=== PATIENT | female | born 1960 | race Caucasian/White ===

== ENCOUNTER 2022-07-21 10:46 | Outpatient (CLI) | payer BC, SELFPAY ==
--- OUTSIDE RECORDS SUMMARY | 2022-07-21 11:07 | XMS_ITS | Encounter Summary ---
:1960 [facility] Address [address], [place] [address] Care Team Providers Name Role Phone Bailey Arenas MD Primary Care Provider Encounter Details Date Type Department Care Team Description 01/24/2017 Notes/Orders [facility] Bailey Arenas MD [address] [place] [address] [place] [address] [phone] (Wo rk) Social History Tobacco Use Types Packs/Day Years Used Date Smoking Tobacco: Never Smokeless Tobacco: Never Alcohol Use Standard Drinks/Week Comments Yes 7 (1 standard drink = 0.6 oz pure alcoho l) weekly Sex Assigned at Date Recorded Not on file documented as of this encounter Plan of Treatment Not on filedocumented as of this encounter Visit Diagnoses Not on filedocumented in this encounter Care Teams Plumbing Foreman Relationship Specialty Start Date End Date Bailey Arenas MD PCP - General Internal Medicine 09/16/[address] [place] [address] documented as of this encounter
--- OUTSIDE RECORDS SUMMARY | 2022-07-21 11:07 | XMS_ITS | Clinical Summary ---
:1960 Author Organization [facility] [place] [address] Care Team Providers Name Role Phone Zoe Ivan MD Primary Care Provider Unavailabl e Allergies Active Allergy Reactions Severity Noted Date Comments Diphenhydramine 2010 Prochlorperazine 2010 Propoxyphene 2010 Medications No known medications Active Problems Problem Noted Date Other chronic allergic conjunctivitis 05/03/2014 Environmental allergies 05/03/2014 Adenomatous polyp of colon 12/25/2010 Overview: sessile serrated adenoma, on colonoscopy Hyperlipemia Immunizations Name Administration Dates Next Due Hepatitis A (Adult) 07/26/2001, 01/25/2001 Hepatitis B (Adult) 01/25/2001, 01/25/2001, 01/24/2001 Influenza, IIV3 (Age >=3 years) 09/01/2006, 08/01/2006, 1110/1998, 07/29/1999 Meningococcal Vaccine 02/06/2009, 08/31/2004, 01/25/2001 Polio Virus, Unspecified 01/25/2001 Td (Age >=7 Years) 01/25/2001 Tdap 02/06/2009 Tuberculin (PPD) 10/25/2005 Typhoid, Unspecified 02/02/2008, 08/31/2004 Yellow Fever 08/31/2004 Family History Medical History Relation Name Comments Hypertension Father Stroke Father Cancer Maternal Grandfather lung Psychiatric illness Maternal Grandfather depress ion Osteoporosis Maternal Grandmother Osteoporosis Mother Heart Disease Paternal Grandfather Osteoporosis Paternal Grandmother Stroke Paternal Grandmother Relation Name Status Comments Brother Alive Father Alive Maternal Grandfather Maternal Grandmother Mother Alive Paternal Grandfather Paternal Grandmother Social History Tobacco Use Types Packs/Day Years Used Date Never Smoker Smokeless Tobacco: Never Used Alcohol Use Standard Drinks/Week Comments Yes 4.2 (1 standard drink = 0.6 oz pure alco hol) Sex Assigned at Date Recorded Not on file Obstetrics History Last Filed Vital Signs Vital Sign Reading Time Taken Comments Blood Pressure 175/112 09/08/2016 4:05 PM LARDER COOK Pulse 88 09/08/2016 4:05 PM LARDER COOK Temperature 36.7 ??C (98 ??F) 03/10/2012 9:12 AM CDT Respiratory Rate - - Oxygen Saturation - - Inhaled Oxygen Concentration - - Weight 68.5 kg (151 lb) 03/10/2012 9:12 AM CDT Height 167 cm (5' 5.75) 03/10/2012 9:12 AM CDT Body Mass Index 24.56 03/10/2012 9:12 AM CDT Plan of Treatment Health Maintenance Due Date Last Done Comments COVID-19 vaccine series (#1) 1960 Depression screening for age 12+ 1971 BMI (ht and wt on same day) for 1977 age 18+ Hepatitis C screening for age 0603/27/1977 18-79 Zoster (shingles) series for age 0603/27/2009 50+ (1 of 2) Mammogram for age 45-75 2014 2013, 03/24/2012, 12/11/2010, Additional history exists Lipids for age 45-75 12/05/2015 12/04/2010 Tetanus booster 02/06/2019 02/06/2009, 01/25/2001 Colonoscopy through age 75 12/25/2020 12/25/2010, 1 Pap test for age 21-65 02/12/2022 02/12/2019, 02/12/2019, 12/04/2010, Additional history exists Influenza for age 50-64 06/03/2022 09/01/2006, 08/01/2006, 08/03/1999, Additional history exists Tdap Completed 02/06/2009 Results Not on filefrom Last 3 Months Care Teams Psychology Associate Relationship Specialty Start Date End Date Zoe Ivan MD PCP - General Family Practice 12/04/10
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
--- OUTSIDE RECORDS SUMMARY | 2022-07-21 11:07 | XMS_ITS | Encounter Summary ---
:1960 Author Organization [facility] Address [address] [address] Care Team Providers Name Role Phone Karlo Duenas MD Primary Care Provider Reason for Visit Reason Comments Refill lisinopril (ZESTRIL) 10 MG t ablet [Pharmacy Med Name: LISINOPRIL 10 MG TABLET] Encounter Details Date Type Department Care Team Description 10/22/2017 Refill [facility] Karlo Duenas MD Refill (lisinopril [address] (ZESTRIL) 10 [place] [address] [place] [address] [Pharmacy Med Name: [phone] (Wo rk) LISINOPRIL 10 MG TABLET]) Social History Tobacco Use Types Packs/Day Years Used Date Smoking Tobacco: Never Smokeless Tobacco: Never Alcohol Use Standard Drinks/Week Comments Yes 7 (1 standard drink = 0.6 oz pure alcoho l) weekly Sex Assigned at Date Recorded Not on file documented as of this encounter Nursing Notes Iraj Mendoza RN - 10/26/2017 10:31 AM CST Renewed medication per medication refill protocol. Requested Prescriptions Signed Prescriptions Disp Refills ??? lisinopril (ZESTRIL) 10 MG tablet 90 Tab 0 Sig: Take 1 Tab by mouth daily. Authorizing Provider: KARLO DUENAS Ordering User: IRAJ MENDOZA Refused Prescriptions Disp Refills ??? lisinopril (ZESTRIL) 10 MG tablet [Pharmacy Med Name: LISINOPRIL 10 MG TABLET] 90 Tab 0 Sig: TAKE 1 TAB BY MOUTH DAILY. Refused By: IRAJ MENDOZA Reason for Refusal: Duplicate Error TED PHYSICAL EDUCATION TEACHER Interface, Out Surescripts Prov Query - 10/22/2017 12:31 AM CST lisinopril (ZESTRIL) 10 MG tablet [Pharmacy Med Name: LISINOPRIL 10 MG TABLET] Medication started: 09/16/2016 Last ordered by KARLO DUENAS: 10/17/2017 (5 days ago) QTY: 90, Refills: 0, Sig: take 1 tab by mouth daily. (unchanged) -> The patient is requesting a renewal from a different pharmacy. -> Refill x 3 months (courtesy refill, overdue for a(n) Cr check and K check) Last qualifying visit: 12/20/2016 (with KARLO DUENAS) Next scheduled visit: 11/03/2017 (with KARLO DUENAS) SBP: 124 mm Hg on 12/20/2016 DBP: 72 mm Hg on 12/20/2016 Cr: 0.8 mg/dL on 10/11/2016 K: 4.2 mEq/L on 10/11/2016 PATIENT IS DUE FOR: - CR (Sent to [facility]) - K (Sent to [facility]) Powered by [employer], Reference: [id number], 10/22/2017 12:31:14 AM ADAPTED PHYSICAL EDUCATION TEACHER, Pool: JOSSIE REFILL ([id number]) Electronically signed by Interface, Out [facility] [employer] Prov Query at 10/26/2017 10:31 AM ADAPTED PHYSICAL EDUCATION TEACHER documented in this encounter Plan of Treatment Not on filedocumented as of this encounter Visit Diagnoses Diagnosis Essential hypertension (HRC) Unspecified essential hypertension documented in this encounter Care Teams Fork Truck Operator Relationship Specialty Start Date End Date Karlo Duenas MD PCP - General Internal Medicine 09/16/16 [address] [place] [address] documented as of this encounter
--- OUTSIDE RECORDS SUMMARY | 2022-07-21 11:07 | XMS_ITS | Encounter Summary ---
:1960 Author Organization [facility] Address [address] [address] Care Team Providers Name Role Phone Bailey Arenas MD Primary Care Provider Reason for Visit Reason Comments Biometrics Screening Encounter Details Date Type Department Care Team Description 09/22/2020 Office Visit [facility] Encounter for biometric [address] [facility] screening (Primary Dx) [place] [address] Social History Tobacco Use Types Packs/Day Years Used Date Smoking Tobacco: Never Smokeless Tobacco: Never Alcohol Use Standard Drinks/Week Comments Yes 7 (1 standard drink = 0.6 oz pure alcoho l) weekly Sex Assigned at Date Recorded Not on file documented as of this encounter Last Filed Vital Signs Vital Sign Reading Time Taken Comments Blood Pressure 128/82 09/22/2020 9:14 AM SYSTEM ADMINISTRATION ADVISOR Pulse 67 09/22/2020 9:14 AM SYSTEM ADMINISTRATION ADVISOR Temperature - - Respiratory Rate - - Oxygen Saturation - - Inhaled Oxygen Concentration - - Weight 74.4 kg (164 lb) 09/22/2020 9:07 AM SYSTEM ADMINISTRATION ADVISOR Height 167.6 cm (5' 6) 09/22/2020 9:07 AM SYSTEM ADMINISTRATION ADVISOR Body Mass Index 26.47 09/22/2020 9:07 AM SYSTEM ADMINISTRATION ADVISOR documented in this encounter Progress Notes Arpita Gallardo PA-C - 09/22/2020 9:20 AM CST SUBJECTIVE: Shonna Bashir presents to [facility] for Biometric Screening. Patient is fasting at least 12 hours today and denies any medical concerns or problems. Allergies, medications and histories reviewed and updated. OBJECTIVE: BP 128/82 (BP Location: Right Arm, BP Cuff Size: Regular) Pulse 67 Ht 5' 6 (1.676 m) Wt 164 lb (74.4 kg) LMP 04/11/2014 BMI 26.47 kg/m?? Estimated body mass index is 26.47 kg/m?? as calculated from the following: Height as of this encounter: 5' 6 (1.676 m). Weight as of this encounter: 164 lb (74.4 kg). She appears well, in no apparent distress. Alert and oriented times three, pleasant and cooperative.Vital signs are as noted. Normal respiratory effort. No peripheral edema. ASSESSMENT: Biometric Screening PLAN: Biometric screening performed without problems or complications. Discussed Biometric results with patient. Lipid-glucose POC results are incomplete with no LDL however she had fasting labs checked in March 2020 and results were normal per patient. Her HDL is high most likely causing Total Cholesterol to be high. She has history of Hyperlipidemia and takes Rosuvastatin daily, managed by PCP at [facility]. Patient is encouraged to follow up at clinic as needed. EM ADMINISTRATION ADVISOR documented in this encounter Plan of Treatment Not on filedocumented as of this encounter Procedures Procedure Name Priority Date/Time Associated Diagnosis Comme nts LIPID+GLUCOSE Routine 09/22/2020 9:04 AM Encounter for Results for this SCREEN,POINT OF SYSTEM ADMINISTRATION ADVISOR biometric screening proce kt are in CARE the results section. documented in this encounter Results (ABNORMAL) Lipid+Glucose Screen,Point Of Care (09/22/2020 9:04 AM SYSTEM ADMINISTRATION ADVISOR) P athologist Signature Cholesterol, 242 (H) 0 - 199 09/22/2020 [facility] Whole Blood mg/dL 9:12 AM SYSTEM ADMINISTRATION ADVISOR [place] Triglyceride, <45 0 - 149 09/22/2020 [facility] Whole Blood mg/dL 9:12 AM SYSTEM ADMINISTRATION ADVISOR [place] HDL, Whole >100 >40 mg/dL 09/22/2020 [facility] Blood 9:12 AM SYSTEM ADMINISTRATION ADVISOR [place] LDL, 09/22/2020 [facility] Calculated, 9:12 AM SYSTEM ADMINISTRATION ADVISOR [place] Whole Blood Comment: Unable to calculate Chol/HDL Ratio, Whole Blood 09/22/2020 9 :12 AM SYSTEM ADMINISTRATION ADVISOR [facility] [place] Comment: Unable to calculate Glucose Whole Blood 83 70 - 100 mg/dL 09/22/2020 9:12 AM SYSTEM ADMINISTRATION ADVISOR [facility] [place] Hours Fasting 12 09/22/2020 9:12 AM SYSTEM ADMINISTRATION ADVISOR [facility] [place] Specimen Anatomical Collection Method / Collection Time Recei marsha Time (Source) Location / Volume Laterality Blood Venipuncture / 09/22/2020 9:04 09/22/2020 9:04 Unknown AM SYSTEM ADMINISTRATION ADVISOR AM SYSTEM ADMINISTRATION ADVISOR Arpita Gallardo PA-C LAB_1 Performing Organization Address City/State/ZIP Code Phon e Number [facility] [place] [address] [place] [address] documented in this encounter Visit Diagnoses Diagnosis Encounter for biometric screening - Prim babak documented in this encounter Care Teams Screen Printing Machine Loader Unloader Relationship Specialty Start Date End Date Bailey Arenas MD PCP - General Internal Medicine 09/16/16 [address] [place] [id number] documented as of this encounter
--- OUTSIDE RECORDS SUMMARY | 2022-07-21 11:07 | XMS_ITS | Encounter Summary ---
:1960 Author Organization [facility] Address [address], [place] [address] Care Team Providers Name Role Phone Bailey Arenas MD Primary Care Provider Reason for Visit Reason Comments Disease Registry Encounter Details Date Type Department Care Team Description 03/06/2021 Telephone [facility] Arpita Byrne, Disease Registry [address] [place] [address] [address] [facility] [phone] [place] [address] (Wo rk) Social History Tobacco Use Types Packs/Day Years Used Date Smoking Tobacco: Never Smokeless Tobacco: Never Alcohol Use Standard Drinks/Week Comments Yes 7 (1 standard drink = 0.6 oz pure alcoho l) weekly Sex Assigned at Date Recorded Not on file documented as of this encounter Nursing Notes Arpita Gallardo PA-C - 03/06/2021 10:23 AM CDT Shonna Bashir was contacted today regarding Registry for Health Maintenance. Patient did not answer phone so the registry outreach is NOT APPLICABLE at this time. Health Maintenance Due Topic Date Due ??? Hep C Screening (Preventive Services) Never done ??? HIV Screening (Preventive Services) Never done ??? Colonoscopy 12/25/2020 ??? Mammogram 03/03/2021 ??? Adult Preventive Visit 03/03/2021 Left message that patient can make appt with [facility] by calling the AC if needed. Arpita Gallardo PA-C documented in this encounter Plan of Treatment Not on filedocumented as of this encounter Visit Diagnoses Not on filedocumented in this encounter Care Teams Rn Documentation Specialist Relationship Specialty Start Date End Date Bailey Arenas MD PCP - General Internal Medicine 09/16/16 [address] [place] [address] documented as of this encounter
--- OUTSIDE RECORDS SUMMARY | 2022-07-21 11:07 | XMS_ITS | Encounter Summary ---
:1960 Author Organization [facility] Address [address], [place] [address] Care Team Providers Name Role Phone Karlo Duenas MD Primary Care Provider Encounter Details Date Type Department Care Team Description 10/22/2017 Refill Order [facility] Karlo Sung MD [address] [place] [address] [place] [id number] (Wo rk) Social History Tobacco Use Types Packs/Day Years Used Date Smoking Tobacco: Never Smokeless Tobacco: Never Alcohol Use Standard Drinks/Week Comments Yes 7 (1 standard drink = 0.6 oz pure alcoho l) weekly Sex Assigned at Date Recorded Not on file documented as of this encounter Nursing Notes Becky Salgado - 10/24/2017 11:32 AM CST Labs to be addressed at future visit. SEWER HAND Interface, Out Surescripts Prov Query - 10/22/2017 12:31 AM CST SCHEDULE THE FOLLOWING: - CR BY: Now (Due as of 10/06/2017 for lisinopril (ZESTRIL) 10 MG tablet) - K BY: Now (Due as of 10/06/2017 for lisinopril (ZESTRIL) 10 MG tablet) - LAST QUALIFYING VISIT WITH KARLO DUENAS: 12/20/2016 - NEXT SCHEDULED VISIT WITH KARLO DUENAS: 11/03/2017 - NEXT LAB APPOINTMENT: None Powered by [employer], Reference: [id number], 10/22/2017 12:31:15 AM SOLE SEWER HAND, Pool: JOSSIE CHUNGILL ([id number]) SEWER HAND documented in this encounter Plan of Treatment Not on filedocumented as of this encounter Visit Diagnoses Diagnosis Encounter for long-term (current) use of medications - Primary Encounter for long-term (current) use of other medications documented in this encounter Care Teams Control Director Relationship Specialty Start Date End Date Karlo Duenas MD PCP - General Internal Medicine 09/16/16 [address] [place], [place] [address] documented as of this encounter
--- OUTSIDE RECORDS SUMMARY | 2022-07-21 11:08 | XMS_ITS | Encounter Summary ---
:1960 Author Organization [facility] Address [address], [place] [address] Care Team Providers Name Role Phone No Primary/Referring, Phy Primary Care Provider Unavailable Reason for Visit Reason Comments Skin Check Encounter Details Date Type Department Care Team Description 07/09/2016 Initial Consult [facility] [address] iple benign nevi (Primary Dx); Dermatology SMD Seborrheic keratosis; [address] Actinic keratosis; [address] [place], [place] History of nonmelanoma skin cancer; [place] [address] Skin tag [id number] [phone] Social History Tobacco Use Types Packs/Day Years Used Date Smoking Tobacco: Never Smokeless Tobacco: Never Alcohol Use Standard Drinks/Week Comments Yes 7 (1 standard drink = 0.6 oz pure alcoho l) weekly Sex Assigned at Date Recorded Not on file documented as of this encounter Progress Notes Rachid Rutledge MD - 07/09/2016 7:41 PM CDT NAME: MARTIN BASHIR MR#: [id number] CSN: [id number] AUTHENTICATING CLINICIAN: Rachid Rutledge MD CONFIRM #: [id number] LOC: 427 CLINIC PROGRESS NOTE DATE OF VISIT: 07/09/2016 : 1960 HISTORY OF PRESENT ILLNESS: Patient is a 56-year-old who presents for followup. She has a history of basal cell carcinoma in left paranasal area. Overall she is doing well. She has noticed irritated areas on the right side of herneck. She would like these treated if possible. She has not noticed any other new or changing moles.No other bleeding or pruritic lesions. No other skin lesions of concern. MEDICATIONS: Reviewed and updated in Epic. ALLERGIES: Reviewed and updated in Epic. PHYSICAL EXAM: Patient healthy-appearing and in no apparent distress. Exam is total skin, excluding undergarment areas. There is a hypertrophic papule on the right forearm. There are 3 pedunculated papules on the right inferior neck. There are light brown macules and papules on the trunk. There are numerous waxy, brown papules on the back. There is a well-healed scar onthe left paranasal area without induration or evidence of recurrence. No other skin lesions of concern. DIAGNOSIS: 1.Irritated acrochordons, right inferior neck. 2.Hypertrophic actinic keratosis, right forearm. 3.Melanocytic nevi and seborrheic keratoses, trunk and extremities. 4.History of basal cell carcinoma, left paranasal area. TREATMENT: 1.Clinical findings were discussed. 2.The hypertrophic actinic keratosis was treated with cryotherapy. Wound care was given. 3.The 3 acrochordons were treated with cryotherapy. Wound care was given. 4.No other concerning lesions were seen. 5.Recommended sunscreens and skin checks. 6.Followup will be annually or as needed. DSE:MEDQ C: CONFIRM #: [id number] documented in this encounter Plan of Treatment Not on filedocumented as of this encounter Visit Diagnoses Diagnosis Multiple benign nevi - Primary Benign neoplasm of skin, site unspecifie d Seborrheic keratosis Other seborrheic keratosis Actinic keratosis History of nonmelanoma skin cancer Personal history of other malignant neop lasm of skin Skin tag Unspecified hypertrophic and atrophic co ndition of skin documented in this encounter Care Teams Instructor Military Science Relationship Specialty Start Date End Date No Primary/Referring, Phy PCP - General 06/03/16 1 11/16/15 documented as of this encounter
--- OUTSIDE RECORDS SUMMARY | 2022-07-21 11:08 | XMS_ITS | Encounter Summary ---
:1960 Author Organization [facility] Address [address] [address] Care Team Providers Name Role Phone No Primary/Referring, Phy Primary Care Provider Unavailable Encounter Details Date Type Department Care Team Description 03/06/2015 Lab Visit [facility] Elevated blood pressure [address] reading without diagnosis of [place] [address] hypertension [phone] Social History Tobacco Use Types Packs/Day Years Used Date Smoking Tobacco: Never Assessed Sex Assigned at Date Recorded Not on file documented as of this encounter Plan of Treatment Not on filedocumented as of this encounter Procedures Procedure Name Priority Date/Time Associated Diagnosis Comme nts CREATININE / GFR Routine 03/06/2015 3:36 PM Elevated blood Res ults for this CDT pressure reading procedure a re in without diagnosis of the res ults hypertension section. ELECTROLYTE PANEL Routine 03/06/2015 3:36 PM Elevated blood Re sults for this CDT pressure reading procedure a re in without diagnosis of the res ults hypertension section. documented in this encounter Results Electrolyte Panel (03/06/2015 3:36 PM CDT) P athologist Signature Sodium 140 137 - 147 HP CONVERSION mEq/L Potassium 4.7 3.5 - 5.2 HP CONVERSION mEq/L Chloride 103 98 - 110 HP CONVERSION mEq/L Bicarbonate 33 23 - 33 HP CONVERSION mmol/L Specimen Anatomical Collection Method Collection Time Receive d Time (Source) Location / / Volume Laterality 03/06/2015 3:36 PM 06/04/201 5 5:15 CDT PM CDT Narrative HP CONVERSION - 03/06/2015 5:46 PM CDT Performed at [facility], [address] [id number] Bailey Arenas MD LAB_1 Performing Organization Address [facility] Phon e Number HP CONVERSION Creatinine / GFR (03/06/2015 3:36 PM CDT) athologist Signature Creatinine 0.8 0.4 - 1.3 HP CONVERSION Serum mg/dL Est GFR >60 >60 HP CONVERSION Am mL/min/1.7 3m2 Est GFR Non-Afr >60 >60 HP CONVERSION Am mL/min/1.7 3m2 Comment: Normal>60, moderate decrease 30 - 59, se danny decrease 15 - 29, renal failure <15 mL/min/1.73 m2 NOTE: ??Choose the eGFR result above alisha ropriate for the race of the patient. Specimen Anatomical Collection Method Collection Time Receive d Time (Source) Location / / Volume Laterality 03/06/2015 3:36 PM 5 5:15 CDT PM CDT Narrative HP CONVERSION - 03/06/2015 5:46 PM CDT Performed at [facility], [address] [place] [address] Bailey Arenas MD LAB_1 Performing Organization Address [facility] Phon e Number HP CONVERSION documented in this encounter Visit Diagnoses Diagnosis Elevated blood pressure reading without diagnosis of hypertension documented in this encounter Care Teams Delivery Table Operator Relationship Specialty Start Date End Date No Primary/Referring, Phy PCP - General 12/03/14 documented as of this encounter
--- OUTSIDE RECORDS SUMMARY | 2022-07-21 11:08 | XMS_ITS | Encounter Summary ---
:1960 [facility] Address [address] [address] Care Team Providers Name Role Phone Bailey Arenas MD Primary Care Provider Encounter Details Date Type Department Care Team Description 09/16/2016 Notes/Orders [facility] Bailey Arenas MD [address] [place] [address] [place] [address] [phone] (Wo rk) Social History Tobacco Use Types [...] on filedocumented in this encounter Care Teams Paperhanger Supervisor Relationship Specialty Start Date End Date Bailey Arenas MD PCP - General Internal Medicine 09/16/[address] [place] [id number] documented as of this encounter
--- OUTSIDE RECORDS SUMMARY | 2022-07-21 11:08 | XMS_ITS | Encounter Summary ---
:1960 Author Organization [facility] Address [address] [address] Care Team Providers Name Role Phone No Primary/Referring, Phy Primary Care Provider Unavailable Reason for Visit Reason Onset Date Comments Travel Consult 06/03/2016 Encounter Details Date Type Department Care Team Description 06/03/2016 Initial Consult [facility] [address] unseling for travel (Primary Dx); Travel Clinic RN Need for influenza vaccination; [address] for vaccine for DT (diphtheria-tetanus); [address] [place] [address] [phone] Social History Tobacco Use Types Packs/Day Years Used Date Smoking Tobacco: Never Smokeless Tobacco: Never Alcohol Use Standard Drinks/Week Comments Yes 7 (1 standard drink = 0.6 oz pure alcoho l) weekly Sex Assigned at Date Recorded Not on file documented as of this encounter Progress Notes Blessing Thacker RN - 06/03/2016 2:54 PM CDT Subjective: @[email or web address] Bowens Krysten is a 56 y.o. female who presents to the clinic for travel consultation individually. TRAVEL PLANS Planned departure date: June 22, 2016 Time in developing countries: 15 days. Countries of travel: [place] and rurally in [facility], [place] Areas in country: rural and urban Traveling to Malarial area: yes Time in malarial area: 11 days. Reviewed Malarial risk map: yes Prior malarial chemoprophylaxis use: Yes, izzy Malarone well prev and prefers this rx again, is awareof cost and is willing to self pay, may have 2nd trip to same locations next year for 14 days risk, will order 2 separate Malarone rxs, one rx for this trip of 11 days and 2nd rx for possible use next year for 14 days risk Traveling to Yellow Fever area: no Accommodations: [employer] Purpose of travel: business PRIOR HEALTH HISTORY Currently ill / Fever: no Currently taking antibiotics: no History of liver or kidney disease: No History of anxiety or depression: No History of cardiac arrhythmia or rhythm conduction abnormalities (QT prolongation): No History of GERD/IBS: No History of cancer: yes - skin cancer prev Currently immune compromised or taking high dose steroids: No Other relevant travel health history: yes - see problem list Patient Active Problem List Diagnosis ??? Personal history of skin cancer ??? Day-menopause ??? Essential hypertension (HRC) Allergies Allergen Reactions ??? Compazine [Phenothiazines] Unknown ??? Darvon-N [Propoxyphene Napsylate] Unknown ??? Diphenhydramine PN: Pt. states she was a child and does not remember. ??? Prochlorperazine ??? Propoxyphene Outpatient Prescriptions Prior to Visit Medication Sig Dispense Refill ??? acetaminophen (TYLENOL) 325 MG tablet Take 650 mg by mouth every 4 hours as needed for Pain. Maximum 4000mg per 24 hours ??? aspirin 325 MG tablet Take 325 mg by mouth daily (every 24 hours). ??? DRUG NOT IN COMPUTER Take by mouth 3 times daily. ??? ibuprofen (MOTRIN) 200 MG tablet Take 400 mg by mouth every 6 hours as needed for Pain. ??? estradiol 10 MCG TABS vaginal tablet Use 1 tablet once daily vaginally for 14 days then 1 tablettwice a week. 34 tablet 0 ??? loratadine (CLARITIN) 10 MG tablet Take 10 mg by mouth daily (every 24 hours). ??? MULTIPLE VITAMIN OR ??? Multiple Vitamins-Minerals (MULTIVITAMIN OR) Take 1 tablet by mouth daily (every 24 hours). ??? omega-3 fatty acids (AKA MAXEPA,FISH OIL) 1000 MG capsule Take 2 g by mouth daily. No facility-administered medications prior to visit. Is the patient ? no ? no Assessment: Contraindications to travel: no Plan: PATIENT EDUCATION Patient was given verbal and/or written information about: Rahat Influenza, Chikungunya, Dengue Fever, Diphtheria/Tetanus, Hepatitis A, Hepatitis B, HIV, Influenza, Insect-related illnesses and prevention, Turkish Encephalitis, Leishmaniasis, Leptospirosis, Malaria, MMR, Polio, Rabies--pre-exposure sc hedule, Rabies--post-exposure schedule, Seafood Poisoning, Sexually Transmitted Diseases, Travax/CDCinformation, Traveler's Diarrhea, Typhoid, Zika HFMD. Reviewed vaccine schedule and efficacy. Patient was also provided information about health care and insurance information while traveling abroad. Patient appears to understand all the information provided. Discussed the use of Pepto Bismol and Imodium (follow package insert) See below for vaccines and medications ordered this visit. Patient had no reaction. Patient declined: Shingles FOLLOW UP No labs ordered. No follow-up visit needed. Time spent on travel education Individual or Group counselin minutes. Total appointment time: 30 minutes. IMMUNIZATIONS AND PRESCRIPTIONS Immunization counseling was provided for the vaccines that were administered at the visit No orders of the defined types were placed in this encounter. Orders Placed This Encounter Medications ??? atovaquone-proguanil (MALARONE) 250-100 MG tablet Sig: Take 1 tab 2 days before malarial mosquito exposure, daily while there, and 7 days after. Dispense: 23 Tab Refill: 0 Discussed Malarone rx prices. Pt is aware of the cost of Malarone. Pt will pay davila for Malarone rxif needed. No PA needed. ??? azithromycin (ZITHROMAX) 500 MG tablet Sig: Take 1 tab daily as needed for severe traveler's diarrhea Dispense: 3 Tab Refill: 1 ??? atovaquone-proguanil (MALARONE) 250-100 MG tablet Sig: Take 1 tab daily. Start 2 days before malarial mosquito exposure, daily while there and continue for 7 days after leaving. Dispense: 20 Tab Refill: 0 2rxs needed for 2 different trips Immunization History Administered Date(s) Administered ??? Chicken Pox-history Of Illness 1964 ??? Flu Vac Preserv Free (3+yrs) 08/03/2005, 09/01/2006, 08/01/2008 ??? HepA Adult (19+ yrs) 01/25/2001, 07/27/2001 ??? HepB Adult (20+ yrs) 01/25/2001, 02/22/2001, 07/27/2001 ??? IPV (Polio) 01/25/2001 ??? Influenza (Fluarix 0.5, 3+ yrs) 06/18/2014, 06/03/2016 ??? MCV4 (Menactra) 02/06/2009 ??? MMR 10/02/1996 ??? MPSV4 (Menomune) 01/25/2001, 08/31/2004 ??? Measles 10/03/1964 ??? Rubella 11/03/1969 ??? TB Skin Test (PPD) 10/25/2005 ??? TDAP (ADACEL) 02/06/2009 ??? Td 01/25/2001 ??? Td (7+ yrs) 06/03/2016 ??? Typhoid (Vivotif, Oral) 08/31/2004, 02/02/2008, 08/02/2014 ??? YF (Yellow Fever) 08/31/2004 documented in this encounter Plan of Treatment Not on filedocumented as of this encounter Visit Diagnoses Diagnosis Counseling for travel - Primary Other specified counseling Need for influenza vaccination Need for prophylactic vaccination and in oculation against influenza Need for vaccine for DT (diphtheria-teta nus) Need for prophylactic vaccination with t etanus-diphtheria (Td) Counseling about travel documented in this encounter Care Teams Tool Adjuster Relationship Specialty Start Date End Date No Primary/Referring, Phy PCP - General 06/03/16 1 11/16/15 documented as of this encounter
--- OUTSIDE RECORDS SUMMARY | 2022-07-21 11:08 | XMS_ITS | Encounter Summary ---
:1960 [facility] Address [address] [place] [address] Care Team Providers Name Role Phone Bailey Arenas MD Primary Care Provider Encounter Details Date Type Department Care Team Description 12/03/2012 Consent for [facility] MRI CON SENT FOR Procedure/[facility], [facility] nt [address] [facility] Provider [place], [place] [id number] Social History Tobacco Use Types Packs/Day Years Used Date Smoking Tobacco: Never Assessed Sex Assigned at Date Recorded Not on file documented as of this encounter Progress Notes [facility], Provider - 12/03/2012 12:00 AM CST NG BLOCK CUTTER documented in this encounter Plan of Treatment Not on filedocumented as of this encounter Visit Diagnoses Not on filedocumented in this encounter Care Teams Pretzel Cooker Relationship Specialty Start Date End Date Bailey Arenas MD PCP - General Internal Medicine 09/16/[address] [phone] documented as of this encounter
--- OUTSIDE RECORDS SUMMARY | 2022-07-21 11:08 | XMS_ITS | Encounter Summary ---
:1960 Author [facility] Address [address], [place] [address] Care Team Providers Name Role Phone Bailey Arenas MD Primary Care Provider Reason for Visit Reason Comments MEDICATION CHECK Encounter Details Date Type Department Care Team Description 12/20/2016 Office Visit [facility] Bailey Arenas, Essential hypertension Medicine (Primary Dx) [address] [place] [address] [address] [place] [address] [phone] Social History Tobacco Use Types Packs/Day Years Used Date Smoking Tobacco: Never Smokeless Tobacco: Never Alcohol Use Standard Drinks/Week Comments Yes 7 (1 standard drink = 0.6 oz pure alcoho l) weekly Sex Assigned at Date Recorded Not on file documented as of this encounter Last Filed Vital Signs Vital Sign Reading Time Taken Comments Blood Pressure 124/72 12/20/2016 1:56 PM CDT Pulse 96 12/20/2016 1:56 PM CDT Temperature - - Respiratory Rate - - Oxygen Saturation - - Inhaled Oxygen Concentration - - Weight 73 kg (161 lb) 12/20/2016 1:56 PM CDT Height - - Body Mass Index 25.99 03/30/2016 2:37 PM CDT documented in this encounter Progress Notes Bailey Arenas MD - 12/20/2016 2:10 PM CDT Chief Complaint Patient presents with ??? MEDICATION CHECK SUBJECTIVE: Shonna Bashir is a 56 y.o. female here for a med check for blood pressure. She started lisinopril in September. She is now on 10 mg daily and BP is 124/72. She had some higher readings initially when her dad was in the hospital but he is doing better now. 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 She is feeling well and has no issues with lisinopril. OBJECTIVE: Vital Signs: BP 124/72 mmHg Pulse 96 Wt 73.029 kg (161 lb) General: Alert, pleasant, no distress. Psych: Alert and oriented with normal affect and insight. ASSESSMENT AND PLAN: Shonna was seen today for medication check. Diagnoses and all orders for this visit: Essential hypertension (HRC): BP looks good on 10 mg of lisinopril - continue. Follow up - one year documented in this encounter Plan of Treatment Not on filedocumented as of this encounter Visit Diagnoses Diagnosis Essential hypertension (HRC) - Primary Unspecified essential hypertension documented in this encounter Care Teams Synchro Assembler Relationship Specialty Start Date End Date Bailey Arenas MD PCP - General Internal Medicine 09/16/[address] [place] [id number] documented as of this encounter
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
--- OUTSIDE RECORDS SUMMARY | 2022-07-21 11:08 | XMS_ITS | Encounter Summary ---
:1960 Author Organization [facility] Address [address] [place] [address] Care Team Providers Name Role Phone Bailey Arenas MD Primary Care Provider Encounter Details Date Type Department Care Team Description 12/03/2012 Consent for [facility] MRI SAF ETY Procedure/[facility], SCREENING CONSENT nt [address] [facility] Provider [place], [place] [id number] Social History Tobacco Use Types Packs/Day Years Used Date Smoking Tobacco: Never Assessed Sex Assigned at Date Recorded Not on file documented as of this encounter Progress Notes [facility], Provider - 12/03/2012 12:00 AM CST E WASHER documented in this encounter Plan of Treatment Not on filedocumented as of this encounter Visit Diagnoses Not on filedocumented in this encounter Care Teams Oilfield Plant And Field Operator Relationship Specialty Start Date End Date Bailey Arenas MD PCP - General Internal Medicine 09/16/[address] [phone] documented as of this encounter
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
--- OUTSIDE RECORDS SUMMARY | 2022-07-21 11:08 | XMS_ITS | Encounter Summary ---
:1960 Author Organization [facility] Address [address] [place] [address] Care Team Providers Name Role Phone Bailey Arenas MD Primary Care Provider Reason for Visit Reason Comments HYPERTENSION Encounter Details Date Type Department Care Team Description 09/30/2016 Notes/Orders [facility] Bailey Arenas MD [address] [place] [address] [place] [address] [phone] (Wo rk) Social History Tobacco Use Types [...] on filedocumented in this encounter Care Teams Solution Developer Relationship Specialty Start Date End Date Bailey Arenas MD PCP - General Internal Medicine 09/16/16[address] [id number] documented as of this encounter
--- OUTSIDE RECORDS SUMMARY | 2022-07-21 11:08 | XMS_ITS | Encounter Summary ---
:1960 Author Organization [facility] Address [address] [address] Care Team Providers Name Role Phone Bailey Arenas MD Primary Care Provider Reason for Visit Reason Onset Date Comments Refill 11/07/2016 Encounter Details Date Type Department Care Team Description 11/07/2016 Refill [facility] Bailey Sung MD Refill [address] [place] [address] [place] [address] [phone] (Wo rk) Social History Tobacco Use Types Packs/Day Years Used Date Smoking Tobacco: Never Smokeless Tobacco: Never Alcohol Use Standard Drinks/Week Comments Yes 7 (1 standard drink = 0.6 oz pure alcoho l) weekly Sex Assigned at Date Recorded Not on file documented as of this encounter Nursing Notes Arpita Garcia RN - 11/07/2016 8:55 AM BUSINESS MGR From: Shonna Bashir To: Bailey Arenas MD Sent: 11/07/2016 8:49 AM BUSINESS MGR Subject: Medication Renewal Request Original authorizing provider: MD Shonna Rivers Kwan Bashir would like a refill of the following medications: lisinopril (ZESTRIL) 5 MG tablet [Bailey Arenas MD] Preferred pharmacy: [facility] [address] [facility] [address] [facility] [address] Comment: Dear Dr Arenas I attempted to refill my lisinopril at [facility] in [place]. I was denied. I am now out of the lisinopril and leave next Tuesday for 3 weeks in [place]. I can tell a difference by taking this medicine and would really like to get a refill. Please advise. I was under the understanding Ihad a years refill. Thank you! Shonna NESS MGR documented in this encounter Plan of Treatment Not on filedocumented as of this encounter Visit Diagnoses Diagnosis Essential hypertension (HRC) Unspecified essential hypertension documented in this encounter Care Teams Cadd Operator Relationship Specialty Start Date End Date Bailey Arenas MD PCP - General Internal Medicine 09/16/16 [address] [place] [address] documented as of this encounter
--- OUTSIDE RECORDS SUMMARY | 2022-07-21 11:08 | XMS_ITS | Encounter Summary ---
:1960 Author Organization [facility] Address [address] [address] Care Team Providers Name Role Phone No Primary/Referring, Phy Primary Care Provider Unavailable Encounter Details Date Type Department Care Team Description 04/19/2016 Notes/Orders [facility] Bailey Snug MD [address] [facility] [place] [address] [place] [address] [phone] (Wo rk) Social History Tobacco Use Types Packs/Day Years Used Date Smoking Tobacco: Never Assessed Sex Assigned at Date Recorded Not on file documented as of this encounter Plan of Treatment Not on filedocumented as of this encounter Visit Diagnoses Not on filedocumented in this encounter Care Teams Dining Service Supervisor Relationship Specialty Start Date End Date No Primary/Referring, Phy PCP - General 12/03/14 documented as of this encounter
--- OUTSIDE RECORDS SUMMARY | 2022-07-21 11:08 | XMS_ITS | Encounter Summary ---
:1960 Author Organization [facility] Address [address] [place] [address] Care Team Providers Name Role Phone Bailey Arenas MD Primary Care Provider Encounter Details Date Type Department Care Team Description 11/11/2016 Notes/Orders [place] [facility] Bailey Arenas MD [address] [place] [address] [place] [phone] (Wo rk) Social History Tobacco Use Types Packs/Day Years Used Date Smoking Tobacco: Never Smokeless Tobacco: Never Alcohol Use Standard Drinks/Week Comments Yes 7 (1 standard drink = 0.6 oz pure alcoho l) weekly Sex Assigned at Date Recorded Not on file documented as of this encounter Progress Notes Megan Kim LPN - 11/11/2016 4:30 PM CST Pt is going to [place] for a month. Will try to get before she leaves for a BP check, otherwise when she returns. LE CLERK documented in this encounter Plan of Treatment Not on filedocumented as of this encounter Visit Diagnoses Not on filedocumented in this encounter Care Teams Lumber Tripper Relationship Specialty Start Date End Date Bailey Arenas MD PCP - General Internal Medicine [address] [place] [address] documented as of this encounter
--- OUTSIDE RECORDS SUMMARY | 2022-07-21 11:08 | XMS_ITS | Encounter Summary ---
:1960 Author [facility] Address [address] [facility] [place] [address] Care Team Providers Name Role Phone Bailey Arenas MD Primary Care Provider Encounter Details Date Type Department Care Team Description 12/03/2012 Consent for [facility] LV MRI SAF ETY Procedure/[facility], SCREENING CONSENT nt [address] [facility] Provider [place], [place] [id number] Social History Tobacco Use Types Packs/Day Years Used Date Smoking Tobacco: Never Assessed Sex Assigned at Date Recorded Not on file documented as of this encounter Progress Notes [facility], Provider - 12/03/2012 12:00 AM CST ENTRY TECHNICIAN documented in this encounter Plan of Treatment Not on filedocumented as of this encounter Visit Diagnoses Not on filedocumented in this encounter Care Teams Ultrasound Applications Specialist Relationship Specialty Start Date End Date Bailey Arenas MD PCP - General Internal Medicine 09/16/[address] [id number] documented as of this encounter
--- OUTSIDE RECORDS SUMMARY | 2022-07-21 11:08 | XMS_ITS | Encounter Summary ---
:1960 Author Organization [facility] Address [address] [address] Care Team Providers Name Role Phone Bailey Arenas MD Primary Care Provider Reason for Visit Reason Comments Establish Care Encounter Details Date Type Department Care Team Description 04/19/2013 Office Visit Bailey Waters, Word find ing difficulty (Primary Dx); Medicine Day-menopause [address] [place] [address] [place] [address] [phone] Social History Tobacco Use Types Packs/Day Years Used Date Smoking Tobacco: Never Assessed Sex Assigned at Date Recorded Not on file documented as of this encounter Last Filed Vital Signs Vital Sign Reading Time Taken Comments Blood Pressure 138/81 04/19/2013 10:27 AM CDT Pulse 78 04/19/2013 10:27 AM CDT Temperature - - Respiratory Rate - - Oxygen Saturation - - Inhaled Oxygen Concentration - - Weight 69.4 kg (153 lb) 04/19/2013 10:27 AM CDT Height 167.6 cm (5' 6) 04/19/2013 10:27 AM CDT Body Mass Index 24.69 04/19/2013 10:27 AM CDT documented in this encounter Patient Instructions Patient InstructionsSintia Brown RN - 04/19/2013 10:31 AM CDT Thank you for enrolling in [facility]. Please follow the instructions below to securely access your online medical record. [facility] allows you to send messages to your doctor, view your test results, renewyour prescriptions, schedule appointments, and more. How Do I Sign Up? 1. In your Internet browser, go to: [email or web address] 2. Click on the Enter Activation Code link under the New User? section. You will see the New Member Sign Up page. 3. Enter your [facility] Activation Code exactly as it appears below. You will not need to use this code after you???ve completed the sign-up process. If you do not sign up before the expiration date, youmust request a new code. [facility] Activation Code: [email or web address] Expires: 05/19/2013 10:31 AM 4. Enter the last four digits of your Social Security Number ([id number]) and Date of (mm/dd/yyyy) as indicated and click Next. You will be taken to the next sign-up page. 5. Create a [facility] ID. This will be your [facility] login ID and cannot be changed, so think of one that is secure and easy to remember. 6. Create a [facility] password. You can change your password at any time. 7. Enter your Security Question and Answer. This can be used at a later time if you forget your password. Click Next. 8. Enter your e-mail address. You will receive e-mail notification when new information is availablein [facility]. 9. Click Sign In. You can now view your medical record. Additional Information If you have questions, you can call [phone] to talk to our [facility] staff. Remember, [facility] is NOT to be used for urgent needs. For medical emergencies, dial 911. documented in this encounter Progress Notes Bailey Arenas MD - 04/19/2013 12:27 PM CDT Subjective: Shonna Bashir is an 53 y.o. female who presents for evaluation of Establish Care She was previously seen at [facility]. Word-finding difficulty: Spent a morning in [facility] last September for this, had MRIs, etc.[place] like her thoughts didn't connect well together. BP was high. Thorough workup was done and normal. Still notices this from time to time. No trouble with memory, finances, work, etc. Family history of stroke, including father and a paternal uncle at young ages. MRI normal, but she was started on a baby aspirin for prevention. Records requested. Menopause symptoms: Last period was in January, had been fairly regular before that (would miss a month here and there). Had hot flashes January - March; initially just at night and later during the day as well. Now hasn't had any for the last 2 weeks. Is using [employer] oils (neymar, geranium) on abdomen and thinks it helps. Once a month has urinary urgency for about a week, then it passes and she's fine. Possibly getting arthritis in hands, especially left 5th finger. Grandmothers both had OA. Mammogram was done in 2013. Pap smear was done 12/24/2010 at [facility] and was normal. No history of abnormals. Colonoscopy done at in 2010 with apparently a sessile serrated adenoma; she isn't sure when she's supposed to repeat it (suspect 5 years). Patient Active Problem List Diagnosis ??? Personal history of skin cancer Outpatient Prescriptions Prior to Visit Medication Sig ??? multivitamin (THERAGRAN) tablet Take 1 tablet by mouth daily (every 24 hours). ??? op medications reviewed No facility-administered medications prior to visit. Adverse drug reactions: Diphenhydramine hcl; Prochlorperazine maleate; and Propoxyphene hcl Objective: Vital Signs: BP 138/81 Pulse 78 Ht 5' 6 (1.676 m) Wt 153 lb (69.4 kg) BMI 24.71 kg/m2 General: Pleasant female, alert, in NAD. Psychiatric: Alert & oriented with normal affect and insight. Assessment and plan: Shonna was seen today for [facility] care. Health history reviewed and [facility] in [facility]. Diagnoses and associated orders for this visit: Word finding difficulty: Without any other concerning features, would not pursue formal testing at this point, although it was offered. She had a full workup already including brain MRI/A and those results have been requested. She'll continue to monitor and let me know if there are any concerns. She was comfortable with this approach. Day-menopause: Last period in January; may continue to have irregular periods. Hot flashes improved recently; not interested in HRT at this point. Not sure what the cyclical urinary urgency is but will keep an eye on it. Follow up - next year for physical, or sooner as needed documented in this encounter Plan of Treatment Not on filedocumented as of this encounter Visit Diagnoses Diagnosis Word finding difficulty - Primary Other speech disturbance Day-menopause Symptomatic menopausal or female climact jose states documented in this encounter Care Teams Db2 Dba Relationship Specialty Start Date End Date Bailey Arenas MD PCP - General 04/19/13 12/02/14 [address] [place], [place] [address] documented as of this encounter
--- OUTSIDE RECORDS SUMMARY | 2022-07-21 11:08 | XMS_ITS | Encounter Summary ---
:1960 Author Organization [facility] Address [address] [address] Care Team Providers Name Role Phone Bailey Arenas MD Primary Care Provider Encounter Details Date Type Department Care Team Description 10/11/2016 Lab Visit [place] [facility] Essential hypertension [address] [place] [address] Social History Tobacco Use Types Packs/Day Years [...] Diagnosis Comme nts CREATININE / GFR Routine 10/11/2016 8:44 AM Essential hyperten danita Results for this ENGINE BUILDUP MECHANIC procedure are i n the results section. POTASSIUM Routine 10/11/2016 8:44 AM Essential hypertension Results for this ENGINE BUILDUP MECHANIC procedure are i n the results section. documented in this encounter Results Potassium (10/11/2016 8:44 AM ENGINE BUILDUP MECHANIC) P athologist Signature Potassium 4.2 3.5 - 5.2 PN SOFT mmol/L Specimen Anatomical Collection Method Collection Time Receive d Time (Source) Location / / Volume Laterality 10/11/2016 8:44 AM 7 ENGINE BUILDUP MECHANIC 11:34 AM ENGINE BUILDUP MECHANIC Narrative PN SOFT - 10/11/2016 3:09 PM ENGINE BUILDUP MECHANIC Performed at [facility] [address] [place] [address] CLIA number [id number] Bailey Arenas MD LAB_1 Performing Organization Address [facility] Phon e Number PN SOFT [address] [place] [address] Creatinine (10/11/2016 8:44 AM ENGINE BUILDUP MECHANIC) athologist Signature Creatinine Serum 0.80 0.55 - PN SOFT 1.02 mg/dL Est GFR >60 >60 PN SOFT Am mL/min/1.7 3m2 Est GFR Non-Afr >60 >60 PN SOFT Am mL/min/1.7 3m2 Comment: Normal>60, moderate decrease 30 - 59, se danny decrease 15 - 29, renal failure <15 mL/min/1.73 m2 NOTE: ??Choose the eGFR result above alisha ropriate for the race of the patient. Specimen Anatomical Collection Method Collection Time Receive d Time (Source) Location / / Volume Laterality 10/11/2016 8:44 AM 7 ENGINE BUILDUP MECHANIC 11:34 AM ENGINE BUILDUP MECHANIC Narrative PN SOFT - 10/11/2016 3:09 PM ENGINE BUILDUP MECHANIC Performed at [facility] [address] [place] [address] CLIA number [id number] Bailey Arenas MD LAB_1 Performing Organization Address [facility] Phon e Number PN SOFT [address] [place] [address] documented in this encounter Visit Diagnoses Diagnosis Essential hypertension (HRC) Unspecified essential hypertension documented in this encounter Care Teams All Source Intelligence Technician Relationship Specialty Start Date End Date Bailey Arenas MD PCP - General Internal Medicine 09/16/16 [address] [place] [address] documented as of this encounter
--- OUTSIDE RECORDS SUMMARY | 2022-07-21 11:08 | XMS_ITS | Encounter Summary ---
:1960 [facility] Address [address] [place] [address] Care Team Providers Name Role Phone Bailey Arenas MD Primary Care Provider Reason for Visit Reason Comments HYPERTENSION Encounter Details Date Type Department Care Team Description 12/07/2016 Notes/Orders [facility] Bailey Arenas MD [address] [place] [address] [place] [address] [phone] (Wo rk) Social History Tobacco Use Types [...] on filedocumented in this encounter Care Teams Knife Machine Operator Relationship Specialty Start Date End Date Bailey Arenas MD PCP - General Internal Medicine 09/16/[address] [id number] documented as of this encounter
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
--- OUTSIDE RECORDS SUMMARY | 2022-07-21 11:08 | XMS_ITS | Encounter Summary ---
:1960 [facility] Address [address], [place] [address] Care Team Providers Name Role Phone Bailey Arenas MD Primary Care Provider Reason for Visit Reason Onset Date Comments Travel Consult 10/21/2016 Encounter Details Date Type Department Care Team Description 10/21/2016 Initial Consult [facility] [address] Bailey Childers, [place] unseling for travel (Primary Dx); Travel Clinic RN Need for meningococcal vaccination [address] [facility] [id number] [phone] Social History Tobacco Use Types Packs/Day Years Used Date Smoking Tobacco: Never Smokeless Tobacco: Never Alcohol Use Standard Drinks/Week Comments Yes 7 (1 standard drink = 0.6 oz pure alcoho l) weekly Sex Assigned at Date Recorded Not on file documented as of this encounter Progress Notes Bailey Childers, RN - 10/21/2016 12:25 PM CST Subjective: Shonna Bashir is a 56 y.o. female who presents to the clinic for travel consultation individually. TRAVEL PLANS Planned departure date: November 13, 2016 Time in developing countries: 23 days. Countries of travel: [place], [place], [place], [place]. Areas in country: rural and urban Traveling to Malarial area: yes Time in malarial area: 23 days. Reviewed Malarial risk map: yes Prior malarial chemoprophylaxis use: Yes, Malarone and pt states she has a supply from a previous appt. Traveling to Yellow Fever area: yes, 2004 YF dose, made pt a new yellow fever vaccine certificate stating yf vaccine is, Valid for Life.[facility] Accommodations: hotel Purpose of travel: business PRIOR HEALTH HISTORY Currently ill / Fever: no Currently taking antibiotics: no History of liver or kidney disease: No History of anxiety or depression: No History of cardiac arrhythmia or rhythm conduction abnormalities (QT prolongation): No History of GERD/IBS: No History of cancer: no Currently immune compromised or taking high dose steroids: No Other relevant travel health history: no Patient Active Problem List Diagnosis ??? Personal history of skin cancer ??? Day-menopause ??? Essential hypertension (HRC) Allergies Allergen Reactions ??? Compazine [Phenothiazines] Unknown ??? Darvon-N [Propoxyphene Napsylate] Unknown ??? Diphenhydramine Pt. states she was a child and does not remember. Outpatient Prescriptions Prior to Visit Medication Sig Dispense Refill ??? acetaminophen (TYLENOL) 325 MG tablet Take 650 mg by mouth every 4 hours as needed for Pain. Maximum 4000mg per 24 hours ??? DRUG NOT IN COMPUTER Take by mouth three times a day. Indications: Standard process (various supplements for nutritional value ??? ibuprofen (MOTRIN) 200 MG tablet Take 400 mg by mouth every 6 hours as needed for Pain (Take 400mg by mouth every 6 hours as needed for Pain.). Reported on 10/21/2016 ??? lisinopril (ZESTRIL) 5 MG tablet Take 2 Tabs by mouth daily. 90 Tab 0 ??? aspirin 325 MG tablet Take 325 mg by mouth daily (every 24 hours). No facility-administered medications prior to visit. Is the patient ? not applicable ? not applicable Assessment: Contraindications to travel: no Plan: PATIENT EDUCATION Patient was given verbal and/or written information about: [place] Trypanosomiasis, Chikungunya, Cholera, Dengue Fever, Diphtheria/Tetanus, Filarial, Hepatitis A, Hepatitis B, HIV, Influenza, Insect-related illnesses and prevention, Leishmaniasis, Leptospirosis, Malaria, Melioidosis, Meningitis, MMR, Pneumonia, Polio, Rabies--pre-exposure schedule, Rabies--post-exposure schedule, [place] Fever, Schistosomiasis, Seafood Poisoning, Sexually Transmitted Diseases, Shingles, Tickborne Illnesses, Travax/CDC information, Traveler's Diarrhea, Tuberculosis, Typhoid, Varicella, Viral hemorrhagic fever, Yellow Fever, Zika Reviewed vaccine schedule and efficacy. Patient was also provided information about health care and insurance information while traveling abroad. Patient appears to understand all the information provided. Discussed the use of Pepto Bismol and Imodium (follow package insert) See below for vaccines and medications ordered this visit. Patient had no reaction. Patient declined: antibiotics for traveler's diarrhea malaria chemoprophylaxis (already has medication), Shingles. FOLLOW UP Laboratory Studies: No labs ordered. Return To Clinic: No follow-up visit needed. Time spent on travel education Individual or Group counselin minutes. IMMUNIZATIONS AND PRESCRIPTIONS Immunization counseling was provided for the vaccines that were administered at the visit Orders Placed This Encounter Procedures ??? MENVEO (MCV4) No orders of the defined types were placed in this encounter. Immunization History Administered Date(s) Administered ??? Chicken Pox - History of Illness 1964 ??? Flu Vac Preserv Free (3+yrs) 08/03/2005, 09/01/2006, 08/01/2008 ??? HepA Adult (19+ yrs) 01/25/2001, 07/27/2001 ??? HepB Adult (20+ yrs) 01/25/2001, 02/22/2001, 07/27/2001 ??? IPV (Polio) 01/25/2001 ??? Influenza (Fluarix or Fluzone 0.5, 3+ yrs) 06/18/2014, 06/03/2016 ??? MCV4 (Menactra) 02/06/2009 ??? MCV4 (Menveo) 10/21/2016 ??? MMR 10/02/1996 ??? MPSV4 (Menomune) 01/25/2001, 08/31/2004 ??? Measles 10/03/1964 ??? Rubella 11/03/1969 ??? TB Skin Test (PPD) 10/25/2005 ??? TDAP (ADACEL) 02/06/2009 ??? Td 01/25/2001 ??? Td (7+ yrs) 06/03/2016 ??? Typhoid (Vivotif, Oral) 08/31/2004, 02/02/2008, 08/02/2014 ??? 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
--- OUTSIDE RECORDS SUMMARY | 2022-07-21 11:08 | XMS_ITS | Encounter Summary ---
:1960 [facility] Address [address], [place] [address] Care Team Providers Name Role Phone Bailey Arenas MD Primary Care Provider Encounter Details Date Type Department Care Team Description 04/19/2014 Lab Visit [facility] Screening for lipoid disorde rs; [address] Obesity; [place] [address] Screening for diabetes [facility] [phone] Social History Tobacco Use Types Packs/Day Years Used Date Smoking Tobacco: Never Assessed Sex Assigned at Date Recorded Not on file documented as of this encounter Plan of Treatment Not on filedocumented as of this encounter Procedures Procedure Name Priority Date/Time Associated Diagnosis Comme nts TSH AND FREE T4 Routine 04/19/2014 8:48 AM Obesity Result s for this (FRT4 IF TSH CDT procedure are i n ABNORM) the results section. LIPID PANEL AND Routine 04/19/2014 8:48 AM Screening for lipoi d Results for this DIRECT LDL(IF CDT disorders procedure are in NEEDED) the results section. HGB A1C Routine 04/19/2014 8:48 AM Screening for Results for this CDT diabetes mellitus procedure are in the results section. documented in this encounter Results Hgb A1c (04/19/2014 8:48 AM CDT) P athologist Signature HGB A1C 4.6 4.0 - 5.6 % HP CONVERSION Specimen Anatomical Collection Method Collection Time Receive d Time (Source) Location / / Volume Laterality 04/19/2014 8:48 AM 4 CDT 12:34 PM CDT Bailey Arenas MD LAB_1 Performing Organization Address City/State/ZIP Code Phon e Number HP CONVERSION TSH AND FREE T4 (FRT4 IF TSH ABNORM) (04/19/2014 8:48 AM CDT) P athologist Signature Thyroid 2.08 0.20 - HP CONVERSION Stimulating 4.50 Hormone Specimen Anatomical Collection Method Collection Time Receive d Time (Source) Location / / Volume Laterality 04/19/2014 8:48 AM 4 CDT 12:33 PM CDT Bailey Arenas MD LAB_1 Performing Organization Address City/[facility] Code Phon e Number HP CONVERSION (ABNORMAL) Lipid Panel and Direct LDL(If Needed) (04/19/2014 8:48 AM CDT) [facility] Method Time Signature Cholesterol 271 (H) 0 - 200 HP CONVERSION mg/dL Triglycerides 66 0 - 149 HP CONVERSION mg/dL HDL Cholesterol 106 >39 mg/dL HP CONVERSION Cholesterol/HDL 2.6 HP CONVERSION Ratio Screen LDL Calculated 152 (H) 19 - 130 HP CONVERSION mg/dL Length Of Fast 10.0 HP CONVERSION Specimen Anatomical Collection Method Collection Time Receive d Time (Source) Location / / Volume Laterality 04/19/2014 8:48 AM 4 CDT 11:26 AM CDT Narrative HP CONVERSION - 04/19/2014 12:53 PM CDT Performed at [facility], [address] [place] [address] Bailey Arenas MD LAB_1 Performing Organization Address City/State/ZIP [facility] Phon e Number HP CONVERSION documented in this encounter Visit Diagnoses Diagnosis Screening for lipoid disorders Obesity (HRC) Obesity, unspecified Screening for diabetes mellitus documented in this encounter Care Teams Occupational Therapy Director Relationship Specialty Start Date End Date Bailey Arenas MD PCP - General 04/19/13 12/02/14 [address] [place] [address] documented as of this encounter
--- OUTSIDE RECORDS SUMMARY | 2022-07-21 11:08 | XMS_ITS | Encounter Summary ---
:1960 Author Organization [facility] Address [address], [place] [address] Care Team Providers Name Role Phone Bailey Arenas MD Primary Care Provider Reason for Referral Specialty Diagnoses / Procedures Referred By Contact Refer red To Contact Bailey Arenas MD [facility] [place] [address] Referral ID Status Reason Start Date Expiration Date Visits Requ ested Visits Authorized Reason for Visit Reason Comments Travel Consult Encounter Details Date Type Department Care Team Description 08/02/2014 Initial Consult [place] [facility] Em Clark vice or immunization for travel (Primary Dx); Clinic C, BEE, ALLEY Counseling for travel [address] [place] [address] [facility] [phone] [place] [address] Social History Tobacco Use Types Packs/Day Years Used Date Smoking Tobacco: Never Assessed Sex Assigned at Date Recorded Not on file documented as of this encounter Progress Notes Em Clark, ALLEY GAMBOA - 08/02/2014 10:35 AM CDT Subjective: Shonna Bashir is a 54 y.o. female who presents to the clinic for travel consultation individually. TRAVEL PLANS Planned departure date: September 29, 2014 Time in developing countries: 2 weeks. Countries of travel: [facility] Areas in country: rural and urban Traveling to Malarial area: yes Time in malarial area: 2 weeks. Reviewed Malarial risk map: yes Prior malarial chemoprophylaxis use: Yes, Malarone well tolerated on previous trips Traveling to Yellow Fever area: no, her current YF vaccine in 2013, she does not want to getit renewed. She states that they never ask for her yellow card at customs in [facility]. 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 Personal history of skin cancer ??? Day-menopause Allergies Allergen Reactions ??? Diphenhydramine Hcl ??? Prochlorperazine Maleate ??? Propoxyphene Hcl Current Outpatient Prescriptions on File Prior to Visit Medication Sig Dispense Refill ??? aspirin EC 81 mg EC tablet Take 81 mg by mouth daily (every 24 hours). ??? loratadine (CLARITIN) 10 mg tablet Take 10 mg by mouth daily (every 24 hours). ??? multivitamin (THERAGRAN) tablet Take 1 tablet by mouth daily (every 24 hours). No current facility-administered medications on file prior to visit. Is the patient ?not applicable ?not applicable Assessment: Contraindications to travel: no Plan: PATIENT EDUCATION Patient was given verbal and/or written information about: Diphtheria/Tetanus, Hepatitis A, Hepatitis B, HIV, Influenza, Malaria, Meningitis, Polio, Rabies--post-exposure schedule, Sexually TransmittedDiseases, Travax/CDC information, Traveler's Diarrhea, Typhoid, Yellow Fever, Reviewed vaccine schedule and efficacy. Patient appears to understand all the information provided. Discussed the use of Pepto Bismol and Imodium (follow package insert) See below for vaccines and medications ordered this visit. Patient declined:none declined FOLLOW UP Laboratory Studies: No labs ordered. Return To Clinic: No follow-up visit needed. Time spent on travel education Individual or Group counselin minutes. Total appointment time: 30 minutes. IMMUNIZATIONS AND PRESCRIPTIONS Immunization counseling was provided for the vaccines that were administered at the visit Orders Placed This Encounter Procedures ??? Typhoid PO Orders Placed This Encounter Medications ??? atovaquone-proguanil (MALARONE) 250-100 mg per tablet Sig: Start 2 days before malarial mosquito exposure, daily while there and continue 7 days after. Dispense: 23 tablet Refill: 0 ??? ciprofloxacin (CIPRO) 500 mg tablet Sig: Take 1 tablet by mouth 2 times daily for 3 days. For severe traveler's diarrhea. Dispense: 6 tablet Refill: 0 Immunization History Administered Date(s) Administered ??? Chicken Pox-History Of Illness 1964 ??? Fluzone Influenza QIV (36+ mos) 06/18/2014 ??? Hep A Adult (19+ yrs) 01/25/2001, 07/27/2001 ??? Hep B Adult Vaccine (20+ yrs) 20mcg 01/25/2001, 02/22/2001, 07/27/2001 ??? IPV 01/25/2001 ??? Influenza TIV 0.5ml (36+ mos) 08/03/2005, 09/01/2006, 08/01/2008 ??? MCV4 (Menactra) 02/06/2009 ??? MMR 10/02/1996 ??? MPSV4 (Menomune) 01/25/2001, 08/31/2004 ??? Measles 10/03/1964 ??? PPD Clinic 10/25/2005 ??? Rubella 11/03/1969 ? ? Td Adult (>7 years) 01/25/2001 ??? Tdap (Adacel) 02/06/2009 ??? Typhoid PO 08/31/2004, 02/02/2008, 08/02/2014 ??? YF-Vax 08/31/2004 documented in this encounter Plan of Treatment Scheduled Referrals Name Type Priority Associated Diagnoses Order S chedule Travel Medicine Referral Routine Counseling for travel Ord ered: 08/02/2014, Consult-Adult/Peds Expires: 08/02/2014 documented as of this encounter Visit Diagnoses Diagnosis Advice or immunization for travel - Prim babak Other specified counseling Counseling for travel Other specified counseling documented in this encounter Care Teams [employer] Scout Relationship Specialty Start Date End Date Bailey Arenas MD PCP - General 04/19/13 12/02/14 [address] [place] [address] documented as of this encounter
--- OUTSIDE RECORDS SUMMARY | 2022-07-21 11:08 | XMS_ITS | Encounter Summary ---
:1960 Author Organization [email or web address] [employer] Address [address], [place] [address] Care Team Providers Name Role Phone No Primary/Referring, Phy Primary Care Provider Unavailable Reason for Visit Reason Comments Annual Exam Encounter Details Date Type Department Care Team Description 03/30/2016 Office Visit Bailey Waters, Routine g eneral medical examination at a health care facility (Primary Dx); Medicine Essential hypertension; [address] Dyspareunia; [place] [address] [place] [address] Personal history of skin cancer; [phone] Breast cancer s creening; (Work) Encounter for screening for malignant ne oplasm of colon; [phone] Screening for d iabetes mellitus; (Fax) Lipid screening Social History Tobacco Use Types Packs/Day Years Used Date Smoking Tobacco: Never Assessed Sex Assigned at Date Recorded Not on file documented as of this encounter Last Filed Vital Signs Vital Sign Reading Time Taken Comments Blood Pressure 161/103 03/30/2016 2:49 PM CDT Pulse 72 03/30/2016 2:37 PM CDT Temperature - - Respiratory Rate - - Oxygen Saturation - - Inhaled Oxygen Concentration - - Weight 72.6 kg (160 lb) 03/30/2016 2:37 PM CDT Height 167.6 cm (5' 6) 03/30/2016 2:37 PM CDT Body Mass Index 25.82 03/30/2016 2:37 PM CDT documented in this encounter Progress Notes Dagoberto, Bailey E, MD - 03/30/2016 3:25 PM CDT Preventive Exam SUBJECTIVE: 56 y.o. y/o patient presents for a routine preventive physical exam. Hypertension: BP has been high for a year or two. About 5 months ago, she started working with a nutritional response therapist at [facility] and is taking a supplement 3 times a day and eating a very low carb, high protein diet. At home, her blood pressure is running in the 130s-140s/80s to low 90s. Here it was 148/96 manually and 161/103 on the [employer]. She feels fine and is hesitant about taking a medication. She is having some pain with intercourse and wonders if her uterus could be tipping or otherwise outof place. She did not have biological children (has two adopted kids and now 3 grandkids). She very rarely has urinary incontinence with sneezing - it happens about once a month, but most of the time she can sneeze without any issues. Her last period was about a year ago. Medical, surgical, family, and social history reviewed and updated in [employer]. Allergies and current medications reviewed. Review of Systems: With the exception of any items noted above, the remainder of complete ROS is negative. OBJECTIVE: BP 161/103 mmHg Pulse 72 Ht 1.676 m (5' 6) Wt 72.576 kg (160 lb) BMI 25.84 kg/m2 General: Alert, pleasant, no distress. HEENT: Normocephalic, atraumatic. No scleral icterus or injection. Ear canals and TMs normal. Oropharynx normal without erythema or exudate. Neck: Supple, no masses, thyromegaly, or lymphadenopathy. CV: RRR without murmurs, rubs, or gallops. Lungs: Normal respiratory effort. Lungs clear to auscultation bilaterally without crackles or wheezes. Breasts: normal appearance, has some diffuse coarse/thick areas (reports history of fibrocystic changes), no distinct areas of concern. Abdomen: BS+, soft, non-tender, non-distended without rebound or guarding. No masses or hepatomegaly. Pelvic: external genitalia normal, vagina normal without discharge, rectovaginal septum normal, uterus normal size, shape, and consistency, no adnexal masses or tenderness Lower extremities: No peripheral edema. DP pulses normal. Skin: Warm, well-perfused without rashes or lesions. Neuro: Normal gait. Moves all extremities. No focal deficits. Psych: Alert and oriented with normal affect and insight. ASSESSMENT: Encounter Diagnoses Name Primary? Routine general medical examination at a health care facility Yes ??? Essential hypertension (HRC) ??? Dyspareunia ??? Personal history of skin cancer ??? Breast cancer screening ??? Encounter for screening for malignant neoplasm of colon ??? Screening for diabetes mellitus ??? Lipid screening Plan: Shonna was seen today for annual exam. Diagnoses and all orders for this visit: Routine general medical examination at a health care facility: Up to date on pap. Mammogram and colonoscopy ordered today. Essential hypertension (HRC): BP above target but not wildly high - she prefers to continue with thesupplements and nutritional therapy for now, which I think is reasonable. We discussed the risks of untreated hypertension including stroke, heart disease, and kidney problems. She will continue to watch her BP at home. If not coming down over next 6 to 12 months, we will consider a low-dose of an antihypertensive. Orders: - Creatinine; Future - Electrolytes (NA, K, CL, Bicarb); Future Dyspareunia: No obvious structural issue on my exam today - will try topical estrogen for dyspareunia. Side effects/risks discussed. Orders: - estradiol (VAGIFEM) 10 mcg vaginal tablet; Use 1 tablet once daily vaginally for 14 days then 1 tablet twice a week. Personal history of skin cancer: Remote history of basal cell, also has had several AKs - last saw dermatology 2 years ago. Orders: - DERMATOLOGY CONSULT ADULT/PEDS (AMB); Future Breast cancer screening Orders: - MM Mammogram Screening Bilateral W Cad; Future Encounter for screening for malignant neoplasm of colon Orders: - Colonoscopy; Future Screening for diabetes mellitus Orders: - Glucose; Future Lipid screening Orders: - Cholesterol Fraction-LDLD If Trig High; Future Follow up - one year for annual exam; sooner as needed documented in this encounter Plan of Treatment Scheduled Orders Name Type Priority Associated Diagnoses Order S chedule Endoscopy, colon, GI Routine Encounter for screening Expected: 03/30/2016, diagnostic for malignant neoplasm Expir es: 03/30/2018 of colon documented as of this encounter Visit Diagnoses Diagnosis Routine general medical examination at a health care facility - Primary Essential hypertension (HRC) Unspecified essential hypertension Dyspareunia Personal history of skin cancer Personal history of other malignant neop lasm of skin Encounter for screening for malignant ne oplasm of colon Special screening for malignant neoplasm s, colon Screening for diabetes mellitus Lipid screening Screening for lipoid disorders documented in this encounter Care Teams Knot Saw Operator Relationship Specialty Start Date End Date No Primary/Referring, Phy PCP - General 12/03/14 documented as of this encounter"
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
--- OUTSIDE RECORDS SUMMARY | 2022-07-21 11:08 | XMS_ITS | Encounter Summary ---
:1960 Author Organization [facility] Address [address], [place] [address] Care Team Providers Name Role Phone Bailey Arenas MD Primary Care Provider Reason for Visit Reason Comments Annual Exam Encounter Details Date Type Department Care Team Description 04/19/2014 Office Visit Bailey Waters, Routine g eneral medical examination at a health care facility (Primary Dx); Medicine Eyelid cyst; [address] [place] Personal history of skin cancer; [place] [address] [address] [place] [address] Counseling for travel; [phone] Obesity; (Work) Screening for malignant neoplasm of the cervix; [phone] Breast screenin g; (Fax) Screening for l ipoid disorders; Screening for d iabetes mellitus Social History Tobacco Use Types Packs/Day Years Used Date Smoking Tobacco: Never Assessed Sex Assigned at Date Recorded Not on file documented as of this encounter Last Filed Vital Signs Vital Sign Reading Time Taken Comments Blood Pressure 128/88 04/19/2014 7:55 AM CDT Pulse 64 04/19/2014 7:55 AM CDT Temperature - - Respiratory Rate - - Oxygen Saturation - - Inhaled Oxygen Concentration - - Weight 73.9 kg (163 lb) 04/19/2014 7:55 AM CDT Height 167.6 cm (5' 6) 04/19/2014 7:55 AM CDT Body Mass Index 26.31 04/19/2014 7:55 AM CDT documented in this encounter Progress Notes Bailey Arenas MD - 04/24/2014 12:42 PM CDT Preventive Exam SUBJECTIVE: 54 y.o. y/o patient presents for a routine preventive physical exam. Lump on her right eyelid: Noticed this over the last few weeks to months. Not getting bigger. Not interfering with vision, not painful. Lump on the palm of her right hand: Also noticed this over the last few months. Has a family historyof multiple lipomas and has one herself on her left forearm. This one doesn't hurt. Fingers don't stick. 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 She constantly has some aching pain there. She also carries her stress there, and the pain isn't too bad. She has a friend who said she was diagnosed with arthritis in the cervical spine, and Shonna wonders if she has arthritis, too. Not bothersome enough that she wants to do anything about it other than start exercising. Rough spots on skin - has been to dermatology and had things biopsied and burnt off. Has a history of skin cancer (basal cell vs melanoma). Hasn't been seen in a while and would like another referral. 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 Has seen Dr. Cross in the travel clinic in the past. Wants to be sure tetanus and typhoid are up to date, and needs Malarone. She keeps gaining weight. She hasn't been exercising. She asks for recommendations for diet books. Medical, surgical, family, and social history reviewed and updated in [employer]. Allergies and current medications reviewed. Review of Systems: With the exception of any items noted above, the remainder of complete ROS is negative. OBJECTIVE: BP 128/88 Pulse 64 Ht 1.676 m (5' 6) Wt 73.936 kg (163 lb) BMI 26.32 kg/m2 LMP 04/11/2014 General: Alert, pleasant, no distress. HEENT: Normocephalic, atraumatic. No scleral icterus or injection. Small lump/nodule in right upper eyelid. Ear canals and TMs normal. Oropharynx normal without erythema or exudate. Neck: Supple, no masses, thyromegaly, or lymphadenopathy. CV: RRR without murmurs, rubs, or gallops. Lungs: Normal respiratory effort. Lungs clear to auscultation bilaterally without crackles or wheezes. Breasts: normal appearance, no masses or tenderness Abdomen: BS+, soft, non-tender, non-distended without rebound or guarding. No masses or hepatomegaly. Pelvic: external genitalia normal, vagina normal without discharge, cervix normal in appearance, no cervical motion tenderness, rectovaginal septum normal, uterus normal size, shape, and consistency, no adnexal masses or tenderness Lower extremities: No peripheral edema. DP pulses normal. Skin: Warm, well-perfused without rashes or lesions. Neuro: Normal gait. Moves all extremities. No focal deficits. Psych: Alert and oriented with normal affect and insight. ASSESSMENT: Encounter Diagnoses Name Primary? Routine general medical examination at a health care facility Yes ??? Eyelid cyst ??? Personal history of skin cancer ??? Counseling for travel ??? Obesity ??? Screening for malignant neoplasm of the cervix ??? Breast screening ??? Screening for lipoid disorders ??? Screening for diabetes mellitus Plan: Shonna was seen today for annual exam. Diagnoses and associated orders for this visit: Routine general medical examination at a health care facility: Up to date on colon cancer screening.Mammogram ordered. Pap done today. Eyelid cyst - OPHTHALMOLOGY CONSULT ADULT/PEDS (AMB); Future Personal history of skin cancer - DERMATOLOGY CONSULT ADULT/PEDS (AMB); Future Counseling for travel - TRAVEL CLINIC CONSULT ADULT/PEDS (AMB); Future Obesity: Discussed various options, including The Plan, focusing on fruits/vegetables, etc. - TSH And Free T4 (FRT4 If TSH Abnorm); Future Screening for malignant neoplasm of the cervix - Pap Smear Order Breast screening - MM Mammogram Screening Bilateral W Cad; Future Screening for lipoid disorders - Cholesterol Fraction-LDLD If Trig High; Future Screening for diabetes mellitus - Cancel: Glucose; Future - Hemoglobin A1C Glycosylated; Future Other Orders - Cancel: Colonoscopy; Future - HPV with 16 18 Genotyping - Pap Smear Follow up - one year for annual exam, sooner as needed documented in this encounter Plan of Treatment Not on filedocumented as of this encounter Procedures Procedure Name Priority Date/Time Associated Comments Diagnosis HPV WITH 16 18 Routine 04/19/2014 9:06 AM Results for this GENOTYPING, CDT procedure are i n CERVICAL/ENDOCERVICA the res ults L section. ANATOMICAL PATH Routine 04/19/2014 9:06 AM Result s for this LIQUID BASED CDT procedure are i n the results section. PAP SMEAR ORDER Routine 04/19/2014 9:06 AM Screening for Resul ts for this CDT malignant neoplasm procedure are in of the cervix the results section. documented in this encounter Results Pap Smear (04/19/2014 9:06 AM CDT) Specimen (Source) Anatomical Collection Method Collection Time Re ceived Time Location / / Volume Laterality 04/19/2014 9:06 AM CDT Narrative HP CONVERSION - 04/26/2014 12:27 PM CDT FINAL GYNECOLOGICAL CYTOLOGY REPORT Pathology #: [id number] ?Date Obtained: 04/19/2014 ? Date Received: 04/22/2014 INTERPRETATION/RESULTS: Negative for Intraepithelial Lesion or M alignancy. SPECIMEN ADEQUACY: Satisfactory for Evaluation. ??No endoce rvical cells/transformation zone component present. Verified on 04/26/2014 ??by MINIE BACCAM , CT(ASCP) (electronic signature) CLINICAL NOTES: ?Abnormal bleeding: No, LMP: 7/1 0/14, Hormonal TX: No LIQUID BASED PAP SMEAR SPECIMEN TYPE: ?CERVICAL & HPV REGARDLESS OF PA P RESULT PLEASE NOTE: The pap smear is a screening test design ed to aid in the detection of cervical cancer and its pre cursor lesions. It is not a diagnostic procedure and stanley uld not be used as the sole means of detecting cervical cancer. Both false-positive and false-negative report s may occur. ? End of Report Bailey Arenas MD LAB_1 Performing Organization Address City/State/ZIP Code Phon e Number HP CONVERSION HPV with 16 18 Genotyping (04/19/2014 9:06 AM CDT) [facility] Method Time Signature HPV High Risk Not Detected HP CONVERSION 16 HPV High Risk Not Detected HP CONVERSION 18 Other HPV Not Detected HP CONVERSION High Risk Not 16/18 Comment: See current ACOG guidelines for manageme nt recommendations based on Pap smear findings and HPV test ing results (Screening for cervical cancer. Practice Bulletin No. 131. [place] [employer] nec[employer]. Obstet Gynecol 2012;120:1222-38) Specimen: SurePath Liquid Based Pap, Cervical Sour ce Method Description: Silvestre real time, multiplex PCR performed at [facility] The Jossy HPV Test is a qualitative in v itro test for the detection of Human Papillomavirus in pat ient specimens. The test utilizes amplification of target DNA by Polymerase Chain Reaction (PCR) and nucleic acid hybridization for the detection of 14 high-risk (HR) HPV types. The assay test s for high risk types (16, 18, 31, 33, 35, 39, 45, 51, 52, 56, 58, 59, 66 and 68). NOTE: ??The HPV test is currently not FD A-approved for Sure Path specimens. ??The assay has been validate d for these specimens by [facility]. Reference Range: Not Detected Specimen Anatomical Collection Method Collection Time Receive d Time (Source) Location / / Volume Laterality 04/19/2014 9:06 AM 4 9:06 CDT AM CDT Bailey Arenas MD LAB_1 Performing Organization Address City/State/ZIP Code Phon e Number HP CONVERSION Pap Smear Order (04/19/2014 9:06 AM CDT) [facility] Method Time Signature Pap Smear Collected HP CONVERSION Monolayer tracking test Specimen Anatomical Collection Method Collection Time Receive d Time (Source) Location / / Volume Laterality 04/19/2014 9:06 AM 4 5:28 CDT AM CDT Bailey Arenas MD LAB_1 Performing Organization Address City/State/ZIP Code Phon e Number HP CONVERSION documented in this encounter Visit Diagnoses Diagnosis Routine general medical examination at a health care facility - Primary Eyelid cyst Cysts of eyelids Personal history of skin cancer Personal history of other malignant neop lasm of skin Counseling for travel Other specified counseling Obesity (HRC) Obesity, unspecified Screening for malignant neoplasm of the cervix Breast screening Breast screening, unspecified Screening for lipoid disorders Screening for diabetes mellitus documented in this encounter Care Teams Therapeutic Radiologist Relationship Specialty Start Date End Date Bailey Arenas MD PCP - General 04/19/13 12/02/14 [address] [place] [address] documented as of this encounter
--- OUTSIDE RECORDS SUMMARY | 2022-07-21 11:08 | XMS_ITS | Encounter Summary ---
:1960 Author Organization [facility] Address [address], [place] [address] Care Team Providers Name Role Phone Bailey Arenas MD Primary Care Provider Reason for Visit Reason Comments FACIAL PAIN Encounter Details Date Type Department Care Team Description 09/05/2014 Hospital Encounter [facility] Jeremy Canchola cutxiomara sinusitis with Shahrzad Nichole MD symptoms > 10 days [address] [address] [facility] [phone] [place] [address] Social History Tobacco Use Types Packs/Day Years Used Date Smoking Tobacco: Never Assessed Sex Assigned at Date Recorded Not on file documented as of this encounter Last Filed Vital Signs Vital Sign Reading Time Taken Comments Blood Pressure 169/103 09/05/2014 3:09 PM SPECIAL EDUCATION ASSOCIATE Pulse 100 09/05/2014 3:09 PM SPECIAL EDUCATION ASSOCIATE Temperature 36.8 ??C (98.2 ??F) 09/05/2014 3:09 PM SPECIAL EDUCATION ASSOCIATE Respiratory Rate 20 09/05/2014 3:09 PM SPECIAL EDUCATION ASSOCIATE Oxygen Saturation - - Inhaled Oxygen Concentration - - Weight - [...] encounter ED Notes Jeremy Canchola MD - 09/05/2014 5:40 PM CST ED Provider Notes signed by Jeremy Canchola MD at 09/06/14 1026 Author: Jeremy Canchola MD Service: (none) Author Type: Physician Filed: 09/06/14 1026 Note Time: 09/06/14 09 Status: Signed Director Facilities Maintenance: Jeremy Canchola MD (Physician) NAME: MARTIN HERNANDEZ MR#: [id number] CSN: [id number] AUTHENTICATING CLINICIAN: Jeremy Canchola MD CONFIRM #: [id number] LOC: 520 URGENT CARE PROGRESS NOTE DATE OF VISIT: 09/05/2014 : 1960 CHIEF COMPLAINT: Sinus pain. HPI: Martin is a 54-year-old lady who has been sick for 3 weeks, persistent congestion in the face with discomfort. In the last 4 days, symptoms got much worse on the right cheek. There is a lot of slimy, green drainage. There is no bleeding. Headaches and fatigue noted. Minimal cough. She has a history of recurrent sinus infection and has had surgery at least once. She has also had a tonsillectomy. PAST MEDICAL HISTORY: Reviewed. ALLERGIES: Reviewed. MEDICATIONS: Reviewed. OBJECTIVE: VITAL SIGNS: Stable. GENERAL APPEARANCE: Alert, looking tired. Nose is congested. Green drainage noted back of the throat. Exquisitely tender right maxillary sinus. Other sinuses and tympanic membranes within normal limits. LUNGS: Normal. HEART: Normal. ASSESSMENT: Sinusitis more than 10 days duration, right maxillary. PLAN: Augmentin for 10 days. Take with food as directed. I discussed the blood pressure with her. She feels this is because she is sick and does not have blood pressure issues. I asked her to use saline sprays, steam, hot packs, and Sudafed for the next few days. Monitor blood pressure. If it does not come down, call her physician. AKD:MEDQ C: CONFIRM #: [id number] IAL EDUCATION ASSOCIATE Jeremy Canchola MD - 09/05/2014 3:17 PM CST dict documented in this encounter Miscellaneous Notes Medication History - Stefano Jimenez MD - 09/05/2014 3:17 PM CST INPATIENT MEDS Encounter Date: 09/05/14 amoxicillin-clavulanate (AUGMENTIN) 875-125 mg per tablet Start Date:09/05/14, End Date:09/15/14, Frequency:2 TIMES DAILY *No Administrations Recorded IAL EDUCATION ASSOCIATE ED AVS Snapshot - Stefano Jimenez MD - 09/05/2014 3:17 PM CST Images from the original note were not included. [facility] [address] [place] [address] Dept: [phone] [email or web address] Martin Hernandez 09/05/2014 3:12 PM Hospital Encounter Description: Female : 1960 Department: [facility] Thank you for choosing [facility] for your health care visit with No att. providers found. We are happy to care for you and provide this summary of your visit. Your primary direct support professional caregiver is currently listed as Bailey Arenas MD. HERE IS WHAT YOU NEED TO KNOW To learn how you can take steps to stay as healthy as you can be visit [email or web address] HERE IS WHAT YOU NEED TO DO Call your clinic if you develop new or worsening symptoms or if you have questions about your visit or medications. Your to do list Future Orders Complete By Ordering Dept. MM Mammogram Screening Bilateral W Cad As directed [facility] OPHTHALMOLOGY CONSULT ADULT/PEDS (AMB) As directed [facility] Scheduling Instructions: Your provider has recommended an appointment with [facility]. You may call [phone] to schedule your appointment. If you prefer, a production planner scheduler will contact you within the next 3 business days to assist you in setting up this appointment. This recommended service/s may not be coveredby your insurance coverage. To find out your specific benefit coverage, please call the number on your insurance card. HERE IS INFORMATION FROM TODAY'S VISIT Reason for Visit Facial Pain (SINUS) Reason for Visit History Health issues considered by your clinician today Acute sinusitis with symptoms > 10 days If you had any tests, you will be notified of your abnormal results by your clinic. Medications administered today None MEDICATIONS As of today's visit, these are your current medications Medication DOSAGE amoxicillin-clavulanate (AUGMENTIN) 875-125 mg per tablet Take 1 tablet by mouth 2 times daily for 10 days. aspirin EC 81 mg EC tablet Take 81 mg by mouth daily (every 24 hours). atovaquone-proguanil (MALARONE) 250-100 mg per tablet Starting on 09/27/2014. Start 2 days before malarial mosquito exposure, daily while there and continue 7 days after. loratadine (CLARITIN) 10 mg tablet Take 10 mg by mouth daily (every 24 hours). multivitamin (THERAGRAN) tablet Take 1 tablet by mouth daily (every 24 hours). Vital signs from your visit Your Vitals Were BP Pulse Temp(Src) Resp 169/103 100 36.8 ??C (98.2 ??F) (Oral) 20 Allergies as of 09/05/2014 Diphenhydramine Hcl 08/31/2004 Allergy Prochlorperazine Maleate 08/31/2004 [...] Ethnicity Preferred Language 1960 Female White Non- Guamanian This document contains confidential information about your health and care. It is provided directlyto you for your personal, private use only. IAL EDUCATION ASSOCIATE documented in this encounter Plan of Treatment Not on filedocumented as of this encounter Visit Diagnoses Diagnosis Acute sinusitis with symptoms > 10 days Acute sinusitis, unspecified Triage Assessment Note - Daniella Schuler RN - 09/05/2014 3:08 PM CST Rt side facial congestion for 3 weeks, worse last few days. documented in this encounter Care Teams Estate And Trust Tax Principal Relationship Specialty Start Date End Date Bailey Arenas MD PCP - General 04/19/13 12/02/14 [address] [place] [address] documented as of this encounter
--- OUTSIDE RECORDS SUMMARY | 2022-07-21 11:08 | XMS_ITS | Encounter Summary ---
:1960 Author Organization [facility] Address [address], [place] [address] Care Team Providers Name Role Phone Bailey Arenas MD Primary Care Provider Reason for Visit Reason Comments HYPERTENSION Encounter Details Date Type Department Care Team Description 09/16/2016 Office Visit Bailey Waters, Essential hypertension (Primary Dx); Medicine Hyperlipidemia, unspecified hyperlipidem ia type [address] [place] [address] [place] [address] [phone] Social History Tobacco Use Types Packs/Day Years Used Date Smoking Tobacco: Never Smokeless Tobacco: Never Alcohol Use Standard Drinks/Week Comments Yes 7 (1 standard drink = 0.6 oz pure alcoho l) weekly Sex Assigned at Date Recorded Not on file documented as of this encounter Last Filed Vital Signs Vital Sign Reading Time Taken Comments Blood Pressure 166/94 09/16/2016 1:33 PM WOOL MIXER Pulse 83 09/16/2016 1:33 PM WOOL MIXER Temperature - - Respiratory Rate - - Oxygen Saturation - - Inhaled Oxygen Concentration - - Weight 77.1 kg (170 lb) 09/16/2016 1:22 PM WOOL MIXER Height - - Body Mass Index 27.44 03/30/2016 2:37 PM CDT documented in this encounter Progress Notes Bailey Arenas MD - 09/16/2016 1:52 PM CST Chief Complaint Patient presents with ??? HYPERTENSION SUBJECTIVE: Shonna Bashir is a 56 y.o. female here with hypertension. Her BP has been running high for a while. She recently was at the eye doctor and BP was 179/119. She has been monitoring it at home and it has been running in the 160s and 170s recently. She tried some dietary changes and supplements startinglassummer but has resigned herself to needing a medication. Her dad had high BP and high cholesterol; he had CAD and strokes. Her LDL was 192 in March. She also asks about taking aspirin. OBJECTIVE: Vital Signs: BP 166/94 mmHg Pulse 83 Wt 77.111 kg (170 lb) General: Alert, pleasant, no distress. Psych: Alert and oriented with normal affect and insight. ASSESSMENT AND PLAN: Shonna was seen today for hypertension. Diagnoses and all orders for this visit: Essential hypertension (HRC): Discussed lisinopril, amlodipine, or hydrochlorothiazide. She didn't have a strong opinion so I opted to start lisinopril. Will start at 5 mg dose - suspect it will need to be higher, but I'd like to see labs on 5 mg before raising the dose. She will watch her BP at home and let me know if it's not at goal of < 140/90. Side effects discussed. - lisinopril (ZESTRIL) 5 MG tablet; Take 1 Tab by mouth daily. - Creatinine; Future - Potassium; Future Hyperlipidemia, unspecified hyperlipidemia type (HRC): Recheck lipid panel with next labs - if LDL > 190, will recommend atorvastatin. We discussed this today and she is open to taking it if recommended. Would start at 40 mg dose. - Lipid Panel - LDLD If Trig High; Future Benefits of aspirin 81 mg likely outweigh risks in her case. Follow up - 1-2 weeks for labs MIXER documented in this encounter Plan of Treatment Not on filedocumented as of this encounter Results (ABNORMAL) Lipid Panel - LDLD If Trig High (09/23/2016 9:44 AM WOOL MIXER) [facility] Method Time Signature Cholesterol 284 (H) 0 - 199 PN SOFT mg/dL Triglycerides 72 4 - 149 PN SOFT mg/dL HDL Cholesterol 111 >39 mg/dL PN SOFT Cholesterol/HDL 2.6 PN SOFT Ratio Screen LDL Calculated 159 (H) 19 - 130 PN SOFT mg/dL Length Of Fast 10.0 PN SOFT Specimen Anatomical Collection Method Collection Time Receive d Time (Source) Location / / Volume Laterality 09/23/2016 9:44 AM 6 2:32 WOOL MIXER PM WOOL MIXER Narrative PN SOFT - 09/23/2016 3:11 PM WOOL MIXER Performed at [facility], [address] [place], [place] [address] CLIA number [id number] Bailey Arenas MD LAB_1 Performing Organization Address [facility] Phon e Number PN SOFT [address] [place] [address] Potassium (09/23/2016 9:44 AM WOOL MIXER) P athologist Signature Potassium 4.9 3.5 - 5.2 PN SOFT mmol/L Specimen Anatomical Collection Method Collection Time Receive d Time (Source) Location / / Volume Laterality 09/23/2016 9:44 AM 6 2:32 WOOL MIXER PM WOOL MIXER Narrative PN SOFT - 09/23/2016 3:11 PM WOOL MIXER Performed at [facility], [address] [place] [address] CLIA number [id number] Bailey Arenas MD LAB_1 Performing Organization Address [facility] Phon e Number PN SOFT [address] [place] [address] Creatinine (09/23/2016 9:44 AM WOOL MIXER) P athologist Signature Creatinine Serum 0.70 0.55 - PN SOFT 1.02 mg/dL Est [...] Time (Source) Location / / Volume Laterality 09/23/2016 9:44 AM 6 2:32 WOOL MIXER PM WOOL MIXER Narrative PN SOFT - 09/23/2016 3:11 PM WOOL MIXER Performed at [facility], [address] [place] [address] CLIA number [id number] Bailey Arenas MD LAB_1 Performing Organization Address City/State/ZIP Code Phon e Number PN SOFT [address] [place] [address] documented in this encounter Visit Diagnoses Diagnosis Essential hypertension (HRC) - Primary Unspecified essential hypertension Hyperlipidemia, unspecified hyperlipidem ia type (HRC) Essential hypertension (HRC) Unspecified essential hypertension Hyperlipidemia, unspecified hyperlipidem ia type (HRC) documented in this encounter Care Teams Learning Developer Relationship Specialty Start Date End Date Bailey Arenas MD PCP - General Internal Medicine 09/16/[address] [place] [address] documented as of this encounter
--- OUTSIDE RECORDS SUMMARY | 2022-07-21 11:08 | XMS_ITS | Encounter Summary ---
:1960 [facility] Address [address] [place] [address] Care Team Providers Name Role Phone No Primary/Referring, Phy Primary Care Provider Unavailable Encounter Details Date Type Department Care Team Description 12/05/[address] Scan Closed head injury [address] [place] [address] Social History Tobacco Use Types Packs/Day Years Used Date Smoking Tobacco: Never Assessed Sex Assigned at Date Recorded Not on file documented as of this encounter Plan of Treatment Not on filedocumented as of this encounter Procedures Procedure Name Priority Date/Time Associated Diagnosis Comme nts CT HEAD WO IV CONT Routine 12/05/2014 4:08 PM Closed head inju ry Results for this ANALYST BUSINESS ANALYSIS procedure are i n the results section. documented in this encounter Results CT Head WO IV Cont (12/05/2014 4:08 PM ANALYST BUSINESS ANALYSIS) Anatomical Region Laterality Modality Head Other Specimen (Source) Anatomical Location Collection Method / Collectio n Time Received Time / Laterality Volume Impressions 12/05/2014 4:17 PM ANALYST BUSINESS ANALYSIS IMPRESSION: 1. Small region of increased attenuation in the adela is worrisome for acute intraparenchymal hemorrhage. Artifact less likely. Recommend MRI for confirmation. 2. Subtle increased attenuation of the m idline falx in the superior convexity is favored to be within normal limits and felt unlikely to reflect subtle subdural hemorrhage. 3. Otherwise unremarkable noncontrast CT of the head. Findings discussed with JEREMY alex time of dictation. Narrative 12/05/2014 4:17 PM ANALYST BUSINESS ANALYSIS COMPARISON: ??None. TECHNIQUE: ??Axial images were obtained through the head without contrast. FINDINGS: There is an 11 x 6 mm ovoid hy perattenuating focus within the left half of the adela on image 8 worrisome for intraparenchymal hemorrhage. Subtle increased density of the superior midline falx is favored to be within normal limits wi th subdural hemorrhage unlikely. No additional regio ns of acute intracranial hemorrhage. No intra-or extra-axial mass lesion. No midline shift or mass effect. Ventricles, basal cisterns and sulci unremarkable. Calv arium, mastoid air cells and visualized paranasal sinuses unremarkable. Procedure Note Arturo Reveles, DO - 03/21/2016For matting of this note might be different from the original. COMPARISON: None. TECHNIQUE: Axial images were obtained th rough the head without contrast. FINDINGS: There is an 11 x 6 mm ovoid hy perattenuating focus within the left half of the adela on image 8 worrisome for intraparenchymal hemorrhage. Subtle increased density of the superior midline falx is favored to be within normal limits with subdural hemorrhage unlikely. No additional regio ns of acute intracranial hemorrhage. No intra-or extra-axial mass lesion. No midline shift or mass effect. Ventricles, basal cisterns and sulci unremarkable. Calvarium, mastoid air cells and visualized paranas al sinuses unremarkable. IMPRESSION IMPRESSION: 1. Small region of increased attenuation in the adela is worrisome for acute intraparenchymal hemorrhage. Artifact less likely. Recommend MRI for confirmation. 2. Subtle increased attenuation of the m idline falx in the superior convexity is favored to be within normal limits and felt unlikely to reflect subtle subdural hemorrhage. 3. Otherwise unremarkable noncontrast CT of the head. Findings discussed with JEREMY alex time of dictation. Jeremy Canchola MD RAD CT documented in this encounter Visit Diagnoses Diagnosis Closed head injury Head injury, unspecified documented in this encounter Care Teams Manager Image Relationship Specialty Start Date End Date No Primary/Referring, Phy PCP - General 12/03/14 documented as of this encounter
--- OUTSIDE RECORDS SUMMARY | 2022-07-21 11:08 | XMS_ITS | Encounter Summary ---
:1960 [facility] Address [address] [place] [address] Care Team Providers Name Role Phone Bailey Arenas MD Primary Care Provider Encounter Details Date Type Department Care Team Description 09/23/2016 Lab Visit [facility] Essential hypertension; [address] Hyperlipidemia, unspecified hyperlipidemia type COLLEEN Renee [id number] Social History Tobacco Use Types Packs/Day Years [...] Name Priority Date/Time Associated Diagnosis Comme nts LIPID PANEL AND Routine 09/23/2016 9:44 AM Hyperlipidemia, Res ults for this DIRECT LDL(IF JAVA ANALYST unspecified procedure are in NEEDED) hyperlipidemia type the resu lts section. CREATININE / GFR Routine 09/23/2016 9:44 AM Essential hyperten danita Results for this JAVA ANALYST procedure are i n the results section. POTASSIUM Routine 09/23/2016 9:44 AM Essential hypertension Results for this JAVA ANALYST procedure are i n the results section. documented in this encounter Results (ABNORMAL) Lipid Panel - LDLD If Trig High (09/23/2016 9:44 AM JAVA ANALYST) [facility] Method Time Signature Cholesterol 284 (H) 0 [...] Volume Laterality 09/23/2016 9:44 AM 6 2:32 JAVA ANALYST PM JAVA ANALYST Narrative PN SOFT - 09/23/2016 3:11 PM JAVA ANALYST Performed at [facility], [address] [place], [place] [address] CLIA number [id number] Bailey Arenas MD LAB_1 Performing Organization Address [facility] Phon e Number PN SOFT [address] [place] [address] Potassium (09/23/2016 9:44 AM JAVA ANALYST) P athologist Signature Potassium 4.9 3.5 - 5.2 PN SOFT mmol/L Specimen Anatomical Collection Method Collection Time Receive d Time (Source) Location / / Volume Laterality 09/23/2016 9:44 AM 6 2:32 JAVA ANALYST PM JAVA ANALYST Narrative PN SOFT - 09/23/2016 3:11 PM JAVA ANALYST Performed at [facility], [address] [place] [id number] CLIA number [id number] Bailey Arenas MD LAB_1 Performing Organization Address [facility] Phon e Number PN SOFT [address] [place] [address] Creatinine (09/23/2016 9:44 AM JAVA ANALYST) P athologist Signature Creatinine Serum 0.70 0.55 [...] Volume Laterality 09/23/2016 9:44 AM 6 2:32 JAVA ANALYST PM JAVA ANALYST Narrative PN SOFT - 09/23/2016 3:11 PM JAVA ANALYST Performed at [facility], [address] [place] [address] CLIA number [id number] Bailey Arenas MD LAB_1 Performing Organization Address City/State/ZIP Code Phon e Number PN SOFT [address] [place] [address] documented in this encounter Visit Diagnoses Diagnosis Essential hypertension ([facility]C) Unspecified essential hypertension Hyperlipidemia, unspecified hyperlipidem ia type ([facility]) documented in this encounter Care Teams Motor Expert Relationship Specialty Start Date End Date Bailey Arenas MD PCP - General Internal Medicine 09/16/16 [address] [place], [place] [id number] documented as of this encounter
--- OUTSIDE RECORDS SUMMARY | 2022-07-21 11:08 | XMS_ITS | Encounter Summary ---
:1960 Author Organization [facility] [employer] Address [address], [place] [address] Care Team Providers Name Role Phone No Primary/Referring, Phy Primary Care Provider Unavailable Reason for Visit Reason Comments Travel Consult Encounter Details Date Type Department Care Team Description 10/07/2015 Initial Consult [facility] Sue Walters for travel Clinic Opal RN (Primary Dx) [address] [place], [place] [address] Social History Tobacco Use Types Packs/Day Years Used Date Smoking Tobacco: Never Assessed Sex Assigned at Date Recorded Not on file documented as of this encounter Patient Instructions Patient InstructionsSue Walters RN - 10/07/2015 10:11 AM CST .Thank you for enrolling in [employer]. Please follow the instructions below to securely access your online medical record. [employer] allows you to send messages to your doctor, view your test results, renew your prescriptions, schedule appointments, and more. How Do I Sign Up? 1. In your Internet browser, go to: [email or web address] 2. Click on the Enter Activation Code link under the New User? section. You will see the New Member Sign Up page. 3. Enter your [employer] Activation Code exactly as it appears below. You will not need to use this code after you???ve completed the sign-up process. If you do not sign up before the expiration date, youmust request a new code. [employer] Activation Code: [email or web address] Expires: 11/06/2015 10:11 AM 4. Enter your Date of (mm/dd/yyyy), Home Phone Number and Zip Code as indicated, then click Next. You will be taken to the next sign-up page 5. Create a [employer] ID. This will be your [employer] login ID and cannot be changed, so think of one that is secure and easy to remember. 6. Create a [employer] password. You can change your password at any time. 7. Enter your Security Question and Answer. This can be used at a later time if you forget your password. Click Next. 8. Enter your e-mail address. You will receive e-mail notification when new information is availablein [employer]. 9. Click Sign In. You can now view your medical record. Additional Information If you have questions, you can call [phone] to talk to our [employer] staff. Remember, [employer] is NOT to be used for urgent needs. For medical emergencies, dial 911. 400 OPERATOR documented in this encounter Progress Notes Sue Walters RN - 10/07/2015 10:44 AM CST . Subjective: Shonna Bashir is a 55 y.o. female who presents to the clinic for travel consultation individually. TRAVEL PLANS Planned departure date: November 18, 2015 Time in developing countries: 25 days. Countries of travel: [place] Areas in country: rural and urban : [facility] area then will travel around the country, up to [place] area. Traveling to Malarial area: yes Time in malarial area: 25 days, pt. prefers to take malaria prevention med for the whole trip. She has used Malarone before in past. . Reviewed Malarial risk map: yes Prior malarial chemoprophylaxis use: Yes Traveling to Yellow Fever area: no, has had past vaccine. Accommodations: hotel Purpose of travel: for work , works for [employer]. PRIOR HEALTH HISTORY Currently ill / Fever:no Currently taking antibiotics: no History of liver or kidney disease: No History of anxiety or depression: No History of cardiac arrhythmia or rhythm conduction abnormalities (QT prolongation): No History of GERD/IBS:No History of cancer: no Currently immune compromised or taking high dose steroids: No Other relevant travel health history: yes - Has traveled outside [place] before for work. Has another trip in March [facility]. Patient Active Problem List Diagnosis ??? Personal history of skin cancer ??? Day-menopause ??? Essential hypertension Allergies Allergen Reactions ??? Diphenhydramine Hcl Pt. states she was a child and does not remember. ??? Prochlorperazine Maleate ??? Propoxyphene Hcl Current Outpatient Prescriptions on File Prior to Visit Medication Sig Note Dispense Refill ??? acetaminophen (TYLENOL) 325 mg tablet Take 650 mg by mouth every 4 hours as needed for Pain. Maximum 4000mg per 24 hours ??? aspirin 325 mg tablet Take 325 mg by mouth daily (every 24 hours). ??? ibuprofen (MOTRIN) 200 mg tablet Take 400 mg by mouth every 6 hours as needed for Pain. ??? loratadine (CLARITIN) 10 mg tablet Take 10 mg by mouth daily (every 24 hours). ??? [DISCONTINUED] methocarbamol (ROBAXIN) 500 mg tablet 03/06/2015: Received from: External Pharmacy ??? multivitamin (THERAGRAN) tablet Take 1 tablet by mouth daily (every 24 hours). ??? naproxen sodium (ALEVE) 220 mg tablet Take 220 mg by mouth 2 times daily (with meals). No current facility-administered medications on file prior to visit. 63} Assessment: Contraindications to travel: no Plan: PATIENT EDUCATION Patient was given verbal and/or written information about: Rahat Influenza, Dengue Fever, Diphtheria/Tetanus, Hepatitis A, Hepatitis B, HIV, Influenza, Guamanian Encephalitis, Leishmaniasis, Malaria, Pneumonia, Polio, Rabies--post-exposure schedule, Sexually Transmitted Diseases, Travax/CDC information, Traveler's Diarrhea, Tuberculosis, Typhoid, Yellow Fever, Reviewed vaccine schedule and efficacy. Patient appears to understand all the information provided. Discussed the use of Pepto Bismol and Imodium (follow package insert) See below for vaccines and medications ordered this visit. Patient declined:Influenza, Has already done outside PN. She will consider Zostavax for future. FOLLOW UP Laboratory Studies: No labs ordered. [...] atovaquone-proguanil (MALARONE) 250-100 mg per tablet Sig: Take one tab daily start 2 days before malarial area, daily while there and continue for 7 days after. Dispense: 34 tablet Refill: 0 ??? azithromycin (ZITHROMAX) 500 mg tablet Sig: Take one tab daily for three days as needed for severe traveler's diarrhea. Dispense: 3 tablet Refill: 0 Immunization History Administered Date(s) Administered ??? Chicken Pox-History Of Illness 1964 ??? Fluzone Influenza QIV (36+ mos) 06/18/2014 ??? Hep A Adult (19+ yrs) 01/25/2001, 07/27/2001 ??? Hep B Adult Vaccine (20+ yrs) 01/25/2001, 02/22/2001, 07/27/2001 ??? IPV 01/25/2001 ??? Influenza TIV 0.5ml (36+ mos) 08/03/2005, 09/01/2006, 08/01/2008 ??? MCV4 (Menactra) 02/06/2009 ??? MMR 10/02/1996 ??? MPSV4 (Menomune) 01/25/2001, 08/31/2004 ??? Measles 10/03/1964 ??? PPD Clinic 10/25/2005 ??? Rubella 11/03/1969 ? ? Td Adult (>7 years) 01/25/2001 ??? Tdap (Adacel) 02/06/2009 ??? Typhoid PO 08/31/2004, 02/02/2008, 08/02/2014 ??? YF-Vax 08/31/2004 400 OPERATOR documented in this encounter Plan of Treatment Not on filedocumented as of this encounter Visit Diagnoses Diagnosis Counseling for travel - Primary Other specified counseling documented in this encounter Care Teams Energy Conservation Engineer Relationship Specialty Start Date End Date No Primary/Referring, Phy PCP - General 12/03/14 documented as of this encounter
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
--- OUTSIDE RECORDS SUMMARY | 2022-07-21 11:08 | XMS_ITS | Encounter Summary ---
:1960 Author [facility] Address [address] [place] [address] Care Team Providers Name Role Phone Unassigned, Provider Primary Care Provider Unavailable Reason for Visit Procedure/Equipment (Routine) - Closed Specialty Diagnoses / Procedures Referred By Contact Refer red To Contact Procedures Benjamin Sanford MD MR BRAIN / STEM WITH CONTRAST [address] [place] [address] Referral ID Status Reason Start Date Expiration Date Visits Requ ested Visits Authorized [id number] Closed 12/03/2012 1 1 Encounter Details Date Type Department Care Team Description 12/03/2012 Imaging [facility] MRI [address] [place] [address] Social History Tobacco Use Types Packs/Day Years Used Date Smoking Tobacco: Never Assessed Sex Assigned at Date Recorded Not on file documented as of this encounter Plan of Treatment Not on filedocumented as of this encounter Procedures Procedure Name Priority Date/Time Associated Diagnosis Comme nts MR BRAIN W IV CONT STAT 12/03/2012 4:03 PM Res ults for this BRICKLAYER SUPERVISOR procedure are i n the results section. documented in this encounter Results MR BRAIN / STEM WITH CONTRAST (12/03/2012 4:03 PM BRICKLAYER SUPERVISOR) Anatomical Region Laterality Modality Head Magnetic Resonance Specimen (Source) Anatomical Collection Method Collection Time Re ceived Time Location / / Volume Laterality 12/03/2012 4:03 PM BRICKLAYER SUPERVISOR Narrative 12/03/2012 5:31 PM BRICKLAYER SUPERVISOR ADDENDUM REPORT: MRI HEAD (NOW WITHOUT AND WITH CONTRAST) PERFORMED ON DECEMBER 03, 2012 [facility] The patient returned returned for post g adolinium images. 15 cc Magnevist was utilized. FINDINGS: Supplemental postgadolinium im ages show that the oval lesion in the left central adela demonstrates irreg ular and heterogeneous gadolinium enhancement. 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 No additional abnormal g adolinium enhancement is seen distant from the left pontine lesion. I discussed these findings with Dr. Axel tran (taking over for Dr. Sanford) in the [place] emergency room on December 03 at 1640 hours. IMPRESSION: Post contrast images show ir regular enhancement at the site of the left pontine lesion. 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 Procedure Note Chris Eugene MD - 12/03/2012Form atting of this note might be different from the original. ADDENDUM REPORT: MRI HEAD (NOW WITHOUT AND WITH CONTRAST) PERFORMED ON DECEMBER 03, 2012 [facility] The patient returned returned for post g adolinium images. 15 cc Magnevist was utilized. FINDINGS: Supplemental postgadolinium im ages show that the oval lesion in the left central adela demonstrates irreg ular and heterogeneous gadolinium enhancement. 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 No additional abnormal g adolinium enhancement is seen distant from the left pontine lesion. I discussed these findings with Dr. Axel tran (taking over for Dr. Sanford) in the [place] emergency room on December 03 at 1640 hours. IMPRESSION: Post contrast images show ir regular enhancement at the site of the left pontine lesion. 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 Benjamin Sanford MD RAD MRI documented in this encounter Visit Diagnoses Not on filedocumented in this encounter Care Teams Electronic Scanner Operator Relationship Specialty Start Date End Date Unassigned, Provider PCP - General 07/06/00 04/18/[address] [place] [id number] documented as of this encounter
--- OUTSIDE RECORDS SUMMARY | 2022-07-21 11:08 | XMS_ITS | Encounter Summary ---
:1960 Author [facility] Address [address] [address] Care Team Providers Name Role Phone Bailey Arenas MD Primary Care Provider Reason for Referral Specialty Diagnoses / Procedures Referred By Contact Refer red To Contact Bailey Arenas MD [address] [place] [address] [place] [address] Referral ID Status Reason Start Date Expiration Date Visits Requ ested Visits Authorized Reason for Visit Reason Comments Skin Check Encounter Details Date Type Department Care Team Description 06/06/2014 Initial Consult Viola Busby fo r malignant neoplasm of the skin (Primary Dx); Dermatology Flavia Suárez PA-C Personal history of skin cancer; [address] [place] [address] Actinic keratosis; [place] [address] [address] Neoplasm of uncertain behavior of skin [phone] [place] [address] Social History Tobacco Use Types Packs/Day Years Used Date Smoking Tobacco: Never Assessed Sex Assigned at Date Recorded Not on file documented as of this encounter Progress Notes Flavia Aguirre - 06/10/2014 12:31 PM CDT Quick Note: Please notify patient of benign results. Flavia Aguirre - 06/06/2014 9:37 PM CDT Progress Notes signed by Flavia Aguirre PA-C at 06/07/14936 Author: Flavia Aguirre PA-C Service: (none) Author Type: Physician Green Meat Packer Filed: 06/07/14936 Note Time: 06/06/142207 Status: Signed Maintenance Job Titles: Flavia Aguirre PA-C (Physician Green Meat Packer) NAME: MARTIN HERNANDEZ MR#: [id number] CSN: [id number] AUTHENTICATING CLINICIAN: Flavia Aguirre PA-C CONFIRM #: [id number] LOC: [facility] CLINIC PROGRESS NOTE DATE OF VISIT: 06/06/2014 : 1960 Martin is a 54-year-old female who presents for a full-body exam today. She is referred by Dr. Bailey Arenas. Martin has noticed a scaly lesion along the medial glabella that reminds her of previous precancerous lesions that have been treated with cryotherapy at an outside dermatology clinic. She also has several brown, crusted lesions along the torso that she desires removal of, as they tend to rub on clothing. She has a raised papule along the left upper abdomen that catches on bras and she desires removal of. She also has a scaly lesion along the right upper leg that she would like removed. PAST SKIN HISTORY: Significant for actinic keratoses treated with cryotherapy in the past. Basal cell carcinoma along the left paranasal area removed by Dr. George Durant at [facility] at least 15 years ago, the patient reports. 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 CURRENT MEDICATIONS: Reviewed and updated in Epic. ALLERGIES: Reviewed and updated in Epic. EXAMINATION: Patient is pleasant, alert, and oriented, Cintron skin type 2-3. The entire scalp, face, neck, anterior and posterior torso, upper and lower extremities including hands and feet, buttocks were examined today. Along the medial glabella, she has a pink, keratotic macule consistent with actinic keratosis. Along the upper and lower back she has numerous light to dark brown, waxy, stuck-on papules consistent with seborrheic keratoses. Approximately 6 of the larger onesalong the bra line were treated with cryotherapy today, per patient request. Along the left superiorabdomen, she has an approximately 8 mm, pink macule with central raised papular portion, most consistent with an irritated compound nevus versus skin tag. Along the right anterior proximal upper leg she has a light wilson, keratotic, stuck-on papule consistent with a seborrheic keratosis. Along the left perinasal area, she does have a well- healed, linear scar consistent with basal cell carcinoma excision site. No recurrence of basal cell carcinoma evident. ASSESSMENT AND PLAN: 1. Actinic keratoses along the glabella. The lesion was treated with 2 freeze- thaw cycles of liquid nitrogen via Cry-Ac. Patient procedure well. 2. Irritated seborrheic keratoses along the upper back and right proximal upper leg. Patient consents to cryotherapy to approximately 7 lesions total and therefore, lesions were treated with 2 freeze-thaw cycles of liquid nitrogen via Cry-Ac. 3. Irritated compound nevus versus skin tag along the left superior abdomen measuring 8 mm in diameter. Patient consents to removal today as she finds this to irritating on bras and therefore after prep with alcohol, local anesthesia with lidocaine and epinephrine, the 8 mm lesion was removed in its clinical entirety by shave technique. Hemostasis with aluminum chloride. Vaseline and bandage were applied. Routine aftercare directions were discussed and handout provided. The patient will be notified of pathology report in 1 week via phone. 4. Screening for malignant neoplasms of the skin. Encouraged SPF 30 use, sun protective clothing, including broad-brimmed hats, and sun avoidance when possible. 5. Personal history of basal cell carcinoma along the left perinasal area. No records available as this was done at an outside clinic over 15 years ago near [place]. No recurrence evident. Recommended follow full-body exam every 1-2 years, or sooner should she have any new concerns. LIAM:TWAN C: CONFIRM #: [id number] documented in this encounter Miscellaneous Notes Miscellaneous - 11/11/2016 4:18 PM CSTNotes Recorded by Maylin Glynn MA on 06/10/2014 at 3:48 PMPatient informed of pathology report, return to clinic if any regrowth of the lesion or if any pigment returns. Return to clinic 6-12 months for regular skin exam.------Notes Recorded by Flavia Aguirre PA-C on 06/10/2014 at 12:31 PMPlease notify patient of benign results. ICE CONSULTANT documented in this encounter Plan of Treatment Scheduled Referrals Name Type Priority Associated Diagnoses Order S chedule Dermatology Referral Routine Personal history of Ordered: 06/06/2014, Consult-Adult/Peds skin cancer Expires: 06/06/2014 documented as of this encounter Procedures Procedure Name Priority Date/Time Associated Diagnosis Comme nts SURGICAL PATH, PARK Routine 06/06/2014 7:00 AM Re sults for this NICOLLET CDT procedure are i n the results section. documented in this encounter Results Pathology Report (06/06/2014 7:00 AM CDT) Component Value Ref Test Analysis Performed At [facility] gist Range Method Time Signature Path: ? FINAL DERMATOPATHOLOGY REPO RT HP CONVERSION Pathology #: [id number] ? Date Obtained: 06/06/2014 ?Date Received: 06/07/2014 DIAGNOSIS: ? Skin, left upper abdomen, shave biopsy: ? - Seborrheic keratosis, inflamed. ? Jose Armando ANDERS ? (electronic signatur e) ? 06/10/2014 ??10:1 9 CLINICAL NOTES: ? Irritated skin tag vs compound nevus ORGAN/TISSUE SITE ? Left upper abdomen GROSS DESCRIPTION: ? Received in a formalin-filled container labeled with the patient's ? name is a 8 x 4 x 3 mm shave biopsy of skin. ??The sp ecimen is ? marked with black ink, bisected, and submitted entire ly in one ? cassette. ? ks ?WENNI MICROSCOPIC DESCRIPTION: ? Microscopic examination performed. ? End of Report Specimen Anatomical Collection Method Collection Time Receive d Time (Source) Location / / Volume Laterality SHAVE BIOPSY OF 06/06/2014 7:00 AM 2013 7:00 SKIN / Unknown CDT AM CDT Transcriptions 11/11/2016 4:18 PM CSTNotes Recorded by Maylin Glynn MA on 06/10/2014 at 3:48 PMPatient informed of pathology report, return to clinic if any regrowth of the lesion or if any pigment returns. Return to clinic 6-12 months for regular skin exam. ------Notes Recorded by Flavia araiza PA-C on 06/10/2014 at 12:31 PMPlease notify patient of benign results. Flavia Aguirre PA-C LAB_1 Performing Organization Address City/State/ZIP Code Phon e Number HP CONVERSION documented in this encounter Visit Diagnoses Diagnosis Screening for malignant neoplasm of the skin - Primary Personal history of skin cancer Personal history of other malignant neop lasm of skin Actinic keratosis Neoplasm of uncertain behavior of skin documented in this encounter Care Teams Assistant Associate Full Professor Relationship Specialty Start Date End Date Bailey Arenas MD PCP - General 04/19/13 12/02/14 [address] [place] [address] documented as of this encounter
--- OUTSIDE RECORDS SUMMARY | 2022-07-21 11:08 | XMS_ITS | Encounter Summary ---
:1960 Author Organization [facility] Address [address] [place] [address] Care Team Providers Name Role Phone No Primary/Referring, Phy Primary Care Provider Unavailable Encounter Details Date Type Department Care Team Description 03/30/2016 Lab Visit [facility] Essential hypertension; [address] Screening for diabetes paris chopra; [place] [address] Lipid screening [phone] Social History Tobacco Use Types Packs/Day Years Used Date Smoking Tobacco: Never Assessed Sex Assigned at Date Recorded Not on file documented as of this encounter Plan of Treatment Not on filedocumented as of this encounter Procedures Procedure Name Priority Date/Time Associated Diagnosis Comme nts GLUCOSE Routine 03/30/2016 3:24 PM Screening for Results for this CDT diabetes mellitus procedure are in the results section. LIPID PANEL AND Routine 03/30/2016 3:24 PM Lipid screening Res ults for this DIRECT LDL(IF CDT procedure are in NEEDED) the results section. CREATININE / GFR Routine 03/30/2016 3:24 PM Essential Resul ts for this CDT hypertension procedure are i n the results section. ELECTROLYTE PANEL Routine 03/30/2016 3:24 PM Essential Resu lts for this CDT hypertension procedure are i n the results section. documented in this encounter Results (ABNORMAL) Lipid Panel and Direct LDL(If Needed) (03/30/2016 3:24 PM CDT) [facility] Method Time Signature Cholesterol 289 (H) 0 - 199 HP CONVERSION mg/dL Triglycerides 124 4 - 149 HP CONVERSION mg/dL HDL Cholesterol 72 >39 mg/dL HP CONVERSION Cholesterol/HDL 4.0 HP CONVERSION Ratio Screen LDL Calculated 192 (H) 19 - 130 HP CONVERSION mg/dL Length Of Fast 10.0 HP CONVERSION Specimen Anatomical Collection Method Collection Time Receive d Time (Source) Location / / Volume Laterality 03/30/2016 3:24 PM 6 5:42 CDT PM CDT Narrative HP CONVERSION - 03/30/2016 6:18 PM CDT Performed at [facility], [address] [place] [address] CLIA number [id number] Bailey Arenas MD LAB_1 Performing Organization Address City/[facility] Phon e Number HP CONVERSION GLUCOSE (03/30/2016 3:24 PM CDT) athologist Signature Lab Glucose 80 60 - 100 HP CONVERSION mg/dL Specimen Anatomical Collection Method Collection Time Receive d Time (Source) Location / / Volume Laterality 03/30/2016 3:24 PM 6 5:42 CDT PM CDT Narrative HP CONVERSION - 03/30/2016 6:18 PM CDT Performed at [facility], [address] [place] [address] CLIA number [id number] Bailey Arenas MD LAB_1 Performing Organization Address [facility] Phon e Number HP CONVERSION (ABNORMAL) Electrolyte Panel (03/30/2016 3:24 PM CDT) athologist Signature Sodium 140 136 - 145 HP CONVERSION mmol/L Potassium 4.0 3.5 - 5.2 HP CONVERSION mmol/L Chloride 104 98 - 107 HP CONVERSION mmol/L Bicarbonate 20 (L) 22 - 29 HP CONVERSION mmol/L Specimen Anatomical Collection Method Collection Time Receive d Time (Source) Location / / Volume Laterality 03/30/2016 3:24 PM 6 5:42 CDT PM CDT Narrative HP CONVERSION - 03/30/2016 6:18 PM CDT Performed at [facility], [facility] [address] [place] [address] CLIA number [id number] Bailey Arenas MD LAB_1 Performing Organization Address City/[facility]/ZIP Code Phon e Number HP CONVERSION Creatinine / GFR (03/30/2016 3:24 PM CDT) P athologist Signature Creatinine 0.70 0.55 - HP CONVERSION Serum 1.02 mg/dL Est GFR >60 >60 HP CONVERSION [...] Time (Source) Location / / Volume Laterality 03/30/2016 3:24 PM 6 5:42 CDT PM CDT Narrative HP CONVERSION - 03/30/2016 6:18 PM CDT Performed at [facility], [address] [place] [address] CLIA number [id number] Bailey Arenas MD LAB_1 Performing Organization Address City/State/ZIP Code Phon e Number HP CONVERSION documented in this encounter Visit Diagnoses Diagnosis Essential hypertension (HRC) Unspecified essential hypertension Screening for diabetes mellitus Lipid screening Screening for lipoid disorders documented in this encounter Care Teams Waistband Setter Lockstitch Relationship Specialty Start Date End Date No Primary/Referring, Phy PCP - General 12/03/14 documented as of this encounter
--- OUTSIDE RECORDS SUMMARY | 2022-07-21 11:08 | XMS_ITS | Encounter Summary ---
:1960 Author [facility] Address [address], [place] [address] Care Team Providers Name Role Phone Karlo Duenas MD Primary Care Provider Reason for Visit Reason Comments Refill lisinopril (ZESTRIL) 5 MG ta blet [Pharmacy Med Name: LISINOPRIL 5 MG TABLET] Encounter Details Date Type Department Care Team Description 11/05/2016 Refill [facility] Karlo Duenas MD Refill (lisinopril [address] (ZESTRIL) 5 [place] [address] [place] [address] [Pharmacy Med Name: [phone] (Wo rk) LISINOPRIL 5 MG TABLET]) Social History Tobacco Use Types Packs/Day Years Used Date Smoking Tobacco: Never Smokeless Tobacco: Never Alcohol Use Standard Drinks/Week Comments Yes 7 (1 standard drink = 0.6 oz pure alcoho l) weekly Sex Assigned at Date Recorded Not on file documented as of this encounter Nursing Notes Karlo Duenas MD - 11/08/2016 7:44 AM CST 10 mg Rx sent. BLASTER Patricia Esparza RN - 11/06/2016 12:42 PM CST Further assistance needed to complete refill request Reason: Medication newly ordered within past 12 months. Next Steps: Review pended order for accuracy. Sign. Close encounter. Requested Prescriptions Pending Prescriptions Disp Refills ??? lisinopril (ZESTRIL) 5 MG tablet [Pharmacy Med Name: LISINOPRIL 5 MG TABLET] 90 Tab 3 Sig: TAKE 1 TAB BY MOUTH DAILY. ??? lisinopril (ZESTRIL) 5 MG tablet 90 Tab 3 Sig: Take 2 Tabs by mouth daily. BLASTER Interface, Out Surescripts Prov Query - 11/05/2016 8:41 AM CST lisinopril (ZESTRIL) 5 MG tablet [Pharmacy Med Name: LISINOPRIL 5 MG TABLET] Medication started: 09/16/2016 Last ordered by KARLO DUENAS: 09/29/2016 (37 days ago as No Print/No Fill on 09/29/2016 by KARLO DUENAS), Sig: take 2 tabs by mouth daily. (changed) -> This medication may not have been authorized by the requested provider. -> The requested sig has changed from the last order. -> Refill x 12 months (until due for an office visit) Last qualifying visit: 09/16/2016 (with KARLO DUENAS) Next scheduled visit: None SBP: 166 mm Hg on 09/16/2016 DBP: 94 mm Hg on 09/16/2016 Cr: 0.8 mg/dL on 10/11/2016 K: 4.2 mEq/L on 10/11/2016 Powered by [employer], Reference: [id number], 11/05/2016 8:41:06 AM GRIT BLASTER, Pool: JOSSIE REFILL ([id number]) BLASTER documented in this encounter Plan of Treatment Not on filedocumented as of this encounter Visit Diagnoses Diagnosis Essential hypertension (HRC) - Primary Unspecified essential hypertension documented in this encounter Care Teams Parent Partner Relationship Specialty Start Date End Date Karlo Duenas MD PCP - General Internal Medicine 09/16/16 [address] [place] [address] documented as of this encounter
--- OUTSIDE RECORDS SUMMARY | 2022-07-21 11:09 | XMS_ITS | Encounter Summary ---
:1960 Author Organization [facility] Address [address] [address] Care Team Providers Name Role Phone Unassigned, Provider Primary Care Provider Unavailable Encounter Details Date Type Department Care Team Description 08/15/1996 PN Conversion Only ANABAPTIST CONVERSION Michael Cross MD [address] [place], [place] [address] Social History Tobacco Use Types Packs/Day Years Used Date Smoking Tobacco: Never Assessed Sex Assigned at Date Recorded Not on file documented as of this encounter Plan of Treatment Not on filedocumented as of this encounter Procedures Procedure Name Priority Date/Time Associated Comments Diagnosis CONVERSION DEFAULT Routine 08/15/1996 3:05 PM Res ults for this INTERFACE ORDER EXPERIMENTAL WORKER procedure ar e in the results section. CONVERSION DEFAULT Routine 08/15/1996 3:05 PM Res ults for this INTERFACE ORDER EXPERIMENTAL WORKER procedure ar e in the results section. documented in this encounter Results Conversion Default Interface Order (08/15/1996 3:05 PM EXPERIMENTAL WORKER) P athologist Signature Cholesterol 192 125 199MG/D HP CONVERSION L Comment: NCEP guidelines for blood Total Cholest leroy: ? <200 mg/dl ? Desirable tot al cholesterol. ? 200-239 mg/dl ?Borderline - h igh risk for coronary heart disease. ? 240 and over ? High risk for coronary heart disease. Triglycerides 70 30 250MG/D L HP CONVERSION Uric Acid Serum 3.5 2.0 7.2MG/D L HP CONVERS ION HDL Cholesterol 61 36 80MG/D L HP CONVERSIO N Comment: NCEP guidelines for blood HDL cholester ol: ?< 35 mg/dl High risk for coronary heart disease. ?> 60 mg/dl Negative risk factor, d ecreased risk for coronary heart disease. HDL/Chol Ratio 0.32 HP CONVERSION LDL Calculated 120 88 176MG/D L HP CONVERSIO N Comment: NCEP guidelines for blood LDL cholester ol: ? > 160 mg/dl ?High risk for co ronary heart disease. ? 130-159 mg/dl ??Borderline risk f or coronary heart disease. ? < 130 mg/dl ?Desirable LDL ch olesterol. Specimen (Source) Anatomical Collection Method Collection Time Re ceived Time Location / / Volume Laterality 08/15/1996 3:05 PM EXPERIMENTAL WORKER Michael Cross MD LAB_1 Performing Organization Address City/State/ZIP Code Phon e Number HP CONVERSION Conversion Default Interface Order (08/15/1996 3:05 PM EXPERIMENTAL WORKER) P athologist Signature Thyroid 0.94 0.40 HP CONVERSION Stimulating 5.00uIU/ Hormone ML Specimen (Source) Anatomical Collection Method Collection Time Re ceived Time Location / / Volume Laterality 08/15/1996 3:05 PM EXPERIMENTAL WORKER Michael Cross MD LAB_1 Performing Organization Address [facility] Phon e Number HP CONVERSION documented in this encounter Visit Diagnoses Not on filedocumented in this encounter Care Teams Nail Making Machine Tender Relationship Specialty Start Date End Date Unassigned, Provider PCP - General 07/06/00 04/18/[address] [place] [id number] documented as of this encounter
--- OUTSIDE RECORDS SUMMARY | 2022-07-21 11:09 | XMS_ITS | Encounter Summary ---
:1960 Author Organization [facility] Address [address], [place] [address] Care Team Providers Name Role Phone Unassigned, Provider Primary Care Provider Unavailable Encounter Details Date Type Department Care Team Description 11/14/2006 Office Visit [facility] [address] Simba Og Jr., Clinic [address] [place] [address] [place], [place] [phone] [phone] Social History Tobacco Use Types Packs/Day Years Used Date Smoking Tobacco: Never Assessed Sex Assigned at Date Recorded Not on file documented as of this encounter Progress Notes Blessing Thacker RN - 11/14/2006 12:01 AM CST Progress Notes signed by Blessing Thacker RN at 11/14/06 1147 Author: Blessing Thacker RN Service: (none) Author Type: Registered Nurse Filed: 11/14/06 0000 Note Time: 11/14/06 0001 Status: Signed Manager Of Procurement: Blessing Thacker RN (Registered Nurse) Travel Clinic Initial Visit Patient is seen in Travel Clinic individually for travel education and counseling. TRAVEL PLANS Patient states they are planning to travel to: [facility] Plans include travel to and/or lodging at: rural areas High Risk Areas: Patient is traveling to Yellow Fever risk area. Patient is traveling to Malaria risk area for 14 days. Reviewed a Malaria risk map with the patient and they were given a copy. Departure Date: 12/14/2006 Estimated Length of Stay: 14 days. 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 Patient is not breast feeding. Medications: None. ADR: Adverse drug reactions are listed on the Travel Consult form, which was scanned into the electronic medical record. Previous Health History: Previous health history was reviewed. No problems relevant to travel were identified. PATIENT EDUCATION Patient was given verbal and/or written information about: Dengue Fever, Diphtheria/Tetanus, Hepatitis A, Hepatitis B, HIV, Influenza, Leishmaniasis, Malaria, Meningitis, Polio, Rabies--pre-exposure schedule, Rabies--post-exposure protocol, Schistosomiasis, Sexually Transmitted Diseases, Travax/CDC information, Traveler's Diarrhea, Typhoid, Yellow Fever, Reviewed vaccine schedule and efficacy. Patient was also provided information about health care and insurance information while traveling abroad. Patient appears to understand all the information provided. IMMUNIZATIONS See immunization module on [facility] for current immunizations. No immunizations needed based on patient history and travel plans. PRESCRIPTIONS Reviewed medication options for itinerary. Risks, benefits and side effects were discussed. The following prescriptions/OTC medications were given: Malarone. (Patient reports they have used Malarone in the past and tolerated it well.) Cipro. Imodium. (Patient was instructed to follow package directions for Imodium dose.) Pepto Bismol. (Patient was instructed to follow package directions for Pepto Bismol dose.) Patient educational information regarding these prescribed medications was provided. PLAN Laboratory Studies: No labs ordered. Return To Clinic: No follow-up visit needed. Time spent in individual counselin minutes. *SH~TRAVEL~INT ~Shorthand Note completed on: 11/14/2006 11:45 AM RECLAIMER documented in this encounter Plan of Treatment Not on filedocumented as of this encounter Visit Diagnoses Not on filedocumented in this encounter Care Teams Thermite Welder Relationship Specialty Start Date End Date Unassigned, Provider PCP - General 07/06/00 04/18/[address] [place] [phone] documented as of this encounter
--- OUTSIDE RECORDS SUMMARY | 2022-07-21 11:09 | XMS_ITS | Encounter Summary ---
:1960 Author [facility] Address [address] [place] [address] Care Team Providers Name Role Phone Unassigned, Provider Primary Care Provider Unavailable Reason for Visit Procedure/Equipment (Routine) - Closed Specialty Diagnoses / Procedures Referred By Contact Refer red To Contact Procedures Benjamin Sanford MD MR BRAIN / STEM WITHOUT [address] [place] [address] Referral ID Status Reason Start Date Expiration Date Visits Requ ested Visits Authorized [id number] Closed 12/03/2012 1 1 Encounter Details Date Type Department Care Team Description 12/03/2012 Imaging [facility] MRI [address] [place] [address] Social History Tobacco Use Types Packs/Day Years Used Date Smoking Tobacco: Never Assessed Sex Assigned at Date Recorded Not on file documented as of this encounter Plan of Treatment Not on filedocumented as of this encounter Procedures Procedure Name Priority Date/Time Associated Diagnosis Comme nts MR BRAIN WO IV CONT STAT 12/03/2012 1:11 PM Re sults for this PROFESSOR/NURSE ANESTHETIST procedure are i n the results section. documented in this encounter Results MR BRAIN / STEM WITHOUT CONTRAST (12/03/2012 1:11 PM PROFESSOR/NURSE ANESTHETIST) Anatomical Region Laterality Modality Head Magnetic Resonance Specimen (Source) Anatomical Collection Method Collection Time Re ceived Time Location / / Volume Laterality 12/03/2012 1:11 PM PROFESSOR/NURSE ANESTHETIST Narrative 12/03/2012 3:13 PM PROFESSOR/NURSE ANESTHETIST [facility] 1. MRI HEAD WITHOUT CONTRAST. 2. MRA HEAD WITHOUT CONTRAST 3. MRA NECK WITHOUT CONTRAST. December 032012 at 1305 hours INDICATION: 1. Left arm numbness waking up. Confusio n. 2. Left arm numbness waking up. Confusio n. 3. Left arm numbness waking up. Confusio n. TECHNIQUE: 1. Performed without IV contrast. 2. Performed without IV contrast. 3. Performed without IV contrast. COMPARISON: CT head from earlier on 2012. FINDINGS: MRI HEAD: There is an oval 11 x 5 mm foc us of heterogeneous signal on the left central adela. This is associated wi th slight localized mass effect but no surrounding edema. The appearance is nonspecific, but is suggestive for an occult vascular malformation (e.g. c avernous angioma or capillary telangiectasia). No other similar brain lesions are identified. No evidence for restricted diffusion. No signal mika nges are seen in the remainder the brain parenchyma. No ventricular obstruc tion. ??The craniovertebral junction is negative, and the temporal bones are well-aerated. Skull base unremarkable. There is slight inflammato ry septal membrane thickening in both ethmoid labyrinths. MRA HEAD: No intracranial or skull base arterial occlusion or stenosis is identified. No aneurysm or vascular malf ormation is seen by MR angiography, special attention to the brainstem. MRA NECK: Both carotid systems in the ne ck are unremarkable, with no evidence for hemodynamically-significant cervical ICA stenosis by NASCET criteria. The cervical segments of both vertebral arteries are patent and unremarkable. These results were discussed by Dr. Wong son with Dr. Sanford in the emergency room immediately following the scan on December 04, 2011. IMPRESSION: 1. MRI HEAD: There is an 11 x 5 mm oval lesion in the left central adela. This may represent an occult slow flow v ascular malformation such as a cavernous angioma or a capillary telangi ectasia, and could represent an incidental finding. No other intracrania l abnormalities are identified. 2. MRA HEAD: Negative. 3. MRA NECK: Negative, with no hemodynam ically-significant ICA stenosis by NASCET criteria. No carotid or vertebral dissections are identified in the neck. Procedure Note Chris Eugene MD - 12/03/2012Form atting of this note might be different from the original. [facility] 1. MRI HEAD WITHOUT CONTRAST. 2. MRA HEAD WITHOUT CONTRAST 3. MRA NECK WITHOUT CONTRAST. December 032012 at 1305 hours INDICATION: 1. Left arm numbness waking up. Confusio n. 2. Left arm numbness waking up. Confusio n. 3. Left arm numbness waking up. Confusio n. TECHNIQUE: 1. Performed without IV contrast. 2. Performed without IV contrast. 3. Performed without IV contrast. COMPARISON: CT head from earlier on 2012. FINDINGS: MRI HEAD: There is an oval 11 x 5 mm foc us of heterogeneous signal on the left central adela. This is associated wi th slight localized mass effect but no surrounding edema. The appearance is nonspecific, but is suggestive for an occult vascular malformation (e.g. c avernous angioma or capillary telangiectasia). No other similar brain lesions are identified. No evidence for restricted diffusion. No signal mika nges are seen in the remainder the brain parenchyma. No ventricular obstruc tion. The craniovertebral junction is negative, and the temporal bones are well-aerated. Skull base unremarkable. There is slight inflammato ry septal membrane thickening in both ethmoid labyrinths. MRA HEAD: No intracranial or skull base arterial occlusion or stenosis is identified. No aneurysm or vascular malf ormation is seen by MR angiography, special attention to the brainstem. MRA NECK: Both carotid systems in the ne ck are unremarkable, with no evidence for hemodynamically-significant cervical ICA stenosis by NASCET criteria. The cervical segments of both vertebral arteries are patent and unremarkable. These results were discussed by Dr. Wong son with Dr. Sanford in the emergency room immediately following the scan on December 04, 2011. IMPRESSION: 1. MRI HEAD: There is an 11 x 5 mm oval lesion in the left central adela. This may represent an occult slow flow v ascular malformation such as a cavernous angioma or a capillary telangi ectasia, and could represent an incidental finding. No other intracrania l abnormalities are identified. 2. MRA HEAD: Negative. 3. MRA NECK: Negative, with no hemodynam ically-significant ICA stenosis by NASCET criteria. No carotid or vertebral dissections are identified in the neck. Benjamin Sanford MD RAD MRI documented in this encounter Visit Diagnoses Not on filedocumented in this encounter Care Teams Adhesive Bonding Machine Operator Relationship Specialty Start Date End Date Unassigned, Provider PCP - General 07/06/00 04/18/13 [address] [place] [address] documented as of this encounter
--- OUTSIDE RECORDS SUMMARY | 2022-07-21 11:09 | XMS_ITS | Encounter Summary ---
:1960 Author [facility] Address [address] [place] [address] Care Team Providers Name Role Phone Unassigned, Provider Primary Care Provider Unavailable Reason for Visit Procedure/Equipment (Routine) - Closed Specialty Diagnoses / Procedures Referred By Contact Refer red To Contact Procedures Benjamin Sanford MD MR ANGIOGRAPHY NECK WITHOUT [address] [place] [address] Referral ID Status Reason Start Date Expiration Date Visits Requ ested Visits Authorized [id number] Closed 12/03/2012 1 1 Encounter Details Date Type Department Care Team Description 12/03/2012 Imaging [facility] MRI [address] [place] [address] Social History Tobacco Use Types Packs/Day Years Used Date Smoking Tobacco: Never Assessed Sex Assigned at Date Recorded Not on file documented as of this encounter Plan of Treatment Not on filedocumented as of this encounter Procedures Procedure Name Priority Date/Time Associated Diagnosis Comme nts MR ANGIO NECK WO IV STAT 12/03/2012 1:13 PM Re sults for this CONT SHIFT COMMANDER procedure are i n the results section. documented in this encounter Results MR ANGIOGRAPHY NECK WITHOUT CONTRAST (12/03/2012 1:13 PM SHIFT COMMANDER) Anatomical Region Laterality Modality Neck, Vascular, C-Spine, Skeletal Magnet ic Resonance Specimen (Source) Anatomical Collection Method Collection Time Re ceived Time Location / / Volume Laterality 12/03/2012 1:13 PM SHIFT COMMANDER Narrative 12/03/2012 3:13 PM [facility] 1. MRI HEAD WITHOUT CONTRAST. 2. [...] note might be different from the original. [facility] 1. MRI HEAD WITHOUT CONTRAST. 2. [...] unremarkable. These results were discussed by Dr. Marvin pulido with Dr. Sanford in the emergency room [...] on filedocumented in this encounter Care Teams Cold Work Operator Relationship Specialty Start Date End Date Unassigned, Provider PCP - General 07/06/00 04/18/[address] [place] [phone] documented as of this encounter
--- OUTSIDE RECORDS SUMMARY | 2022-07-21 11:09 | XMS_ITS | Encounter Summary ---
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
--- OUTSIDE RECORDS SUMMARY | 2022-07-21 11:09 | XMS_ITS | Encounter Summary ---
:1960 [facility] Address [address] [place] [address] Care Team Providers Name Role Phone Unassigned, Provider Primary Care Provider Unavailable Reason for Visit Procedure/Equipment (Routine) - Closed Specialty Diagnoses / Procedures Referred By Contact Refer red To Contact Procedures Benjamin Sanford MD MR ANGIOGRAPHY HEAD WITHOUT [address] [place] [address] Referral ID Status Reason Start Date Expiration Date Visits Requ ested Visits Authorized [id number] Closed 12/03/2012 1 1 Encounter Details Date Type Department Care Team Description 12/03/2012 Imaging [facility] MRI [address] [place] [address] Social History Tobacco Use Types Packs/Day Years Used Date Smoking Tobacco: Never Assessed Sex Assigned at Date Recorded Not on file documented as of this encounter Plan of Treatment Not on filedocumented as of this encounter Procedures Procedure Name Priority Date/Time Associated Diagnosis Comme nts MR ANGIO HEAD WO IV STAT 12/03/2012 1:12 PM Re sults for this CONT [facility] UN[facility] NURSE procedure are i n the results section. documented in this encounter Results MR ANGIOGRAPHY HEAD WITHOUT CONTRAST (12/03/2012 1:12 PM [facility] NURSE) Anatomical Region Laterality Modality Head, Vascular Magnetic Resonance Specimen (Source) Anatomical Collection Method Collection Time Re ceived Time Location / / Volume Laterality 12/03/2012 1:12 PM PEDIATRIC ACUTE CARE UN[facility] NURSE Narrative 12/03/2012 3:13 PM [facility] 1. MRI HEAD WITHOUT CONTRAST. 2. [...] note might be different from the original. [facility] 1. MRI HEAD WITHOUT CONTRAST. 2. MRA [...] on filedocumented in this encounter Care Teams Correspondence Section Supervisor Relationship Specialty Start Date End Date Unassigned, Provider PCP - General 07/06/00 04/18/[address] [place] [phone] documented as of this encounter
--- OUTSIDE RECORDS SUMMARY | 2022-07-21 11:09 | XMS_ITS | Encounter Summary ---
:1960 Author Organization [facility] Address [address], [place] [address] Care Team Providers Name Role Phone Unassigned, Provider Primary Care Provider Unavailable Encounter Details Date Type Department Care Team Description 01/30/2011 PN Conversion Only CONVERSION CONVERSION Social History Tobacco Use Types Packs/Day Years Used Date Smoking Tobacco: Never Assessed Sex Assigned at Date Recorded Not on file documented as of this encounter Plan of Treatment Not on filedocumented as of this encounter Visit Diagnoses Not on filedocumented in this encounter Care Teams Radiation Control Specialist Relationship Specialty Start Date End Date Unassigned, Provider PCP - General 07/06/00 04/18/[address] [place] [phone] documented as of this encounter
--- OUTSIDE RECORDS SUMMARY | 2022-07-21 11:09 | XMS_ITS | Encounter Summary ---
:1960 Author Organization [facility] Address [address] [address] Care Team Providers Name Role Phone Unassigned, Provider Primary Care Provider Unavailable Encounter Details Date Type Department Care Team Description 08/31/2004 Office Visit [facility] [address] Clinic [address] [place] [address] [place], [place] [phone] Social History Tobacco Use Types Packs/Day Years Used Date Smoking Tobacco: Never Assessed Sex Assigned at Date Recorded Not on file documented as of this encounter Plan of Treatment Not on filedocumented as of this encounter Visit Diagnoses Not on filedocumented in this encounter Care Teams Music Researcher Relationship Specialty Start Date End Date Unassigned, Provider PCP - General 07/06/00 04/18/[address] [place] [address] documented as of this encounter
--- OUTSIDE RECORDS SUMMARY | 2022-07-21 11:09 | XMS_ITS | Encounter Summary ---
:1960 Author Organization [facility] Address [address] [address] Care Team Providers Name Role Phone Unassigned, Provider Primary Care Provider Unavailable Encounter Details Date Type Department Care Team Description 02/02/2008 Office Visit [facility] [address] Marilyn Cross MD Clinic [address] [place] [address] [place] [address] [phone] Social History Tobacco Use Types Packs/Day Years Used Date Smoking Tobacco: Never Assessed Sex Assigned at Date Recorded Not on file documented as of this encounter Progress Notes Aminta Evans - 02/02/2008 12:01 AM CDT Progress Notes signed by Aminta Gardiner RN at 02/02/08 1356 Author: Aminta Gardiner RN Service: (none) Author Type: Registered Nurse Filed: 02/02/08 0000 Note Time: 02/02/08 0001 Status: Signed Bus Van Driver: Aminta Gardiner RN (Registered Nurse) Travel Clinic Initial Visit Patient is seen in Travel Clinic individually for travel education and counseling. TRAVEL PLANS Patient states they are planning to travel to: [facility], [facility] and nearby areas. Plans include travel to and/or lodging at: rural areas, urban areas High Risk Areas: Patient is traveling to Yellow Fever risk area. Patient is traveling to Malaria risk area for 14 days. Reviewed a Malaria risk map with the patient and they were given a copy. Departure Date: 04/04/2008 Estimated Length of Stay: 14 days. 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 HEALTH HISTORY : Patient states she is not . Patient is not breast feeding. Medications: Reviewed and updated today on Health Profile in the patients electronic medical record. ADR: Adverse drug reactions are listed on the Travel Consult form, which was scanned into the electronic medical record. Previous Health History: Problem List in electronic medical record was reviewed. No additional problems relevant to travel were identified. PATIENT EDUCATION Patient was given verbal and/or written information about: Dengue Fever, Diphtheria/Tetanus, Hepatitis A, Hepatitis B, HIV, Influenza, Malaria, Meningitis, Polio, Rabies--pre-exposure schedule, Rabies--post-exposure protocol, Schistosomiasis, Sexually Transmitted Diseases, Tickborne Illnesses, Travax/CDC information, Traveler's Diarrhea, Tuberculosis, Typhoid, Yellow Fever, Reviewed vaccine schedule and efficacy. Patient was also provided information about health care and insurance information while traveling abroad. Patient appears to understand all the information provided. IMMUNIZATIONS See immunization module on [facility] for current immunizations. Routine vaccines are current for age per records provided. Patient was given the following immunizations per clinic protocol: Ty21a, Yellow Fever vaccine was previously received,approximately four years ago. No reaction to Ty21a as patient has not taken yet. Has tolerated well in the past. PRESCRIPTIONS Reviewed medication options for itinerary. Risks, [...] counselin minutes. *SH~TRAVEL~INT ~Shorthand Note completed on: 02/02/2008 1:54 PM documented in this encounter Plan of Treatment Not on filedocumented as of this encounter Visit Diagnoses Not on filedocumented in this encounter Care Teams Yield Analyst Relationship Specialty Start Date End Date Unassigned, Provider PCP - General 07/06/00 04/18/[address] [place] [phone] documented as of this encounter
--- OUTSIDE RECORDS SUMMARY | 2022-07-21 11:09 | XMS_ITS | Encounter Summary ---
:1960 Author Organization [facility] Address [address] [place] [address] Care Team Providers Name Role Phone Unassigned, Provider Primary Care Provider Unavailable Reason for Visit Reason Comments Other Encounter Details Date Type Department Care Team Description 10/30/2008 Telephone [facility] [address] [facility] Marjorie Montenegro Other [address] [place] [address] Social History Tobacco Use Types Packs/Day Years Used Date Smoking Tobacco: Never Assessed Sex Assigned at Date Recorded Not on file documented as of this encounter Progress Notes Najma Rodriguez RN - 10/30/2008 2:04 PM CST Phone Note filed by Najma Rodriguez RN at 01/21/11 1601 Author: Najma Rodriguez RN Service: (none) Author Type: (none) Filed: 01/21/11 1601 Note Time: 10/30/08 1404 Status: Signed Natural Gas Technician: Jacqui Cerda Pt calling stating that she is leaving for [place] 12/11. Pt wants Cipro and Malarone sent to Pharm Seq# [phone]. Pl call pt. Created on 30Oct2008 2:04pm by NAJMA ALMODOVAR On 30Oct2008 2:28pm MARJORIE MONTENEGRO wrote: Patient was called and will be gone for 16 days. No changes in health history or allergy profile. Vaccines are current. Per travel clinic protocols okay to refill as requested. FICATION LEAD documented in this encounter Plan of Treatment Not on filedocumented as of this encounter Visit Diagnoses Not on filedocumented in this encounter Care Teams Box Printer Relationship Specialty Start Date End Date Unassigned, Provider PCP - General 07/06/00 04/18/[address] [place] [phone] documented as of this encounter
--- OUTSIDE RECORDS SUMMARY | 2022-07-21 11:09 | XMS_ITS | Encounter Summary ---
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
--- OUTSIDE RECORDS SUMMARY | 2022-07-21 11:09 | XMS_ITS | Encounter Summary ---
:1960 [facility] [address] [address] Care Team Providers Name Role Phone Unassigned, Provider Primary Care Provider Unavailable Reason for Visit Procedure/Equipment (Routine) - Closed Specialty Diagnoses / Procedures Referred By Contact Refer red To Contact Procedures Benjamin Sanford MD CT HEAD WITHOUT CONTRAST [address] [place] [address] Referral ID Status Reason Start Date Expiration Date Visits Requ ested Visits Authorized [id number] Closed 12/03/2012 1 1 Encounter Details Date Type Department Care Team Description 12/03/2012 Imaging [facility] [address] [place] [address] Social History Tobacco Use Types Packs/Day Years Used Date Smoking Tobacco: Never Assessed Sex Assigned at Date Recorded Not on file documented as of this encounter Plan of Treatment Not on filedocumented as of this encounter Procedures Procedure Name Priority Date/Time Associated Diagnosis Comme nts CT HEAD WO IV CONT STAT 12/03/2012 9:56 AM Res ults for this CAN TOP SETTER procedure are i n the results section. documented in this encounter Results CT HEAD WITHOUT CONTRAST (12/03/2012 9:56 AM CAN TOP SETTER) Anatomical Region Laterality Modality Head Computed Tomography Specimen (Source) Anatomical Collection Method Collection Time Re ceived Time Location / / Volume Laterality 12/03/2012 9:56 AM [facility]TER Narrative 12/03/2012 10:15 AM [facility] HEAD CT 12/03/2012 INDICATION: Left arm numbness TECHNIQUE: Routine without contrast. COMPARISON: No comparison. FINDINGS: No bleed, mass effect, or acute infarct evident. Sinuses and mastoids clear. Bones unrema rkable. CONCLUSION: No acute intracranial abnormality appare nt. Procedure Note Josr Arceo MD - 12/03/2012F ormatting of this note might be different from the original. [facility] HEAD CT 12/03/2012 INDICATION: Left arm numbness TECHNIQUE: Routine without contrast. COMPARISON: No comparison. FINDINGS: No bleed, mass effect, or acute infarct evident. Sinuses and mastoids clear. Bones unrema rkable. CONCLUSION: No acute intracranial abnormality appare nt. Benjamin Sanford MD RAD CT documented in this encounter Visit Diagnoses Not on filedocumented in this encounter Care Teams Vessel Captain Relationship Specialty Start Date End Date Unassigned, Provider PCP - General 07/06/00 04/18/[address] [place] [id number] documented as of this encounter
--- OUTSIDE RECORDS SUMMARY | 2022-07-21 11:09 | XMS_ITS | Encounter Summary ---
:1960 Author Organization [facility] Address [address] [address] Care Team Providers Name Role Phone Unassigned, Provider Primary Care Provider Unavailable Encounter Details Date Type Department Care Team Description 02/06/2009 Office Visit [facility] [address] [address] [place] [address] [place], [place] [phone] Social History Tobacco Use Types Packs/Day Years Used Date Smoking Tobacco: Never Assessed Sex Assigned at Date Recorded Not on file documented as of this encounter Progress Notes Blessing Thacker RN - 02/06/2009 12:01 AM CDT Progress Notes signed by Blessing Thacker RN at 02/06/09 1512 Author: Blessing Thacker RN Service: (none) Author Type: Registered Nurse Filed: 02/06/09 0000 Note Time: 02/06/09 0001 Status: Signed Cpo: Blessing Thacker RN (Registered Nurse) Travel Clinic Initial Visit Patient is seen in Travel Clinic individually for travel education and counseling. Barrier(s) to care: None. TRAVEL PLANS Patient states they are planning to travel to: [place] Plans include travel to and/or lodging at: rural areas, urban areas High Risk Areas: Patient is traveling to Yellow Fever risk area. Patient is traveling to Malaria risk area for 31 days. Reviewed a Malaria risk map with the patient and they were given a copy. Departure Date: 03/02/2009 Estimated Length of Stay: 31 days. 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 Patient is not breast feeding. Medications: Reviewed and updated today on Health Profile in the patients electronic medical record. See current medications listed on the paper Medical History Form. ADR: Adverse drug reactions are listed on the Travel Consult form, which was scanned into the electronic medical record. Patient reports she is not certain they are actual allergies but does not want these meds and requests nurse keep the entries in LW Previous Health History: Previous health history was [...] immunization module on PHP for current immunizations. Patient was given the following immunizations per clinic protocol: Menactra, Tdap, Reaction to Vaccine: Patient had no reaction. PRESCRIPTIONS Reviewed medication options for itinerary. Risks, [...] counselin minutes. *SH~TRAVEL~INT ~[facility] Note completed on: 02/06/2009 3:10 PM documented in this encounter Plan of Treatment Not on filedocumented as of this encounter Visit Diagnoses Not on filedocumented in this encounter Care Teams Finance Executive Relationship Specialty Start Date End Date Unassigned, Provider PCP - General 07/06/00 04/18/[address] [place] [id number] documented as of this encounter
--- OUTSIDE RECORDS SUMMARY | 2022-07-21 11:09 | XMS_ITS | Encounter Summary ---
:1960 Author Organization [facility] Address [address] [place] [address] Care Team Providers Name Role Phone Unassigned, Provider Primary Care Provider Unavailable Reason for Referral Consult/Transfer Care (Routine) - Closed Specialty Diagnoses / Procedures Referred By Contact Refer red To Contact Navin Michele MD [address] [place] [address] Referral ID Status Reason Start Date Expiration Date Visits Requ ested Visits Authorized [id number] Closed 12/03/2012 1 1 Scheduling Instructions Your provider has recommended an appoint ment with a [facility] Specialist. You may call [phone] to schedule your appointment. HT COMMUNICATIONS OPERATOR Procedure/Equipment (Routine) - Closed Specialty Diagnoses / Procedures Referred By Contact Refer red To Contact Procedures Benjamin Sanford MD MR BRAIN / STEM WITH CONTRAST [address] [facility] [place] [address] Referral ID Status Reason Start Date Expiration Date Visits Requ ested Visits Authorized [id number] Closed 12/03/2012 1 1 HT COMMUNICATIONS OPERATOR Procedure/Equipment (Routine) - Closed Specialty Diagnoses / Procedures Referred By Contact Refer red To Contact Procedures Benjamin Sanford MD MR ANGIOGRAPHY NECK WITHOUT [address] [place] [address] Referral ID Status Reason Start Date Expiration Date Visits Requ ested Visits Authorized [id number] Closed 12/03/2012 1 1 HT COMMUNICATIONS OPERATOR Procedure/Equipment (Routine) - Closed Specialty Diagnoses / Procedures Referred By Contact Refer red To Contact Procedures Benjamin Sanford MD MR ANGIOGRAPHY HEAD WITHOUT [address] [place] [address] Referral ID Status Reason Start Date Expiration Date Visits Requ ested Visits Authorized [id number] Closed 12/03/2012 1 1 HT COMMUNICATIONS OPERATOR Procedure/Equipment (Routine) - Closed Specialty Diagnoses / Procedures Referred By Contact Refer red To Contact Procedures Benjamin Sanford MD MR BRAIN / STEM WITHOUT [address] [place] [address] Referral ID Status Reason Start Date Expiration Date Visits Requ ested Visits Authorized [id number] Closed 12/03/2012 1 1 HT COMMUNICATIONS OPERATOR Procedure/Equipment (Routine) - Closed Specialty Diagnoses / Procedures Referred By Contact Refer red To Contact Procedures Benjamin Sanford MD CT HEAD WITHOUT CONTRAST [address] [place] [address] Referral ID Status Reason Start Date Expiration Date Visits Requ ested Visits Authorized [id number] Closed 12/03/2012 1 1 HT COMMUNICATIONS OPERATOR Reason for Visit Reason Comments SENSORY PROBLEM--FOCAL--ED left arm numbness Encounter Details Date Type Department Care Team Description 12/03/2012 Emergency [facility] Ascencion Sanford MD [address] [place] [address] Left arm numbness Emergency Department Navin Michele MD [address] [place], [place] [id number] [address] [place] [address] Social History Tobacco Use Types Packs/Day Years Used Date Smoking Tobacco: Never Assessed Sex Assigned at Date Recorded Not on file documented as of this encounter Last Filed Vital Signs Vital Sign Reading Time Taken Comments Blood Pressure 175/91 12/03/2012 4:51 PM FLIGHT COMMUNICATIONS OPERATOR Pulse 88 12/03/2012 4:51 PM FLIGHT COMMUNICATIONS OPERATOR Temperature 36.8 ??C (98.3 ??F) 12/03/2012 4:51 PM FLIGHT COMMUNICATIONS OPERATOR Respiratory Rate 18 12/03/2012 4:51 PM FLIGHT COMMUNICATIONS OPERATOR Oxygen Saturation 98% 12/03/2012 4:51 PM FLIGHT COMMUNICATIONS OPERATOR Inhaled Oxygen Concentration - - Weight 68 kg (150 lb) 12/03/2012 9:29 AM FLIGHT COMMUNICATIONS OPERATOR Height 167.6 cm (5' 6) 12/03/2012 9:29 AM FLIGHT COMMUNICATIONS OPERATOR Body Mass Index 24.21 12/03/2012 9:29 AM FLIGHT COMMUNICATIONS OPERATOR documented in this encounter Discharge Instructions Discharge InstructionsNavin Michele MD - 12/03/2012 4:49 PM CST Images from the original note were not included. For follow-up care, you should be seen by your PRIMARY DOCTOR/CLINIC within 3-5 days, if not improving. Return to the ED for changes in symptoms such as -- increasing pain, difficulty breathing, inabilityto tolerate liquid/solids, fever >101F or other concerns. Numbness and Tingling: After Your Visit Your Care Instructions Many things can cause numbness or tingling. Swelling may put pressure on a nerve. This could cause you to lose feeling or have a sozf-xyq-wtgogva sensation on part of your body. Nerves may be damaged from trauma, toxins, or diseases, such as diabetes or multiple sclerosis (MS). Sometimes, though, the cause is not clear. If there is no clear reason for your symptoms, and you are not having any other symptoms, your doctor may suggest watching and waiting for a while to see if the numbness or tingling goes away on its own. Your doctor may want you to have blood or nerve tests to find the cause of your symptoms. Follow-up care is a sepulveda part of your treatment and safety. Be sure to make and go to all appointments, and call your doctor if you are having problems. It's also a good idea to know your test results and keep a list of the medicines you take. How can you care for yourself at home? ?? If your doctor prescribes medicine, take it exactly as directed. Call your doctor if you think you are having a problem with your medicine. ?? If you have any swelling, put ice or a cold pack on the area for 10 to 20 minutes at a time. Put a thin cloth between the ice and your skin. When should you call for help? Call 911 anytime you think you may need emergency care. For example, call if: ?? You have weakness, numbness, or tingling in both legs. ?? You lose bowel or bladder control. ?? You have signs of a stroke. These may include: ?? Sudden new numbness, or sudden paralysis or weakness in your face, arm, or leg, especially on only one side of your body. ?? New problems with walking or balance. ?? Sudden vision changes. ?? Drooling or slurred speech. ?? New problems speaking or understanding simple statements, or feeling confused. ?? A sudden, severe headache that is different from past headaches. Watch closely for changes in your health, and be sure to contact your doctor if you have any problems, or if: ?? You do not get better as expected. Where can you learn more? Go to [employer] and enter [id number] in the search box. ?? [phone] [facility]. HT COMMUNICATIONS OPERATOR documented in this encounter Medications at Time of Discharge Medication Sig Dispensed Refills Start Date End Date atovaquone-proguanil (AKA Take 1 tablet by 40 0 05/0 04/200904/19/2013 MALARONE) 250-100 MG mouth daily (every tablet 24 hours). LW Addl Instr:Begin 2 days before malaria exposure,daily while there, and continue for 7 days after malaria exposure. Take with food. Indicated for: Malaria Prevention. Per travel clinic protocol. ciprofloxacin (AKA CIPRO) Take 1 tablet by 6 2 05/0 04/200904/19/2013 500 MG tablet mouth 2 times daily as needed. LW Addl Instr:for 3 days as needed severe diarrhea UNKNOWN MEDICATION Indications: PN: 0 02/06/2009 04/19/2014 MULTIPLE VITAMIN OR 0 06/03 Multiple Take 1 tablet by 0 02/06/2009 06/03/20 16 Vitamins-Minerals mouth daily (every (MULTIVITAMIN OR) 24 hours). omega-3 fatty acids (AKA Take 2 g by mouth 0 06/03/2016 MAXEPA,FISH OIL) 1000 MG daily. capsule documented as of this encounter Procedure Notes [facility], Provider - 12/03/2012 12:00 AM CSTAssociated Order(s): EKG IP HT COMMUNICATIONS OPERATOR documented in this encounter ED Notes Elzbieta Lomas RN - 12/03/2012 5:01 PM CST [facility] ED Nursing Discharge Note Vital Signs: BP: 175/91 mmHg Temp: 98.3 ??F (36.8 ??C)Temp src: Oral Pulse: 88 Resp: 18 SpO2: 98 % Pain Scale (0-10): 3 Admission Date/Time: 12/03/2012 9:18 AM Attending MD: Navin Michele Patient discharged: to Home. Patient accompanied by: spouse. Transported by: Walked Valuables were taken home by patient: Yes Work/School Slip given: N/A Discharge instructions given and explained to patient: Yes Discharge prescriptions given to patients: No Patient verbalized understanding. Yes Patient level of pain on discharge: 0 Patients condition on discharge related to chief complaint and treatment in ED: Stable ---End of Report--- HT COMMUNICATIONS OPERATOR Navin Michele MD - 12/03/2012 3:38 PM CST ED Signout Acceptance Note Shonna Bashir is a 52 yr female who was signed out to me by Benjamin Sanford at 1530. For complete history and physical, please see ED staff/resident's note. In brief, the patient was seen in ED for L arm numbness, no other evidence of CVA. Labs, ECG and MR done. No obvious CVA but brainstem abnormality noted. Case discussed with hospitalist by Dr. Sanford, no indication for admission if MR reassuring. The patient is awaiting MR with contrast. BP 167/95 Pulse 88 Temp(Src) 98.9 ??F (37.2 ??C) (Oral) Resp 16 Ht 5' 6 (1.676 m) Wt 68.04 kg (150 lb) BMI 24.21 kg/m2 SpO2 98% ED course under my care: Contrast-enhanced MR done, discussed results with reading neuroradiology. He mentioned this lesion is possible vascular malformation but not consistent with mass or bleed or infarct. Patient updated. Will f/u with PCP or Neuro and take ASA daily. Patient given instructions on f ollow-up and warning signs for which to return to ED. All questions answered. Stable upon discharge.No acute events. Condition: stable at time of disposition HT COMMUNICATIONS OPERATOR Benjamin Sanford MD - 12/03/2012 2:58 PM CST Visit Note Chief Complaint: SENSORY PROBLEM--FOCAL--ED HPI Pt here for evaluation of left arm numbness. She is otherwise completely healthy. [place] fine last night but woke up this AM with numbness in her entire left arm which has persisted. 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 The numbness continued so a friend brought her in for evaluation. HTN noted on arrival. Hx of TIA/strokes in her dad in his 50's. No weakness, visual changes,headache, or speech difficulties. Meds: Previous Medications MULTIPLE VITAMIN OR OMEGA-3 FATTY ACIDS (AKA MAXEPA,FISH OIL) 1000 MG CAPSULE Take 2 g by mouth daily. Allergies:Compazine and Darvon-n PMH: Reviewed - none noted History Substance Use Topics ??? Smoking status: No ??? Smokeless tobacco: Not on file ??? Alcohol Use: No No family history on file. Review of Systems Constitutional: Negative. HENT: Negative. Eyes: Negative. Respiratory: Negative. Cardiovascular: Negative. Gastrointestinal: Negative. Neurological: Positive for light-headedness and numbness. Negative for dizziness, facial asymmetry, speech difficulty, weakness and headaches. All other systems reviewed and are negative. Vital signs: BP 167/95 Pulse 88 Temp(Src) 98.9 ??F (37.2 ??C) (Oral) Resp 16 Ht 5' 6 (1.676m) Wt 68.04 kg (150 lb) BMI 24.21 kg/m2 SpO2 98% Physical Exam Nursing note and vitals reviewed. Constitutional: She is oriented to person, place, and time. She appears well- developed and well-nourished. No distress. HENT: Head: Normocephalic and atraumatic. Mouth/Throat: Oropharynx is clear and moist. Eyes: EOM are normal. Pupils are equal, round, and reactive to light. Neck: Normal range of motion. Neck supple. Cardiovascular: Normal rate and regular rhythm. Pulmonary/Chest: Effort normal and breath sounds normal. No respiratory distress. Abdominal: Soft. She exhibits no distension. There is no tenderness. Musculoskeletal: Normal range of motion. She exhibits no edema. Neurological: She is alert and oriented to person, place, and time. She has normal strength. No cranial nerve deficit. She exhibits normal muscle tone. She displays a negative Romberg sign. Coordination and gait normal. GCS eye subscore is 4. GCS verbal subscore is 5. GCS motor subscore is 6. Reflex Scores: Patellar reflexes are 2+ on the right side and 2+ on the left side. Achilles reflexes are 2+ on the right side and 2+ on the left side. Subjective sensory dullness to left arm, no specific dermatome. Skin: Skin is warm and dry. She is not diaphoretic. Medical Decision Making: Pt here with left arm numbness. Thorough neuro exam does not reveal any other abnormalities, isolated symptom with NIHSS of 1. Timeline uncertain as she woke up with this symptom. TIA workup initiated with head CT, labs, and EKG. EKG shows NSR, no hx of a-fib or palpitations. Labs unremarkable, head CT normal. I discussed further TIA workup, low-risk with ABCD2 score of 3. MRI/MRA ordered, which actually showed a lesion in the left adela on the non-contrast images consistent with old blood products but this would not explain her symptoms appropriately. Contrast-enhanced images would be needed so this was added on and pt sent back for additional series. Per discussion with neuroradiologist, this lesion does not appear to be a demyelination plaque or ischemic area. Discussed results with pt and hospitalist. At this point I do not feel that further TIA workup is necessary, her BP improved while in the ED. She will need urgent primary care and neurology f/u for risk factor management, but may need more urgent f/u depending on results of contrast MRI. 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 Neurology Referral - Referral Routine Ordered : 12/03/2012 Adults from ED documented as of this encounter Procedures Procedure Name Priority Date/Time Associated Diagnosis Comme nts MR BRAIN W IV CONT STAT 12/03/2012 4:03 PM Res ults for this FLIGHT COMMUNICATIONS OPERATOR procedure are i n the results section. MR ANGIO NECK WO IV STAT 12/03/2012 1:13 PM Re sults for this CONT FLIGHT COMMUNICATIONS OPERATOR procedure are i n the results section. MR ANGIO HEAD WO IV STAT 12/03/2012 1:12 PM Re sults for this CONT FLIGHT COMMUNICATIONS OPERATOR procedure are i n the results section. MR BRAIN WO IV CONT STAT 12/03/2012 1:11 PM Re sults for this FLIGHT COMMUNICATIONS OPERATOR procedure are i n the results section. CT HEAD WO IV CONT STAT 12/03/2012 9:56 AM Res ults for this FLIGHT COMMUNICATIONS OPERATOR procedure are i n the results section. TROPONIN I STAT 12/03/2012 9:35 AM Results f or this FLIGHT COMMUNICATIONS OPERATOR procedure are i n the results section. BASIC METABOLIC STAT 12/03/2012 9:35 AM Result s for this PANEL FLIGHT COMMUNICATIONS OPERATOR procedure are i n the results section. COMPLETE BLOOD STAT 12/03/2012 9:35 AM Results for this COUNT-NO DIFF FLIGHT COMMUNICATIONS OPERATOR procedure are in the results section. INR/PROTIME STAT 12/03/2012 9:35 AM Results f or this FLIGHT COMMUNICATIONS OPERATOR procedure are i n the results section. EKG IP 12/03/2012 12:00 AM Results for this FLIGHT COMMUNICATIONS OPERATOR procedure are i n the results section. documented in this encounter Results MR BRAIN / STEM WITH CONTRAST (12/03/2012 4:03 PM FLIGHT COMMUNICATIONS OPERATOR) Anatomical Region Laterality Modality Head Magnetic Resonance Specimen (Source) Anatomical Collection Method Collection Time Re ceived Time Location / / Volume Laterality 12/03/2012 4:03 PM FLIGHT COMMUNICATIONS OPERATOR Narrative 12/03/2012 5:31 PM FLIGHT COMMUNICATIONS OPERATOR ADDENDUM REPORT: MRI HEAD (NOW WITHOUT AND WITH CONTRAST) PERFORMED ON DECEMBER 03, 2012 [facility] The patient returned returned for post g [...] (taking over for Dr. Sanford) in the [place] emergency room on December 03 at 1640 [...] WITH CONTRAST) PERFORMED ON DECEMBER 03, 2012 [facility] The patient returned returned for post g [...] (taking over for Dr. Sanford) in the [place] emergency room on December 03 at 1640 hours. IMPRESSION: Post contrast images show ir regular enhancement at the site of the left pontine lesion. 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 Benjamin Sanford MD RAD MRI MR ANGIOGRAPHY NECK WITHOUT CONTRAST (12/03/2012 1:13 PM FLIGHT COMMUNICATIONS OPERATOR) Anatomical Region Laterality Modality Neck, Vascular, C-Spine, Skeletal Magnet ic Resonance Specimen (Source) Anatomical Collection Method Collection Time Re ceived Time Location / / Volume Laterality 12/03/2012 1:13 PM FLIGHT COMMUNICATIONS OPERATOR Narrative 12/03/2012 3:13 PM FLIGHT COMMUNICATIONS OPERATOR [facility] 1. MRI HEAD WITHOUT CONTRAST. 2. MRA HEAD WITHOUT CONTRAST 3. MRA NECK WITHOUT CONTRAST. December 03 at 2012 at 1305 hours INDICATION: 1. Left arm [...] note might be different from the original. [facility] 1. MRI HEAD WITHOUT CONTRAST. 2. [...] the neck. Benjamin Sanford MD RAD MRI MR ANGIOGRAPHY HEAD WITHOUT CONTRAST (12/03/2012 1:12 PM FLIGHT COMMUNICATIONS OPERATOR) Anatomical Region Laterality Modality Head, Vascular Magnetic Resonance Specimen (Source) Anatomical Collection Method Collection Time Re ceived Time Location / / Volume Laterality 12/03/2012 1:12 PM FLIGHT COMMUNICATIONS OPERATOR Narrative 12/03/2012 3:13 PM FLIGHT COMMUNICATIONS OPERATOR [facility] 1. MRI HEAD WITHOUT CONTRAST. 2. [...] note might be different from the original. [facility] 1. MRI HEAD WITHOUT CONTRAST. 2. [...] the neck. Benjamin Sanford MD RAD MRI MR BRAIN / STEM WITHOUT CONTRAST (12/03/2012 1:11 PM FLIGHT COMMUNICATIONS OPERATOR) Anatomical Region Laterality Modality Head Magnetic Resonance Specimen (Source) Anatomical Collection Method Collection Time Re ceived Time Location / / Volume Laterality 12/03/2012 1:11 PM FLIGHT COMMUNICATIONS OPERATOR Narrative 12/03/2012 3:13 PM FLIGHT COMMUNICATIONS OPERATOR [facility] 1. MRI HEAD WITHOUT CONTRAST. 2. [...] note might be different from the original. [facility] 1. MRI HEAD WITHOUT CONTRAST. 2. [...] the neck. Benjamin Sanford MD RAD MRI CT HEAD WITHOUT CONTRAST (12/03/2012 9:56 AM FLIGHT COMMUNICATIONS OPERATOR) Anatomical Region Laterality Modality Head Computed Tomography Specimen (Source) Anatomical Collection Method Collection Time Re ceived Time Location / / Volume Laterality 12/03/2012 9:56 AM FLIGHT COMMUNICATIONS OPERATOR Narrative 12/03/2012 10:15 AM FLIGHT COMMUNICATIONS OPERATOR [facility] HEAD CT 12/03/2012 INDICATION: Left arm numbness TECHNIQUE: Routine without contrast. COMPARISON: No comparison. FINDINGS: No bleed, mass effect, or acute infarct evident. Sinuses and mastoids clear. Bones unrema rkable. CONCLUSION: No acute intracranial abnormality appare nt. Procedure Note Josr Arceo MD - 12/03/2012F ormatting of this note might be different from the original. [facility] HEAD CT 12/03/2012 INDICATION: Left arm numbness TECHNIQUE: Routine without contrast. COMPARISON: No comparison. FINDINGS: No bleed, mass effect, or acute infarct evident. Sinuses and mastoids clear. Bones unrema rkable. CONCLUSION: No acute intracranial abnormality appare nt. Benjamin Sanford MD RAD CT TROPONIN I (12/03/2012 9:35 AM FLIGHT COMMUNICATIONS OPERATOR) P athologist Signature TROPONIN-I <0.04 0.00 - 0.1 [facility] ng/mL [facility] Comment: 0.0 - 0.1 ng/mL ?? Normal 0.1 - 0.6 ng/mL ?? Risk stratification: small increases have been associated ?with risk of adverse clinical events; e.g., patients with ?unstable keith na and increased troponins are at high risk ?for short-ter m adverse cardiac events. 0.6 - 1.5 ng/mL ?? Diagnostic for acute, evolving, or recent VA if typical ?rise and grad ual fall of troponin with at least one of ?the following : ?Ischemic s ymptoms ?Pathologic Q waves on ECG ?ECG change s indicative of ischemia (ST segment elevation ? or depres danita) ?Corogonary artery intervention, I.E., angioplasty Specimen Anatomical Collection Method Collection Time Receive d Time (Source) Location / / Volume Laterality 12/03/2012 9:35 AM 3 FLIGHT COMMUNICATIONS OPERATOR 10:11 AM FLIGHT COMMUNICATIONS OPERATOR Benjamin Sanford MD LAB_1 Performing Organization Address City/State/ZIP Code Phon e Number [facility] [address] [place] [address] [phone] PROTIME-INR (12/03/2012 9:35 AM FLIGHT COMMUNICATIONS OPERATOR) P athologist Signature Protime 10.1 9.3 - 11.5 [facility] INR 1.0 [facility] Comment: Suggested Therapeutic Ranges using INR f or stable anticoagulated patients: 2.0 - 3.0 ?Routine oral anticoagulan t therapy for prevention and/or ? treatment of thrombos is 2.5 - 3.5 ?With recurrent thromboemb olic event and those with mechanical ? heart valves Specimen Anatomical Collection Method Collection Time Receive d Time (Source) Location / / Volume Laterality 12/03/2012 9:35 AM 3 FLIGHT COMMUNICATIONS OPERATOR 10:11 AM FLIGHT COMMUNICATIONS OPERATOR Benjamin Sanford MD LAB_1 Performing Organization Address City/State/ZIP Code Phon e Number [facility] [address] [place] [address] BASIC METABOLIC PANEL (12/03/2012 9:35 AM FLIGHT COMMUNICATIONS OPERATOR) athologist Signature Sodium 139 135 - 145 [facility] mmol/L [facility] Potassium 4.6 3.5 - 5.1 [facility] mmol/L [facility] Chloride 102 98 - 110 [facility] mmol/L [facility] CO2 28 22 - 32 [place] mmol/L [facility] Anion Gap 9.0 6.0 - 16.0 [facility] (calc.) mmol/L [facility] Glucose 88 65 - 100 [place] mg/dL [facility] Calcium 9.1 8.5 - 10.5 [facility] mg/dL [facility] BUN 11 7 - 25 [facility] mg/dL [facility] Creatinine 0.73 0.51 - [place] 1.17 mg/dL [facility] BUN/ CREA RATIO 15 10 - 20 [facility] GFR, Estimated >60 ml/min/1.7 [facility] 3m^2 [facility] Comment: Estimated Glomerular Filtration Rate (eG FR) by MDRD Equation Chronic Kidney Disease: ? < 60 Kidney Failure: ? < 15 If patient is -[place] multiply the Estimated GFR value by 1.21 Specimen Anatomical Collection Method Collection Time Receive d Time (Source) Location / / Volume Laterality 12/03/2012 9:35 AM 3 FLIGHT COMMUNICATIONS OPERATOR 10:11 AM FLIGHT COMMUNICATIONS OPERATOR Narrative [facility] - 12/03/2012 10:44 AM FLIGHT COMMUNICATIONS OPERATOR Slightly hemolyzed Benjamin Sanford MD LAB_1 Performing Organization Address City/[facility]/ZIP Code Phon e Number [facility] [address] [place] [address] CBC W PLT NO DIFF (12/03/2012 9:35 AM FLIGHT COMMUNICATIONS OPERATOR) P athologist Signature WBC 5.0 4.5 - 11.0 [facility] x10^3/uL [facility] RBC 4.03 4.00 - 5.20 [facility] x10^6/uL [facility] Hemoglobin 12.5 12.0 - 16.0 [facility] g/dL [facility] HCT 36.6 33.0 - 51.0 [facility] % [facility] MCV 91 80 - 100 fL [facility] MCH 31.0 26.0 - 34.0 [facility] pg [facility] MCHC 34.2 32.0 - 36.0 [facility] g/dL [facility] RDW 12.8 11.5 - 15.5 [facility] % [facility] Platelets 251 140 - 440 [place] x10^3/uL [facility] MPV 8.0 6.5 - 11.0 [facility] Specimen Anatomical Collection Method Collection Time Receive d Time (Source) Location / / Volume Laterality 12/03/2012 9:35 AM 3 FLIGHT COMMUNICATIONS OPERATOR 10:11 AM FLIGHT COMMUNICATIONS OPERATOR Benjamin Sanford MD LAB_1 Performing Organization Address City/[facility]/ZIP Code Phon e Number [facility] [address] [place] [address] EKG IP (12/03/2012 12:00 AM FLIGHT COMMUNICATIONS OPERATOR) Specimen (Source) Anatomical Location Collection Method / Collectio n Time Received Time / Laterality Volume 12/03/2012 Narrative This result has an attachment that is no t available. Transcriptions [facility], Provider - 12/03/2012 12:00 AM CST Provider [facility] EKG documented in this encounter Visit Diagnoses Diagnosis Left arm numbness Disturbance of skin sensation documented in this encounter Care Teams Science Instructor Relationship Specialty Start Date End Date Unassigned, Provider PCP - General 07/06/00 04/18/[address] [place] [address] documented as of this encounter
--- OUTSIDE RECORDS SUMMARY | 2022-07-21 11:09 | XMS_ITS | Encounter Summary ---
:1960 Author Organization [facility] Address [address] [address] Care Team Providers Name Role Phone Unassigned, Provider Primary Care Provider Unavailable Encounter Details Date Type Department Care Team Description 10/25/2005 Office Visit [facility] [address] Og Jr., Clinic [address] [place] [address] [place], [place] [phone] Social History Tobacco Use Types Packs/Day Years Used Date Smoking Tobacco: Never Assessed Sex Assigned at Date Recorded Not on file documented as of this encounter Progress Notes Monika Pozo - 10/25/2005 12:01 AM CST Progress Notes signed by at 10/25/05 5737 Author: Monika Pozo RN Service: (none) Author Type: Registered Nurse Filed: 10/25/05 0000 Note Time: 10/25/05 0001 Status: Signed Candle Molder Machine: Monika Pozo RN (Registered Nurse) Travel Clinic Initial Visit Patient is seen in Travel Clinic individually for travel education and counseling. TRAVEL PLANS Patient states they are planning to travel to: [place] Plans include travel to and/or lodging at: rural areas, urban areas High Risk Areas: Patient is traveling to yellow fever risk area. Patient is traveling to malaria risk area for 102 days. Reviewed a malaria risk map with the patient and they were given a copy. Departure Date: 12/01/2005 Estimated Length of Stay: 3 1/2 months. 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 HEALTH HISTORY : Patient states she is not . Medications: None. Previous Health History: Patient reports a history of no relevant previous health problems. PATIENT EDUCATION Patient was given verbal and/or written information about: dengue fever, diphtheria/tetanus, hepatitis A, hepatitis B, HIV, influenza, malaria, meningitis, polio, rabies--pre-exposure schedule, rabies--post-exposure protocol, schistosomiasis, travax/CDC information, traveler's diarrhea, tuberculosis, typhoid, yellow fever, Reviewed vaccine schedule and efficacy. Patient was also provided information about health care and insurance information while traveling abroad. Patient appears to understand all the information given. IMMUNIZATIONS See immunization module on PHP for current immunizations. Routine and travel vaccines are current for age per records provided. Patient was given a PPD per travel clinic protocol. PRESCRIPTIONS Reviewed medication options for itinerary. Risks, benefits and side effects were discussed. The following prescriptions/OTC medications were given: malarone. (Patient reports they have used malarone in the past and tolerated it well.) cipro. imodium. (Patient was instructed to follow package directions for imodium dose.) pepto bismol. (Patient was instructed to follow package directions for pepto bismol dose.) Patient educational information regarding these prescribed medications was provided. PLAN Laboratory Studies: No labs ordered. Return To Clinic: To have mantoux read in 48-72 hours. 15 minutes spent counseling/educating patient. *SH~TRAVEL~INT ~Shorthand Note completed on: 10/25/2005 2:51 PM R AND GREASER documented in this encounter Plan of Treatment Not on filedocumented as of this encounter Visit Diagnoses Not on filedocumented in this encounter Care Teams Title Curative Specialist Relationship Specialty Start Date End Date Unassigned, Provider PCP - General 07/06/00 04/18/[address] [place] [address] documented as of this encounter
--- OUTSIDE RECORDS SUMMARY | 2022-07-21 11:09 | XMS_ITS | Encounter Summary ---
:1960 Author Organization [email or web address] Address [address], [place] [address] Care Team Providers Name Role Phone Unassigned, Provider Primary Care Provider Unavailable Encounter Details Date Type Department Care Team Description 11/15/1996 PN Conversion Only [facility], Nose, Ayre, Gigi H III, and Throat [address] [phone] [address] (Wo rk) Social History Tobacco Use Types Packs/Day Years Used Date Smoking Tobacco: Never Assessed Sex Assigned at Date Recorded Not on file documented as of this encounter Progress Notes Conversion, [facility] - 11/15/1996 12:01 AM CST Progress Notes signed by at 07/21/98 4454 Author: Jacqui Conversion Service: (none) Author Type: (none) Filed: 01/19/11 5414 Note Time: 11/15/96 0001 Status: Signed Carpenter'S Assistant: Jacqui Conversion IMPRESSION: 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 SUBJECTIVE: Shonna is seen in follow up of her endoscopic surgery. She has done well. She complains of occasional discomfort in her right upper teeth, and some low grade drainage, but overall feels improved. OBJECTIVE: Today all is well, but there is a small synechia between the middle turbinate and lateral nasal wall. Our middle meatal antrostomy is nicely patent, and no signs of purulence or drainage are seen. 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 PLAN: Nasal irrigations and return to clinic should her symptoms not continue to improve. cc: Nina Cross MD [facility] [address] [place] [address] [facility] SCHEDULED RESOURCE: GIGI PEREZ / Electronically signed by [facility] at 08/25/2016 11:50 AM CONSULTING ANALYST Conversion, [facility] - 10/29/1996 12:01 AM CST Progress Notes signed by at 07/21/98 5614 Author: [facility] Conversion Service: (none) Author Type: (none) Filed: 01/19/112202 Note Time: 10/29/96 0001 Status: Signed Carpenter'S Assistant: Jacqui Cerda IMPRESSION: Good early result, status post middle meatal antrostomy with maxillarysinus polyp. SUBJECTIVE: Shonna is seen in follow up of her sinus surgery. She has had some slight discomfort in the right maxilla, but is overall doing reasonably well. OBJECTIVE: Today small crusting remains within the right middle meatus, and some of this is debrided, although some of this area is still a bit fresh and there is small bleeding. 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 PLAN: Use of saline irrigations and completion of oral antibiotics. Return to clinic in 2-3 weeks. [facility] SCHEDULED RESOURCE: GIGI PEREZ MD Electronically signed by [facility] at 08/25/2016 11:50 AM CONSULTING ANALYST Conversion, [facility] - 10/08/1996 12:01 AM CST Progress Notes signed by at 07/21/98 5831 Author: [facility] Conversion Service: (none) Author Type: (none) Filed: 01/19/11 2149 Note Time: 10/08/96 0001 Status: Signed Carpenter'S Assistant: Jacqui Conversion IMPRESSION: Chronic rhinitis with possible chronic right maxillary sinusitis vs. mucous retention cyst. SUBJECTIVE: This is a most pleasant 36-year-old woman with issues of nasal drainage and right facial pain. She has intermittently had difficulties with right-sided infection. She has no specific allergies to inhalants. She is a nonsmoker. Her symptoms have been gradually progressive over several years. OBJECTIVE: Today her ears are well. Her nose is externally straight, with very slight left septal deviation. Intranasally she has moderate congestion, but no mucopurulent drainage. The right middle turbinate is quite lateralized, and I cannot see into the middle meatal region. CT scan documents either an air fluid level or a mucous retention cyst of some substance that may obstruct. Her nasopharynx and oral cavity are negative. ASSESSMENT: Chronic rhinitis with possible chronic right maxillary sinusitis vs. mucous retention cyst. PLAN: I would recommend ventilation of the right sinus. Her difficulties have been relatively long-standing, and while she may require topical nasal steroids for rhinitis, we might be able to assist her with her right facial pain with ventilation of this sinus. We have discussed the risks and benefits of this procedure with her, and she is comfortable moving forward in the near future. cc: Nina Cross MD [facility] [address] [place] [address] [facility] SCHEDULED RESOURCE: GIGI PEREZ MD ULTING ANALYST documented in this encounter Plan of Treatment Not on filedocumented as of this encounter Visit Diagnoses Not on filedocumented in this encounter Care Teams Radiologic Technology Instructor Relationship Specialty Start Date End Date Unassigned, Provider PCP - General 07/06/00 04/18/[address] [place] [address] documented as of this encounter
[2022-07-21 13:23] LABS: Albumin* 4.9 g/dL (3.3-5.0); Chloride* 102 mmol/L (96-114); Sodium* 139 mmol/L (135-149)
[2022-07-21 13:25] LABS: Cholesterol* 261 mg/dL (90-199); Creatinine* 0.6 mg/dL (0.5-1.5); Estimated Glomerular Filt Rate 101 ml/min
[2022-07-21 13:26] LABS: Alanine Aminotransferase* 55 U/L (4-35); Alkaline Phosphatase* 70 U/L (40-150); Aspartate Amino Transferase* 91 U/L (12-35); Blood Urea Nitrogen* 10 mg/dL (7-30); Carbon Dioxide* 29 mmol/L (20-32); Glucose* 97 mg/dL (60-115); Triglycerides* 93 mg/dL (40-149)
[2022-07-21 13:27] LABS: Calcium* 10.4 mg/dL (8.4-10.6)
[2022-07-21 13:29] LABS: Potassium* 4.7 mmol/L (3.6-5.1)
[2022-07-21 13:43] LABS: Vitamin D 25 Hydroxy* 69 ng/mL (30-80)
[2022-07-21 13:49] LABS: HDL Cholesterol* 131 mg/dL (>=50); LDL Cholesterol Calculated 111 mg/dL (<100)
[2022-07-22 11:30] LABS: Bilirubin Direct* 0.4 mg/dL (0.0-0.5)
[2022-07-22 11:58] LABS: Gamma Glutamyl Transpeptidase* 118 U/L (8-55)
[2022-07-23 12:39] LABS: Hepatitis B Core Antibody, IgM Negative (Negative); Hepatitis B Surface Antigen Negative (Negative); Hepatitis C Antibody by CIA Negative (Negative)
== END 2022-07-21 10:47 | disposition home or self-care (01) ==
PROVIDERS: PCP Family Medicine; Visit Provider Family Medicine
DX: Z01.419 Encounter for gynecological examination (general) (routine) without abnormal findings (principal); E78.5 Hyperlipidemia, unspecified; I10 Essential (primary) hypertension; R79.89 Other specified abnormal findings of blood chemistry; E67.3 Hypervitaminosis D; E55.9 Vitamin D deficiency, unspecified
CPT/HCPCS: 80053; 80061; 80074; 82248; 82306; 82728; 82977

== ENCOUNTER 2022-07-29 14:51 | Outpatient (CLI) | payer BC, SELFPAY ==
--- OUTSIDE RECORDS SUMMARY | 2022-07-29 14:54 | XMS_ITS | Encounter Summary ---
:1960 [address] [facility] Address [address], [place] [address] Care Team Providers Name Role Phone Bailey Arenas MD Primary Care Provider Reason for Visit Reason Onset Date Comments Refill 11/07/2016 Encounter Details Date Type Department Care Team Description 11/07/2016 Refill [facility] Bailey Sung MD Refill [address] [place] [address] [place] [address] [phone] (Wo rk) Social History Tobacco Use Types Packs/Day Years Used Date Smoking Tobacco: Never Smokeless Tobacco: Never Alcohol Use Standard Drinks/Week Comments Yes 7 (1 standard drink = 0.6 oz pure alcoho l) weekly Sex Assigned at Date Recorded Not on file documented as of this encounter Nursing Notes Arpita Garcia RN - 11/07/2016 8:55 AM WOOD LAST MAKER From: Shonna Bashir To: Bailey Arenas MD Sent: 11/07/2016 8:49 AM WOOD LAST MAKER Subject: Medication Renewal Request Original authorizing provider: MD Shonna Rivers Kwan Bashir would like a refill of the following medications: lisinopril (ZESTRIL) 5 MG tablet [Bailey Arenas MD] Preferred pharmacy: [facility] [address] [facility] [address] [facility] 13 [address] Comment: Dear Dr Arenas I attempted to refill my lisinopril at [facility] in [place]. I was denied. I am now out of the lisinopril and leave next Tuesday for 3 weeks in [place]. I can tell a difference by taking this medicine and would really like to get a refill. Please advise. I was under the understanding Ihad a years refill. Thank you! Shonna LAST MAKER documented in this encounter Plan of Treatment Not on filedocumented as of this encounter Visit Diagnoses Diagnosis Essential hypertension (HRC) Unspecified essential hypertension documented in this encounter Care Teams Tire Balancer Relationship Specialty Start Date End Date Bailey Arenas MD PCP - General Internal Medicine 09/16/16 [address] [place] [address] documented as of this encounter
--- OUTSIDE RECORDS SUMMARY | 2022-07-29 14:54 | XMS_ITS | Encounter Summary ---
:1960 Author Organization [email or web address] Address [address], [place] [address] Care Team Providers Name Role Phone No Primary/Referring, Phy Primary Care Provider Unavailable Reason for Visit Reason Comments NUMBNESS Nausea Neck Pain Encounter Details Date Type Department Care Team Description 02/19/2015 Hospital Encounter [facility] Meme Li F acial numbness; Care Neck pain [address] [place] [address] [facility] [phone] [place], [place] [phone] Social History Tobacco Use Types Packs/Day Years [...] Li MD at 02/28/15 1437 Author: Meme Li MD Service: (none) Author Type: Physician Filed: 02/28/15 1437 Note Time: 02/20/15 1400 Status: Signed Recovery Operator: Meme Li MD (Physician) NAME: MARTIN BASHIR MR#: [id number] CSN: [id number] AUTHENTICATING CLINICIAN: Meme Li MD CONFIRM #: [id number] LOC: 520 URGENT CARE PROGRESS NOTE DATE [...] as well. PAST MEDICAL HISTORY: Reviewed through [facility]. PAST SURGICAL HISTORY: [facility]. MEDICATIONS: [facility]. ALLERGIES: Diphenhydramine, and propoxyphene. OBJECTIVE: Temperature [...] sprain. PLAN: Patient will be transferred to [facility] Emergency Room for further evaluation and treatment. She is in agreement with the plan. Her will drive her immediately over there. I do believe she needs head imaging. I did talk to the ER doctor across at [facility], and they agreed to accept her and assume treatment care. Patient left in stable condition. TITO:TWAN C: CONFIRM #: [id number] Meme Li MD - 02/19/2015 3:12 PM CDT .dict documented in this encounter Miscellaneous Notes ED AVS Snapshot - Stefano Jimenez MD - 02/19/2015 3:13 PM CDT Images from the original note were not included. [facility] [address] [place] [address] Dept: [phone] [email or web address] 02/19/2015 2:58 PM Hospital Encounter Description: Female : 1960 Department: [facility] Thank you for choosing [facility] for your health care visit with Meme Li MD. [facility]are happy to care for you and provide this summary of your visit. Your primary animal care technician is currently listed as Bailey Arenas MD. HERE IS WHAT YOU NEED TO KNOW To learn how you can take steps to stay as healthy as you can be visit [email or web address] HERE IS WHAT YOU NEED TO DO [...] with [facility]. You may call [phone] to schedule your appointment. If you prefer, a fence gate assembler will contact you within the next 3 [...] Ethnicity Preferred Language 1960 Female White Non- Burkinan This document contains confidential information about your [...] .. documented in this encounter Care Teams Floral Design Teacher Relationship Specialty Start Date End Date No Primary/Referring, Phy PCP - General 12/03/14 documented as of this encounter
--- OUTSIDE RECORDS SUMMARY | 2022-07-29 14:54 | XMS_ITS | Encounter Summary ---
:1960 Author Organization [facility] Address [address], [place] [address] Care Team Providers Name Role Phone Bailey Arenas MD Primary Care Provider Reason for Visit Reason Comments MEDICATION CHECK Encounter Details Date Type Department Care Team Description 12/20/2016 Office Visit [facility] Bailey Arenas, Essential hypertension Medicine (Primary Dx) [address] [place] [address] [place] [address] [phone] Social History Tobacco Use Types Packs/Day Years [...] in [place] for 3 weeks; she visited [facility], [facility], and [facility], 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 She is [...] hypertension documented in this encounter Care Teams Emissions Engineer Relationship Specialty Start Date End Date Bailey Arenas MD PCP - General Internal Medicine 09/16/[address] [place] [address] documented as of this encounter
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
--- OUTSIDE RECORDS SUMMARY | 2022-07-29 14:54 | XMS_ITS | Encounter Summary ---
:1960 Author Organization [facility] Address [address] [place] [address] Care Team Providers Name Role Phone No Primary/Referring, Phy Primary Care Provider Unavailable Encounter Details Date Type Department Care Team Description 03/30/2016 Lab Visit [facility] Essential hypertension; [address] Screening for diabetes paris chopra; [place] [address] Lipid screening [phone] Social History Tobacco Use Types Packs/Day Years [...] Direct LDL(If Needed) (03/30/2016 3:24 PM CDT) [facility] Method Time Signature Cholesterol 289 (H) 0 [...] - 03/30/2016 6:18 PM CDT Performed at [facility], [address] [place] [address] CLIA number [id number] Bailey Arenas MD LAB_1 Performing Organization Address City/[facility] Phon e Number HP CONVERSION GLUCOSE (03/30/2016 3:24 PM CDT) athologist Signature Lab Glucose 80 60 - 100 HP CONVERSION mg/dL Specimen Anatomical Collection Method Collection Time Receive d Time (Source) Location / / Volume Laterality 03/30/2016 3:24 PM 6 5:42 CDT PM CDT Narrative HP CONVERSION - 03/30/2016 6:18 PM CDT Performed at [facility], [address] [place] [address] CLIA number [id number] Bailey Arenas MD LAB_1 Performing Organization Address [facility] Phon e Number HP CONVERSION (ABNORMAL) [...] - 03/30/2016 6:18 PM CDT Performed at [facility], [facility] [address] [place] [address] CLIA number [id number] Bailey Arenas MD LAB_1 Performing Organization Address City/[facility]/ZIP Code Phon e Number HP CONVERSION Creatinine [...] - 03/30/2016 6:18 PM CDT Performed at [facility], [address] [place] [address] CLIA number [id number] Bailey Arenas MD LAB_1 Performing Organization Address City/State/ZIP Code Phon e Number HP CONVERSION documented in this encounter Visit Diagnoses Diagnosis Essential hypertension (HRC) Unspecified essential hypertension Screening for diabetes mellitus Lipid screening Screening for lipoid disorders documented in this encounter Care Teams Composition Roofer Relationship Specialty Start Date End Date No Primary/Referring, Phy PCP - General 12/03/14 documented as of this encounter
--- OUTSIDE RECORDS SUMMARY | 2022-07-29 14:54 | XMS_ITS | Encounter Summary ---
:1960 Author Organization [facility] Address [address], [place] [address] Care Team Providers Name Role Phone No Primary/Referring, Phy Primary Care Provider Unavailable Encounter Details Date Type Department Care Team Description 03/06/2015 Lab Visit [facility] Elevated blood pressure [address] reading without diagnosis of [place] [address] hypertension [phone] Social History Tobacco Use Types Packs/Day Years [...] - 03/06/2015 5:46 PM CDT Performed at [facility], [address] [id number] Bailey Arenas MD LAB_1 Performing Organization Address [facility] Phon e Number HP CONVERSION Creatinine / [...] - 03/06/2015 5:46 PM CDT Performed at [facility], [address] [place] [address] Bailey Arenas MD LAB_1 Performing Organization Address [facility] Phon e Number HP CONVERSION documented in this encounter Visit Diagnoses Diagnosis Elevated blood pressure reading without diagnosis of hypertension documented in this encounter Care Teams Enterprise Application Architect Relationship Specialty Start Date End Date No Primary/Referring, Phy PCP - General 12/03/14 documented as of this encounter
--- OUTSIDE RECORDS SUMMARY | 2022-07-29 14:54 | XMS_ITS | Encounter Summary ---
:1960 Author [facility] Address [address], [place] [address] Care Team Providers Name Role Phone No Primary/Referring, Phy Primary Care Provider Unavailable Encounter Details Date Type Department Care Team Description 04/19/2016 Notes/Orders [facility] Bailey Sung MD [address] [facility] [place] [address] [place] [address] [phone] (Wo rk) Social History Tobacco Use Types Packs/Day Years Used Date Smoking Tobacco: Never Assessed Sex Assigned at Date Recorded Not on file documented as of this encounter Plan of Treatment Not on filedocumented as of this encounter Visit Diagnoses Not on filedocumented in this encounter Care Teams Contract Technical Writer Relationship Specialty Start Date End Date No Primary/Referring, Phy PCP - General 12/03/14 documented as of this encounter
--- OUTSIDE RECORDS SUMMARY | 2022-07-29 14:54 | XMS_ITS | Encounter Summary ---
:1960 Author Organization [facility] Address [address] [address] Care Team Providers Name Role Phone Karlo Duenas MD Primary Care Provider Reason for Visit Reason Comments Refill lisinopril (ZESTRIL) 5 MG ta blet [Pharmacy Med Name: LISINOPRIL 5 MG TABLET] Encounter Details Date Type Department Care Team Description 11/05/2016 Refill [facility] Karlo Duenas MD Refill (lisinopril [address] (ZESTRIL) 5 [place] [address] [place] [address] [Pharmacy Med Name: [phone] (Wo rk) LISINOPRIL 5 MG TABLET]) Social [...] 7:44 AM CST 10 mg Rx sent. CTOR OF INTELLIGENCE Patricia Esparza RN - 11/06/2016 12:42 PM [...] Sig: Take 2 Tabs by mouth daily. CTOR OF INTELLIGENCE Interface, Out Surescripts Prov Query - 11/05/2016 [...] visit) Last qualifying visit: 09/16/2016 (with KARLO DUEANS) Next scheduled visit: None SBP: 166 mm Hg on 09/16/2016 DBP: 94 mm Hg on 09/16/2016 Cr: 0.8 mg/dL on 10/11/2016 K: 4.2 mEq/L on 10/11/2016 Powered by [employer], Reference: [id number], 11/05/2016 8:41:06 AM DIRECTOR OF INTELLIGENCE, Pool: JOSSIE REFILL ([id number]) CTOR OF INTELLIGENCE documented in this encounter Plan of Treatment Not on filedocumented as of this encounter Visit Diagnoses Diagnosis Essential hypertension (HRC) - Primary Unspecified essential hypertension documented in this encounter Care Teams Artist Mannequin Coloring Relationship Specialty Start Date End Date Karlo Duenas MD PCP - General Internal Medicine 09/16/16 [address] [place] [address] documented as of this encounter
--- OUTSIDE RECORDS SUMMARY | 2022-07-29 14:54 | XMS_ITS | Encounter Summary ---
:1960 Author Organization [facility] Address [address] [address] Care Team Providers Name Role Phone Karlo Duenas MD Primary Care Provider Encounter Details Date Type Department Care Team Description 10/22/2017 Refill Order [place] [facility] Karlo Sung MD [address] [place] [address] [place] [phone] (Wo rk) Social History Tobacco Use Types Packs/Day Years Used Date Smoking Tobacco: Never Smokeless Tobacco: Never Alcohol Use Standard Drinks/Week Comments Yes 7 (1 standard drink = 0.6 oz pure alcoho l) weekly Sex Assigned at Date Recorded Not on file documented as of this encounter Nursing Notes Becky Salgado - 10/24/2017 11:32 AM CST Labs to be addressed at future visit. PILER Interface, Out Surescripts Prov Query - 10/22/2017 [...] - NEXT LAB APPOINTMENT: None Powered by [employer], Reference: [id number], 10/22/2017 12:31:15 AM PULP PILER, Pool: JOSSIE CHUNGILL ([id number]) PILER documented in this encounter Plan of Treatment Not on filedocumented as of this encounter Visit Diagnoses Diagnosis Encounter for long-term (current) use of medications - Primary Encounter for long-term (current) use of other medications documented in this encounter Care Teams Community Center Coordinator Relationship Specialty Start Date End Date Karlo Duenas MD PCP - General Internal Medicine 09/16/16 [address] [place], [place] [address] documented as of this encounter
--- OUTSIDE RECORDS SUMMARY | 2022-07-29 14:54 | XMS_ITS | Encounter Summary ---
:1960 Author Organization [facility] Address [address], [place] [address] Care Team Providers Name Role Phone Bailey Arenas MD Primary Care Provider Reason for Visit Reason Comments HYPERTENSION Encounter Details Date Type Department Care Team Description 09/16/2016 Office Visit Bailey Waters, Essential hypertension (Primary Dx); Medicine Hyperlipidemia, unspecified hyperlipidem ia type [address] [place] [address] [place] [address] [phone] Social History Tobacco Use Types Packs/Day Years Used Date Smoking Tobacco: Never Smokeless Tobacco: Never Alcohol Use Standard Drinks/Week Comments Yes 7 (1 standard drink = 0.6 oz pure alcoho l) weekly Sex Assigned at Date Recorded Not on file documented as of this encounter Last Filed Vital Signs Vital Sign Reading Time Taken Comments Blood Pressure 166/94 09/16/2016 1:33 PM FLOWER SHOP LABORER/DESIGNER Pulse 83 09/16/2016 1:33 PM FLOWER SHOP LABORER/DESIGNER Temperature - - Respiratory Rate - - Oxygen Saturation - - Inhaled Oxygen Concentration - - Weight 77.1 kg (170 lb) 09/16/2016 1:22 PM FLOWER SHOP LABORER/DESIGNER Height - - Body Mass Index 27.44 [...] Follow up - 1-2 weeks for labs ER SHOP LABORER/DESIGNER documented in this encounter Plan of Treatment Not on filedocumented as of this encounter Results (ABNORMAL) Lipid Panel - LDLD If Trig High (09/23/2016 9:44 AM FLOWER SHOP LABORER/DESIGNER) [facility] Method Time Signature Cholesterol 284 (H) 0 [...] Volume Laterality 09/23/2016 9:44 AM 6 2:32 FLOWER SHOP LABORER/DESIGNER PM FLOWER SHOP LABORER/DESIGNER Narrative PN SOFT - 09/23/2016 3:11 PM FLOWER SHOP LABORER/DESIGNER Performed at [facility], [address] [place], [place] [address] CLIA number [id number] Bailey Arenas MD LAB_1 Performing Organization Address [facility] Phon e Number PN SOFT [address] [place] [address] [phone] Potassium (09/23/2016 9:44 AM FLOWER SHOP LABORER/DESIGNER) P athologist Signature Potassium 4.9 3.5 - 5.2 PN SOFT mmol/L Specimen Anatomical Collection Method Collection Time Receive d Time (Source) Location / / Volume Laterality 09/23/2016 9:44 AM 6 2:32 FLOWER SHOP LABORER/DESIGNER PM FLOWER SHOP LABORER/DESIGNER Narrative PN SOFT - 09/23/2016 3:11 PM FLOWER SHOP LABORER/DESIGNER Performed at [facility], [address] [place] [address] CLIA number [id number] Bailey Arenas MD LAB_1 Performing Organization Address [facility] Phon e Number PN SOFT [address] [place] [address] Creatinine (09/23/2016 9:44 AM FLOWER SHOP LABORER/DESIGNER) P athologist Signature Creatinine Serum 0.70 0.55 [...] Volume Laterality 09/23/2016 9:44 AM 6 2:32 FLOWER SHOP LABORER/DESIGNER PM FLOWER SHOP LABORER/DESIGNER Narrative PN SOFT - 09/23/2016 3:11 PM FLOWER SHOP LABORER/DESIGNER Performed at [facility], [address] [place] [address] CLIA number [id number] Bailey Arenas MD LAB_1 Performing Organization Address City/State/ZIP Code Phon e Number PN SOFT [address] [place] [address] [phone] documented in this encounter Visit Diagnoses Diagnosis Essential hypertension (HRC) - Primary Unspecified essential hypertension Hyperlipidemia, unspecified hyperlipidem ia type (HRC) Essential hypertension (HRC) Unspecified essential hypertension Hyperlipidemia, unspecified hyperlipidem ia type (HRC) documented in this encounter Care Teams Credit Adjuster Relationship Specialty Start Date End Date Bailey Arenas MD PCP - General Internal Medicine 09/16/16 [address] [place] [address] documented as of this encounter
--- OUTSIDE RECORDS SUMMARY | 2022-07-29 14:54 | XMS_ITS | Encounter Summary ---
:1960 Author Organization [facility] Address [address] [place] [address] Care Team Providers Name Role Phone Bailey Arenas MD Primary Care Provider Reason for Visit Reason Comments HYPERTENSION Encounter Details Date Type Department Care Team Description 09/30/2016 Notes/Orders [place] [facility] Bailey Arenas MD [address] [place] [address] [place] [address] [phone] (Wo rk) Social History Tobacco Use Types [...] on filedocumented in this encounter Care Teams Seat Pack Inspector Relationship Specialty Start Date End Date Bailey Arenas MD PCP - General Internal Medicine 09/16/[address] [phone] documented as of this encounter
--- OUTSIDE RECORDS SUMMARY | 2022-07-29 14:54 | XMS_ITS | Encounter Summary ---
:1960 Author Organization [facility] Address [address], [place] [address] Care Team Providers Name Role Phone Bailey Arenas MD Primary Care Provider Reason for Visit Reason Onset Date Comments Travel Consult 10/21/2016 Encounter Details Date Type Department Care Team Description 10/21/2016 Initial Consult [facility] [address] [place], [place] unseling for travel (Primary Dx); Travel Clinic RN Need for meningococcal vaccination [address] [facility] [address] [phone] Social History Tobacco Use Types Packs/Day Years [...] countries: 23 days. Countries of travel: [place], [place], [place], [place]. Areas in country: rural [...] certificate stating yf vaccine is, Valid for Life[facility] Accommodations: hotel Purpose of travel: business PRIOR [...] was given verbal and/or written information about: [place] Trypanosomiasis, Chikungunya, Cholera, Dengue Fever, Diphtheria/Tetanus, Filarial, [...] 02/02/2008, 08/02/2014 ??? YF (Yellow Fever) 08/31/2004 LE SOLUTIONS ARCHITECT documented in this encounter Plan of Treatment Not on filedocumented as of this encounter Visit Diagnoses Diagnosis Counseling for travel - Primary Other specified counseling Need for meningococcal vaccination documented in this encounter Care Teams Hand Sizer Relationship Specialty Start Date End Date Bailey Arenas MD PCP - General Internal Medicine 09/16/16 [address] [place] [address] documented as of this encounter
--- OUTSIDE RECORDS SUMMARY | 2022-07-29 14:54 | XMS_ITS | Clinical Summary ---
:1960 Author Organization [facility] [place] [address] Care Team Providers Name Role Phone Zoe [...] Comments Blood Pressure 175/112 09/08/2016 4:05 PM GROOMING ASSISTANT Pulse 88 09/08/2016 4:05 PM GROOMING ASSISTANT Temperature 36.7 ??C (98 ??F) 03/10/2012 9:12 [...] on filefrom Last 3 Months Care Teams Demand Planner Relationship Specialty Start Date End Date Zoe Ivan MD PCP - General Family Practice 12/04/10
--- OUTSIDE RECORDS SUMMARY | 2022-07-29 14:54 | XMS_ITS | Encounter Summary ---
:1960 Author Organization [facility] Address [address] [address] Care Team Providers Name Role Phone No Primary/Referring, Phy Primary Care Provider Unavailable Reason for Visit Reason Onset Date Comments Travel Consult 06/03/2016 Encounter Details Date Type Department Care Team Description 06/03/2016 Initial Consult [facility] [address] [place] unseling for travel (Primary Dx); Travel Clinic RN Need for influenza vaccination; [address] Dianna Tripp [address] for vaccine for DT (diphtheria-tetanus); [address] [place] [place] [address] [phone] Social History Tobacco Use Types Packs/Day Years [...] travel: [place], [place] and rurally in [facility], [place] Areas in country: rural and urban [...] Traveling to Yellow Fever area: no Accommodations: [employer] Purpose of travel: business PRIOR HEALTH [...] B, HIV, Influenza, Insect-related illnesses and prevention, Swedish Encephalitis, Leishmaniasis, Leptospirosis, Malaria, MMR, Polio, Rabies--pre-exposure [...] travel documented in this encounter Care Teams Account Processor Relationship Specialty Start Date End Date No Primary/Referring, Phy PCP - General 06/03/16 1 11/16/15 documented as of this encounter
--- OUTSIDE RECORDS SUMMARY | 2022-07-29 14:54 | XMS_ITS | Encounter Summary ---
:1960 Author Organization [facility] Address [address] [address] Care Team Providers Name Role Phone No Primary/Referring, Phy Primary Care Provider Unavailable Encounter Details Date Type Department Care Team Description 12/05/2014 Hospital Encounter [facility] Jeremy Canchola head injury; Shahrzad Nichole MD Injury of neck, whiplash [address] [address] [facility] [phone] [place] [address] Social History Tobacco Use Types Packs/Day Years Used Date Smoking Tobacco: Never Assessed Sex Assigned at Date Recorded Not on file documented as of this encounter Last Filed Vital Signs Vital Sign Reading Time Taken Comments Blood Pressure 157/108 12/05/2014 3:29 PM BIGHT MAKER Pulse 94 12/05/2014 3:29 PM BIGHT MAKER Temperature 37.1 ??C (98.8 ??F) 12/05/2014 3:29 PM BIGHT MAKER Respiratory Rate 16 12/05/2014 3:29 PM BIGHT MAKER Oxygen Saturation 98% 12/05/2014 3:29 PM BIGHT MAKER Inhaled Oxygen Concentration - - Weight - [...] Filed: 12/08/14816 Note Time: 12/05/141713 Status: Signed Waterworks Supervisor: Jeremy Canchola MD (Physician) NAME: MARTIN BASHIR MR#: [id number] CSN: [id number] AUTHENTICATING CLINICIAN: Jeremy Canchola MD CONFIRM #: [id number] LOC: 520 URGENT CARE PROGRESS NOTE DATE [...] sign is negative. Tandem walk is normal. Presales Engineer strength normal bilaterally. Deep tendon reflexes normal [...] the neck with pain upon full flexion. Presales Engineer strength normal bilaterally. DTRs normal. I ordered [...] still has symptoms. AKD:MEDQ C: CONFIRM #: [id number] documented in this encounter Miscellaneous Notes Medication [...] Frequency:EVERY 6 HOURS PRN *No Administrations Recorded T MAKER ED AVS Snapshot - Stefano Jimenez MD - 12/05/2014 4:51 PM CST Images from the original note were not included. [facility] [address] [place] [address] Dept: [phone] [email or web address] Martin Bashir 12/05/2014 3:31 PM Hospital Encounter Description: Female : 1960 Department: [facility] Thank you for choosing [facility] for your health care visit with Jeremy Canchola MD. We are happy to care for you and provide this summary of your visit. Your primary child care assistant is currently listed as Bailey Arenas MD. HERE IS WHAT YOU NEED TO KNOW To learn how you can take steps to stay as healthy as you can be visit [email or web address] HERE IS WHAT YOU NEED TO DO Call your clinic if you develop new or worsening symptoms or if you have questions about your visit or medications. Your to do list Future Appointments Provider Department Dept Phone 12/16/2014 11:30 AM MD [facility] [phone] Future Orders Complete By Ordering Dept. MM Mammogram Screening Bilateral W Cad As directed [facility] OPHTHALMOLOGY CONSULT ADULT/PEDS (AMB) As directed [facility] Scheduling Instructions: Your provider has recommended an appointment with [facility]. You may call [phone] to schedule your appointment. If you prefer, a project controls scheduler will contact you within the next [...] Ethnicity Preferred Language 1960 Female White Non- German This document contains confidential information about your health and care. It is provided directlyto you for your personal, private use only. T MAKER documented in this encounter Plan of [...] come in. Did take an ambulance to [facility] in [place]. C- spine 3 view done. Dx with muscle strain. T MAKER documented in this encounter Care Teams Tool Builder Relationship Specialty Start Date End Date No Primary/Referring, Phy PCP - General 12/03/14 documented as of this encounter
--- OUTSIDE RECORDS SUMMARY | 2022-07-29 14:54 | XMS_ITS | Encounter Summary ---
:1960 Author Organization [facility] Address [address] [place] [address] Care Team Providers Name Role Phone Bailey Arenas MD Primary Care Provider Encounter Details Date Type Department Care Team Description 09/23/2016 Lab Visit [facility] Essential hypertension; [address] Hyperlipidemia, unspecified hyperlipidemia type [place] [id number] Social History Tobacco Use Types Packs/Day Years [...] Hyperlipidemia, Res ults for this DIRECT LDL(IF WARP TRUCKER unspecified procedure are in NEEDED) hyperlipidemia type the resu lts section. CREATININE / GFR Routine 09/23/2016 9:44 AM Essential hyperten danita Results for this WARP TRUCKER procedure are i n the results section. POTASSIUM Routine 09/23/2016 9:44 AM Essential hypertension Results for this WARP TRUCKER procedure are i n the results section. documented in this encounter Results (ABNORMAL) Lipid Panel - LDLD If Trig High (09/23/2016 9:44 AM WARP TRUCKER) [facility] Method Time Signature Cholesterol 284 (H) [...] Volume Laterality 09/23/2016 9:44 AM 6 2:32 WARP TRUCKER PM WARP TRUCKER Narrative PN SOFT - 09/23/2016 3:11 PM WARP TRUCKER Performed at [facility], [address] [place], [place] [address] CLIA number [id number] Bailey Arenas MD LAB_1 Performing Organization Address [facility] Phon e Number PN SOFT [address] [place] [address] Potassium (09/23/2016 9:44 AM WARP TRUCKER) P athologist Signature Potassium 4.9 3.5 - 5.2 PN SOFT mmol/L Specimen Anatomical Collection Method Collection Time Receive d Time (Source) Location / / Volume Laterality 09/23/2016 9:44 AM 6 2:32 WARP TRUCKER PM WARP TRUCKER Narrative PN SOFT - 09/23/2016 3:11 PM WARP TRUCKER Performed at [facility], [address] [place] [address] CLIA number [id number] Bailey Arenas MD LAB_1 Performing Organization Address [facility] Phon e Number PN SOFT [address] [place] [address] Creatinine (09/23/2016 9:44 AM WARP TRUCKER) P athologist Signature Creatinine Serum 0.70 0.55 [...] Volume Laterality 09/23/2016 9:44 AM 6 2:32 WARP TRUCKER PM WARP TRUCKER Narrative PN SOFT - 09/23/2016 3:11 PM WARP TRUCKER Performed at [facility], [address] [place] [address] CLIA number [id number] Bailey Arenas MD LAB_1 Performing Organization Address City/State/ZIP Code Phon e Number PN SOFT [address] [place] [address] documented in this encounter Visit Diagnoses Diagnosis Essential hypertension (HRC) Unspecified essential hypertension Hyperlipidemia, unspecified hyperlipidem ia type (HRC) documented in this encounter Care Teams Narcotics And Vice Detective Relationship Specialty Start Date End Date Bailey Arenas MD PCP - General Internal Medicine 09/16/16 [address] [place], [place] [phone] documented as of this encounter
--- OUTSIDE RECORDS SUMMARY | 2022-07-29 14:54 | XMS_ITS | Encounter Summary ---
:1960 Author Organization [facility] Address [address] [address] Care Team Providers Name Role Phone Karlo Duenas MD Primary Care Provider Reason for Visit Reason Comments Refill lisinopril (ZESTRIL) 10 MG t ablet [Pharmacy Med Name: LISINOPRIL 10 MG TABLET] Encounter Details Date Type Department Care Team Description 10/22/2017 Refill [facility] Karlo Duenas MD Refill (lisinopril [address] (ZESTRIL) [place] [address] [place] [address] [Pharmacy Med Name: [phone] (Wo rk) LISINOPRIL 10 MG TABLET]) Social [...] IRAJ MENDOZA Reason for Refusal: Duplicate Error PER STEMMER OPERATOR Interface, Out Surescripts Prov Query - 10/22/2017 [...] (Sent to PC REFILL LAB) Powered by [employer], Reference: [id number], 10/22/2017 12:31:14 AM WRAPPER STEMMER OPERATOR, Pool: JOSSIE REFILL ([id number]) PER STEMMER OPERATOR documented in this encounter Plan of Treatment Not on filedocumented as of this encounter Visit Diagnoses Diagnosis Essential hypertension (HRC) Unspecified essential hypertension documented in this encounter Care Teams Dado Operator Relationship Specialty Start Date End Date Karlo Duenas MD PCP - General Internal Medicine 09/16/16 [address] [place] [address] documented as of this encounter
--- OUTSIDE RECORDS SUMMARY | 2022-07-29 14:54 | XMS_ITS | Encounter Summary ---
:1960 Author Organization [facility] Address [address], [place] [address] Care Team Providers Name Role Phone Bailey Arenas MD Primary Care Provider Reason for Visit Reason Comments Biometrics Screening Encounter Details Date Type Department Care Team Description 09/22/2020 Office Visit [facility] at [employer] [facility] Encounter for biometric [address] [facility] screening (Primary Dx) [place] [address] Social History Tobacco Use Types Packs/Day Years Used Date Smoking Tobacco: Never Smokeless Tobacco: Never Alcohol Use Standard Drinks/Week Comments Yes 7 (1 standard drink = 0.6 oz pure alcoho l) weekly Sex Assigned at Date Recorded Not on file documented as of this encounter Last Filed Vital Signs Vital Sign Reading Time Taken Comments Blood Pressure 128/82 09/22/2020 9:14 AM CHILD PROTECTIVE INVESTIGATOR Pulse 67 09/22/2020 9:14 AM CHILD PROTECTIVE INVESTIGATOR Temperature - - Respiratory Rate - - Oxygen Saturation - - Inhaled Oxygen Concentration - - Weight 74.4 kg (164 lb) 09/22/2020 9:07 AM CHILD PROTECTIVE INVESTIGATOR Height 167.6 cm (5' 6) 09/22/2020 9:07 AM CHILD PROTECTIVE INVESTIGATOR Body Mass Index 26.47 09/22/2020 9:07 AM CHILD PROTECTIVE INVESTIGATOR documented in this encounter Progress Notes Arpita [...] takes Rosuvastatin daily, managed by PCP at [facility]. Patient is encouraged to follow up at clinic as needed. D PROTECTIVE INVESTIGATOR documented in this encounter Plan of Treatment Not on filedocumented as of this encounter Procedures Procedure Name Priority Date/Time Associated Diagnosis Comme nts LIPID+GLUCOSE Routine 09/22/2020 9:04 AM Encounter for Results for this SCREEN,POINT OF CHILD PROTECTIVE INVESTIGATOR biometric screening proce kt are in CARE the results section. documented in this encounter Results (ABNORMAL) Lipid+Glucose Screen,Point Of Care (09/22/2020 9:04 AM CHILD PROTECTIVE INVESTIGATOR) P athologist Signature Cholesterol, 242 (H) 0 - 199 09/22/2020 [employer] AT [employer] Whole Blood mg/dL 9:12 AM CHILD PROTECTIVE INVESTIGATOR [place] Triglyceride, <45 0 - 149 09/22/2020 [employer] Whole Blood mg/dL 9:12 AM CHILD PROTECTIVE INVESTIGATOR [place] HDL, Whole >100 >40 mg/dL 09/22/2020 WE[employer] AT [employer] Blood 9:12 AM CHILD PROTECTIVE INVESTIGATOR [place]ING LDL, 09/22/2020 WE[employer] AT [employer] Calculated, 9:12 AM CHILD PROTECTIVE INVESTIGATOR [place]ING Whole Blood Comment: Unable to calculate Chol/HDL Ratio, Whole Blood 09/22/2020 9 :12 AM CHILD PROTECTIVE INVESTIGATOR [employer] [place] Comment: Unable to calculate Glucose Whole Blood 83 70 - 100 mg/dL 09/22/2020 9:12 AM CHILD PROTECTIVE INVESTIGATOR [employer] [place] Hours Fasting 12 09/22/2020 9:12 AM CHILD PROTECTIVE INVESTIGATOR WEL L AT WORK RED WING Specimen Anatomical Collection Method / Collection Time Recei marsha Time (Source) Location / Volume Laterality Blood Venipuncture / 09/22/2020 9:04 09/22/2020 9:04 Unknown AM CHILD PROTECTIVE INVESTIGATOR AM CHILD PROTECTIVE INVESTIGATOR Arpita Gallardo PA-C LAB_1 Performing Organization Address City/State/ZIP Code Phon e Number WELL AT [employer] [place] [address] [place] [address] documented in this encounter Visit Diagnoses Diagnosis Encounter for biometric screening - Prim babak documented in this encounter Care Teams Burn Out Tender Lace Relationship Specialty Start Date End Date Bailey Arenas MD PCP - General Internal Medicine 09/16/16 [address] [place] [phone] documented as of this encounter
--- OUTSIDE RECORDS SUMMARY | 2022-07-29 14:54 | XMS_ITS | Encounter Summary ---
:1960 Author Organization [facility] Address [address] [address] Care Team Providers Name Role Phone No Primary/Referring, Phy Primary Care Provider Unavailable Reason for Visit Reason Comments Skin Check Encounter Details Date Type Department Care Team Description 07/09/2016 Initial Consult [facility] [address] iple benign nevi (Primary Dx); Dermatology SMD Seborrheic keratosis; [address] Actinic keratosis; [address] [place], [place] History of nonmelanoma skin cancer; [place] [address] Skin tag [address] [phone] Social History Tobacco Use Types Packs/Day Years Used Date Smoking Tobacco: Never Smokeless Tobacco: Never Alcohol Use Standard Drinks/Week Comments Yes 7 (1 standard drink = 0.6 oz pure alcoho l) weekly Sex Assigned at Date Recorded Not on file documented as of this encounter Progress Notes Rachid Rutledge MD - 07/09/2016 7:41 PM CDT NAME: MARTIN BASHIR MR#: [id number] CSN: [id number] AUTHENTICATING CLINICIAN: Rachid Rutledge MD CONFIRM #: [id number] LOC: 427 CLINIC PROGRESS NOTE DATE OF [...] or as needed. DSE:MEDQ C: CONFIRM #: [id number] documented in this encounter Plan of Treatment [...] skin documented in this encounter Care Teams Test Developer Relationship Specialty Start Date End Date No Primary/Referring, Phy PCP - General 06/03/16 1 11/16/15 documented as of this encounter
--- OUTSIDE RECORDS SUMMARY | 2022-07-29 14:54 | XMS_ITS | Encounter Summary ---
:1960 Author Organization [facility] Address [address], [place] [address] Care Team Providers Name Role Phone No Primary/Referring, Phy Primary Care Provider Unavailable Reason for Visit Reason Comments HYPERTENSION Encounter Details Date Type Department Care Team Description 03/06/2015 Office Visit Bailey Waters, Essential hypertension (Primary Dx); Medicine Breast cancer screening [address] [employer] [address] [place] [address] [place] [address] [phone] Social History Tobacco Use Types Packs/Day Years [...] unspecified documented in this encounter Care Teams Toxicology Supervisor Relationship Specialty Start Date End Date No Primary/Referring, Phy PCP - General 12/03/14 documented as of this encounter
--- OUTSIDE RECORDS SUMMARY | 2022-07-29 14:54 | XMS_ITS | Encounter Summary ---
:1960 [facility] Address [address], [place] [address] Care Team Providers Name Role Phone No Primary/Referring, Phy Primary Care Provider Unavailable Reason for Visit Reason Comments Travel Consult Encounter Details Date Type Department Care Team Description 10/07/2015 Initial Consult [facility] Sue Walters for travel Clinic Opal RN (Primary Dx) [address] [place], [place] [address] Social History Tobacco Use Types Packs/Day Years Used Date Smoking Tobacco: Never Assessed Sex Assigned at Date Recorded Not on file documented as of this encounter Patient Instructions Patient InstructionsSue Walters RN - 10/07/2015 10:11 AM CST .Thank you for enrolling in [employer]. Please follow the instructions below to securely access your online medical record. [employer] allows you to send messages to your doctor, view your test results, renew your prescriptions, schedule appointments, and more. How Do I Sign Up? 1. In your Internet browser, go to: [email or web address] 2. Click on the Enter Activation Code link under the New User? section. You will see the New Member Sign Up page. 3. Enter your [employer] Activation Code exactly as it appears below. You will not need to use this code after you???ve completed the sign-up process. If you do not sign up before the expiration date, youmust request a new code. [employer] Activation Code: [email or web address] Expires: 11/06/2015 10:11 AM 4. Enter your Date of (mm/dd/yyyy), Home Phone Number and Zip Code as indicated, then click Next. You will be taken to the next sign-up page 5. Create a [employer] ID. This will be your [employer] login ID and cannot be changed, so think of one that is secure and easy to remember. 6. Create a [employer] password. You can change your password at any time. 7. Enter your Security Question and Answer. This can be used at a later time if you forget your password. Click Next. 8. Enter your e-mail address. You will receive e-mail notification when new information is availablein [employer]. 9. Click Sign In. You can now view your medical record. Additional Information If you have questions, you can call [phone] to talk to our [employer] staff. Remember, [employer] is NOT to be used for urgent needs. For medical emergencies, dial 911. IAC/VASCULAR SONOGRAPHER documented in this encounter Progress Notes Sue Walters RN - 10/07/2015 10:44 AM CST . Subjective: Shonna Bashir is a 55 y.o. female who presents to the clinic for travel consultation individually. TRAVEL PLANS Planned departure date: November 18, 2015 Time in developing countries: 25 days. Countries of travel: [place] Areas in country: rural and urban : [facility] area then will travel around the country, up to [place] area. Traveling to Malarial area: yes Time in malarial area: 25 days, pt. prefers to take malaria prevention med for the whole trip. She has used Malarone before in past. . Reviewed Malarial risk map: yes Prior malarial chemoprophylaxis use: Yes Traveling to Yellow Fever area: no, has had past vaccine. Accommodations: hotel Purpose of travel: for work , works for [employer]. PRIOR HEALTH HISTORY Currently ill / Fever:no [...] work. Has another trip in March for [facility]. Patient Active Problem List Diagnosis ??? Personal [...] Diphtheria/Tetanus, Hepatitis A, Hepatitis B, HIV, Influenza, [place] Encephalitis, Leishmaniasis, Malaria, Pneumonia, Polio, Rabies--post-exposure schedule, [...] PO 08/31/2004, 02/02/2008, 08/02/2014 ??? YF-Vax 08/31/2004 IAC/VASCULAR SONOGRAPHER documented in this encounter Plan of Treatment Not on filedocumented as of this encounter Visit Diagnoses Diagnosis Counseling for travel - Primary Other specified counseling documented in this encounter Care Teams Sewing Demonstrator Relationship Specialty Start Date End Date No Primary/Referring, Phy PCP - General 12/03/14 documented as of this encounter
--- OUTSIDE RECORDS SUMMARY | 2022-07-29 14:54 | XMS_ITS | Encounter Summary ---
:1960 Author Organization [email or web address] Address [address] [place] [address] Care Team Providers Name Role Phone No Primary/Referring, Phy Primary Care Provider Unavailable Reason for Visit Reason Comments CONSULT Encounter Details Date Type Department Care Team Description 10/15/2015 Telephone [facility] Bailey Arenas MD CONSULT [address] [employer] [address] [employer] [address] [place] [address] [place] [address] [phone] (Wo rk) Social History Tobacco Use Types Packs/Day Years Used Date Smoking Tobacco: Never Assessed Sex Assigned at Date Recorded Not on file documented as of this encounter Nursing Notes Bailey Arenas MD - 10/15/2015 4:38 PM CST Order printed. NTATION & MOBILITY SPECIALIST Arti Santos LPN - 10/15/2015 4:34 PM CST Spoke with Jessica in managed no referral, but Dr. Arenas can do a paper order and it can say at top not a referral. Patient will then need to check with her insurance regarding benefits for this therapyplace. Please review and advise. If paper order is done please contact patient when done and she will slate picker at bowling or skating front desk clerk [place]. NTATION & MOBILITY SPECIALIST Bailey Arenas MD - 10/15/2015 4:23 PM CST Please check with managed care. Thanks! NTATION & MOBILITY SPECIALIST Ruth Will - 10/15/2015 3:50 PM CST [...] scheduled? yes When/With whom/Where? 10/23/15, [facility] Fax #: [phone] What is needed from us? referral Call back phone or cell phone: cell [phone] Best time to call back number: anytime Is it OK to leave a confidential message on this voicemail? vm is ok, pt would like a C/B if there are any questions or concerns. *ECODE NTATION & MOBILITY SPECIALIST documented in this encounter Plan of Treatment Not on filedocumented as of this encounter Visit Diagnoses Diagnosis Pain of right side of body - Primary documented in this encounter Care Teams Enterprise Records Analyst Relationship Specialty Start Date End Date No Primary/Referring, Angela PCP - General 12/03/14 documented as of this encounter
--- OUTSIDE RECORDS SUMMARY | 2022-07-29 14:54 | XMS_ITS | Encounter Summary ---
:1960 Author Organization [facility] Address [address] [address] Care Team Providers Name Role Phone Bailey Arenas MD Primary Care Provider Encounter Details Date Type Department Care Team Description 10/11/2016 Lab Visit [place] [facility] Essential hypertension [address] [place] [address] Social History Tobacco Use Types Packs/Day Years [...] AM Essential hyperten danita Results for this AUTOMATIC FOLDER SEAMER procedure are i n the results section. POTASSIUM Routine 10/11/2016 8:44 AM Essential hypertension Results for this AUTOMATIC FOLDER SEAMER procedure are i n the results section. documented in this encounter Results Potassium (10/11/2016 8:44 AM AUTOMATIC FOLDER SEAMER) P athologist Signature Potassium 4.2 3.5 - 5.2 PN SOFT mmol/L Specimen Anatomical Collection Method Collection Time Receive d Time (Source) Location / / Volume Laterality 10/11/2016 8:44 AM 7 AUTOMATIC FOLDER SEAMER 11:34 AM AUTOMATIC FOLDER SEAMER Narrative PN SOFT - 10/11/2016 3:09 PM AUTOMATIC FOLDER SEAMER Performed at [facility] [address] [place] [address] CLIA number [id number] Bailey Arenas MD LAB_1 Performing Organization Address [facility] Phon e Number PN SOFT [address] [place] [address] Creatinine (10/11/2016 8:44 AM AUTOMATIC FOLDER SEAMER) athologist Signature Creatinine Serum 0.80 0.55 - [...] / Volume Laterality 10/11/2016 8:44 AM 7 AUTOMATIC FOLDER SEAMER 11:34 AM AUTOMATIC FOLDER SEAMER Narrative PN SOFT - 10/11/2016 3:09 PM AUTOMATIC FOLDER SEAMER Performed at [facility], [address] [place] [address] CLIA number [id number] Bailey Arenas MD LAB_1 Performing Organization Address [facility] Phon e Number PN SOFT [address] [place] [address] [phone] documented in this encounter Visit Diagnoses Diagnosis Essential hypertension ([facility]) Unspecified essential hypertension documented in this encounter Care Teams Line Repairer Relationship Specialty Start Date End Date Bailey Arenas MD PCP - General Internal Medicine 09/16/16 [address] [place] [address] documented as of this encounter
--- OUTSIDE RECORDS SUMMARY | 2022-07-29 14:54 | XMS_ITS | Encounter Summary ---
:1960 Author Organization [facility] Address [address], [place] [address] Care Team Providers Name Role Phone Bailey Arenas MD Primary Care Provider Encounter Details Date Type Department Care Team Description 09/16/2016 Notes/Orders [facility] Bailey Arenas MD [address] [place] [address] [place] [address] [phone] (Wo rk) Social History Tobacco Use Types [...] on filedocumented in this encounter Care Teams Material Requirements Planning Manager Relationship Specialty Start Date End Date Bailey Arenas MD PCP - General Internal Medicine 09/16/[address] [place] [id number] documented as of this encounter
--- OUTSIDE RECORDS SUMMARY | 2022-07-29 14:54 | XMS_ITS | Encounter Summary ---
:1960 Author Organization [email or web address] Address [address], [place] [address] Care Team Providers Name Role Phone No Primary/Referring, Phy Primary Care Provider Unavailable Reason for Visit Reason Comments Annual Exam Encounter Details Date Type Department Care Team Description 03/30/2016 Office Visit Bailey Waters, Routine g eneral medical examination at a health care facility (Primary Dx); Medicine Essential hypertension; [address]ysp[address]unia; [place] [address] [place] [address] Personal history of skin cancer; [phone] Breast cancer s creening; (Work) Encounter for screening for malignant ne oplasm of colon; [phone] Screening for d iabetes mellitus; (Fax) Lipid [...] working with a nutritional response therapist at [facility] and is taking a supplement 3 [...] and social history reviewed and updated in [employer] Allergies and current medications reviewed. Review of [...] disorders documented in this encounter Care Teams Console Manager Relationship Specialty Start Date End Date No Primary/Referring, Phy PCP - General 12/03/14 documented as of this encounter
--- OUTSIDE RECORDS SUMMARY | 2022-07-29 14:54 | XMS_ITS | Encounter Summary ---
:1960 Author Organization [facility] Address [address], [place] [address] Care Team Providers Name Role Phone Bailey Arenas MD Primary Care Provider Reason for Visit Reason Comments Disease Registry Encounter Details Date Type Department Care Team Description 03/06/2021 Telephone Well at Work Arpita Byrne, Disease Registry [address] [place] [address] [facility] [phone] [address] [place] [address] (Wo rk) Social History Tobacco [...] on filedocumented in this encounter Care Teams Pulley Mortiser Operator Relationship Specialty Start Date End Date Bailey Arenas MD PCP - General Internal Medicine 09/16/16 [address] [place] [address] documented as of this encounter
--- OUTSIDE RECORDS SUMMARY | 2022-07-29 14:54 | XMS_ITS | Encounter Summary ---
:1960 Author Organization [facility] Address [address], [place] [address] Care Team Providers Name Role Phone Bailey Arenas MD Primary Care Provider Encounter Details Date Type Department Care Team Description 01/24/2017 Notes/Orders [facility] Bailey Arenas MD [address] [place] [address] [place] [address] [phone] (Wo rk) Social History Tobacco Use Types [...] on filedocumented in this encounter Care Teams Typesetter Apprentice Relationship Specialty Start Date End Date Bailey Arenas MD PCP - General Internal Medicine 09/16/[address] [place] [address] documented as of this encounter
--- OUTSIDE RECORDS SUMMARY | 2022-07-29 14:54 | XMS_ITS | Encounter Summary ---
:1960 Author Organization [facility] Address [address] [place] [address] Care Team Providers Name Role Phone Bailey Arenas MD Primary Care Provider Encounter Details Date Type Department Care Team Description 11/11/2016 Notes/Orders [place] [facility] Bailey Arenas MD [address] [place] [address] [place] [phone] (Wo rk) Social History Tobacco Use Types Packs/Day Years Used Date Smoking Tobacco: Never Smokeless Tobacco: Never Alcohol Use Standard Drinks/Week Comments Yes 7 (1 standard drink = 0.6 oz pure alcoho l) weekly Sex Assigned at Date Recorded Not on file documented as of this encounter Progress Notes Megan iKm LPN - 11/11/2016 4:30 PM CST Pt is going to [place] for a month. Will try to get before she leaves for a BP check, otherwise when she returns. E CASHIER documented in this encounter Plan of Treatment Not on filedocumented as of this encounter Visit Diagnoses Not on filedocumented in this encounter Care Teams Deputy Sheriff Civil Division Relationship Specialty Start Date End Date Bailey Arenas MD PCP - General Internal Medicine 09/16/[address] [place] [address] documented as of this encounter
--- OUTSIDE RECORDS SUMMARY | 2022-07-29 14:54 | XMS_ITS | Encounter Summary ---
:1960 Author [facility] Address [address] [address] Care Team Providers Name Role Phone Bailey Arenas MD Primary Care Provider Reason for Visit Reason Comments HYPERTENSION Encounter Details Date Type Department Care Team Description 12/07/2016 Notes/Orders [facility] Bailey Arenas MD [address] [place] [address] [place] [address] [phone] (Wo rk) Social History Tobacco Use Types [...] on filedocumented in this encounter Care Teams Spindle Tester Relationship Specialty Start Date End Date Bailey Arenas MD PCP - General Internal Medicine 09/16/[address] [id number] documented as of this encounter
--- OUTSIDE RECORDS SUMMARY | 2022-07-29 14:55 | XMS_ITS | Encounter Summary ---
:1960 Author Organization [facility] [facility] Address [address] [place] [address] Care Team Providers Name Role Phone Unassigned, Provider Primary Care Provider Unavailable Reason for Referral Consult/Transfer Care (Routine) - Closed Specialty Diagnoses / Procedures Referred By Contact Refer red To Contact Navin Michele MD [address] [place] [address] Referral ID Status Reason Start Date Expiration Date Visits Requ ested Visits Authorized [id number] Closed 12/03/2012 1 1 Scheduling Instructions Your provider has recommended an appoint ment with a [facility] Specialist. You may call [phone] to schedule your appointment. L SPECIALIST Procedure/Equipment (Routine) - Closed Specialty Diagnoses / Procedures Referred By Contact Refer red To Contact Procedures Benjamin Sanford MD MR BRAIN / STEM WITH CONTRAST [address] [facility] [place] [address] Referral ID Status Reason Start Date Expiration Date Visits Requ ested Visits Authorized [id number] Closed 12/03/2012 1 1 L SPECIALIST Procedure/Equipment (Routine) - Closed Specialty Diagnoses / Procedures Referred By Contact Refer red To Contact Procedures Benjamin Sanford MD MR ANGIOGRAPHY NECK WITHOUT [address] [place] [address] Referral ID Status Reason Start Date Expiration Date Visits Requ ested Visits Authorized [id number] Closed 12/03/2012 1 1 L SPECIALIST Procedure/Equipment (Routine) - Closed Specialty Diagnoses / Procedures Referred By Contact Refer red To Contact Procedures Benjamin Sanford MD MR ANGIOGRAPHY HEAD WITHOUT [address] [place] [address] Referral ID Status Reason Start Date Expiration Date Visits Requ ested Visits Authorized [id number] Closed 12/03/2012 1 1 L SPECIALIST Procedure/Equipment (Routine) - Closed Specialty Diagnoses / Procedures Referred By Contact Refer red To Contact Procedures Benjamin Sanford MD MR BRAIN / STEM WITHOUT [address] [place] [address] Referral ID Status Reason Start Date Expiration Date Visits Requ ested Visits Authorized [id number] Closed 12/03/2012 1 1 L SPECIALIST Procedure/Equipment (Routine) - Closed Specialty Diagnoses / Procedures Referred By Contact Refer red To Contact Procedures Benjamin Sanford MD CT HEAD WITHOUT CONTRAST [address] [place] [address] Referral ID Status Reason Start Date Expiration Date Visits Requ ested Visits Authorized [id number] Closed 12/03/2012 1 1 L SPECIALIST Reason for Visit Reason Comments SENSORY PROBLEM--FOCAL--ED left arm numbness Encounter Details Date Type Department Care Team Description 12/03/2012 Emergency [facility] Ascencion Sanford MD [address] [place] [address] Left arm numbness Emergency Department Navin Michele MD [address] [place], [place] [id number] [address] [place] [address] Social History Tobacco Use Types Packs/Day Years Used Date Smoking Tobacco: Never Assessed Sex Assigned at Date Recorded Not on file documented as of this encounter Last Filed Vital Signs Vital Sign Reading Time Taken Comments Blood Pressure 175/91 12/03/2012 4:51 PM EXCEL SPECIALIST Pulse 88 12/03/2012 4:51 PM EXCEL SPECIALIST Temperature 36.8 ??C (98.3 ??F) 12/03/2012 4:51 PM EXCEL SPECIALIST Respiratory Rate 18 12/03/2012 4:51 PM EXCEL SPECIALIST Oxygen Saturation 98% 12/03/2012 4:51 PM EXCEL SPECIALIST Inhaled Oxygen Concentration - - Weight 68 kg (150 lb) 12/03/2012 9:29 AM EXCEL SPECIALIST Height 167.6 cm (5' 6) 12/03/2012 9:29 AM EXCEL SPECIALIST Body Mass Index 24.21 12/03/2012 9:29 AM EXCEL SPECIALIST documented in this encounter Discharge Instructions Discharge [...] you to lose feeling or have a emnl-kkp-rrcznyd sensation on part of your body. Nerves [...] Where can you learn more? Go to [employer] and enter U128 in the search box. ?? [phone] [facility] L SPECIALIST documented in this encounter Medications at Time [...] documented as of this encounter Procedure Notes [facility], Provider - 12/03/2012 12:00 AM CSTAssociated Order(s): EKG IP L SPECIALIST documented in this encounter ED Notes Elzbieta Lomas RN - 12/03/2012 5:01 PM CST [facility] ED Nursing Discharge Note Vital Signs: BP: [...] treatment in ED: Stable ---End of Report--- L SPECIALIST Navin Michele MD - 12/03/2012 3:38 PM [...] events. Condition: stable at time of disposition L SPECIALIST Benjamin Sanford MD - 12/03/2012 2:58 PM CST Visit Note Chief Complaint: SENSORY PROBLEM--FOCAL--ED HPI Pt here for evaluation of left arm numbness. She is otherwise completely healthy. Tasley fine last night but woke up this AM with numbness in her entire left arm which has persisted. 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 MR ANGIO NECK WO IV STAT 12/03/2012 1:13 PM Re sults for this CONT EXCEL SPECIALIST procedure are i n the results section. MR ANGIO HEAD WO IV STAT 12/03/2012 1:12 PM Re sults for this CONT EXCEL SPECIALIST procedure are i n the results section. MR BRAIN WO IV CONT STAT 12/03/2012 1:11 PM Re sults for this EXCEL SPECIALIST procedure are i n the results section. CT HEAD WO IV CONT STAT 12/03/2012 9:56 AM Res ults for this EXCEL SPECIALIST procedure are i n the results section. TROPONIN I STAT 12/03/2012 9:35 AM Results f or this EXCEL SPECIALIST procedure are i n the results section. BASIC METABOLIC STAT 12/03/2012 9:35 AM Result s for this PANEL EXCEL SPECIALIST procedure are i n the results section. COMPLETE BLOOD STAT 12/03/2012 9:35 AM Results for this COUNT-NO DIFF EXCEL SPECIALIST procedure are in the results section. INR/PROTIME STAT 12/03/2012 9:35 AM Results f or this EXCEL SPECIALIST procedure are i n the results section. EKG IP 12/03/2012 12:00 AM Results for this EXCEL SPECIALIST procedure are i n the results section. documented in this encounter Results MR BRAIN / STEM WITH CONTRAST (12/03/2012 4:03 PM EXCEL SPECIALIST) Anatomical Region Laterality Modality Head Magnetic Resonance Specimen (Source) Anatomical Collection Method Collection Time Re ceived Time Location / / Volume Laterality 12/03/2012 4:03 PM EXCEL SPECIALIST Narrative 12/03/2012 5:31 PM EXCEL SPECIALIST ADDENDUM REPORT: MRI HEAD (NOW WITHOUT AND WITH CONTRAST) PERFORMED ON DECEMBER 03, 2012 [facility] The patient returned returned for post [...] (taking over for Dr. Sanford) in the [place] emergency room on December 03 at 1640 [...] WITH CONTRAST) PERFORMED ON DECEMBER 03, 2012 [facility] The patient returned returned for post [...] (taking over for Dr. Sanford) in the [place] emergency room on December 03 at 1640 hours. IMPRESSION: Post contrast images show ir regular enhancement at the site of the left pontine lesion. 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 Benjamin Sanford MD RAD MRI MR ANGIOGRAPHY NECK WITHOUT CONTRAST (12/03/2012 1:13 PM EXCEL SPECIALIST) Anatomical Region Laterality Modality Neck, Vascular, C-Spine, Skeletal Magnet ic Resonance Specimen (Source) Anatomical Collection Method Collection Time Re ceived Time Location / / Volume Laterality 12/03/2012 1:13 PM EXCEL SPECIALIST Narrative 12/03/2012 3:13 PM EXCEL SPECIALIST [facility] 1. MRI HEAD WITHOUT CONTRAST. 2. [...] are identified in the neck. Procedure Note Chrsi Eugene MD - 12/03/2012Form atting of this note might be different from the original. [facility] 1. MRI HEAD WITHOUT CONTRAST. 2. [...] ANGIOGRAPHY HEAD WITHOUT CONTRAST (12/03/2012 1:12 PM EXCEL SPECIALIST) Anatomical Region Laterality Modality Head, Vascular Magnetic Resonance Specimen (Source) Anatomical Collection Method Collection Time Re ceived Time Location / / Volume Laterality 12/03/2012 1:12 PM EXCEL SPECIALIST Narrative 12/03/2012 3:13 PM EXCEL SPECIALIST [facility] 1. MRI HEAD WITHOUT CONTRAST. 2. [...] different from the original. [facility] 1. MRI HEAD WITHOUT CONTRAST. 2. [...] / STEM WITHOUT CONTRAST (12/03/2012 1:11 PM EXCEL SPECIALIST) Anatomical Region Laterality Modality Head Magnetic Resonance Specimen (Source) Anatomical Collection Method Collection Time Re ceived Time Location / / Volume Laterality 12/03/2012 1:11 PM EXCEL SPECIALIST Narrative 12/03/2012 3:13 PM EXCEL SPECIALIST [facility] 1. MRI HEAD WITHOUT CONTRAST. 2. [...] different from the original. [facility] 1. MRI HEAD WITHOUT CONTRAST. 2. [...] CT HEAD WITHOUT CONTRAST (12/03/2012 9:56 AM EXCEL SPECIALIST) Anatomical Region Laterality Modality Head Computed Tomography Specimen (Source) Anatomical Collection Method Collection Time Re ceived Time Location / / Volume Laterality 12/03/2012 9:56 AM EXCEL SPECIALIST Narrative 12/03/2012 10:15 AM EXCEL SPECIALIST [facility] HEAD CT 12/03/2012 INDICATION: [...] RAD CT TROPONIN I (12/03/2012 9:35 AM EXCEL SPECIALIST) P athologist Signature TROPONIN-I <0.04 0.00 - 0.1 [place] ng/mL [facility] Comment: 0.0 - 0.1 ng/mL ?? Normal 0.1 - 0.6 ng/mL ?? Risk stratification: small increases have been associated ?with risk of adverse clinical events; e.g., patients with ?unstable keith na and increased troponins are at high risk ?for short-ter m adverse cardiac events. 0.6 - 1.5 ng/mL ?? Diagnostic for acute, evolving, or recent RI if typical ?rise and grad ual fall of troponin with at least one of ?the following : ?Ischemic s ymptoms ?Pathologic Q waves on ECG ?ECG change s indicative of ischemia (ST segment elevation ? or depres danita) ?Corogonary artery intervention, I.E., angioplasty Specimen Anatomical Collection Method Collection Time Receive d Time (Source) Location / / Volume Laterality 12/03/2012 9:35 AM 3 EXCEL SPECIALIST 10:11 AM EXCEL SPECIALIST Benjamin Sanford MD LAB_1 Performing Organization Address City/State/ZIP Code Phon e Number [facility] [address] [place] [address] [phone] PROTIME-INR (12/03/2012 9:35 AM EXCEL SPECIALIST) P athologist Signature Protime 10.1 9.3 - 11.5 [facility] INR 1.0 [facility] Comment: Suggested Therapeutic Ranges using INR f or stable anticoagulated patients: 2.0 - 3.0 ?Routine oral anticoagulan t therapy for prevention and/or ? treatment of thrombos is 2.5 - 3.5 ?With recurrent thromboemb olic event and those with mechanical ? heart valves Specimen Anatomical Collection Method Collection Time Receive d Time (Source) Location / / Volume Laterality 12/03/2012 9:35 AM 3 EXCEL SPECIALIST 10:11 AM EXCEL SPECIALIST Benjamin Sanford MD LAB_1 Performing Organization Address City/State/ZIP Code Phon e Number [facility] [address] [place] [address] BASIC METABOLIC PANEL (12/03/2012 9:35 AM EXCEL SPECIALIST) athologist Signature Sodium 139 135 - 145 [place] mmol/L [facility] Potassium 4.6 3.5 - 5.1 [place] mmol/L [facility] Chloride 102 98 - 110 [place] mmol/L [facility] CO2 28 22 - 32 [place] mmol/L [facility] Anion Gap 9.0 6.0 - 16.0 [place] (calc.) mmol/L [facility] Glucose 88 65 - 100 [place] mg/dL [facility] Calcium 9.1 8.5 - 10.5 [place] mg/dL [facility] BUN 11 7 - 25 [place] mg/dL [facility] Creatinine 0.73 0.51 - [place] 1.17 mg/dL [facility] BUN/ CREA RATIO 15 10 - 20 [facility] GFR, Estimated >60 ml/min/1.7 [place] 3m^2 [facility] Comment: Estimated Glomerular Filtration Rate (eG FR) by MDRD Equation Chronic Kidney Disease: ? < 60 Kidney Failure: ? < 15 If patient is -Namibian multiply the Estimated GFR value by 1.21 Specimen Anatomical Collection Method Collection Time Receive d Time (Source) Location / / Volume Laterality 12/03/2012 9:35 AM 3 EXCEL SPECIALIST 10:11 AM EXCEL SPECIALIST Narrative [facility] - 12/03/2012 10:44 AM EXCEL SPECIALIST Slightly hemolyzed Benjamin Sanford MD LAB_1 Performing Organization Address City/[facility]/ZIP Code Phon e Number [facility] [address] [place] [address] CBC W PLT NO DIFF (12/03/2012 9:35 AM EXCEL SPECIALIST) P athologist Signature WBC 5.0 4.5 - 11.0 [place] x10^3/uL [facility]OS[facility] RBC 4.03 4.00 - 5.20 [place] x10^6/uL [facility] Hemoglobin 12.5 12.0 - 16.0 [place] g/dL [facility] HCT 36.6 33.0 - 51.0 [place] % [facility] MCV 91 80 - 100 fL [facility] MCH 31.0 26.0 - 34.0 [place] pg [facility] MCHC 34.2 32.0 - 36.0 [place] g/dL [facility] RDW 12.8 11.5 - 15.5 [place] % [facility] Platelets 251 140 - 440 [place] x10^3/uL [facility] MPV 8.0 6.5 - 11.0 [facility] Specimen Anatomical Collection Method Collection Time Receive d Time (Source) Location / / Volume Laterality 12/03/2012 9:35 AM 3 EXCEL SPECIALIST 10:11 AM EXCEL SPECIALIST Benjamin Sanford MD LAB_1 Performing Organization Address City/[facility]/ZIP Code Phon e Number [facility] [address] [place] [address] EKG IP (12/03/2012 12:00 AM EXCEL SPECIALIST) Specimen (Source) Anatomical Location Collection Method / Collectio n Time Received Time / Laterality Volume 12/03/2012 Narrative This result has an attachment that is no t available. Transcriptions [facility], Provider - 12/03/2012 12:00 AM CST Provider [facility] EKG documented in this encounter Visit Diagnoses Diagnosis Left arm numbness Disturbance of skin sensation documented in this encounter Care Teams Director Biologics Relationship Specialty Start Date End Date Unassigned, Provider PCP - General 07/06/00 04/18/[address] [place] [address] documented as of this encounter
--- OUTSIDE RECORDS SUMMARY | 2022-07-29 14:55 | XMS_ITS | Encounter Summary ---
:1960 Author Organization [facility] Address [address] [place] [address] Care Team Providers Name Role Phone No Primary/Referring, Phy Primary Care Provider Unavailable Encounter Details Date Type Department Care Team Description 12/05/[address] [place] [address] Scan Closed head injury [address] [place] [address] Social History Tobacco Use Types Packs/Day Years Used Date Smoking Tobacco: Never Assessed Sex Assigned at Date Recorded Not on file documented as of this encounter Plan of Treatment Not on filedocumented as of this encounter Procedures Procedure Name Priority Date/Time Associated Diagnosis Comme nts CT HEAD WO IV CONT Routine 12/05/2014 4:08 PM Closed head inju ry Results for this SOLE FILLER procedure are i n the results section. documented in this encounter Results CT Head WO IV Cont (12/05/2014 4:08 PM SOLE FILLER) Anatomical Region Laterality Modality Head Other Specimen (Source) Anatomical Location Collection Method / Collectio n Time Received Time / Laterality Volume Impressions 12/05/2014 4:17 PM SOLE FILLER IMPRESSION: 1. Small region of increased attenuation [...] time of dictation. Narrative 12/05/2014 4:17 PM SOLE FILLER COMPARISON: ??None. TECHNIQUE: ??Axial images were obtained [...] unspecified documented in this encounter Care Teams Vehicle And Equipment Cleaner Relationship Specialty Start Date End Date No Primary/Referring, Phy PCP - General 12/03/14 documented as of this encounter
--- OUTSIDE RECORDS SUMMARY | 2022-07-29 14:55 | XMS_ITS | Encounter Summary ---
:1960 Author Organization [facility] Address [address], [place] [address] Care Team Providers Name Role Phone Unassigned, Provider Primary Care Provider Unavailable Reason for Visit Procedure/Equipment (Routine) - Closed Specialty Diagnoses / Procedures Referred By Contact Refer red To Contact Procedures Benjamin Sanford MD CT HEAD WITHOUT CONTRAST [address] [place] [address] Referral ID Status Reason Start Date Expiration Date Visits Requ ested Visits Authorized [id number] Closed 12/03/2012 1 1 Encounter Details Date Type Department Care Team Description 12/03/2012 Imaging [facility] CT [address] [place] [address] Social History Tobacco Use Types Packs/Day Years Used Date Smoking Tobacco: Never Assessed Sex Assigned at Date Recorded Not on file documented as of this encounter Plan of Treatment Not on filedocumented as of this encounter Procedures Procedure Name Priority Date/Time Associated Diagnosis Comme nts CT HEAD WO IV CONT STAT 12/03/2012 9:56 AM Res ults for this PRODUCTION DIRECTOR procedure are i n the results section. documented in this encounter Results CT HEAD WITHOUT CONTRAST (12/03/2012 9:56 AM PRODUCTION DIRECTOR) Anatomical Region Laterality Modality Head Computed Tomography Specimen (Source) Anatomical Collection Method Collection Time Re ceived Time Location / / Volume Laterality 12/03/2012 9:56 AM PRODUCTION DIRECTOR Narrative 12/03/2012 10:15 AM PRODUCTION DIRECTOR [facility] HEAD CT 12/03/2012 INDICATION: Left arm numbness TECHNIQUE: Routine without contrast. COMPARISON: No comparison. FINDINGS: No bleed, mass effect, or acute infarct evident. Sinuses and mastoids clear. Bones unrema rkable. CONCLUSION: No acute intracranial abnormality appare nt. Procedure Note Josr Arceo MD - 12/03/2012F ormatting of this note might be different from the original. [facility] HEAD CT 12/03/2012 INDICATION: Left arm numbness TECHNIQUE: Routine without contrast. COMPARISON: No comparison. FINDINGS: No bleed, mass effect, or acute infarct evident. Sinuses and mastoids clear. Bones unrema rkable. CONCLUSION: No acute intracranial abnormality appare nt. Benjamin Sanford MD RAD CT documented in this encounter Visit Diagnoses Not on filedocumented in this encounter Care Teams Varnishing Machine Operator Relationship Specialty Start Date End Date Unassigned, Provider PCP - General 07/06/00 04/18/[address] [place] [id number] documented as of this encounter
--- OUTSIDE RECORDS SUMMARY | 2022-07-29 14:55 | XMS_ITS | Encounter Summary ---
:1960 Author Organization [facility] Address [address] [facility] [address] Care Team Providers Name Role Phone Bailey Arenas MD Primary Care Provider Encounter Details Date Type Department Care Team Description 12/03/2012 Consent for [facility] MRI CON SENT FOR Procedure/[facility], [facility] [address] [facility] [place], [place] [id number] Social History Tobacco Use Types Packs/Day Years Used Date Smoking Tobacco: Never Assessed Sex Assigned at Date Recorded Not on file documented as of this encounter Progress Notes [facility], Provider - 12/03/2012 12:00 AM CST E CIRCUIT OPERATOR documented in this encounter Plan of Treatment Not on filedocumented as of this encounter Visit Diagnoses Not on filedocumented in this encounter Care Teams Pharmacist Assistant Relationship Specialty Start Date End Date Bailey Arenas MD PCP - General Internal Medicine 09/16/[address] [phone] documented as of this encounter
--- OUTSIDE RECORDS SUMMARY | 2022-07-29 14:55 | XMS_ITS | Encounter Summary ---
:1960 Author Organization [email or web address] Address [address] [address] Care Team Providers Name Role Phone Bailey Arenas MD Primary Care Provider Reason for Visit Reason Comments Annual Exam Encounter Details Date Type Department Care Team Description 04/19/2014 Office Visit Bailey Waters, Routine g eneral medical examination at a health care facility (Primary Dx); Medicine Eyelid cyst; [address] [place] Personal history of skin cancer; [place] [address] [place] [address] Counseling for travel; [phone] Obesity; (Work) Screening for malignant neoplasm of the cervix; [phone] Breast screenin g; (Fax) Screening for l [...] and would like another referral. 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 Has seen Dr. Cross in the travel clinic in the past. Wants to be sure tetanus and typhoid are up to date, and needs Malarone. She keeps gaining weight. She hasn't been exercising. She asks for recommendations for diet books. Medical, surgical, family, and social history reviewed and updated in [employer]. Allergies and current medications reviewed. Review of [...] CDT FINAL GYNECOLOGICAL CYTOLOGY REPORT Pathology #: [id number] ?Date Obtained: 04/19/2014 ? Date Received: 04/22/2014 [...] 16 18 Genotyping (04/19/2014 9:06 AM CDT) [facility] Method Time Signature HPV High Risk Not Detected HP CONVERSION 16 HPV High Risk Not Detected HP CONVERSION 18 Other HPV Not Detected HP CONVERSION High Risk Not 16/18 Comment: See current ACOG guidelines for manageme nt recommendations based on Pap smear findings and HPV test ing results (Screening for cervical cancer. Practice Bulletin No. 131. [place] [employer] Obstetricians and Gy necologists. Obstet Gynecol 2012;120:1222-38) Specimen: SurePath Liquid Based Pap, Cervical Sour ce Method Description: Silvestre real time, multiplex PCR performed at [facility] The Jossy HPV Test is a [...] validate d for these specimens by [facility]. Reference Range: Not Detected Specimen Anatomical Collection Method Collection Time Receive d Time (Source) Location / / Volume Laterality 04/19/2014 9:06 AM 4 9:06 CDT AM CDT Bailey Arenas MD LAB_1 Performing Organization Address City/State/ZIP Code Phon e Number HP CONVERSION Pap Smear Order (04/19/2014 9:06 AM CDT) [facility] Method Time Signature Pap Smear Collected HP [...] mellitus documented in this encounter Care Teams Checker In Relationship Specialty Start Date End Date Bailey Arenas MD PCP - General 04/19/13 12/02/14 [address] [place] [address] documented as of this encounter
--- OUTSIDE RECORDS SUMMARY | 2022-07-29 14:55 | XMS_ITS | Encounter Summary ---
:1960 Author Organization [facility] Address [address] [address] Care Team Providers Name Role Phone Unassigned, Provider Primary Care Provider Unavailable Encounter Details Date Type Department Care Team Description 02/06/2009 Office Visit [facility] [address] [facility] 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
--- OUTSIDE RECORDS SUMMARY | 2022-07-29 14:55 | XMS_ITS | Encounter Summary ---
:1960 Author Organization [facility] Address [address] [address] Care Team Providers Name Role Phone Unassigned, Provider Primary Care Provider Unavailable Encounter Details Date Type Department Care Team Description 02/02/2008 Office Visit [facility] [address] Marilyn Cross MD Clinic [address] [place] [address] [place] [address] [phone] Social History Tobacco Use Types Packs/Day Years [...] 0000 Note Time: 02/02/08 0001 Status: Signed Project Management It Specialist: Aminta Gardiner RN (Registered Nurse) Travel Clinic Initial Visit Patient is seen in Travel Clinic individually for travel education and counseling. TRAVEL PLANS Patient states they are planning to travel to: [facility], [facility] and nearby areas. 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 HEALTH HISTORY : Patient states she is [...] on filedocumented in this encounter Care Teams Balancing Machine Operator Relationship Specialty Start Date End Date Unassigned, Provider PCP - General 07/06/00 04/18/[address] [place] [address] documented as of this encounter
--- OUTSIDE RECORDS SUMMARY | 2022-07-29 14:55 | XMS_ITS | Encounter Summary ---
:1960 Author Organization [facility] Address [address] [place] [address] Care Team Providers Name Role Phone Unassigned, Provider Primary Care Provider Unavailable Reason for Visit Reason Comments Other Encounter Details Date Type Department Care Team Description 10/30/2008 Telephone [facility] [address] [facility] Marjorie Montenegro Other [address] [place] [address] Social History Tobacco Use Types Packs/Day Years [...] 1601 Note Time: 10/30/08 1404 Status: Signed Workers Compensation Legal Secretary: Jacqui Cerda Pt calling stating that she [...] clinic protocols okay to refill as requested. KEN TENDER documented in this encounter Plan of Treatment Not on filedocumented as of this encounter Visit Diagnoses Not on filedocumented in this encounter Care Teams Lead Project Manager Relationship Specialty Start Date End Date Unassigned, Provider PCP - General 07/06/00 04/18/[address] [place] [address] documented as of this encounter
--- OUTSIDE RECORDS SUMMARY | 2022-07-29 14:55 | XMS_ITS | Encounter Summary ---
:1960 Author Organization [facility] Address [address] [address] Care Team Providers Name Role Phone Unassigned, Provider Primary Care Provider Unavailable Encounter Details Date Type Department Care Team Description 08/31/2004 PN Conversion Only STUDY ABROAD ADVISOR [address] [place] [address] Social History Tobacco Use Types Packs/Day Years Used Date Smoking Tobacco: Never Assessed Sex Assigned at Date Recorded Not on file documented as of this encounter Plan of Treatment Not on filedocumented as of this encounter Visit Diagnoses Not on filedocumented in this encounter Care Teams Platform Inspector Relationship Specialty Start Date End Date Unassigned, Provider PCP - General 07/06/00 04/18/[address] [place] [address] documented as of this encounter
--- OUTSIDE RECORDS SUMMARY | 2022-07-29 14:55 | XMS_ITS | Encounter Summary ---
:1960 Author Organization [facility] Address [address] [address] Care Team Providers Name Role Phone Unassigned, [...] on filedocumented in this encounter Care Teams Self Rising Flour Mixer Relationship Specialty Start Date End Date Unassigned, Provider PCP - General 07/06/00 04/18/[address] [place] [address] documented as of this encounter
--- OUTSIDE RECORDS SUMMARY | 2022-07-29 14:55 | XMS_ITS | Encounter Summary ---
:1960 [facility] Address [address] [facility] [place] [address] Care Team Providers Name Role Phone Bailey Arenas MD Primary Care Provider Encounter Details Date Type Department Care Team Description 12/03/2012 Consent for [facility] MRI SAF ETY Procedure/[facility], SCREENING CONSENT nt [address] [facility] Provider [place], [place] [phone] Social History Tobacco Use Types Packs/Day Years Used Date Smoking Tobacco: Never Assessed Sex Assigned at Date Recorded Not on file documented as of this encounter Progress Notes [facility], Provider - 12/03/2012 12:00 AM CST LES POURER documented in this encounter Plan of Treatment Not on filedocumented as of this encounter Visit Diagnoses Not on filedocumented in this encounter Care Teams Art Therapy Certified Supervisor Relationship Specialty Start Date End Date Bailey Arenas MD PCP - General Internal Medicine 09/16/[address] [phone] documented as of this encounter
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
--- OUTSIDE RECORDS SUMMARY | 2022-07-29 14:55 | XMS_ITS | Encounter Summary ---
:1960 [facility] Address [address] [place] [address] Care Team Providers Name Role Phone Unassigned, Provider Primary Care Provider Unavailable Reason for Visit Procedure/Equipment (Routine) - Closed Specialty Diagnoses / Procedures Referred By Contact Refer red To Contact Procedures Benjamin Sanford MD MR BRAIN / STEM WITHOUT [address] [place] [address] Referral ID Status Reason Start Date Expiration Date Visits Requ ested Visits Authorized [id number] Closed 12/03/2012 1 1 Encounter Details Date Type Department Care Team Description 12/03/2012 Imaging [facility] MRI [address] [place] [address] Social History Tobacco Use Types Packs/Day Years Used Date Smoking Tobacco: Never Assessed Sex Assigned at Date Recorded Not on file documented as of this encounter Plan of Treatment Not on filedocumented as of this encounter Procedures Procedure Name Priority Date/Time Associated Diagnosis Comme nts MR BRAIN WO IV CONT STAT 12/03/2012 1:11 PM Re sults for this TOMAHAWK WEAPON SYSTEM OPERATOR procedure are i n the results section. documented in this encounter Results MR BRAIN / STEM WITHOUT CONTRAST (12/03/2012 1:11 PM TOMAHAWK WEAPON SYSTEM OPERATOR) Anatomical Region Laterality Modality Head Magnetic Resonance Specimen (Source) Anatomical Collection Method Collection Time Re ceived Time Location / / Volume Laterality 12/03/2012 1:11 PM TOMAHAWK WEAPON SYSTEM OPERATOR Narrative 12/03/2012 3:13 PM TOMAHAWK WEAPON SYSTEM OPERATOR [facility] 1. MRI HEAD WITHOUT CONTRAST. 2. [...] on filedocumented in this encounter Care Teams Pals Nurse Relationship Specialty Start Date End Date Unassigned, Provider PCP - General 07/06/00 04/18/13 [address] [place] [address] documented as of this encounter
--- OUTSIDE RECORDS SUMMARY | 2022-07-29 14:55 | XMS_ITS | Encounter Summary ---
:1960 [facility] Address [address] [place] [address] Care Team Providers Name Role Phone Unassigned, Provider Primary Care Provider Unavailable Reason for Visit Procedure/Equipment (Routine) - Closed Specialty Diagnoses / Procedures Referred By Contact Refer red To Contact Procedures Benjamin Sanford MD MR ANGIOGRAPHY NECK WITHOUT [address] [place] [address] Referral ID Status Reason Start Date Expiration Date Visits Requ ested Visits Authorized [id number] Closed 12/03/2012 1 1 Encounter Details Date Type Department Care Team Description 12/03/2012 Imaging [facility] MRI [address] [place] [address] Social History Tobacco Use Types Packs/Day Years Used Date Smoking Tobacco: Never Assessed Sex Assigned at Date Recorded Not on file documented as of this encounter Plan of Treatment Not on filedocumented as of this encounter Procedures Procedure Name Priority Date/Time Associated Diagnosis Comme nts MR ANGIO NECK WO IV STAT 12/03/2012 1:13 PM Re sults for this CONT PERFUMER procedure are i n the results section. documented in this encounter Results MR ANGIOGRAPHY NECK WITHOUT CONTRAST (12/03/2012 1:13 PM PERFUMER) Anatomical Region Laterality Modality Neck, Vascular, C-Spine, Skeletal Magnet ic Resonance Specimen (Source) Anatomical Collection Method Collection Time Re ceived Time Location / / Volume Laterality 12/03/2012 1:13 PM PERFUMER Narrative 12/03/2012 3:13 PM [facility] 1. MRI HEAD WITHOUT CONTRAST. [...] note might be different from the original. [facility] 1. MRI HEAD WITHOUT CONTRAST. 2. [...] on filedocumented in this encounter Care Teams Coupon Manifest Clerk Relationship Specialty Start Date End Date Unassigned, Provider PCP - General 07/06/00 04/18/[address] [place] [address] documented as of this encounter
--- OUTSIDE RECORDS SUMMARY | 2022-07-29 14:55 | XMS_ITS | Encounter Summary ---
:1960 Author Organization [facility] Address [address] [address] Care Team Providers Name Role Phone Unassigned, Provider Primary Care Provider Unavailable Encounter Details Date Type Department Care Team Description 10/25/2005 Office Visit [facility] [address] [facility] [address] [facility] Clinic [address] [place] [address] [place], [place] [phone] Social History Tobacco Use Types Packs/Day Years Used Date Smoking Tobacco: Never Assessed Sex Assigned at Date Recorded Not on file documented as of this encounter Progress Notes Monika Pozo - 10/25/2005 12:01 AM CST Progress Notes signed by at 10/25/05 4036 Author: Monika Pozo RN Service: (none) Author Type: Registered Nurse Filed: 10/25/05 0000 Note Time: 10/25/05 0001 Status: Signed Nut Grader: Monika Pozo RN (Registered Nurse) Travel Clinic [...] Note completed on: 10/25/2005 2:51 PM R ELECTRICIAN documented in this encounter Plan of Treatment Not on filedocumented as of this encounter Visit Diagnoses Not on filedocumented in this encounter Care Teams Chemical Worker Relationship Specialty Start Date End Date Unassigned, Provider PCP - General 07/06/00 04/18/[address] [place] [address] documented as of this encounter
--- OUTSIDE RECORDS SUMMARY | 2022-07-29 14:55 | XMS_ITS | Encounter Summary ---
:1960 Author Organization [email or web address] Address [address] [place] [address] Care Team Providers Name Role Phone No Primary/Referring, Phy Primary Care Provider Unavailable Reason for Visit Procedure/Equipment (Routine) - Incomplete Specialty Diagnoses / Procedures Referred By Contact Refer red To Contact Procedures Jaime Ramirez MD XR C-SPINE 3 VIEWS (TRAUMA) [address] [place] [address] Referral ID Status Reason Start Date Expiration Date Visits V isits Requested Authorized [id number] Incomplete 12/03/2014 1 1 Encounter Details Date Type Department Care Team Description 12/03/2014 [facility] Im [address] [address] Social History Tobacco Use Types Packs/Day Years Used Date Smoking Tobacco: Never Assessed Sex Assigned at Date Recorded Not on file documented as of this encounter Plan of Treatment Not on filedocumented as of this encounter Procedures Procedure Name Priority Date/Time Associated Diagnosis Comme nts XR CERVICAL SPINE 3 STAT 12/03/2014 10:52 AM R esults for this VIEWS REEL FED PRINTER procedure are i n the results section. documented in this encounter Results XR C-SPINE 3 VIEWS (TRAUMA) (12/03/2014 10:52 AM REEL FED PRINTER) Anatomical Region Laterality Modality Spine, C-Spine, Neck Computed Radiograph y Specimen (Source) Anatomical Collection Method Collection Time Re ceived Time Location / / Volume Laterality 12/03/2014 10:52 AM REEL FED PRINTER Narrative 12/03/2014 11:11 AM REEL FED PRINTER XR C-SPINE 3VWS 12/03/2014 10:52 AM INDICATION: [...] on filedocumented in this encounter Care Teams R&D Lab Technician Relationship Specialty Start Date End Date No Primary/Referring, Phy PCP - General 12/03/14 documented as of this encounter
--- OUTSIDE RECORDS SUMMARY | 2022-07-29 14:55 | XMS_ITS | Encounter Summary ---
:1960 [email or web address] Address [address] [place] [address] Care Team Providers Name Role Phone Unassigned, Provider Primary Care Provider Unavailable Reason for Visit Procedure/Equipment (Routine) - Closed Specialty Diagnoses / Procedures Referred By Contact Refer red To Contact Procedures Benjamin Sanford MD MR ANGIOGRAPHY HEAD WITHOUT [address] [place] [address] Referral ID Status Reason Start Date Expiration Date Visits Requ ested Visits Authorized [id number] Closed 12/03/2012 1 1 Encounter Details Date Type Department Care Team Description 12/03/2012 Imaging [facility] MRI [address] [place] [address] Social History Tobacco Use Types Packs/Day Years Used Date Smoking Tobacco: Never Assessed Sex Assigned at Date Recorded Not on file documented as of this encounter Plan of Treatment Not on filedocumented as of this encounter Procedures Procedure Name Priority Date/Time Associated Diagnosis Comme nts MR ANGIO HEAD WO IV STAT 12/03/2012 1:12 PM Re sults for this CONT CUTTER HEAD SHARPENER procedure are i n the results section. documented in this encounter Results MR ANGIOGRAPHY HEAD WITHOUT CONTRAST (12/03/2012 1:12 PM CUTTER HEAD SHARPENER) Anatomical Region Laterality Modality Head, Vascular Magnetic Resonance Specimen (Source) Anatomical Collection Method Collection Time Re ceived Time Location / / Volume Laterality 12/03/2012 1:12 PM CUTTER HEAD SHARPENER Narrative 12/03/2012 3:13 PM [facility] 1. MRI HEAD WITHOUT CONTRAST. [...] note might be different from the original. [facility] 1. MRI HEAD WITHOUT [...] on filedocumented in this encounter Care Teams Health Educator Relationship Specialty Start Date End Date Unassigned, Provider PCP - General 07/06/00 04/18/[address] [place] [address] documented as of this encounter
--- OUTSIDE RECORDS SUMMARY | 2022-07-29 14:55 | XMS_ITS | Encounter Summary ---
:1960 Author Organization [facility] Address [address] [address] Care Team Providers Name Role Phone Unassigned, Provider Primary Care Provider Unavailable Encounter Details Date Type Department Care Team Description 08/31/2004 Office Visit [facility] [address] Clinic [address] [place] [address] [place], [place] [phone] Social History Tobacco Use Types Packs/Day Years Used Date Smoking Tobacco: Never Assessed Sex Assigned at Date Recorded Not on file documented as of this encounter Plan of Treatment Not on filedocumented as of this encounter Visit Diagnoses Not on filedocumented in this encounter Care Teams Streetcar Repairer Helper Relationship Specialty Start Date End Date Unassigned, Provider PCP - General 07/06/00 04/18/[address] [place] [address] documented as of this encounter
--- OUTSIDE RECORDS SUMMARY | 2022-07-29 14:55 | XMS_ITS | Encounter Summary ---
:1960 Author Organization [facility] Address [address], [place] [address] Care Team Providers Name Role Phone Bailey Arenas MD Primary Care Provider Reason for Visit Reason Comments FACIAL PAIN Encounter Details Date Type Department Care Team Description 09/05/2014 Hospital Encounter [facility] Jeremy Canchola cutxiomara sinusitis with Shahrzad Nichole MD symptoms > 10 days [address] [address] [facility] [phone] [place] [address] Social History Tobacco Use Types Packs/Day Years Used Date Smoking Tobacco: Never Assessed Sex Assigned at Date Recorded Not on file documented as of this encounter Last Filed Vital Signs Vital Sign Reading Time Taken Comments Blood Pressure 169/103 09/05/2014 3:09 PM POLICE MAGISTRATE Pulse 100 09/05/2014 3:09 PM POLICE MAGISTRATE Temperature 36.8 ??C (98.2 ??F) 09/05/2014 3:09 PM POLICE MAGISTRATE Respiratory Rate 20 09/05/2014 3:09 PM POLICE MAGISTRATE Oxygen Saturation - - Inhaled Oxygen Concentration [...] 1026 Note Time: 09/06/14 09 Status: Signed Tripe Finisher: Jeremy Canchola MD (Physician) NAME: MARTIN HERNANDEZ MR#: [id number] CSN: [id number] AUTHENTICATING CLINICIAN: Jeremy Canchola MD CONFIRM #: [id number] LOC: 520 URGENT CARE PROGRESS NOTE DATE [...] call her physician. AKD:MEDQ C: CONFIRM #: [id number] CE MAGISTRATE Jeremy Canchola MD - 09/05/2014 3:17 PM CST dict documented in this encounter Miscellaneous Notes Medication History - Stefano Jimenez MD - 09/05/2014 3:17 PM CST INPATIENT MEDS Encounter Date: 09/05/14 amoxicillin-clavulanate (AUGMENTIN) 875-125 mg per tablet Start Date:09/05/14, End Date:09/15/14, Frequency:2 TIMES DAILY *No Administrations Recorded CE MAGISTRATE ED AVS Snapshot - Stefano Jimenez MD - 09/05/2014 3:17 PM CST Images from the original note were not included. [facility] [address] [place] [address] Dept: [phone] [email or web address] Martin Hernandez 09/05/2014 3:12 PM Hospital Encounter Description: Female : 1960 Department: [facility] Thank you for choosing [facility] for your health care visit with No att. providers found. We are happy to care for you and provide this summary of your visit. Your primary career guidance technician is currently listed as Bailey Arenas MD. HERE IS WHAT YOU NEED TO KNOW To learn how you can take steps to stay as healthy as you can be visit [email or web address] HERE IS WHAT YOU NEED TO DO [...] with [facility]. You may call [phone] to schedule your appointment. If you prefer, a power system electrical engineer will contact you within the next 3 [...] Ethnicity Preferred Language 1960 Female White Non- Montserratian This document contains confidential information about your health and care. It is provided directlyto you for your personal, private use only. CE MAGISTRATE documented in this encounter Plan of Treatment Not on filedocumented as of this encounter Visit Diagnoses Diagnosis Acute sinusitis with symptoms > 10 days Acute sinusitis, unspecified Triage Assessment Note - Daniella Schuler RN - 09/05/2014 3:08 PM CST Rt side facial congestion for 3 weeks, worse last few days. documented in this encounter Care Teams Poker Room Manager Relationship Specialty Start Date End Date Bailey Arenas MD PCP - General 04/19/13 12/02/14 [address] [place] [address] documented as of this encounter
--- OUTSIDE RECORDS SUMMARY | 2022-07-29 14:55 | XMS_ITS | Encounter Summary ---
:1960 Author Organization [facility] Address [address] [facility] [place] [address] Care Team Providers Name Role Phone Bailey Arenas MD Primary Care Provider Encounter Details Date Type Department Care Team Description 12/03/2012 Consent for [facility] LV MRI SAF ETY Procedure/[facility], SCREENING CONSENT nt [address] [facility] Provider [place], [place] [id number] Social History Tobacco Use Types Packs/Day Years Used Date Smoking Tobacco: Never Assessed Sex Assigned at Date Recorded Not on file documented as of this encounter [facility], Provider - 12/03/2012 12:00 AM CST NICAL APPLICATIONS SCIENTIST documented in this encounter Plan of Treatment Not on filedocumented as of this encounter Visit Diagnoses Not on filedocumented in this encounter Care Teams Digital Asset Coordinator Relationship Specialty Start Date End Date Bailey Arenas MD PCP - General Internal Medicine 09/16/[address] [id number] documented as of this encounter
--- OUTSIDE RECORDS SUMMARY | 2022-07-29 14:55 | XMS_ITS | Encounter Summary ---
:1960 Author Organization [facility] Address [address] [address] Care Team Providers Name Role Phone Bailey Arenas MD Primary Care Provider Encounter Details Date Type Department Care Team Description 04/19/2014 Lab Visit [facility] Screening for lipoid disorde rs; [address] Obesity; [place] [address] Screening for diabetes [facility] [phone] Social History Tobacco Use Types Packs/Day Years [...] Bailey Arenas MD LAB_1 Performing Organization Address City/[facility] Code Phon e Number HP CONVERSION (ABNORMAL) Lipid Panel and Direct LDL(If Needed) (04/19/2014 8:48 AM CDT) [facility] Method Time Signature Cholesterol 271 (H) [...] - 04/19/2014 12:53 PM CDT Performed at [facility], [address] [place] [address] Bailey Arenas MD LAB_1 Performing Organization Address City/State/ZIP [facility] Phon e Number HP CONVERSION documented in this encounter Visit Diagnoses Diagnosis Screening for lipoid disorders Obesity ([facility]) Obesity, unspecified Screening for diabetes mellitus documented in this encounter Care Teams Production Operations Manager Relationship Specialty Start Date End Date Bailey Arenas MD PCP - General 04/19/13 12/02/14 [address] [place] [address] documented as of this encounter
--- OUTSIDE RECORDS SUMMARY | 2022-07-29 14:55 | XMS_ITS | Encounter Summary ---
:1960 Author Organization [facility] Address [address] [address] Care Team Providers Name Role Phone Bailey Arenas MD Primary Care Provider Reason for Referral Specialty Diagnoses / Procedures Referred By Contact Refer red To Contact Bailey Arenas MD [address] [place] [address] [place] [address] Referral ID Status Reason Start Date Expiration Date Visits Requ ested Visits Authorized Reason for Visit Reason Comments Skin Check Encounter Details Date Type Department Care Team Description 06/06/2014 Initial Consult Viola Busby fo r malignant neoplasm of the skin (Primary Dx); Dermatology Flavia Suárez PA-C Personal history of skin cancer; [address] [place] [address] Actinic keratosis; [place] [address] [address] Neoplasm of uncertain behavior of skin [phone] [place] [address] Social History Tobacco Use Types [...] Aguirre PA-C Service: (none) Author Type: Physician Candy Attendant Filed: 06/07/14936 Note Time: 06/06/142207 Status: Signed Production Graphic Designer: Flavia Aguirre PA-C (Physician Candy Attendant) NAME: MARTIN HERNANDEZ MR#: [id number] CSN: [id number] AUTHENTICATING CLINICIAN: Flavia Aguirre PA-C CONFIRM #: [id number] LOC: [facility] CLINIC PROGRESS NOTE DATE OF VISIT: [...] area removed by Dr. George Durant at [facility] at least 15 years ago, the patient reports. 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 CURRENT MEDICATIONS: Reviewed and updated in Epic. [...] outside clinic over 15 years ago near [place]. No recurrence evident. Recommended follow full-body exam every 1-2 years, or sooner should she have any new concerns. LIAM:TWAN C: CONFIRM #: [id number] documented in this encounter Miscellaneous Notes Miscellaneous [...] 12:31 PMPlease notify patient of benign results. ATIONS SUPPORT REPRESENTATIVE documented in this encounter Plan of Treatment [...] Component Value Ref Test Analysis Performed At [facility] gist Range Method Time Signature Path: ? FINAL DERMATOPATHOLOGY REPO RT HP CONVERSION Pathology #: [id number] ? Date Obtained: 06/06/2014 ?Date Received: 06/07/2014 [...] skin documented in this encounter Care Teams Paint Sprayer Sandblaster Relationship Specialty Start Date End Date Bailey Arenas MD PCP - General 04/19/13 12/02/14 [address] [place] [address] documented as of this encounter
--- OUTSIDE RECORDS SUMMARY | 2022-07-29 14:55 | XMS_ITS | Encounter Summary ---
:1960 Author Organization [facility] Address [address] [address] Care Team Providers Name Role Phone Bailey Arenas MD Primary Care Provider Reason for Referral Specialty Diagnoses / Procedures Referred By Contact Refer red To Contact Bailey Arenas MD [facility] [place] [address] Referral ID Status Reason Start Date Expiration Date Visits Requ ested Visits Authorized Reason for Visit Reason Comments Travel Consult Encounter Details Date Type Department Care Team Description 08/02/2014 Initial Consult [facility] vice or immunization for travel (Primary Dx); Clinic C, [place], [place] Counseling for travel [address] [place] [address] [facility] [phone] [place] [address] Social History Tobacco Use Types [...] developing countries: 2 weeks. Countries of travel: [facility] Areas in country: rural and urban [...] for her yellow card at customs in [facility]. Accommodations: apartment Purpose of travel: volunteering, [...] counseling documented in this encounter Care Teams Balance Wheel Hand Filer Relationship Specialty Start Date End Date Bailey Arenas MD PCP - General 04/19/13 12/02/14 [address] [place] [address] documented as of this encounter
--- OUTSIDE RECORDS SUMMARY | 2022-07-29 14:55 | XMS_ITS | Encounter Summary ---
:1960 [address] [facility] Address [address], [place] [address] Care Team Providers Name Role Phone Bailey Arenas MD Primary Care Provider Reason for Visit Reason Comments Establish Care Encounter Details Date Type Department Care Team Description 04/19/2013 Office Visit Bailey Waters, Word find ing difficulty (Primary Dx); Medicine Day-menopause [address] [place] [address] [place] [address] [phone] Social History Tobacco Use Types Packs/Day Years [...] AM CDT Thank you for enrolling in [employer]. Please follow the instructions below to securely access your online medical record. [employer] allows you to send messages to your doctor, view your test results, renewyour prescriptions, schedule appointments, and more. How Do I Sign Up? 1. In your Internet browser, go to: [email or web address] 2. Click on the Enter Activation Code link under the New User? section. You will see the New Member Sign Up page. 3. Enter your [employer] Activation Code exactly as it appears below. You will not need to use this code after you???ve completed the sign-up process. If you do not sign up before the expiration date, youmust request a new code. [employer] Activation Code: [email or web address] Expires: 05/19/2013 10:31 AM 4. Enter the last four digits of your Social Security Number ([id number]) and Date of (mm/dd/yyyy) as indicated and click Next. You will be taken to the next sign-up page. 5. Create a [employer] ID. This will be your [employer] login ID and cannot be changed, so think of one that is secure and easy to remember. 6. Create a [employer] password. You can change your password at any time. 7. Enter your Security Question and Answer. This can be used at a later time if you forget your password. Click Next. 8. Enter your e-mail address. You will receive e-mail notification when new information is availablein [employer]. 9. Click Sign In. You can now view your medical record. Additional Information If you have questions, you can call [phone] to talk to our [employer] staff. Remember, [employer] is NOT to be used for urgent needs. For medical emergencies, dial 911. documented in this encounter Progress Notes Bailey Arenas MD - 04/19/2013 12:27 PM CDT Subjective: Shonna Bashir is an 53 y.o. female who presents for evaluation of Establish Care She was previously seen at [facility]. Word-finding difficulty: Spent a morning in last September for this, had MRIs, etc.Meno like her thoughts didn't connect well together. [...] 2013. Pap smear was done 12/24/2010 at [facility] and was normal. No history of abnormals. [...] and plan: Shonna was seen today for [facility] care. Health history reviewed and updated in [facility]. Diagnoses and associated orders for this visit: [...] states documented in this encounter Care Teams Humane Officer Relationship Specialty Start Date End Date Bailey Arenas MD PCP - General 04/19/13 12/02/14 [address] [place], [place] [address] documented as of this encounter
--- OUTSIDE RECORDS SUMMARY | 2022-07-29 14:55 | XMS_ITS | Encounter Summary ---
:1960 Author Organization [facility] Address [address] [address] Care Team Providers Name Role Phone Unassigned, Provider Primary Care Provider Unavailable Encounter Details Date Type Department Care Team Description 10/22/2005 PN Conversion Only OD GRINDER OPERATOR [address] [place] [address] Social History Tobacco Use Types Packs/Day Years Used Date Smoking Tobacco: Never Assessed Sex Assigned at Date Recorded Not on file documented as of this encounter Plan of Treatment Not on filedocumented as of this encounter Visit Diagnoses Not on filedocumented in this encounter Care Teams Professor Of Education Relationship Specialty Start Date End Date Unassigned, Provider PCP - General 07/06/00 04/18/[address] [place] [address] documented as of this encounter
--- OUTSIDE RECORDS SUMMARY | 2022-07-29 14:55 | XMS_ITS | Encounter Summary ---
:1960 Author Organization [facility] Address [address] [place] [address] Care Team Providers Name Role Phone Unassigned, Provider Primary Care Provider Unavailable Reason for Visit Procedure/Equipment (Routine) - Closed Specialty Diagnoses / Procedures Referred By Contact Refer red To Contact Procedures Benjamin Sanford MD MR BRAIN / STEM WITH CONTRAST [address] [place] [address] Referral ID Status Reason Start Date Expiration Date Visits Requ ested Visits Authorized [id number] Closed 12/03/2012 1 1 Encounter Details Date Type Department Care Team Description 12/03/2012 Imaging [facility] MRI [address] [place] [address] Social History Tobacco Use Types Packs/Day Years Used Date Smoking Tobacco: Never Assessed Sex Assigned at Date Recorded Not on file documented as of this encounter Plan of Treatment Not on filedocumented as of this encounter Procedures Procedure Name Priority Date/Time Associated Diagnosis Comme nts MR BRAIN W IV CONT STAT 12/03/2012 4:03 PM Res ults for this COMMERCIAL DECORATOR procedure are i n the results section. documented in this encounter Results MR BRAIN / STEM WITH CONTRAST (12/03/2012 4:03 PM COMMERCIAL DECORATOR) Anatomical Region Laterality Modality Head Magnetic Resonance Specimen (Source) Anatomical Collection Method Collection Time Re ceived Time Location / / Volume Laterality 12/03/2012 4:03 PM COMMERCIAL DECORATOR Narrative 12/03/2012 5:31 PM COMMERCIAL DECORATOR ADDENDUM REPORT: MRI HEAD (NOW WITHOUT AND WITH CONTRAST) PERFORMED ON DECEMBER 03, 2012 [facility] The patient returned returned for [...] (taking over for Dr. Sanford) in the [place] emergency room on December 03 at 1640 [...] WITH CONTRAST) PERFORMED ON DECEMBER 03, 2012 [facility] The patient returned returned for [...] (taking over for Dr. Sanford) in the [place] emergency room on December 03 at 1640 hours. IMPRESSION: Post contrast images show ir regular enhancement at the site of the left pontine lesion. 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 Benjamin Sanford MD RAD MRI documented in this encounter Visit Diagnoses Not on filedocumented in this encounter Care Teams Automatic Coin Machine Mechanic Relationship Specialty Start Date End Date Unassigned, Provider PCP - General 07/06/00 04/18/[address] [place] [address] documented as of this encounter
--- OUTSIDE RECORDS SUMMARY | 2022-07-29 14:56 | XMS_ITS | Encounter Summary ---
:1960 Author Organization [facility] Address [address], [place] [address] Care Team Providers Name Role Phone Unassigned, Provider Primary Care Provider Unavailable Encounter Details Date Type Department Care Team Description 11/15/1996 PN Conversion Only [place] [facility] Nose, Ayre, Gigi H III, and Throat [address] [phone] [address] (Wo rk) Social History Tobacco Use Types Packs/Day Years Used Date Smoking Tobacco: Never Assessed Sex Assigned at Date Recorded Not on file documented as of this encounter Progress Notes Conversion, [facility] - 11/15/1996 12:01 AM CST Progress Notes signed by at 07/21/98 6825 Author: Jacqui Conversion Service: (none) Author Type: (none) Filed: 01/19/11 0852 Note Time: 11/15/96 0001 Status: Signed Booster Operator: Jacqui Conversion IMPRESSION: Postop endoscopic sinus surgery [...] improve. cc: Nina Cross MD [facility] [address] [place] [address] [facility] SCHEDULED RESOURCE: GIGI PEREZ / BUTTER Conversion, [facility] - 10/29/1996 12:01 AM CST Progress Notes signed by at 07/21/98 0837 Author: [facility] Conversion Service: (none) Author Type: (none) Filed: 01/19/112202 Note Time: 10/29/96 0001 Status: Signed Booster Operator: Jacqui Cerda IMPRESSION: Good early result, status [...] antibiotics. Return to clinic in 2-3 weeks. [facility] SCHEDULED RESOURCE: GIGI PEREZ MD BUTTER Conversion, [facility] - 10/08/1996 12:01 AM CST Progress Notes signed by at 07/21/98 0252 Author: [facility] Conversion Service: (none) Author Type: (none) Filed: 01/19/11 2149 Note Time: 10/08/96 0001 Status: Signed Booster Operator: Jacqui Conversion IMPRESSION: Chronic rhinitis with possible [...] future. cc: Nina Cross MD [facility] [address] [place] [address] [facility] SCHEDULED RESOURCE: GIGI PEREZ MD BUTTER documented in this encounter Plan of Treatment Not on filedocumented as of this encounter Visit Diagnoses Not on filedocumented in this encounter Care Teams Editor Managing Newspaper Relationship Specialty Start Date End Date Unassigned, Provider PCP - General 07/06/00 04/18/[address] [place] [address] documented as of this encounter
--- OUTSIDE RECORDS SUMMARY | 2022-07-29 14:56 | XMS_ITS | Encounter Summary ---
:1960 Author Organization [facility] Address [address], [place] [address] Care Team Providers Name Role Phone Unassigned, Provider Primary Care Provider Unavailable Encounter Details Date Type Department Care Team Description 08/15/1996 PN Conversion Only [facility] CONVERSION Michael Cross MD [address] [place], [place] [address] Social History Tobacco Use Types Packs/Day Years Used Date Smoking Tobacco: Never Assessed Sex Assigned at Date Recorded Not on file documented as of this encounter Plan of Treatment Not on filedocumented as of this encounter Procedures Procedure Name Priority Date/Time Associated Comments Diagnosis CONVERSION DEFAULT Routine 08/15/1996 3:05 PM Res ults for this INTERFACE ORDER MOLD YARD WORKER procedure ar e in the results section. CONVERSION DEFAULT Routine 08/15/1996 3:05 PM Res ults for this INTERFACE ORDER MOLD YARD WORKER procedure ar e in the results section. documented in this encounter Results Conversion Default Interface Order (08/15/1996 3:05 PM MOLD YARD WORKER) P athologist Signature Cholesterol 192 125 [...] / / Volume Laterality 08/15/1996 3:05 PM MOLD YARD WORKER Michael Cross MD LAB_1 Performing Organization Address City/State/ZIP Code Phon e Number HP CONVERSION Conversion Default Interface Order (08/15/1996 3:05 PM MOLD YARD WORKER) P athologist Signature Thyroid 0.94 0.40 HP CONVERSION Stimulating 5.00uIU/ Hormone ML Specimen (Source) Anatomical Collection Method Collection Time Re ceived Time Location / / Volume Laterality 08/15/1996 3:05 PM MOLD YARD WORKER Michael Cross MD LAB_1 Performing Organization Address [facility] Phon e Number HP CONVERSION documented in this encounter Visit Diagnoses Not on filedocumented in this encounter Care Teams Major General Relationship Specialty Start Date End Date Unassigned, Provider PCP - General 07/06/00 04/18/[address] [place] [address] documented as of this encounter
--- NOTE | 2022-07-29 15:00 | CRLHL7_ITS ---
For Patients: As a result of the Century Cures Act, medical imaging exams and procedure reports are released immediately into your electronic medical record. You may view this report before your referring provider. If you have questions, please contact your health care provider. HISTORY: Rule out obstruction, clot, look at liver parenchyma TECHNIQUE: Grayscale ultrasound examination of the abdomen and retroperitoneum with 2D and spectral analysis and color Doppler interrogation of the hepatic vessels. COMPARISON: None FINDINGS: The liver is normal in size, measuring 16.1 cm in craniocaudal dimension. It is smooth in contour and increased in echogenicity. There is no significant biliary dilatation, and the common bile duct measures 0.5 cm. There is no ascites. The portal and hepatic veins are patent with normal direction of flow. The hepatic artery is patent with normal waveform. Splenic vein is patent with normal direction of flow. Intrahepatic IVC appears unremarkable. The gallbladder demonstrates mild layering sludge. There is no gallbladder wall thickening, pericholecystic fluid, or elicited sonographic Shetty`s sign. The kidneys are normal in size. The right kidney measures 10.5 cm and the left kidney measures 10.0 cm. Normal echogenicity is seen in both kidneys. There is no hydronephrosis. No shadowing echogenic focus is identified to suggest nephrolithiasis. The spleen is normal in size, measuring 8.2 cm. The visualized pancreas is sonographically unremarkable. Pancreas is normal. Normal aorta measuring 2.2 cm. IMPRESSION: Hepatic steatosis. Antegrade flow within the splanchnic vessels. Mild gallbladder sludge. Dictated by Michael Edgar MD @ 07/30/2022 8:05:14 AM (Electronically Signed)
== END 2022-07-29 14:52 | disposition home or self-care (01) ==
PROVIDERS: PCP Family Medicine; Visit Provider Family Medicine
DX: R79.89 Other specified abnormal findings of blood chemistry (principal); K76.0 Fatty (change of) liver, not elsewhere classified
CPT/HCPCS: 76700; 93975

== ENCOUNTER 2022-08-06 08:27 | Outpatient (CLI) | payer BC, SELFPAY ==
--- OUTSIDE RECORDS SUMMARY | 2022-08-06 08:33 | XMS_ITS | Clinical Summary ---
:1960 Author Organization [facility] [place] [address] Care Team Providers Name Role Phone Zoe [...] Comments Blood Pressure 175/112 09/08/2016 4:05 PM DRILL PRESSER Pulse 88 09/08/2016 4:05 PM DRILL PRESSER Temperature 36.7 ??C (98 ??F) 03/10/2012 9:12 [...] on filefrom Last 3 Months Care Teams Tank Refinisher Relationship Specialty Start Date End Date Zoe Ivan MD PCP - General Family Practice 12/04/10
--- OUTSIDE RECORDS SUMMARY | 2022-08-06 08:33 | XMS_ITS | Encounter Summary ---
:1960 Author Organization [facility] Address [address], [place] [address] Care Team Providers Name Role Phone Bailey Arenas MD Primary Care Provider Reason for Visit Reason Comments Biometrics Screening Encounter Details Date Type Department Care Team Description 09/22/2020 Office Visit [facility] Encounter for biometric [address] [facility] screening (Primary Dx) [place] [address] Social History Tobacco Use Types Packs/Day Years Used Date Smoking Tobacco: Never Smokeless Tobacco: Never Alcohol Use Standard Drinks/Week Comments Yes 7 (1 standard drink = 0.6 oz pure alcoho l) weekly Sex Assigned at Date Recorded Not on file documented as of this encounter Last Filed Vital Signs Vital Sign Reading Time Taken Comments Blood Pressure 128/82 09/22/2020 9:14 AM FIXED ROUTE BUS OPERATOR Pulse 67 09/22/2020 9:14 AM FIXED ROUTE BUS OPERATOR Temperature - - Respiratory Rate - - Oxygen Saturation - - Inhaled Oxygen Concentration - - Weight 74.4 kg (164 lb) 09/22/2020 9:07 AM FIXED ROUTE BUS OPERATOR Height 167.6 cm (5' 6) 09/22/2020 9:07 AM FIXED ROUTE BUS OPERATOR Body Mass Index 26.47 09/22/2020 9:07 AM FIXED ROUTE BUS OPERATOR documented in this encounter Progress Notes Arpita [...] takes Rosuvastatin daily, managed by PCP at [facility]. Patient is encouraged to follow up at clinic as needed. D ROUTE BUS OPERATOR documented in this encounter Plan of Treatment Not on filedocumented as of this encounter Procedures Procedure Name Priority Date/Time Associated Diagnosis Comme nts LIPID+GLUCOSE Routine 09/22/2020 9:04 AM Encounter for Results for this SCREEN,POINT OF FIXED ROUTE BUS OPERATOR biometric screening proce kt are in CARE the results section. documented in this encounter Results (ABNORMAL) Lipid+Glucose Screen,Point Of Care (09/22/2020 9:04 AM FIXED ROUTE BUS OPERATOR) P athologist Signature Cholesterol, 242 (H) 0 - 199 09/22/2020 [employer] Whole Blood mg/dL 9:12 AM FIXED ROUTE BUS OPERATOR RED WING Triglyceride, <45 0 - 149 09/22/2020 [employer] Whole Blood mg/dL 9:12 AM FIXED ROUTE BUS OPERATOR RED WING HDL, Whole >100 >40 mg/dL 09/22/2020 [employer] Blood 9:12 AM FIXED ROUTE BUS OPERATOR RED WING LDL, 09/22/2020 [employer] Calculated, 9:12 AM FIXED ROUTE BUS OPERATOR RED WING Whole Blood Comment: Unable to calculate Chol/HDL Ratio, Whole Blood 09/22/2020 9 :12 AM FIXED ROUTE BUS OPERATOR [employer] [place] Comment: Unable to calculate Glucose Whole Blood 83 70 - 100 mg/dL 09/22/2020 9:12 AM FIXED ROUTE BUS OPERATOR [employer] [place] Hours Fasting 12 09/22/2020 9:12 AM FIXED ROUTE BUS OPERATOR WEL L AT WORK RED WING Specimen Anatomical Collection Method / Collection Time Recei marsha Time (Source) Location / Volume Laterality Blood Venipuncture / 09/22/2020 9:04 09/22/2020 9:04 Unknown AM FIXED ROUTE BUS OPERATOR AM FIXED ROUTE BUS OPERATOR Arpita Gallardo PA-C LAB_1 Performing Organization Address City/State/ZIP Code Phon e Number WELL AT WORK RED MEEKER [address] [place] [address] [phone] documented in this encounter Visit Diagnoses Diagnosis Encounter for biometric screening - Prim babak documented in this encounter Care Teams Marsh Buggy Operator Relationship Specialty Start Date End Date Bailey Arenas MD PCP - General Internal Medicine 09/16/16 [address] [place] [phone] documented as of this encounter
--- OUTSIDE RECORDS SUMMARY | 2022-08-06 08:33 | XMS_ITS | Encounter Summary ---
:1960 Author Organization [facility] [employer] Address [address] [address] Care Team Providers Name Role Phone Bialey Arenas MD Primary Care Provider Reason for Visit Reason Comments Disease Registry Encounter Details Date Type Department Care Team Description 03/06/2021 Telephone Well at Work Arpita Byrne, Disease Registry [address] [place] [address] 410 [facility] [phone] [place] [address] (Wo rk) Social History Tobacco [...] on filedocumented in this encounter Care Teams Cabinet And Trim Installer Relationship Specialty Start Date End Date Bailey Arenas MD PCP - General Internal Medicine 09/16/16 [address] [place] [address] documented as of this encounter
--- OUTSIDE RECORDS SUMMARY | 2022-08-06 08:33 | XMS_ITS | Encounter Summary ---
:1960 Author Organization [facility] Address [address] [address] Care Team Providers Name Role Phone Bailey Arenas MD Primary Care Provider Encounter Details Date Type Department Care Team Description 01/24/2017 Notes/Orders [facility] in[facility] Bailey Arenas MD [address] [place] [address] [place] [address] [phone] (Wo rk) Social History Tobacco Use Types [...] on filedocumented in this encounter Care Teams Interactive Web Developer Relationship Specialty Start Date End Date Bailey Arenas MD PCP - General Internal Medicine 09/16/[address] [place] [id number] documented as of this encounter
--- OUTSIDE RECORDS SUMMARY | 2022-08-06 08:33 | XMS_ITS | Encounter Summary ---
:1960 [facility] Address [address] [place] [address] Care Team Providers Name Role Phone Bailey Arenas MD Primary Care Provider Reason for Visit Reason Comments HYPERTENSION Encounter Details Date Type Department Care Team Description 12/07/2016 Notes/Orders [facility] Bailey Arenas MD [address] [place] [address] [place] [address] [phone] (Wo rk) Social History Tobacco Use Types [...] on filedocumented in this encounter Care Teams Site Worker Relationship Specialty Start Date End Date Bailey Arenas MD PCP - General Internal Medicine 09/16/[address] [id number] documented as of this encounter
--- OUTSIDE RECORDS SUMMARY | 2022-08-06 08:33 | XMS_ITS | Encounter Summary ---
:1960 Author Organization [facility] Address [address], [place] [address] Care Team Providers Name Role Phone Bailey Arenas MD Primary Care Provider Reason for Visit Reason Comments MEDICATION CHECK Encounter Details Date Type Department Care Team Description 12/20/2016 Office Visit [place] Internal Bailey Arenas, Essential hypertension Medicine (Primary Dx) [address] [place] [address] [place] [address] [phone] Social History Tobacco Use Types Packs/Day Years [...] in [place] for 3 weeks; she visited [facility], [facility], and [facility], 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 She is [...] hypertension documented in this encounter Care Teams Food Sanitarian Relationship Specialty Start Date End Date Bailey Arenas MD PCP - General Internal Medicine 09/16/[address] [place] [address] documented as of this encounter
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
--- OUTSIDE RECORDS SUMMARY | 2022-08-06 08:33 | XMS_ITS | Encounter Summary ---
:1960 Author Organization [facility] Address [address] [address] Care Team Providers Name Role Phone Karlo Duenas MD Primary Care Provider Encounter Details Date Type Department Care Team Description 10/22/2017 Refill Order [place] [facility] Karlo Sung MD [address] [place] [address] [place] [id number] (Wo rk) Social History Tobacco Use Types Packs/Day Years Used Date Smoking Tobacco: Never Smokeless Tobacco: Never Alcohol Use Standard Drinks/Week Comments Yes 7 (1 standard drink = 0.6 oz pure alcoho l) weekly Sex Assigned at Date Recorded Not on file documented as of this encounter Nursing Notes Becky Salgado - 10/24/2017 11:32 AM CST Labs to be addressed at future visit. STERED PHYSICAL THERAPIST Interface, Out Surescripts Prov Query - 10/22/2017 [...] - NEXT LAB APPOINTMENT: None Powered by [employer], Reference: [id number], 10/22/2017 12:31:15 AM REGISTERED PHYSICAL THERAPIST, Pool: JOSSIE CHUNGILL ([id number]) STERED PHYSICAL THERAPIST documented in this encounter Plan of Treatment Not on filedocumented as of this encounter Visit Diagnoses Diagnosis Encounter for long-term (current) use of medications - Primary Encounter for long-term (current) use of other medications documented in this encounter Care Teams Estimator Jewelry Relationship Specialty Start Date End Date Karlo Duenas MD PCP - General Internal Medicine 09/16/16 [address] [place], [place] [address] documented as of this encounter
--- OUTSIDE RECORDS SUMMARY | 2022-08-06 08:33 | XMS_ITS | Encounter Summary ---
:1960 Author Organization [facility] Address [address] [address] Care Team Providers Name Role Phone Karlo Duenas MD Primary Care Provider Reason for Visit Reason Comments Refill lisinopril (ZESTRIL) 10 MG t ablet [Pharmacy Med Name: LISINOPRIL 10 MG TABLET] Encounter Details Date Type Department Care Team Description 10/22/2017 Refill [place] [facility] Karlo Duenas MD Refill (lisinopril [address] (ZESTRIL) [place] [address] [place] [address] [Pharmacy Med Name: [phone] (Wo rk) LISINOPRIL 10 MG TABLET]) Social [...] IRAJ MENDOZA Reason for Refusal: Duplicate Error MBLY INSTRUCTIONS WRITER Interface, Out Surescripts Prov Query - 10/22/2017 [...] (Sent to [facility]) Powered by [employer], Reference: [id number], 10/22/2017 12:31:14 AM ASSEMBLY INSTRUCTIONS WRITER, Pool: JOSSIE REFILL ([id number]) MBLY INSTRUCTIONS WRITER documented in this encounter Plan of Treatment Not on filedocumented as of this encounter Visit Diagnoses Diagnosis Essential hypertension (HRC) Unspecified essential hypertension documented in this encounter Care Teams Seat Scooper Machine Relationship Specialty Start Date End Date Karlo Duenas MD PCP - General Internal Medicine 09/16/16 [address] [place] [address] documented as of this encounter
--- OUTSIDE RECORDS SUMMARY | 2022-08-06 08:34 | XMS_ITS | Encounter Summary ---
:1960 Author Organization [facility] Address [address] [place] [address] Care Team Providers Name Role Phone Bailey Arenas MD Primary Care Provider Encounter Details Date Type Department Care Team Description 11/11/2016 Notes/Orders [place] [facility] Bailey Arenas MD [address] [place] [address] [place] [phone] (Wo rk) Social History Tobacco Use Types [...] a BP check, otherwise when she returns. PRESS OPERATOR documented in this encounter Plan of Treatment Not on filedocumented as of this encounter Visit Diagnoses Not on filedocumented in this encounter Care Teams Blanker Press Operator Relationship Specialty Start Date End Date Bailey Arenas MD PCP - General Internal Medicine 09/16/[address] [place] [address] documented as of this encounter
--- OUTSIDE RECORDS SUMMARY | 2022-08-06 08:34 | XMS_ITS | Encounter Summary ---
:1960 Author Organization [facility] Address [address] [address] Care Team Providers Name Role Phone No Primary/Referring, Phy Primary Care Provider Unavailable Reason for Visit Reason Onset Date Comments Travel Consult 06/03/2016 Encounter Details Date Type Department Care Team Description 06/03/[address] [facility] [address] unseling for travel (Primary Dx); Travel Clinic RN Need for influenza vaccination; [address] for vaccine for DT (diphtheria-tetanus); [address] [place] [address] [phone] Social History Tobacco Use Types Packs/Day Years [...] travel: [place], [place] and rurally in [facility], [place] Areas in country: rural and urban [...] Traveling to [place] area: no Accommodations: [place] Purpose of travel: business PRIOR HEALTH HISTORY [...] B, HIV, Influenza, Insect-related illnesses and prevention, Kinyarwanda Encephalitis, Leishmaniasis, Leptospirosis, Malaria, MMR, Polio, Rabies--pre-exposure [...] travel documented in this encounter Care Teams Passenger Train Braker Relationship Specialty Start Date End Date No Primary/Referring, Phy PCP - General 06/03/16 1 11/16/15 documented as of this encounter
--- OUTSIDE RECORDS SUMMARY | 2022-08-06 08:34 | XMS_ITS | Encounter Summary ---
:1960 Author Organization [facility] Address [address], [place] [address] Care Team Providers Name Role Phone Karlo Duenas MD Primary Care Provider Reason for Visit Reason Comments Refill lisinopril (ZESTRIL) 5 MG ta blet [Pharmacy Med Name: LISINOPRIL 5 MG TABLET] Encounter Details Date Type Department Care Team Description 11/05/2016 Refill [place] [facility] Karlo Duenas MD Refill (lisinopril [address] (ZESTRIL) 5 [place] [address] [place] [address] [Pharmacy Med Name: [phone] (Wo rk) LISINOPRIL 5 MG TABLET]) Social [...] 7:44 AM CST 10 mg Rx sent. UTOR OF ESTATE Patricia Esparza RN - 11/06/2016 12:42 PM [...] Sig: Take 2 Tabs by mouth daily. UTOR OF ESTATE Interface, Out Surescripts Prov Query - 11/05/2016 [...] K: 4.2 mEq/L on 10/11/2016 Powered by [employer], Reference: [id number], 11/05/2016 8:41:06 AM EXECUTOR OF ESTATE, Pool: JOSSIE REFILL ([id number]) UTOR OF ESTATE documented in this encounter Plan of Treatment Not on filedocumented as of this encounter Visit Diagnoses Diagnosis Essential hypertension (HRC) - Primary Unspecified essential hypertension documented in this encounter Care Teams Java Software Relationship Specialty Start Date End Date Karlo Duenas MD PCP - General Internal Medicine 09/16/16 [address] [place] [address] documented as of this encounter
--- OUTSIDE RECORDS SUMMARY | 2022-08-06 08:34 | XMS_ITS | Encounter Summary ---
:1960 Author Organization [facility] Address [address] [place] [address] Care Team Providers Name Role Phone No Primary/Referring, Phy Primary Care Provider Unavailable Reason for Visit Procedure/Equipment (Routine) - Incomplete Specialty Diagnoses / Procedures Referred By Contact Refer red To Contact Procedures Jaime Ramirez MD XR C-SPINE 3 VIEWS (TRAUMA) [address] [place] [address] Referral ID Status Reason Start Date Expiration Date Visits V isits Requested Authorized [id number] Incomplete 12/03/2014 1 1 Encounter Details Date Type Department Care Team Description 12/03/2014 [facility] Im [address] [address] Social History Tobacco Use Types Packs/Day Years Used Date Smoking Tobacco: Never Assessed Sex Assigned at Date Recorded Not on file documented as of this encounter Plan of Treatment Not on filedocumented as of this encounter Procedures Procedure Name Priority Date/Time Associated Diagnosis Comme nts XR CERVICAL SPINE 3 STAT 12/03/2014 10:52 AM R esults for this VIEWS EMERGENCY ROOM PHYSICIAN ASSISTANT procedure are i n the results section. documented in this encounter Results XR C-SPINE 3 VIEWS (TRAUMA) (12/03/2014 10:52 AM EMERGENCY ROOM PHYSICIAN ASSISTANT) Anatomical Region Laterality Modality Spine, C-Spine, Neck Computed Radiograph y Specimen (Source) Anatomical Collection Method Collection Time Re ceived Time Location / / Volume Laterality 12/03/2014 10:52 AM EMERGENCY ROOM PHYSICIAN ASSISTANT Narrative 12/03/2014 11:11 AM EMERGENCY ROOM PHYSICIAN ASSISTANT XR C-SPINE 3VWS 12/03/2014 10:52 AM INDICATION: [...] on filedocumented in this encounter Care Teams Tax Processor Relationship Specialty Start Date End Date No Primary/Referring, Phy PCP - General 12/03/14 documented as of this encounter
--- OUTSIDE RECORDS SUMMARY | 2022-08-06 08:34 | XMS_ITS | Encounter Summary ---
:1960 [facility] Address [address] [place] [address] Care Team Providers Name Role Phone Unassigned, Provider Primary Care Provider Unavailable Reason for Visit Procedure/Equipment (Routine) - Closed Specialty Diagnoses / Procedures Referred By Contact Refer red To Contact Procedures Benjamin Sanford MD MR ANGIOGRAPHY NECK WITHOUT [address] [place] [address] Referral ID Status Reason Start Date Expiration Date Visits Requ ested Visits Authorized [id number] Closed 12/03/2012 1 1 Encounter Details Date Type Department Care Team Description 12/03/2012 [facility] MRI [address] [place] [address] Social History Tobacco Use Types Packs/Day Years Used Date Smoking Tobacco: Never Assessed Sex Assigned at Date Recorded Not on file documented as of this encounter Plan of Treatment Not on filedocumented as of this encounter Procedures Procedure Name Priority Date/Time Associated Diagnosis Comme nts MR ANGIO NECK WO IV STAT 12/03/2012 1:13 PM Re sults for this CONT SIGNALS COLLECTION TECHNICIAN procedure are i n the results section. documented in this encounter Results MR ANGIOGRAPHY NECK WITHOUT CONTRAST (12/03/2012 1:13 PM SIGNALS COLLECTION TECHNICIAN) Anatomical Region Laterality Modality Neck, Vascular, C-Spine, Skeletal Magnet ic Resonance Specimen (Source) Anatomical Collection Method Collection Time Re ceived Time Location / / Volume Laterality 12/03/2012 1:13 PM SIGNALS COLLECTION TECHNICIAN Narrative 12/03/2012 3:13 PM [facility] 1. MRI HEAD WITHOUT CONTRAST. 2. MRA [...] note might be different from the original. [facility] 1. MRI HEAD WITHOUT CONTRAST. [...] on filedocumented in this encounter Care Teams Sandstone Inspector Repairer Relationship Specialty Start Date End Date Unassigned, Provider PCP - General 07/06/00 04/18/[address] [place] [address] documented as of this encounter
--- OUTSIDE RECORDS SUMMARY | 2022-08-06 08:34 | XMS_ITS | Encounter Summary ---
:1960 Author Organization [facility] Address [address] [place] [address] Care Team Providers Name Role Phone No Primary/Referring, Phy Primary Care Provider Unavailable Reason for Visit Reason Comments CONSULT Encounter Details Date Type Department Care Team Description 10/15/2015 Telephone [facility] Bailey Arenas MD CONSULT [address] [employer] [address] [place] [address] [place] [address] [phone] (Wo rk) Social History Tobacco Use Types Packs/Day Years Used Date Smoking Tobacco: Never Assessed Sex Assigned at Date Recorded Not on file documented as of this encounter Nursing Notes Bailey Arenas MD - 10/15/2015 4:38 PM CST Order printed. ER DRIER Arti Santos LPN - 10/15/2015 4:34 PM CST Spoke with Jessica in managed no referral, but Dr. Arenas can do a paper order and it can say at top not a referral. Patient will then need to check with her insurance regarding benefits for this therapyplace. Please review and advise. 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 ER DRIER Bailey Arenas MD - 10/15/2015 4:23 PM CST Please check with managed care. Thanks! ER DRIER Ruth Will - 10/15/2015 3:50 PM CST [...] scheduled? yes When/With whom/Where? 10/23/15, [facility] ([place]) Fax #: [phone] What is needed from us? referral Call back phone or cell phone: cell [phone] Best time to call back number: anytime Is it OK to leave a confidential message on this voicemail? vm is ok, pt would like a C/B if there are any questions or concerns. *ECODE ER DRIER documented in this encounter Plan of Treatment Not on filedocumented as of this encounter Visit Diagnoses Diagnosis Pain of right side of body - Primary documented in this encounter Care Teams Green Building Energy Engineer Relationship Specialty Start Date End Date No Primary/Referring, Angela PCP - General 12/03/14 documented as of this encounter
--- OUTSIDE RECORDS SUMMARY | 2022-08-06 08:34 | XMS_ITS | Encounter Summary ---
:1960 Author Organization [facility] Address [address] [address] Care Team Providers Name Role Phone Bailey Arenas MD Primary Care Provider Reason for Visit Reason Comments HYPERTENSION Encounter Details Date Type Department Care Team Description 09/16/2016 Office Visit Bailey Waters, Essential hypertension (Primary Dx); Medicine Hyperlipidemia, unspecified hyperlipidem ia type [address] [place] [address] [place] [address] [phone] Social History Tobacco Use Types Packs/Day Years Used Date Smoking Tobacco: Never Smokeless Tobacco: Never Alcohol Use Standard Drinks/Week Comments Yes 7 (1 standard drink = 0.6 oz pure alcoho l) weekly Sex Assigned at Date Recorded Not on file documented as of this encounter Last Filed Vital Signs Vital Sign Reading Time Taken Comments Blood Pressure 166/94 09/16/2016 1:33 PM IVORY POLISHER Pulse 83 09/16/2016 1:33 PM IVORY POLISHER Temperature - - Respiratory Rate - - Oxygen Saturation - - Inhaled Oxygen Concentration - - Weight 77.1 kg (170 lb) 09/16/2016 1:22 PM IVORY POLISHER Height - - Body Mass Index 27.44 [...] Follow up - 1-2 weeks for labs Y POLISHER documented in this encounter Plan of Treatment Not on filedocumented as of this encounter Results (ABNORMAL) Lipid Panel - LDLD If Trig High (09/23/2016 9:44 AM IVORY POLISHER) [facility] Method Time Signature Cholesterol 284 (H) 0 [...] Volume Laterality 09/23/2016 9:44 AM 6 2:32 IVORY POLISHER PM IVORY POLISHER Narrative PN SOFT - 09/23/2016 3:11 PM IVORY POLISHER Performed at [facility], [address] [place], [place] [address] CLIA number [id number] Bailey Arenas MD LAB_1 Performing Organization Address [facility] Phon e Number PN SOFT [address] [place] [address] Potassium (09/23/2016 9:44 AM IVORY POLISHER) P athologist Signature Potassium 4.9 3.5 - 5.2 PN SOFT mmol/L Specimen Anatomical Collection Method Collection Time Receive d Time (Source) Location / / Volume Laterality 09/23/2016 9:44 AM 6 2:32 IVORY POLISHER PM IVORY POLISHER Narrative PN SOFT - 09/23/2016 3:11 PM IVORY POLISHER Performed at [facility], [address] [place] [address] CLIA number [id number] Bailey Arenas MD LAB_1 Performing Organization Address [facility] Phon e Number PN SOFT [address] [place] [address] Creatinine (09/23/2016 9:44 AM IVORY POLISHER) P athologist Signature Creatinine Serum 0.70 0.55 [...] Volume Laterality 09/23/2016 9:44 AM 6 2:32 IVORY POLISHER PM IVORY POLISHER Narrative PN SOFT - 09/23/2016 3:11 PM IVORY POLISHER Performed at [facility], [address] [place] [address] CLIA number [id number] Bailey Arenas MD LAB_1 Performing Organization Address City/State/ZIP Code Phon e Number PN SOFT [address] [place] [address] [phone] documented in this encounter Visit Diagnoses Diagnosis Essential hypertension (HRC) - Primary Unspecified essential hypertension Hyperlipidemia, unspecified hyperlipidem ia type (HRC) Essential hypertension (HRC) Unspecified essential hypertension Hyperlipidemia, unspecified hyperlipidem ia type (HRC) documented in this encounter Care Teams Client Technologies Specialist Relationship Specialty Start Date End Date Bailey Arenas MD PCP - General Internal Medicine 09/16/16 [address] [place] [address] documented as of this encounter
--- OUTSIDE RECORDS SUMMARY | 2022-08-06 08:34 | XMS_ITS | Encounter Summary ---
:[address] [facility] Address [address] [address] Care Team Providers Name Role Phone Unassigned, Provider Primary Care Provider Unavailable Reason for Visit Procedure/Equipment (Routine) - Closed Specialty Diagnoses / Procedures Referred By Contact Refer red To Contact Procedures Benjamin Sanford MD CT HEAD WITHOUT CONTRAST [address] [place] [address] Referral ID Status Reason Start Date Expiration Date Visits Requ ested Visits Authorized [id number] Closed 12/03/2012 1 1 Encounter Details Date Type Department Care Team Description 12/03/2012 Imaging [facility] [address] [place] [address] Social History Tobacco Use Types Packs/Day Years Used Date Smoking Tobacco: Never Assessed Sex Assigned at Date Recorded Not on file documented as of this encounter Plan of Treatment Not on filedocumented as of this encounter Procedures Procedure Name Priority Date/Time Associated Diagnosis Comme nts CT HEAD WO IV CONT STAT 12/03/2012 9:56 AM Res ults for this PERSONAL CONSULTANT procedure are i n the results section. documented in this encounter Results CT HEAD WITHOUT CONTRAST (12/03/2012 9:56 AM PERSONAL CONSULTANT) Anatomical Region Laterality Modality Head Computed Tomography Specimen (Source) Anatomical Collection Method Collection Time Re ceived Time Location / / Volume Laterality 12/03/2012 9:56 AM PERSONAL CONSULTANT Narrative 12/03/2012 10:15 AM PERSONAL CONSULTANT [facility] HEAD CT 12/03/2012 INDICATION: Left arm numbness TECHNIQUE: Routine without contrast. COMPARISON: No comparison. FINDINGS: No bleed, mass effect, or acute infarct evident. Sinuses and mastoids clear. Bones unrema rkable. CONCLUSION: No acute intracranial abnormality appare nt. Procedure Note Josr Arceo MD - 12/03/2012F ormatting of this note might be different from the original. [facility] HEAD CT 12/03/2012 INDICATION: Left arm numbness TECHNIQUE: Routine without contrast. COMPARISON: No comparison. FINDINGS: No bleed, mass effect, or acute infarct evident. Sinuses and mastoids clear. Bones unrema rkable. CONCLUSION: No acute intracranial abnormality appare nt. Benjamin Sanford MD RAD CT documented in this encounter Visit Diagnoses Not on filedocumented in this encounter Care Teams Manager Paper Relationship Specialty Start Date End Date Unassigned, Provider PCP - General 07/06/00 04/18/[address] [place] [id number] documented as of this encounter
--- OUTSIDE RECORDS SUMMARY | 2022-08-06 08:34 | XMS_ITS | Encounter Summary ---
:1960 Author Organization [facility] Address [address] [address] Care Team Providers Name Role Phone No Primary/Referring, Phy Primary Care Provider Unavailable Encounter Details Date Type Department Care Team Description 03/06/2015 Lab Visit [facility] Elevated blood pressure [address] reading without diagnosis of [place] [address] hypertension [phone] Social History Tobacco Use Types Packs/Day Years [...] - 03/06/2015 5:46 PM CDT Performed at [facility] [address] [id number] Bailey Arenas MD LAB_1 Performing Organization Address [facility] Phon e Number HP CONVERSION Creatinine / [...] - 03/06/2015 5:46 PM CDT Performed at [facility] [address] [place] [address] Bailey Arenas MD LAB_1 Performing Organization Address [facility] Phon e Number HP CONVERSION documented in this encounter Visit Diagnoses Diagnosis Elevated blood pressure reading without diagnosis of hypertension documented in this encounter Care Teams Outreach Specialist Relationship Specialty Start Date End Date No Primary/Referring, Phy PCP - General 12/03/14 documented as of this encounter
--- OUTSIDE RECORDS SUMMARY | 2022-08-06 08:34 | XMS_ITS | Encounter Summary ---
:1960 Author Organization [facility] Address [address], [place] [address] Care Team Providers Name Role Phone No Primary/Referring, Phy Primary Care Provider Unavailable Reason for Visit Reason Comments HYPERTENSION Encounter Details Date Type Department Care Team Description 03/06/2015 Office Visit Bailey Waters, Essential hypertension (Primary Dx); Medicine Breast cancer screening [address] [address] [place] [address] [phone] Social History Tobacco Use Types Packs/Day Years [...] unspecified documented in this encounter Care Teams Hot Molder Relationship Specialty Start Date End Date No Primary/Referring, Phy PCP - General 12/03/14 documented as of this encounter
--- OUTSIDE RECORDS SUMMARY | 2022-08-06 08:34 | XMS_ITS | Encounter Summary ---
:1960 Author Organization [facility] Address [address] [place] [address] Care Team Providers Name Role Phone No Primary/Referring, Phy Primary Care Provider Unavailable Encounter Details Date Type Department Care Team Description 03/30/2016 Lab Visit [facility] Essential hypertension; [address] [facility] Screening for diabetes paris chopra; [place] [address] Lipid screening [phone] Social History Tobacco Use Types Packs/Day Years [...] Direct LDL(If Needed) (03/30/2016 3:24 PM CDT) [facility] Method Time Signature Cholesterol 289 (H) 0 [...] - 03/30/2016 6:18 PM CDT Performed at [facility], [address] [place] [address] CLIA number [id number] Bailey Arenas MD LAB_1 Performing Organization Address City/[facility] Phon e Number HP CONVERSION GLUCOSE (03/30/2016 3:24 PM CDT) athologist Signature Lab Glucose 80 60 - 100 HP CONVERSION mg/dL Specimen Anatomical Collection Method Collection Time Receive d Time (Source) Location / / Volume Laterality 03/30/2016 3:24 PM 6 5:42 CDT PM CDT Narrative HP CONVERSION - 03/30/2016 6:18 PM CDT Performed at [facility], [address] [place] [address] CLIA number [id number] Bailey Arenas MD LAB_1 Performing Organization Address [facility] Phon e Number HP CONVERSION (ABNORMAL) [...] - 03/30/2016 6:18 PM CDT Performed at [facility], [facility] [address] [place] [address] CLIA number [id number] Bailey Arenas MD LAB_1 Performing Organization Address City/[facility]/ZIP Code Phon e Number HP CONVERSION [...] - 03/30/2016 6:18 PM CDT Performed at [facility], [address] [place] [address] CLIA number [id number] Bailey Arenas MD LAB_1 Performing Organization Address City/State/ZIP Code Phon e Number HP CONVERSION documented in this encounter Visit Diagnoses Diagnosis Essential hypertension ([facility]) Unspecified essential hypertension Screening for diabetes mellitus Lipid screening Screening for lipoid disorders documented in this encounter Care Teams Industrial Radiographer Relationship Specialty Start Date End Date No Primary/Referring, Phy PCP - General 12/03/14 documented as of this encounter
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
--- OUTSIDE RECORDS SUMMARY | 2022-08-06 08:34 | XMS_ITS | Encounter Summary ---
:1960 Author Organization [facility] Address [address] [place] [address] Care Team Providers Name Role Phone Unassigned, Provider Primary Care Provider Unavailable Reason for Visit Procedure/Equipment (Routine) - Closed Specialty Diagnoses / Procedures Referred By Contact Refer red To Contact Procedures Benjamin Sanford MD MR BRAIN / STEM WITHOUT [address] [place] [address] Referral ID Status Reason Start Date Expiration Date Visits Requ ested Visits Authorized [id number] Closed 12/03/2012 1 1 Encounter Details Date Type Department Care Team Description 12/03/2012 Imaging [facility] MRI [address] [place] [address] Social History Tobacco Use Types Packs/Day Years Used Date Smoking Tobacco: Never Assessed Sex Assigned at Date Recorded Not on file documented as of this encounter Plan of Treatment Not on filedocumented as of this encounter Procedures Procedure Name Priority Date/Time Associated Diagnosis Comme nts MR BRAIN WO IV CONT STAT 12/03/2012 1:11 PM Re sults for this ELEVATOR SERVICE MECHANIC procedure are i n the results section. documented in this encounter Results MR BRAIN / STEM WITHOUT CONTRAST (12/03/2012 1:11 PM ELEVATOR SERVICE MECHANIC) Anatomical Region Laterality Modality Head Magnetic Resonance Specimen (Source) Anatomical Collection Method Collection Time Re ceived Time Location / / Volume Laterality 12/03/2012 1:11 PM ELEVATOR SERVICE MECHANIC Narrative 12/03/2012 3:13 [address] ME[address]ANIC [facility] 1. MRI HEAD WITHOUT CONTRAST. 2. [...] on filedocumented in this encounter Care Teams Operations Team Leader Relationship Specialty Start Date End Date Unassigned, Provider PCP - General 07/06/00 04/18/13 [address] [place] [address] documented as of this encounter
--- OUTSIDE RECORDS SUMMARY | 2022-08-06 08:34 | XMS_ITS | Encounter Summary ---
:1960 Author Organization [facility] Address [address], [place] [address] Care Team Providers Name Role Phone No Primary/Referring, Phy Primary Care Provider Unavailable Encounter Details Date Type Department Care Team Description 04/19/2016 Notes/Orders [facility] Bailey Sung MD [address] [facility] [place] [address] [place] [address] [phone] (Wo rk) Social History Tobacco Use Types Packs/Day Years Used Date Smoking Tobacco: Never Assessed Sex Assigned at Date Recorded Not on file documented as of this encounter Plan of Treatment Not on filedocumented as of this encounter Visit Diagnoses Not on filedocumented in this encounter Care Teams Etl Consultant Relationship Specialty Start Date End Date No Primary/Referring, Phy PCP - General 12/03/14 documented as of this encounter
--- OUTSIDE RECORDS SUMMARY | 2022-08-06 08:34 | XMS_ITS | Encounter Summary ---
:1960 Author Organization [facility] Address [address] [address] Care Team Providers Name Role Phone No Primary/Referring, Phy Primary Care Provider Unavailable Reason for Visit Reason Comments Skin Check Encounter Details Date Type Department Care Team Description 07/09/2016 Initial Consult [facility] [address] iple benign nevi (Primary Dx); Dermatology SMD Seborrheic keratosis; [address] Actinic keratosis; [address] [place], [place] History of nonmelanoma skin cancer; [place] [address] Skin tag [address] [phone] Social History Tobacco Use Types Packs/Day Years Used Date Smoking Tobacco: Never Smokeless Tobacco: Never Alcohol Use Standard Drinks/Week Comments Yes 7 (1 standard drink = 0.6 oz pure alcoho l) weekly Sex Assigned at Date Recorded Not on file documented as of this encounter Progress Notes Rachid Rutledge MD - 07/09/2016 7:41 PM CDT NAME: MARTIN BASHIR MR#: [id number] CSN: [id number] AUTHENTICATING CLINICIAN: Rachid Rutledge MD CONFIRM #: [id number] LOC: 427 CLINIC PROGRESS NOTE DATE OF [...] or as needed. DSE:MEDQ C: CONFIRM #: [id number] documented in this encounter Plan of Treatment [...] skin documented in this encounter Care Teams Hoop Maker Relationship Specialty Start Date End Date No Primary/Referring, Phy PCP - General 06/03/16 1 11/16/15 documented as of this encounter
--- OUTSIDE RECORDS SUMMARY | 2022-08-06 08:34 | XMS_ITS | Encounter Summary ---
:1960 Author Organization [email or web address] Address [address] [address] Care Team Providers Name Role Phone No Primary/Referring, Phy Primary Care Provider Unavailable Reason for Visit Reason Comments Travel Consult Encounter Details Date Type Department Care Team Description 10/07/2015 Initial Consult [facility] Sue Walters for travel Clinic Opal RN (Primary Dx) [address] [place], [place] [address] Social History Tobacco Use Types Packs/Day Years Used Date Smoking Tobacco: Never Assessed Sex Assigned at Date Recorded Not on file documented as of this encounter Patient Instructions Patient InstructionsSue Walters RN - 10/07/2015 10:11 AM CST .Thank you for enrolling in [employer]. Please follow the instructions below to securely access your online medical record. [employer] allows you to send messages to your doctor, view your test results, renew your prescriptions, schedule appointments, and more. How Do I Sign Up? 1. In your Internet browser, go to: [email or web address] 2. Click on the Enter Activation Code link under the New User? section. You will see the New Member Sign Up page. 3. Enter your [employer] Activation Code exactly as it appears below. You will not need to use this code after you???ve completed the sign-up process. If you do not sign up before the expiration date, youmust request a new code. [employer] Activation Code: [email or web address] Expires: 11/06/2015 10:11 AM 4. Enter your Date of (mm/dd/yyyy), Home Phone Number and Zip Code as indicated, then click Next. You will be taken to the next sign-up page 5. Create a [employer] ID. This will be your [employer] login ID and cannot be changed, so think of one that is secure and easy to remember. 6. Create a Moodsnap password. You can change your password at any time. 7. Enter your Security Question and Answer. This can be used at a later time if you forget your password. Click Next. 8. Enter your e-mail address. You will receive e-mail notification when new information is availablein Moodsnap. 9. Click Sign In. You can now view your medical record. Additional Information If you have questions, you can call [phone] to talk to our Mood[employer] staff. Remember, [employer] is NOT to be used for urgent needs. For medical emergencies, dial 911. CIDE SQUAD SERGEANT documented in this encounter Progress Notes Sue Walters RN - 10/07/2015 10:44 AM CST . Subjective: Shonna Bashir is a 55 y.o. female who presents to the clinic for travel consultation individually. TRAVEL PLANS Planned departure date: November 18, 2015 Time in developing countries: 25 days. Countries of travel: [place] Areas in country: rural and urban : [facility] area then will travel around the country, up to [place] area. Traveling to Malarial area: yes Time in malarial area: 25 days, pt. prefers to take malaria prevention med for the whole trip. She has used Malarone before in past. . Reviewed Malarial risk map: yes Prior malarial chemoprophylaxis use: Yes Traveling to Yellow Fever area: no, has had past vaccine. Accommodations: hotel Purpose of travel: for work , works for [employer]. PRIOR HEALTH HISTORY Currently ill / Fever:no [...] work. Has another trip in March for [facility]. Patient Active Problem List Diagnosis ??? [...] Diphtheria/Tetanus, Hepatitis A, Hepatitis B, HIV, Influenza, French Encephalitis, Leishmaniasis, Malaria, Pneumonia, Polio, Rabies--post-exposure schedule, [...] PO 08/31/2004, 02/02/2008, 08/02/2014 ??? YF-Vax 08/31/2004 CIDE SQUAD SERGEANT documented in this encounter Plan of Treatment Not on filedocumented as of this encounter Visit Diagnoses Diagnosis Counseling for travel - Primary Other specified counseling documented in this encounter Care Teams Rubber Goods Cutter Finisher Relationship Specialty Start Date End Date No Primary/Referring, Phy PCP - General 12/03/14 documented as of this encounter
--- OUTSIDE RECORDS SUMMARY | 2022-08-06 08:34 | XMS_ITS | Encounter Summary ---
:1960 Author Organization [facility] Vegas[facility]ons[facility] Address [address], [place] [address] Care Team Providers Name Role Phone Bailey Arenas MD Primary Care Provider Reason for Visit Reason Comments Establish Care Encounter Details Date Type Department Care Team Description 04/19/2013 Office Visit Bailey Waters, Word find ing difficulty (Primary Dx); Medicine Day-menopause [address] [place] [address] [place] [address] [phone] Social History Tobacco Use Types Packs/Day Years [...] AM CDT Thank you for enrolling in [employer]. Please follow the instructions below to securely access your online medical record. [employer] allows you to send messages to your doctor, view your test results, renewyour prescriptions, schedule appointments, and more. How Do I Sign Up? 1. In your Internet browser, go to: [email or web address] 2. Click on the Enter Activation Code link under the New User? section. You will see the New Member Sign Up page. 3. Enter your [employer] Activation Code exactly as it appears below. You will not need to use this code after you???ve completed the sign-up process. If you do not sign up before the expiration date, youmust request a new code. [employer] Activation Code: [email or web address] Expires: 05/19/2013 10:31 AM 4. Enter the last four digits of your Social Security Number ([id number]) and Date of (mm/dd/yyyy) as indicated and click Next. You will be taken to the next sign-up page. 5. Create a [employer] ID. This will be your [employer] login ID and cannot be changed, so think of one that is secure and easy to remember. 6. Create a [employer] password. You can change your password at any time. 7. Enter your Security Question and Answer. This can be used at a later time if you forget your password. Click Next. 8. Enter your e-mail address. You will receive e-mail notification when new information is availablein [employer]. 9. Click Sign In. You can now view your medical record. Additional Information If you have questions, you can call [phone] to talk to our [employer] staff. Remember, [employer] is NOT to be used for urgent needs. For medical emergencies, dial 911. documented in this encounter Progress Notes Bailey Arenas MD - 04/19/2013 12:27 PM CDT Subjective: Shonna Bashir is an 53 y.o. female who presents for evaluation of Establish Care She was previously seen at [facility]. Word-finding difficulty: Spent a morning in [facility] last September for this, had MRIs, etc.[place] like her thoughts didn't connect well together. [...] 2013. Pap smear was done 12/24/2010 at [facility] and was normal. No history of abnormals. [...] and plan: Shonna was seen today for [facility] care. Health history reviewed and updated in [facility]. Diagnoses and associated orders for [...] states documented in this encounter Care Teams Bead Cutter Relationship Specialty Start Date End Date Bailey Arenas MD PCP - General 04/19/13 12/02/14 [address] [place], [place] [address] documented as of this encounter
--- OUTSIDE RECORDS SUMMARY | 2022-08-06 08:34 | XMS_ITS | Encounter Summary ---
:1960 Author Organization [email or web address] Address [address], [place] [address] Care Team Providers Name Role Phone Bailey Arenas MD Primary Care Provider Reason for Referral Specialty Diagnoses / Procedures Referred By Contact Refer red To Contact Bailey Arenas MD [facility] [place] [address] Referral ID Status Reason Start Date Expiration Date Visits Requ ested Visits Authorized Reason for Visit Reason Comments Travel Consult Encounter Details Date Type Department Care Team Description 08/02/2014 Initial Consult [place] [facility] [place] vice or immunization for travel (Primary Dx); Clinic C, [place], [place] Counseling for travel [address] [place] [address] [facility] [phone] [place] [address] Social History Tobacco Use Types [...] developing countries: 2 weeks. Countries of travel: [facility] Areas in country: rural and urban [...] for her yellow card at customs in [facility]. Accommodations: apartment Purpose of travel: volunteering, [...] counseling documented in this encounter Care Teams Business Systems Analyst Relationship Specialty Start Date End Date Bailey Arenas MD PCP - General 04/19/13 12/02/14 [address] [place] [address] documented as of this encounter
--- OUTSIDE RECORDS SUMMARY | 2022-08-06 08:34 | XMS_ITS | Encounter Summary ---
:1960 Author Organization [facility] Address [address] [place] [address] Care Team Providers Name Role Phone Bailey Arenas MD Primary Care Provider Encounter Details Date Type Department Care Team Description 12/03/2012 Consent for [facility] MRI CON SENT FOR Procedure/[facility], [facility] nt [address] [facility] Provider [place], [place] [id number] Social History Tobacco Use Types Packs/Day Years Used Date Smoking Tobacco: Never Assessed Sex Assigned at Date Recorded Not on file documented as of this encounter Progress Notes [facility], Provider - 12/03/2012 12:00 AM CST HANT MILLER documented in this encounter Plan of Treatment Not on filedocumented as of this encounter Visit Diagnoses Not on filedocumented in this encounter Care Teams Clinical Documentation Spec Relationship Specialty Start Date End Date Bailey Arenas MD PCP - General Internal Medicine 09/16/[address] [id number] documented as of this encounter
--- OUTSIDE RECORDS SUMMARY | 2022-08-06 08:34 | XMS_ITS | Encounter Summary ---
:1960 Author Organization [facility] Address [address], [place] [address] Care Team Providers Name Role Phone Bailey Arenas MD Primary Care Provider Reason for Referral Specialty Diagnoses / Procedures Referred By Contact Refer red To Contact Bailey Arenas MD [address] [place] [address] [place] [address] Referral ID Status Reason Start Date Expiration Date Visits Requ ested Visits Authorized Reason for Visit Reason Comments Skin Check Encounter Details Date Type Department Care Team Description 06/06/2014 Initial Consult Viola Busby fo r malignant neoplasm of the skin (Primary Dx); Dermatology Flavia Suárez PA-C Personal history of skin cancer; [address] [place] [address] Actinic keratosis; [place] [address] [address] Neoplasm of uncertain behavior of skin [phone] [place] [address] Social History Tobacco Use Types [...] Aguirre PA-C Service: (none) Author Type: Physician Automobile Bumper Straightener Filed: 06/07/14936 Note Time: 06/06/142207 Status: Signed Supervisor Pleating: Flavia Aguirre PA-C (Physician Automobile Bumper Straightener) NAME: MARTIN HERNANDEZ MR#: [id number] CSN: [id number] AUTHENTICATING CLINICIAN: Flavia Aguirre PA-C CONFIRM #: [id number] LOC: [facility] CLINIC PROGRESS NOTE DATE OF VISIT: 06/06/2014 [...] area removed by Dr. George Durant at [facility] at least 15 years ago, the patient reports. 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 CURRENT MEDICATIONS: Reviewed and updated in Epic. [...] outside clinic over 15 years ago near [place]. No recurrence evident. Recommended follow full-body exam every 1-2 years, or sooner should she have any new concerns. LIAM:TWAN C: CONFIRM #: [id number] documented in this encounter Miscellaneous Notes Miscellaneous [...] 12:31 PMPlease notify patient of benign results. O LAB SPECIALIST documented in this encounter Plan of [...] Component Value Ref Test Analysis Performed At [facility] gist Range Method Time Signature Path: ? FINAL DERMATOPATHOLOGY REPO RT HP CONVERSION Pathology #: [id number] ? Date Obtained: 06/06/2014 ?Date Received: 06/07/2014 [...] skin documented in this encounter Care Teams Automatic Cigar Wrapper Tender Relationship Specialty Start Date End Date Bailey Arenas MD PCP - General 04/19/13 12/02/14 [address] [place] [address] documented as of this encounter
--- OUTSIDE RECORDS SUMMARY | 2022-08-06 08:34 | XMS_ITS | Encounter Summary ---
:1960 Author Organization [employer] Address [address], [place] [address] Care Team Providers Name Role Phone No Primary/Referring, Phy Primary Care Provider Unavailable Encounter Details Date Type Department Care Team Description 12/05/2014 Hospital Encounter [facility] Jeremy Canchola head injury; Shahrzad Nichole MD Injury of neck, whiplash [address] [address] [facility] [phone] [place] [address] Social History Tobacco Use Types Packs/Day Years Used Date Smoking Tobacco: Never Assessed Sex Assigned at Date Recorded Not on file documented as of this encounter Last Filed Vital Signs Vital Sign Reading Time Taken Comments Blood Pressure 157/108 12/05/2014 3:29 PM RECRUITING MANAGER Pulse 94 12/05/2014 3:29 PM RECRUITING MANAGER Temperature 37.1 ??C (98.8 ??F) 12/05/2014 3:29 PM RECRUITING MANAGER Respiratory Rate 16 12/05/2014 3:29 PM RECRUITING MANAGER Oxygen Saturation 98% 12/05/2014 3:29 PM RECRUITING MANAGER Inhaled Oxygen Concentration - - Weight [...] Filed: 12/08/14816 Note Time: 12/05/141713 Status: Signed Septic Tank Setter: Jeremy Canchola MD (Physician) NAME: MARTIN BASHIR MR#: [id number] CSN: [id number] AUTHENTICATING CLINICIAN: Jeremy Canchola MD CONFIRM #: [id number] LOC: [facility] PROGRESS NOTE DATE [...] sign is negative. Tandem walk is normal. Manufacturing Shift Supervisor strength normal bilaterally. Deep tendon reflexes normal [...] the neck with pain upon full flexion. Manufacturing Shift Supervisor strength normal bilaterally. DTRs normal. I ordered [...] still has symptoms. AKD:MEDQ C: CONFIRM #: [id number] documented in this encounter Miscellaneous Notes Medication [...] Frequency:EVERY 6 HOURS PRN *No Administrations Recorded UITING MANAGER ED AVS Snapshot - Stefano Jimenez MD - 12/05/2014 4:51 PM CST Images from the original note were not included. [facility] [address] [place] [address] Dept: [phone] [email or web address] Martin Bashir 12/05/2014 3:31 PM Hospital Encounter Description: Female : 1960 Department: [facility] Thank you for choosing [facility] for your health care visit with Jeremy Canchola MD. We are happy to care for you and provide this summary of your visit. Your primary career orientation teacher is currently listed as Bailey Arenas MD. HERE IS WHAT YOU NEED TO KNOW To learn how you can take steps to stay as healthy as you can be visit [email or web address] HERE IS WHAT YOU NEED TO DO Call your clinic if you develop new or worsening symptoms or if you have questions about your visit or medications. Your to do list Future Appointments Provider Department Dept Phone 12/16/2014 11:30 AM MD [facility] [phone] Future Orders Complete By Ordering Dept. MM Mammogram Screening Bilateral W Cad As directed [facility] OPHTHALMOLOGY CONSULT ADULT/PEDS (AMB) As directed [facility] Scheduling Instructions: Your provider has recommended an appointment with [facility] Opthalmology. You may call [phone] to schedule your appointment. If you prefer, a assembler handbags will contact you within the next 3 [...] Ethnicity Preferred Language 1960 Female White Non- Portuguese This document contains confidential information about your health and care. It is provided directlyto you for your personal, private use only. UITING MANAGER documented in this encounter Plan of [...] an ambulance to [facility] in [place]. C- spine 3 view done. Dx with muscle strain. UITING MANAGER documented in this encounter Care Teams Clinical Services Consultant Relationship Specialty Start Date End Date No Primary/Referring, Phy PCP - General 12/03/14 documented as of this encounter
--- OUTSIDE RECORDS SUMMARY | 2022-08-06 08:34 | XMS_ITS | Encounter Summary ---
:1960 Author Organization [facility] Address [address] [place] [address] Care Team Providers Name Role Phone Bailey Arenas MD Primary Care Provider Encounter Details Date Type Department Care Team Description 12/03/2012 Consent for [facility] LV MRI SAF ETY Procedure/[facility], SCREENING CONSENT nt [address] [facility] Provider [place], [place] [id number] Social History Tobacco Use Types Packs/Day Years Used Date Smoking Tobacco: Never Assessed Sex Assigned at Date Recorded Not on file documented as of this encounter Progress Notes [facility], Provider - 12/03/2012 12:00 AM CST ATIONAL RISK CONSULTANT documented in this encounter Plan of Treatment Not on filedocumented as of this encounter Visit Diagnoses Not on filedocumented in this encounter Care Teams Biologist Relationship Specialty Start Date End Date Bailey Arenas MD PCP - General Internal Medicine 09/16/[address] [id number] documented as of this encounter
--- OUTSIDE RECORDS SUMMARY | 2022-08-06 08:34 | XMS_ITS | Encounter Summary ---
:1960 Author Organization [facility]In[facility] Address [address] [place] [address] Care Team Providers Name Role Phone Bailey Arenas MD Primary Care Provider Encounter Details Date Type Department Care Team Description 09/23/2016 Lab Visit [facility] Essential hypertension; [address] Hyperlipidemia, unspecified hyperlipidemia type [place] [id number] Social History Tobacco Use Types Packs/Day Years [...] Hyperlipidemia, Res ults for this DIRECT LDL(IF GREENS KEEPER unspecified procedure are in NEEDED) hyperlipidemia type the resu lts section. CREATININE / GFR Routine 09/23/2016 9:44 AM Essential hyperten danita Results for this GREENS KEEPER procedure are i n the results section. POTASSIUM Routine 09/23/2016 9:44 AM Essential hypertension Results for this GREENS KEEPER procedure are i n the results section. documented in this encounter Results (ABNORMAL) Lipid Panel - LDLD If Trig High (09/23/2016 9:44 AM GREENS KEEPER) [facility] Method Time Signature Cholesterol 284 [...] Volume Laterality 09/23/2016 9:44 AM 6 2:32 GREENS KEEPER PM GREENS KEEPER Narrative PN SOFT - 09/23/2016 3:11 PM GREENS KEEPER Performed at [facility], [address] [place], [place] [address] CLIA number [id number] Bailey Arenas MD LAB_[address] [facility] Phon e Number PN SOFT [address] [place] [address] Potassium (09/23/2016 9:44 AM GREENS KEEPER) P athologist Signature Potassium 4.9 3.5 - 5.2 PN SOFT mmol/L Specimen Anatomical Collection Method Collection Time Receive d Time (Source) Location / / Volume Laterality 09/23/2016 9:44 AM 6 2:32 GREENS KEEPER PM GREENS KEEPER Narrative PN SOFT - 09/23/2016 3:11 PM GREENS KEEPER Performed at [facility], [address] [place] [address] CLIA number [id number] Bailey Arenas MD LAB_1 Performing Organization [address] [facility] Phon e Number PN SOFT [address] [place] [address] Creatinine (09/23/2016 9:44 AM GREENS KEEPER) P athologist Signature Creatinine Serum 0.70 0.55 [...] Volume Laterality 09/23/2016 9:44 AM 6 2:32 GREENS KEEPER PM GREENS KEEPER Narrative PN SOFT - 09/23/2016 3:11 PM GREENS KEEPER Performed at [facility], [address] [place] [address] CLIA number [id number] Bailey Arenas MD LAB_1 Performing Organization Address City/State/ZIP Code Phon e Number PN SOFT [address] [place] [address] documented in this encounter Visit Diagnoses Diagnosis Essential hypertension (HRC) Unspecified essential hypertension Hyperlipidemia, unspecified hyperlipidem ia type (HRC) documented in this encounter Care Teams Oracle Applications Analyst Relationship Specialty Start Date End Date Bailey Arenas MD PCP - General Internal Medicine 09/16/16 [address] [place], [place] [id number] documented as of this encounter
--- OUTSIDE RECORDS SUMMARY | 2022-08-06 08:34 | XMS_ITS | Encounter Summary ---
:1960 Author Organization [facility] Address [address] [place] [address] Care Team Providers Name Role Phone aBiley Arenas MD Primary Care Provider Reason for Visit Reason Comments HYPERTENSION Encounter Details Date Type Department Care Team Description 09/30/2016 Notes/Orders [facility] Bailey Arenas MD [address] [place] [address] [place] [address] [phone] (Wo rk) Social History Tobacco Use Types [...] on filedocumented in this encounter Care Teams Rib Cloth Knitter Relationship Specialty Start Date End Date Bailey Arenas MD PCP - General Internal Medicine 09/16/[address] [id number] documented as of this encounter
--- OUTSIDE RECORDS SUMMARY | 2022-08-06 08:34 | XMS_ITS | Encounter Summary ---
:1960 Author Organization [employer] Address [address], [place] [address] Care Team Providers Name Role Phone Bailey Arenas MD Primary Care Provider Reason for Visit Reason Comments FACIAL PAIN Encounter Details Date Type Department Care Team Description 09/05/2014 Hospital Encounter [facility] Jeremy Canchola cutxiomara sinusitis with Shahrzad Nichole MD symptoms > 10 days [address] [address] [facility] [phone] [place] [address] Social History Tobacco Use Types Packs/Day Years Used Date Smoking Tobacco: Never Assessed Sex Assigned at Date Recorded Not on file documented as of this encounter Last Filed Vital Signs Vital Sign Reading Time Taken Comments Blood Pressure 169/103 09/05/2014 3:09 PM COMMUNITY OUTREACH ADVOCATE Pulse 100 09/05/2014 3:09 PM COMMUNITY OUTREACH ADVOCATE Temperature 36.8 ??C (98.2 ??F) 09/05/2014 3:09 PM COMMUNITY OUTREACH ADVOCATE Respiratory Rate 20 09/05/2014 3:09 PM COMMUNITY OUTREACH ADVOCATE Oxygen Saturation - - Inhaled Oxygen Concentration [...] 1026 Note Time: 09/06/14 09 Status: Signed Residential Field Manager: Jeremy Canchola MD (Physician) NAME: MARTIN HERNANDEZ MR#: [id number] CSN: [id number] AUTHENTICATING CLINICIAN: Jeremy Canchola MD CONFIRM #: [id number] LOC: 520 [facility]ARE PROGRESS NOTE DATE [...] call her physician. AKD:MEDQ C: CONFIRM #: [id number] UNITY OUTREACH ADVOCATE Jeremy Canchola MD - 09/05/2014 3:17 PM CST dict documented in this encounter Miscellaneous Notes Medication History - Stefano Jimenez MD - 09/05/2014 3:17 PM CST INPATIENT MEDS Encounter Date: 09/05/14 amoxicillin-clavulanate (AUGMENTIN) 875-125 mg per tablet Start Date:09/05/14, End Date:09/15/14, Frequency:2 TIMES DAILY *No Administrations Recorded UNITY OUTREACH ADVOCATE ED AVS Snapshot - Stefano Jimenez MD - 09/05/2014 3:17 PM CST Images from the original note were not included. [facility] [address] [place] [address] Dept: [phone] [email or web address] Martin Hernandez 09/05/2014 3:12 PM Hospital Encounter Description: Female : 1960 Department: [facility] Thank you for choosing [facility] for your health care visit with No att. providers found. We are happy to care for you and provide this summary of your visit. Your primary career information specialist is currently listed as Bailey Arenas MD. HERE IS WHAT YOU NEED TO KNOW To learn how you can take steps to stay as healthy as you can be visit [email or web address] HERE IS WHAT YOU NEED TO DO [...] with [facility] Opthalmology. You may call [phone] to schedule your appointment. If you prefer, a casino floor person will contact you within the next 3 [...] Ethnicity Preferred Language 1960 Female White Non- Norwegian This document contains confidential information about your health and care. It is provided directlyto you for your personal, private use only. UNITY OUTREACH ADVOCATE documented in this encounter Plan of Treatment Not on filedocumented as of this encounter Visit Diagnoses Diagnosis Acute sinusitis with symptoms > 10 days Acute sinusitis, unspecified Triage Assessment Note - Daniella Schuler RN - 09/05/2014 3:08 PM CST Rt side facial congestion for 3 weeks, worse last few days. documented in this encounter Care Teams Nurse Advocate Relationship Specialty Start Date End Date Bailey Arenas MD PCP - General 04/19/13 12/02/14 [address] [place] [address] documented as of this encounter
--- OUTSIDE RECORDS SUMMARY | 2022-08-06 08:34 | XMS_ITS | Encounter Summary ---
:1960 Author Organization [facility] Address [address] [place] [address] Care Team Providers Name Role Phone No Primary/Referring, Phy Primary Care Provider Unavailable Encounter Details Date Type Department Care Team Description 12/05/[address] [place] [address] Scan Closed head injury [address] [place] [address] Social History Tobacco Use Types Packs/Day Years Used Date Smoking Tobacco: Never Assessed Sex Assigned at Date Recorded Not on file documented as of this encounter Plan of Treatment Not on filedocumented as of this encounter Procedures Procedure Name Priority Date/Time Associated Diagnosis Comme nts CT HEAD WO IV CONT Routine 12/05/2014 4:08 PM Closed head inju ry Results for this CHAIRMAN PRESIDENT AND CHIEF EXECUTIVE OFFICER procedure are i n the results section. documented in this encounter Results CT Head WO IV Cont (12/05/2014 4:08 PM CHAIRMAN PRESIDENT AND CHIEF EXECUTIVE OFFICER) Anatomical Region Laterality Modality Head Other Specimen (Source) Anatomical Location Collection Method / Collectio n Time Received Time / Laterality Volume Impressions 12/05/2014 4:17 PM CHAIRMAN PRESIDENT AND CHIEF EXECUTIVE OFFICER IMPRESSION: 1. Small region of increased attenuation [...] time of dictation. Narrative 12/05/2014 4:17 PM CHAIRMAN PRESIDENT AND CHIEF EXECUTIVE OFFICER COMPARISON: ??None. TECHNIQUE: ??Axial images were obtained [...] unspecified documented in this encounter Care Teams Inorganic Chemist Relationship Specialty Start Date End Date No Primary/Referring, Phy PCP - General 12/03/14 documented as of this encounter
--- OUTSIDE RECORDS SUMMARY | 2022-08-06 08:34 | XMS_ITS | Encounter Summary ---
:1960 Author Organization [facility] Address [address] [place] [address] Care Team Providers Name Role Phone Unassigned, Provider Primary Care Provider Unavailable Reason for Visit Procedure/Equipment (Routine) - Closed Specialty Diagnoses / Procedures Referred By Contact Refer red To Contact Procedures Benjamin Sanford MD MR ANGIOGRAPHY HEAD WITHOUT [address] [place] [address] Referral ID Status Reason Start Date Expiration Date Visits Requ ested Visits Authorized [id number] Closed 12/03/2012 1 1 Encounter Details Date Type Department Care Team Description 12/03/2012 Imaging [facility] MRI [address] [place] [address] Social History Tobacco Use Types Packs/Day Years Used Date Smoking Tobacco: Never Assessed Sex Assigned at Date Recorded Not on file documented as of this encounter Plan of Treatment Not on filedocumented as of this encounter Procedures Procedure Name Priority Date/Time Associated Diagnosis Comme nts MR ANGIO HEAD WO IV STAT 12/03/2012 1:12 PM Re sults for this CONT STUDENT OUTREACH COORDINATOR procedure are i n the results section. documented in this encounter Results MR ANGIOGRAPHY HEAD WITHOUT CONTRAST (12/03/2012 1:12 PM STUDENT OUTREACH COORDINATOR) Anatomical Region Laterality Modality Head, Vascular Magnetic Resonance Specimen (Source) Anatomical Collection Method Collection Time Re ceived Time Location / / Volume Laterality 12/03/2012 1:12 PM STUDENT OUTREACH COORDINATOR Narrative 12/03/2012 3:13 PM [facility] 1. MRI HEAD WITHOUT CONTRAST. [...] on filedocumented in this encounter Care Teams Aerospace Stress Engineer Relationship Specialty Start Date End Date Unassigned, Provider PCP - General 07/06/00 04/18/[address] [place] [address] documented as of this encounter
--- OUTSIDE RECORDS SUMMARY | 2022-08-06 08:34 | XMS_ITS | Encounter Summary ---
:1960 Author Organization [facility] Address [address], [place] [address] Care Team Providers Name Role Phone Bailey Arenas MD Primary Care Provider Reason for Visit Reason Onset Date Comments Refill 11/07/2016 Encounter Details Date Type Department Care Team Description 11/07/2016 Refill [facility] Bailey Sung MD Refill [address] [place] [address] [place] [address] [phone] (Wo rk) Social History Tobacco Use Types Packs/Day Years Used Date Smoking Tobacco: Never Smokeless Tobacco: Never Alcohol Use Standard Drinks/Week Comments Yes 7 (1 standard drink = 0.6 oz pure alcoho l) weekly Sex Assigned at Date Recorded Not on file documented as of this encounter Nursing Notes Arpita Garcia RN - 11/07/2016 8:55 AM EXTRACTOR PLANT OPERATOR From: Shonna Bashir To: Bailey Arenas MD Sent: 11/07/2016 8:49 AM EXTRACTOR PLANT OPERATOR Subject: Medication Renewal Request Original authorizing provider: MD Shonna Rivers Kwan Bashir would like a refill of the following medications: lisinopril (ZESTRIL) 5 MG tablet [Bailey Arenas MD] Preferred pharmacy: [facility] [address] [facility] [address] [facility] [address] Comment: Dear Dr Arenas I attempted to refill my lisinopril at [facility] in [place]. I was denied. I am now out of the lisinopril and leave next Tuesday for 3 weeks in [place]. I can tell a difference by taking this medicine and would really like to get a refill. Please advise. I was under the understanding Ihad a years refill. Thank you! Shonna ACTOR PLANT OPERATOR documented in this encounter Plan of Treatment Not on filedocumented as of this encounter Visit Diagnoses Diagnosis Essential hypertension (HRC) Unspecified essential hypertension documented in this encounter Care Teams Early Education Teacher Relationship Specialty Start Date End Date Bailey Arenas MD PCP - General Internal Medicine 09/16/16 [address] [place] [address] documented as of this encounter
--- OUTSIDE RECORDS SUMMARY | 2022-08-06 08:34 | XMS_ITS | Encounter Summary ---
:1960 Author Organization [facility] Address [address] [place] [address] Care Team Providers Name Role Phone Unassigned, Provider Primary Care Provider Unavailable Reason for Visit Procedure/Equipment (Routine) - Closed Specialty Diagnoses / Procedures Referred By Contact Refer red To Contact Procedures Benjamin Sanford MD MR BRAIN / STEM WITH CONTRAST [address] [place] [address] Referral ID Status Reason Start Date Expiration Date Visits Requ ested Visits Authorized [id number] Closed 12/03/2012 1 1 Encounter Details Date Type Department Care Team Description 12/03/2012 Imaging [facility] MRI [address] [place] [address] Social History Tobacco Use Types Packs/Day Years Used Date Smoking Tobacco: Never Assessed Sex Assigned at Date Recorded Not on file documented as of this encounter Plan of Treatment Not on filedocumented as of this encounter Procedures Procedure Name Priority Date/Time Associated Diagnosis Comme nts MR BRAIN W IV CONT STAT 12/03/2012 4:03 PM Res ults for this CUTLET MAKER PORK procedure are i n the results section. documented in this encounter Results MR BRAIN / STEM WITH CONTRAST (12/03/2012 4:03 PM CUTLET MAKER PORK) Anatomical Region Laterality Modality Head Magnetic Resonance Specimen (Source) Anatomical Collection Method Collection Time Re ceived Time Location / / Volume Laterality 12/03/2012 4:03 PM CUTLET MAKER PORK Narrative 12/03/2012 5:31 PM CUTLET MAKER PORK ADDENDUM REPORT: MRI HEAD (NOW WITHOUT AND WITH CONTRAST) PERFORMED ON DECEMBER 03, 2012 [facility] The patient returned returned for post g [...] (taking over for Dr. Sanford) in the [place] emergency room on December 03 at 1640 [...] WITH CONTRAST) PERFORMED ON DECEMBER 03, 2012 [facility] The patient returned returned for post g [...] (taking over for Dr. Sanford) in the [place] emergency room on December 03 at 1640 hours. IMPRESSION: Post contrast images show ir regular enhancement at the site of the left pontine lesion. 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 Benjamin Sanford MD RAD MRI documented in this encounter Visit Diagnoses Not on filedocumented in this encounter Care Teams Pourer Off Relationship Specialty Start Date End Date Unassigned, Provider PCP - General 07/06/00 04/18/[address] [place] [address] documented as of this encounter
--- OUTSIDE RECORDS SUMMARY | 2022-08-06 08:34 | XMS_ITS | Encounter Summary ---
:1960 Author [facility] Address [address] [place] [address] Care Team Providers Name Role Phone Bailey Arenas MD Primary Care Provider Encounter Details Date Type Department Care Team Description 12/03/[address] [facility] MRI SAF ETY Procedure/[facility], SCREENING CONSENT nt [address] [facility] Provider [place], [place] [id number] Social History Tobacco Use Types Packs/Day Years Used Date Smoking Tobacco: Never Assessed Sex Assigned at Date Recorded Not on file documented as of this encounter Progress Notes [facility], Provider - 12/03/2012 12:00 AM CST LAYER documented in this encounter Plan of Treatment Not on filedocumented as of this encounter Visit Diagnoses Not on filedocumented in this encounter Care Teams Quick Print Operator Relationship Specialty Start Date End Date Bailey Arenas MD PCP - General Internal Medicine 09/16/[address] [id number] documented as of this encounter
--- OUTSIDE RECORDS SUMMARY | 2022-08-06 08:34 | XMS_ITS | Encounter Summary ---
:1960 Author Organization [facility] Address [address] [address] Care Team Providers Name Role Phone Bailey Arenas MD Primary Care Provider Reason for Visit Reason Onset Date Comments Travel Consult 10/21/2016 Encounter Details Date Type Department Care Team Description 10/21/2016 Initial Consult [facility] [address] [place] unseling for travel (Primary Dx); Travel Clinic RN Need for meningococcal vaccination [address] [facility] [address] [phone] Social History Tobacco Use Types Packs/Day Years [...] countries: 23 days. Countries of travel: [place], [place], [place], [place]. Areas in country: rural [...] certificate stating yf vaccine is, Valid for Life.[facility] Accommodations: hotel Purpose of travel: business PRIOR [...] was given verbal and/or written information about: [place] Trypanosomiasis, Chikungunya, Cholera, Dengue Fever, Diphtheria/Tetanus, Filarial, [...] 02/02/2008, 08/02/2014 ??? YF (Yellow Fever) 08/31/2004 PAINT SHADER documented in this encounter Plan of Treatment Not on filedocumented as of this encounter Visit Diagnoses Diagnosis Counseling for travel - Primary Other specified counseling Need for meningococcal vaccination documented in this encounter Care Teams Wool Puller Relationship Specialty Start Date End Date Bailey Arenas MD PCP - General Internal Medicine 09/16/16 [address] [place] [address] documented as of this encounter
--- OUTSIDE RECORDS SUMMARY | 2022-08-06 08:34 | XMS_ITS | Encounter Summary ---
:1960 Author Organization [facility] Address [address], [place] [address] Care Team Providers Name Role Phone Bailey Arenas MD Primary Care Provider Encounter Details Date Type Department Care Team Description 09/16/2016 Notes/Orders [facility] Bailey Arenas MD [address] [place] [address] [place] [address] [phone] (Wo rk) Social History Tobacco Use Types [...] on filedocumented in this encounter Care Teams Supervisor Color Making Relationship Specialty Start Date End Date Bailey Arenas MD PCP - General Internal Medicine 09/16/[address] [place] [address] documented as of this encounter
--- OUTSIDE RECORDS SUMMARY | 2022-08-06 08:34 | XMS_ITS | Encounter Summary ---
:1960 Author Organization [facility] Address [address] [address] Care Team Providers Name Role Phone Bailey Arenas MD Primary Care Provider Encounter Details Date Type Department Care Team Description 04/19/2014 Lab Visit [facility] Screening for lipoid disorde rs; [address] Obesity; [place] [address] [facility] [phone] Social History Tobacco Use Types Packs/Day Years [...] Bailey Arenas MD LAB_1 Performing Organization Address City/[facility] Code Phon e Number HP CONVERSION (ABNORMAL) Lipid Panel and Direct LDL(If Needed) (04/19/2014 8:48 AM CDT) [facility] Method Time Signature Cholesterol 271 (H) [...] - 04/19/2014 12:53 PM CDT Performed at [facility], [address] [place] [address] Bailey Arenas MD LAB_1 Performing Organization Address City/State/ZIP [facility] Phon e Number HP CONVERSION documented in this encounter Visit Diagnoses Diagnosis Screening for lipoid disorders Obesity (HRC) Obesity, unspecified Screening for diabetes mellitus documented in this encounter Care Teams Vehicle Check In Clerk Relationship Specialty Start Date End Date Bailey Arenas MD PCP - General 04/19/13 12/02/14 [address] [place] [address] documented as of this encounter
--- OUTSIDE RECORDS SUMMARY | 2022-08-06 08:34 | XMS_ITS | Encounter Summary ---
:1960 Author Organization [facility] Address [address], [place] [address] Care Team Providers Name Role Phone No Primary/Referring, Phy Primary Care Provider Unavailable Reason for Visit Reason Comments Annual Exam Encounter Details Date Type Department Care Team Description 03/30/2016 Office Visit Bailey Waters, Routine g eneral medical examination at a health care facility (Primary Dx); Medicine Essential hypertension; [address]; [place] [address] [place] [address] Personal history of skin cancer; [phone] Breast cancer s creening; (Work) Encounter for screening for malignant ne oplasm of colon; [phone] Screening for d iabetes mellitus; (Fax) Lipid [...] working with a nutritional response therapist at [facility] and is taking a supplement 3 times [...] and social history reviewed and updated in [employer]. Allergies and current medications reviewed. Review of [...] disorders documented in this encounter Care Teams Dobie Man Relationship Specialty Start Date End Date No Primary/Referring, Phy PCP - General 12/03/14 documented as of this encounter
--- OUTSIDE RECORDS SUMMARY | 2022-08-06 08:34 | XMS_ITS | Encounter Summary ---
:1960 Author Organization [facility] Address [address] [address] Care Team Providers Name Role Phone Bailey Arenas MD Primary Care Provider Reason for Visit Reason Comments Annual Exam Encounter Details Date Type Department Care Team Description 04/19/2014 Office Visit Bailey Waters, Routine g eneral medical examination at a health care facility (Primary Dx); Medicine Eyelid cyst; [address] [place] Personal history of skin cancer; [place] [address] [address] [place] [address] Counseling for travel; [phone] Obesity; (Work) Screening for malignant neoplasm of the cervix; [phone] Breast screenin g; (Fax) Screening for l [...] and would like another referral. 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 Has seen Dr. Cross in the travel clinic in the past. Wants to be sure tetanus and typhoid are up to date, and needs Malarone. She keeps gaining weight. She hasn't been exercising. She asks for recommendations for diet books. Medical, surgical, family, and social history reviewed and updated in [employer]. Allergies and current medications reviewed. Review of [...] CDT FINAL GYNECOLOGICAL CYTOLOGY REPORT Pathology #: [id number] ?Date Obtained: 04/19/2014 ? Date Received: 04/22/2014 [...] 16 18 Genotyping (04/19/2014 9:06 AM CDT) [facility] Method Time Signature HPV High Risk Not Detected HP CONVERSION 16 HPV High Risk Not Detected HP CONVERSION 18 Other HPV Not Detected HP CONVERSION High Risk Not 16/18 Comment: See current ACOG guidelines for manageme nt recommendations based on Pap smear findings and HPV test ing results (Screening for cervical cancer. Practice Bulletin No. 131. [place] [employer]stetricians [employer] Gy necologists. Obstet Gynecol 2012;120:1222-38) Specimen: SurePath Liquid Based Pap, Cervical Sour ce Method Description: Silvestre real time, multiplex PCR performed at [facility] The Jossy HPV Test is a [...] been validate d for these specimens by [facility]. Reference Range: Not Detected Specimen Anatomical Collection Method Collection Time Receive d Time (Source) Location / / Volume Laterality 04/19/2014 9:06 AM 4 9:06 CDT AM CDT Bailey Arenas MD LAB_1 Performing Organization Address City/State/ZIP Code Phon e Number HP CONVERSION Pap Smear Order (04/19/2014 9:06 AM CDT) [facility] Method Time Signature Pap Smear Collected [...] mellitus documented in this encounter Care Teams Brick Baker Relationship Specialty Start Date End Date Bailey Arenas MD PCP - General 04/19/13 12/02/14 [address] [place] [address] documented as of this encounter
--- OUTSIDE RECORDS SUMMARY | 2022-08-06 08:34 | XMS_ITS | Encounter Summary ---
:1960 Author Organization [facility] Address [address], [place] [address] Care Team Providers Name Role Phone No Primary/Referring, Phy Primary Care Provider Unavailable Reason for Visit Reason Comments NUMBNESS Nausea Neck Pain Encounter Details Date Type Department Care Team Description 02/19/2015 Hospital Encounter [facility] Meme Li F acial numbness; Care Neck pain [address] [place] [address] [facility] [phone] [place], [place] [id number] Social History Tobacco Use Types Packs/Day Years [...] 1437 Note Time: 02/20/15 1400 Status: Signed Radio Equipment Repairer: Meme Li MD (Physician) NAME: MARTIN BASHIR MR#: [id number] CSN: [id number] AUTHENTICATING CLINICIAN: Meme Li MD CONFIRM #: [id number] LOC: 520 URGENT CARE PROGRESS NOTE DATE [...] as well. PAST MEDICAL HISTORY: Reviewed through [facility]. PAST SURGICAL HISTORY: [facility]. MEDICATIONS: [facility]. ALLERGIES: Diphenhydramine, and propoxyphene. OBJECTIVE: Temperature 97.9, [...] sprain. PLAN: Patient will be transferred to [facility] for further evaluation and treatment. She is in agreement with the plan. Her will drive her immediately over there. I do believe she needs head imaging. I did talk to the ER doctor across at [place], and they agreed to accept her and assume treatment care. Patient left in stable condition. TITO:TWAN C: CONFIRM #: [id number] Meme Li MD - 02/19/2015 3:12 PM CDT .dict documented in this encounter Miscellaneous Notes ED AVS Snapshot - Stefano Jimenez MD - 02/19/2015 3:13 PM CDT Images from the original note were not included. [facility] [address] [place] [address] Dept: [phone] [email or web address] Martin Bashir 02/19/2015 2:58 PM Hospital Encounter Description: Female : 1960 Department: [facility] Thank you for choosing [facility] for your health care visit with Meme Li MD. Weare happy to care for you and provide this summary of your visit. Your primary respiratory care program director is currently listed as Bailey Arenas MD. HERE IS WHAT YOU NEED TO KNOW To learn how you can take steps to stay as healthy as you can be visit [email or web address] HERE IS WHAT YOU NEED TO DO [...] with [facility] Opthal[facility]. You may call [phone] to schedule your appointment. If you prefer, a nursing scheduler will contact you within the next [...] Ethnicity Preferred Language 1960 Female White Non- Bruneian This document contains confidential information about your [...] .. documented in this encounter Care Teams Call Out Clerk Relationship Specialty Start Date End Date No Primary/Referring, Phy PCP - General 12/03/14 documented as of this encounter
--- OUTSIDE RECORDS SUMMARY | 2022-08-06 08:34 | XMS_ITS | Encounter Summary ---
:1960 Author Organization [facility] Address [address] [address] Care Team Providers Name Role Phone Bailey Arenas MD Primary Care Provider Encounter Details Date Type Department Care Team Description 10/11/2016 Lab Visit [place] [facility] Essential hypertension [address] [place] [address] Social History Tobacco Use Types Packs/Day Years [...] AM Essential hyperten danita Results for this FRUIT PEELER procedure are i n the results section. POTASSIUM Routine 10/11/2016 8:44 AM Essential hypertension Results for this FRUIT PEELER procedure are i n the results section. documented in this encounter Results Potassium (10/11/2016 8:44 AM FRUIT PEELER) P athologist Signature Potassium 4.2 3.5 - 5.2 PN SOFT mmol/L Specimen Anatomical Collection Method Collection Time Receive d Time (Source) Location / / Volume Laterality 10/11/2016 8:44 AM 7 FRUIT PEELER 11:34 AM FRUIT PEELER Narrative PN SOFT - 10/11/2016 3:09 PM FRUIT PEELER Performed at [facility] [address] [place] [address] CLIA number [id number] Bailey Arenas MD LAB_1 Performing Organization Address [facility] Phon e Number PN SOFT [address] [place] [address] [phone] Creatinine (10/11/2016 8:44 AM FRUIT PEELER) athologist Signature Creatinine Serum 0.80 0.55 - [...] / Volume Laterality 10/11/2016 8:44 AM 7 FRUIT PEELER 11:34 AM FRUIT PEELER Narrative PN SOFT - 10/11/2016 3:09 PM FRUIT PEELER Performed at [facility], [address] [place] [address] CLIA number [id number] Bailey Arenas MD LAB_1 Performing Organization Address [facility] Phon e Number PN SOFT [address] [place] [address] [phone] documented in this encounter Visit Diagnoses Diagnosis Essential hypertension (HRC) Unspecified essential hypertension documented in this encounter Care Teams Oncology Coordinator Relationship Specialty Start Date End Date Bailey Arenas MD PCP - General Internal Medicine 09/16/16 [address] [place] [address] documented as of this encounter
--- OUTSIDE RECORDS SUMMARY | 2022-08-06 08:35 | XMS_ITS | Encounter Summary ---
:1960 Author Organization [facility] Address [address] [place] [address] Care Team Providers Name Role Phone Unassigned, Provider Primary Care Provider Unavailable Reason for Referral Consult/Transfer Care (Routine) - Closed Specialty Diagnoses / Procedures Referred By Contact Refer red To Contact Navin Michele MD [address] [place] [address] Referral ID Status Reason Start Date Expiration Date Visits Requ ested Visits Authorized [id number] Closed 12/03/2012 1 1 Scheduling Instructions Your provider has recommended an appoint ment with a [facility] Specialist. You may call [phone] to schedule your appointment. RHOUSE TENDER Procedure/Equipment (Routine) - Closed Specialty Diagnoses / Procedures Referred By Contact Refer red To Contact Procedures Benjamin Sanford MD MR BRAIN / STEM WITH CONTRAST [address] [facility] [address] Referral ID Status Reason Start Date Expiration Date Visits Requ ested Visits Authorized [id number] Closed 12/03/2012 1 1 RHOUSE TENDER Procedure/Equipment (Routine) - Closed Specialty Diagnoses / Procedures Referred By Contact Refer red To Contact Procedures Benjamin Sanford MD MR ANGIOGRAPHY NECK WITHOUT [address] [place] [address] Referral ID Status Reason Start Date Expiration Date Visits Requ ested Visits Authorized [id number] Closed 12/03/2012 1 1 RHOUSE TENDER Procedure/Equipment (Routine) - Closed Specialty Diagnoses / Procedures Referred By Contact Refer red To Contact Procedures Benjamin Sanford MD MR ANGIOGRAPHY HEAD WITHOUT [address] [place] [address] Referral ID Status Reason Start Date Expiration Date Visits Requ ested Visits Authorized [id number] Closed 12/03/2012 1 1 RHOUSE TENDER Procedure/Equipment (Routine) - Closed Specialty Diagnoses / Procedures Referred By Contact Refer red To Contact Procedures Benjamin Sanford MD MR BRAIN / STEM WITHOUT [address] [place] [address] Referral ID Status Reason Start Date Expiration Date Visits Requ ested Visits Authorized [id number] Closed 12/03/2012 1 1 RHOUSE TENDER Procedure/Equipment (Routine) - Closed Specialty Diagnoses / Procedures Referred By Contact Refer red To Contact Procedures Benjamin Sanford MD CT HEAD WITHOUT CONTRAST [address] [place] [address] Referral ID Status Reason Start Date Expiration Date Visits Requ ested Visits Authorized [id number] Closed 12/03/2012 1 1 RHOUSE TENDER Reason for Visit Reason Comments SENSORY PROBLEM--FOCAL--ED left arm numbness Encounter Details Date Type Department Care Team Description 12/03/2012 Emergency [facility] Ascencion Sanford MD [address] [place] [address] Left arm numbness Emergency Department Navin Michele MD [address] [place], [place] [id number] [address] [place] [address] Social History Tobacco Use Types Packs/Day Years Used Date Smoking Tobacco: Never Assessed Sex Assigned at Date Recorded Not on file documented as of this encounter Last Filed Vital Signs Vital Sign Reading Time Taken Comments Blood Pressure 175/91 12/03/2012 4:51 PM POWERHOUSE TENDER Pulse 88 12/03/2012 4:51 PM POWERHOUSE TENDER Temperature 36.8 ??C (98.3 ??F) 12/03/2012 4:51 PM POWERHOUSE TENDER Respiratory Rate 18 12/03/2012 4:51 PM POWERHOUSE TENDER Oxygen Saturation 98% 12/03/2012 4:51 PM POWERHOUSE TENDER Inhaled Oxygen Concentration - - Weight 68 kg (150 lb) 12/03/2012 9:29 AM POWERHOUSE TENDER Height 167.6 cm (5' 6) 12/03/2012 9:29 AM POWERHOUSE TENDER Body Mass Index 24.21 12/03/2012 9:29 AM POWERHOUSE TENDER documented in this encounter Discharge Instructions Discharge [...] you to lose feeling or have a pkak-fko-wjggonu sensation on part of your body. Nerves [...] Where can you learn more? Go to [employer] and enter [id number] in the search box. ?? [phone] [facility] RHOUSE TENDER documented in this encounter Medications at Time [...] documented as of this encounter Procedure Notes [facility], Provider - 12/03/2012 12:00 AM CSTAssociated Order(s): EKG IP RHOUSE TENDER documented in this encounter ED Notes Elzbieta Lomas RN - 12/03/2012 5:01 PM CST [facility] ED Nursing Discharge Note Vital Signs: [...] treatment in ED: Stable ---End of Report--- RHOUSE TENDER Navin Michele MD - 12/03/2012 3:38 PM [...] events. Condition: stable at time of disposition RHOUSE TENDER Benjamin Sanford MD - 12/03/2012 2:58 PM CST Visit Note Chief Complaint: SENSORY PROBLEM--FOCAL--ED HPI Pt here for evaluation of left arm numbness. She is otherwise completely healthy. Pandora fine last night but woke up this AM with numbness in her entire left arm which has persisted. 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 [employer] and felt disconnected RHOUSE TENDER documented in this encounter Miscellaneous Notes [facility], Provider - 12/03/2012 12:00 AM CST documented in this encounter Plan of Treatment Scheduled Referrals Name Type Priority Associated Diagnoses Order S [facility] Referral - Referral Routine Ordered : 12/03/2012 Adults from ED documented as of this encounter Procedures Procedure Name Priority Date/Time Associated Diagnosis Comme nts MR BRAIN W IV CONT STAT 12/03/2012 4:03 PM Res ults for this POWERHOUSE TENDER procedure are i n the results section. MR ANGIO NECK WO IV STAT 12/03/2012 1:13 PM Re sults for this CONT POWERHOUSE TENDER procedure are i n the results section. MR ANGIO HEAD WO IV STAT 12/03/2012 1:12 PM Re sults for this CONT POWERHOUSE TENDER procedure are i n the results section. MR BRAIN WO IV CONT STAT 12/03/2012 1:11 PM Re sults for this POWERHOUSE TENDER procedure are i n the results section. CT HEAD WO IV CONT STAT 12/03/2012 9:56 AM Res ults for this POWERHOUSE TENDER procedure are i n the results section. TROPONIN I STAT 12/03/2012 9:35 AM Results f or this POWERHOUSE TENDER procedure are i n the results section. BASIC METABOLIC STAT 12/03/2012 9:35 AM Result s for this PANEL POWERHOUSE TENDER procedure are i n the results section. COMPLETE BLOOD STAT 12/03/2012 9:35 AM Results for this COUNT-NO DIFF POWERHOUSE TENDER procedure are in the results section. INR/PROTIME STAT 12/03/2012 9:35 AM Results f or this POWERHOUSE TENDER procedure are i n the results section. EKG IP 12/03/2012 12:00 AM Results for this POWERHOUSE TENDER procedure are i n the results section. documented in this encounter Results MR BRAIN / STEM WITH CONTRAST (12/03/2012 4:03 PM POWERHOUSE TENDER) Anatomical Region Laterality Modality Head Magnetic Resonance Specimen (Source) Anatomical Collection Method Collection Time Re ceived Time Location / / Volume Laterality 12/03/2012 4:03 PM POWERHOUSE TENDER Narrative 12/03/2012 5:31 PM POWERHOUSE TENDER ADDENDUM REPORT: MRI HEAD (NOW WITHOUT AND WITH CONTRAST) PERFORMED ON DECEMBER 03, 2012 [facility] The patient returned returned for [...] (taking over for Dr. Sanford) in the [place] emergency room on December 03 at 1640 [...] WITH CONTRAST) PERFORMED ON DECEMBER 03, 2012 [facility] The patient returned returned for [...] (taking over for Dr. Sanford) in the [place] emergency room on December 03 at 1640 hours. IMPRESSION: Post contrast images show ir regular enhancement at the site of the left pontine lesion. 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 Benjamin Sanford MD RAD MRI MR ANGIOGRAPHY NECK WITHOUT CONTRAST (12/03/2012 1:13 PM POWERHOUSE TENDER) Anatomical Region Laterality Modality Neck, Vascular, C-Spine, Skeletal Magnet ic Resonance Specimen (Source) Anatomical Collection Method Collection Time Re ceived Time Location / / Volume Laterality 12/03/2012 1:13 PM POWERHOUSE TENDER Narrative 12/03/2012 3:13 PM POWERHOUSE TENDER [facility] 1. MRI HEAD WITHOUT [...] note might be different from the original. [facility] 1. MRI HEAD WITHOUT [...] ANGIOGRAPHY HEAD WITHOUT CONTRAST (12/03/2012 1:12 PM POWERHOUSE TENDER) Anatomical Region Laterality Modality Head, Vascular Magnetic Resonance Specimen (Source) Anatomical Collection Method Collection Time Re ceived Time Location / / Volume Laterality 12/03/2012 1:12 PM POWERHOUSE TENDER Narrative 12/03/2012 3:13 PM POWERHOUSE TENDER [facility] 1. MRI HEAD WITHOUT [...] note might be different from the original. [facility] 1. MRI HEAD WITHOUT [...] / STEM WITHOUT CONTRAST (12/03/2012 1:11 PM POWERHOUSE TENDER) Anatomical Region Laterality Modality Head Magnetic Resonance Specimen (Source) Anatomical Collection Method Collection Time Re ceived Time Location / / Volume Laterality 12/03/2012 1:11 PM POWERHOUSE TENDER Narrative 12/03/2012 3:13 PM POWERHOUSE TENDER [facility] 1. MRI HEAD WITHOUT [...] note might be different from the original. [facility] 1. MRI HEAD WITHOUT [...] CT HEAD WITHOUT CONTRAST (12/03/2012 9:56 AM POWERHOUSE TENDER) Anatomical Region Laterality Modality Head Computed Tomography Specimen (Source) Anatomical Collection Method Collection Time Re ceived Time Location / / Volume Laterality 12/03/2012 9:56 AM POWERHOUSE TENDER Narrative 12/03/2012 10:15 AM POWERHOUSE TENDER [facility] HEAD CT 12/03/2012 INDICATION: Left arm numbness TECHNIQUE: Routine without contrast. COMPARISON: No comparison. FINDINGS: No bleed, mass effect, or acute infarct evident. Sinuses and mastoids clear. Bones unrema rkable. CONCLUSION: No acute intracranial abnormality appare nt. Procedure Note Josr Arceo MD - 12/03/2012F ormatting of this note might be different from the original. [facility] HEAD CT 12/03/2012 INDICATION: Left arm numbness TECHNIQUE: Routine without contrast. COMPARISON: No comparison. FINDINGS: No bleed, mass effect, or acute infarct evident. Sinuses and mastoids clear. Bones unrema rkable. CONCLUSION: No acute intracranial abnormality appare nt. Benjamin Sanford MD RAD CT TROPONIN I (12/03/2012 9:35 AM POWERHOUSE TENDER) P athologist Signature TROPONIN-I <0.04 0.00 - 0.1 [place] ng/mL H[facility] LAB Comment: 0.0 - 0.1 ng/mL ?? Normal 0.1 - 0.6 ng/mL ?? Risk stratification: small increases have been associated ?with risk of adverse clinical events; e.g., patients with ?unstable keith na and increased troponins are at high risk ?for short-ter m adverse cardiac events. 0.6 - 1.5 ng/mL ?? Diagnostic for acute, evolving, or recent WI if typical ?rise and grad ual fall of troponin with at least one of ?the following : ?Ischemic s ymptoms ?Pathologic Q waves on ECG ?ECG change s indicative of ischemia (ST segment elevation ? or depres danita) ?Corogonary artery intervention, I.E., angioplasty Specimen Anatomical Collection Method Collection Time Receive d Time (Source) Location / / Volume Laterality 12/03/2012 9:35 AM 3 POWERHOUSE TENDER 10:11 AM POWERHOUSE TENDER Benjamin Sanford MD LAB_1 Performing Organization Address City/State/ZIP Code Phon e Number [facility] [address] [place] [address] PROTIME-INR (12/03/2012 9:35 AM POWERHOUSE TENDER) P athologist Signature Protime 10.1 9.3 - 11.5 [facility] LAB INR 1.0 [facility] Comment: Suggested Therapeutic Ranges using INR f or stable anticoagulated patients: 2.0 - 3.0 ?Routine oral anticoagulan t therapy for prevention and/or ? treatment of thrombos is 2.5 - 3.5 ?With recurrent thromboemb olic event and those with mechanical ? heart valves Specimen Anatomical Collection Method Collection Time Receive d Time (Source) Location / / Volume Laterality 12/03/2012 9:35 AM 3 POWERHOUSE TENDER 10:11 AM POWERHOUSE TENDER Benjamin Sanford MD LAB_1 Performing Organization Address City/State/ZIP Code Phon e Number [facility] [address] [place] [address] BASIC METABOLIC PANEL (12/03/2012 9:35 AM POWERHOUSE TENDER) athologist Signature Sodium 139 135 - 145 [place] mmol/L [facility] Potassium 4.6 3.5 - 5.1 [place] mmol/L [facility] Chloride 102 98 - 110 [place] mmol/L [facility] CO2 28 22 - 32 [place] mmol/L [facility] Anion Gap 9.0 6.0 - 16.0 [place] (calc.) mmol/L [facility] Glucose 88 65 - 100 [place] mg/dL [facility] Calcium 9.1 8.5 - 10.5 [place] mg/dL [facility] BUN 11 7 - 25 [place] mg/dL [facility] Creatinine 0.73 0.51 - [place] 1.17 mg/dL [facility] BUN/ CREA RATIO 15 10 - 20 [facility] GFR, Estimated >60 ml/min/1.7 [place] 3m^2 [facility]OS[facility]ITAL LAB Comment: Estimated Glomerular Filtration Rate (eG FR) by MDRD Equation Chronic Kidney Disease: ? < 60 Kidney Failure: ? < 15 If patient is -Trinidadian multiply the Estimated GFR value by 1.21 Specimen Anatomical Collection Method Collection Time Receive d Time (Source) Location / / Volume Laterality 12/03/2012 9:35 AM 3 POWERHOUSE TENDER 10:11 AM POWERHOUSE TENDER Narrative [facility] - 12/03/2012 10:44 AM POWERHOUSE TENDER Slightly hemolyzed Benjamin Sanford MD LAB_1 Performing Organization Address City/[facility]/ZIP Code Phon e Number [facility] [address] [place] [address] [phone] CBC W PLT NO DIFF (12/03/2012 9:35 AM POWERHOUSE TENDER) P athologist Signature WBC 5.0 4.5 - 11.0 [place] x10^3/uL HOSPITAL [facility] RBC 4.03 4.00 - 5.20 [place] x10^6/uL [facility] Hemoglobin 12.5 12.0 - 16.0 [place] g/dL [facility] HCT 36.6 33.0 - 51.0 [place] % [facility] MCV 91 80 - 100 fL [facility] MCH 31.0 26.0 - 34.0 [place] pg [facility] MCHC 34.2 32.0 - 36.0 [place] g/dL [facility] RDW 12.8 11.5 - 15.5 [place] % [facility] Platelets 251 140 - 440 [place] x10^3/uL [facility] MPV 8.0 6.5 - 11.0 [facility] Specimen Anatomical Collection Method Collection Time Receive d Time (Source) Location / / Volume Laterality 12/03/2012 9:35 AM 3 POWERHOUSE TENDER 10:11 AM POWERHOUSE TENDER Benjamin Sanford MD LAB_1 Performing Organization Address City/[facility]/ZIP Code Phon e Number [facility] [address] [place] [address] [phone] EKG IP (12/03/2012 12:00 AM POWERHOUSE TENDER) Specimen (Source) Anatomical Location Collection Method / Collectio n Time Received Time / Laterality Volume 12/03/2012 Narrative This result has an attachment that is no t available. Transcriptions [facility], Provider - 12/03/2012 12:00 AM CST Provider [facility] EKG documented in this encounter Visit Diagnoses Diagnosis Left arm numbness Disturbance of skin sensation documented in this encounter Care Teams Heat Treat Operator Relationship Specialty Start Date End Date Unassigned, Provider PCP - General 07/06/00 04/18/[address] [place] [address] documented as of this encounter
--- OUTSIDE RECORDS SUMMARY | 2022-08-06 08:35 | XMS_ITS | Encounter Summary ---
:1960 Author Organization [facility] Address [address] [place] [address] Care Team Providers Name Role Phone Unassigned, Provider Primary Care Provider Unavailable Reason for Visit Reason Comments Other Encounter Details Date Type Department Care Team Description 10/30/2008 Telephone [facility] [address] [facility] Marjorie Montenegro Other [address] [place] [address] Social History Tobacco Use Types Packs/Day Years [...] 1601 Note Time: 10/30/08 1404 Status: Signed Associate Principal: Jacqui Cerda Pt calling stating that she [...] clinic protocols okay to refill as requested. NEL MARKETING SPECIALIST documented in this encounter Plan of Treatment Not on filedocumented as of this encounter Visit Diagnoses Not on filedocumented in this encounter Care Teams Back Shoe Cutter Relationship Specialty Start Date End Date Unassigned, Provider PCP - General 07/06/00 04/18/[address] [place] [address] documented as of this encounter
--- OUTSIDE RECORDS SUMMARY | 2022-08-06 08:35 | XMS_ITS | Encounter Summary ---
:1960 Author Organization [facility] Address [address], [place] [address] Care Team Providers Name Role Phone Unassigned, Provider Primary Care Provider Unavailable Encounter Details Date Type Department Care Team Description 11/14/2006 Office Visit [facility] [address] [facility] [address] [place] [address] [place], [place] [phone] Social History Tobacco Use Types Packs/Day Years [...] 0000 Note Time: 11/14/06 0001 Status: Signed Credit Card Clerk: Blessing Thacker RN (Registered Nurse) Travel Clinic Initial Visit Patient is seen in Travel Clinic individually for travel education and counseling. TRAVEL PLANS Patient states they are planning to travel to: [facility] Plans include travel to and/or lodging at: [...] information provided. IMMUNIZATIONS See immunization module on [facility] for current immunizations. No immunizations needed based [...] ~Shorthand Note completed on: 11/14/2006 11:45 AM LE PLACER documented in this encounter Plan of Treatment Not on filedocumented as of this encounter Visit Diagnoses Not on filedocumented in this encounter Care Teams Knife Glazer Relationship Specialty Start Date End Date Unassigned, Provider PCP - General 07/06/00 04/18/[address] [place] [address] documented as of this encounter
--- OUTSIDE RECORDS SUMMARY | 2022-08-06 08:35 | XMS_ITS | Encounter Summary ---
:1960 Author Organization [facility] Address [address], [place] [address] Care Team Providers Name Role Phone Unassigned, Provider Primary Care Provider Unavailable Encounter Details Date Type Department Care Team Description 10/25/2005 Office Visit [facility] [address] Clinic [address] [place] [address] [place], [place] [phone] Social History Tobacco Use Types Packs/Day Years Used Date Smoking Tobacco: Never Assessed Sex Assigned at Date Recorded Not on file documented as of this encounter Progress Notes Monika Pozo - 10/25/2005 12:01 AM CST Progress Notes signed by at 10/25/05 3554 Author: Monika Pozo RN Service: (none) Author Type: Registered Nurse Filed: 10/25/05 0000 Note Time: 10/25/05 0001 Status: Signed Outside Solar Sales Consultant: Monika Pozo RN (Registered Nurse) Travel Clinic [...] ~Shorthand Note completed on: 10/25/2005 2:51 PM ATCHER MAINTENANCE documented in this encounter Plan of Treatment Not on filedocumented as of this encounter Visit Diagnoses Not on filedocumented in this encounter Care Teams Putty Worker Relationship Specialty Start Date End Date Unassigned, Provider PCP - General 07/06/00 04/18/[address] [place] [address] documented as of this encounter
--- OUTSIDE RECORDS SUMMARY | 2022-08-06 08:35 | XMS_ITS | Encounter Summary ---
:1960 Author Organization [facility] Address [address] [address] Care Team Providers Name Role Phone Unassigned, Provider Primary Care Provider Unavailable Encounter Details Date Type Department Care Team Description 11/15/1996 PN Conversion Only [facility], Nose, Ayre, Gigi H III, and Throat [address] [phone] [address] (Wo rk) Social History Tobacco Use Types Packs/Day Years Used Date Smoking Tobacco: Never Assessed Sex Assigned at Date Recorded Not on file documented as of this encounter Progress Notes Conversion, [facility] - 11/15/1996 12:01 AM CST Progress Notes signed by at 07/21/98 7201 Author: Jacqui Conversion Service: (none) Author Type: (none) Filed: 01/19/11 5678 Note Time: 11/15/96 0001 Status: Signed Tree And Shrub Worker: Jacqui Conversion IMPRESSION: Postop endoscopic sinus surgery [...] improve. cc: Nina Cross MD [facility] [address] [place] [phone] [facility] SCHEDULED RESOURCE: GIGI PEREZ / Electronically signed by [facility] at 08/25/2016 11:50 AM MIDDLE SCHOOL SCIENCE TEACHER Conversion, [facility] - 10/29/1996 12:01 AM CST Progress Notes signed by at 07/21/98 3951 Author: [facility] Conversion Service: (none) Author Type: (none) Filed: 01/19/112202 Note Time: 10/29/96 0001 Status: Signed Tree And Shrub Worker: Jacqui Cerda IMPRESSION: Good early result, status [...] antibiotics. Return to clinic in 2-3 weeks. [facility] SCHEDULED RESOURCE: GIGI PEREZ MD Electronically signed by [facility] at 08/25/2016 11:50 AM MIDDLE SCHOOL SCIENCE TEACHER Conversion, [facility] - 10/08/1996 12:01 AM CST Progress Notes signed by at 07/21/98 7588 Author: [facility] Conversion Service: (none) Author Type: (none) Filed: 01/19/11 2149 Note Time: 10/08/96 0001 Status: Signed Tree And Shrub Worker: Jacqui Conversion IMPRESSION: Chronic rhinitis with possible [...] future. cc: Nina Cross MD [facility] [address] [place] [address] [facility] SCHEDULED RESOURCE: GIGI PEREZ MD LE SCHOOL SCIENCE TEACHER documented in this encounter Plan of Treatment Not on filedocumented as of this encounter Visit Diagnoses Not on filedocumented in this encounter Care Teams Jowl Trimmer Relationship Specialty Start Date End Date Unassigned, Provider PCP - General 07/06/00 04/18/[address] [place] [address] documented as of this encounter
--- OUTSIDE RECORDS SUMMARY | 2022-08-06 08:35 | XMS_ITS | Encounter Summary ---
:1960 Author Organization [facility] Address [address], [place] [address] Care Team Providers Name Role Phone Unassigned, Provider Primary Care Provider Unavailable Encounter Details Date Type Department Care Team Description 08/31/2004 PN Conversion Only TERMINAL MANAGER [address] [place] [address] Social History Tobacco Use Types Packs/Day Years Used Date Smoking Tobacco: Never Assessed Sex Assigned at Date Recorded Not on file documented as of this encounter Plan of Treatment Not on filedocumented as of this encounter Visit Diagnoses Not on filedocumented in this encounter Care Teams Customer Professional Relationship Specialty Start Date End Date Unassigned, Provider PCP - General 07/06/00 04/18/[address] [place] [address] documented as of this encounter
--- OUTSIDE RECORDS SUMMARY | 2022-08-06 08:35 | XMS_ITS | Encounter Summary ---
:1960 Author Organization [facility] Address [address] [address] Care Team Providers Name Role Phone Unassigned, Provider Primary Care Provider Unavailable Encounter Details Date Type Department Care Team Description 08/31/2004 Office Visit [facility] [address] Clinic [address] [place] [address] [place], [place] [phone] Social History Tobacco Use Types Packs/Day Years Used Date Smoking Tobacco: Never Assessed Sex Assigned at Date Recorded Not on file documented as of this encounter Plan of Treatment Not on filedocumented as of this encounter Visit Diagnoses Not on filedocumented in this encounter Care Teams Music Worker Relationship Specialty Start Date End Date Unassigned, Provider PCP - General 07/06/00 04/18/[address] [place] [address] documented as of this encounter
--- OUTSIDE RECORDS SUMMARY | 2022-08-06 08:35 | XMS_ITS | Encounter Summary ---
:1960 Author Organization [facility] Address [address], [place] [address] Care Team Providers Name Role Phone Unassigned, Provider Primary Care Provider Unavailable Encounter Details Date Type Department Care Team Description 02/06/2009 Office Visit [facility] [address] Clinic [address] [place] [address] [place], [place] [phone] [id number] Social History Tobacco Use Types Packs/Day Years Used Date Smoking Tobacco: Never Assessed Sex Assigned at Date Recorded Not on file documented as of this encounter Progress Notes Blessing Thacker RN - 02/06/2009 12:01 AM CDT Progress Notes signed by Blessing Thacker RN at 02/06/09 1512 Author: Blesisng Thacker RN Service: (none) Author Type: Registered Nurse Filed: 02/06/09 0000 Note Time: 02/06/09 0001 Status: Signed Student Development Specialist: Blessing Thacker RN (Registered Nurse) Travel Clinic [...] apt 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
--- OUTSIDE RECORDS SUMMARY | 2022-08-06 08:35 | XMS_ITS | Encounter Summary ---
:1960 Author Organization [facility] Address [address], [place] [address] Care Team Providers Name Role Phone Unassigned, Provider Primary Care Provider Unavailable Encounter Details Date Type Department Care Team Description 08/15/1996 PN Conversion Only RESTORATIONISM CONVERSION Michael Cross MD [address], [place] [address] Social History Tobacco Use Types Packs/Day Years Used Date Smoking Tobacco: Never Assessed Sex Assigned at Date Recorded Not on file documented as of this encounter Plan of Treatment Not on filedocumented as of this encounter Procedures Procedure Name Priority Date/Time Associated Comments Diagnosis CONVERSION DEFAULT Routine 08/15/1996 3:05 PM Res ults for this INTERFACE ORDER MAMMALOGY TEACHER procedure ar e in the results section. CONVERSION DEFAULT Routine 08/15/1996 3:05 PM Res ults for this INTERFACE ORDER MAMMALOGY TEACHER procedure ar e in the results section. documented in this encounter Results Conversion Default Interface Order (08/15/1996 3:05 PM MAMMALOGY TEACHER) P athologist Signature Cholesterol 192 125 199MG/D [...] / / Volume Laterality 08/15/1996 3:05 PM MAMMALOGY TEACHER Michael Cross MD LAB_1 Performing Organization Address City/State/ZIP Code Phon e Number HP CONVERSION Conversion Default Interface Order (08/15/1996 3:05 PM MAMMALOGY TEACHER) P athologist Signature Thyroid 0.94 0.40 HP CONVERSION Stimulating 5.00uIU/ Hormone ML Specimen (Source) Anatomical Collection Method Collection Time Re ceived Time Location / / Volume Laterality 08/15/1996 3:05 PM MAMMALOGY TEACHER Michael Cross MD LAB_1 Performing Organization Address [facility] Phon e Number HP CONVERSION documented in this encounter Visit Diagnoses Not on filedocumented in this encounter Care Teams Stage Driver Relationship Specialty Start Date End Date Unassigned, Provider PCP - General 07/06/00 04/18/[address] [place] [id number] documented as of this encounter
--- OUTSIDE RECORDS SUMMARY | 2022-08-06 08:35 | XMS_ITS | Encounter Summary ---
:1960 Author Organization [facility] Address [address] [address] Care Team Providers Name Role Phone Unassigned, [...] filedocumented in this encounter Care Teams Pharmacist In Charge Owner Relationship Specialty Start Date End Date Unassigned, Provider PCP - General 07/06/00 04/18/[address] [place] [phone] documented as of this encounter
--- OUTSIDE RECORDS SUMMARY | 2022-08-06 08:35 | XMS_ITS | Encounter Summary ---
:1960 Author Organization [facility] Address [address], [place] [address] Care Team Providers Name Role Phone Unassigned, Provider Primary Care Provider Unavailable Encounter Details Date Type Department Care Team Description 10/22/2005 PN Conversion Only STAFF READINESS OFFICER [address] [place] [address] Social History Tobacco Use Types Packs/Day Years Used Date Smoking Tobacco: Never Assessed Sex Assigned at Date Recorded Not on file documented as of this encounter Plan of Treatment Not on filedocumented as of this encounter Visit Diagnoses Not on filedocumented in this encounter Care Teams Rn Clinical Documentation Specialist Relationship Specialty Start Date End Date Unassigned, Provider PCP - General 07/06/00 04/18/[address] [place] [id number] documented as of this encounter
--- OUTSIDE RECORDS SUMMARY | 2022-08-06 08:35 | XMS_ITS | Encounter Summary ---
:1960 Author Organization [facility] Address [address] [address] Care Team Providers Name Role Phone Unassigned, Provider Primary Care Provider Unavailable Encounter Details Date Type Department Care Team Description 02/02/2008 Office Visit [facility] [address] Marilyn Cross MD Clinic [address] [place] [address] [place] [address] [phone] Social History Tobacco Use Types Packs/Day Years [...] 0000 Note Time: 02/02/08 0001 Status: Signed Fish Stringer Assembler: Aminta Gardiner RN (Registered Nurse) Travel Clinic Initial Visit Patient is seen in Travel Clinic individually for travel education and counseling. TRAVEL PLANS Patient states they are planning to travel to: [facility], [facility] [place] [facility] and nearby areas. 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 HEALTH HISTORY : Patient states she [...] on filedocumented in this encounter Care Teams Gear Room Keeper Relationship Specialty Start Date End Date Unassigned, Provider PCP - General 07/06/00 04/18/[address] [place] [phone] documented as of this encounter
[2022-08-06 11:07] LABS: Albumin* 4.3 g/dL (3.3-5.0)
[2022-08-06 11:10] LABS: Alanine Aminotransferase* 40 U/L (4-35); Alkaline Phosphatase* 50 U/L (40-150); Aspartate Amino Transferase* 55 U/L (12-35); Bilirubin Direct* 0.1 mg/dL (0.0-0.5); Bilirubin Total* 0.5 mg/dL (0.1-1.5); Gamma Glutamyl Transpeptidase* 62 U/L (8-55)
[2022-08-08 01:35] LABS: Alpha-1-Antitrypsin 141 mg/dL (90-200); Ceruloplasmin 24 mg/dL (16-45)
== END 2022-08-06 08:28 | disposition home or self-care (01) ==
PROVIDERS: PCP Family Medicine; Visit Provider Family Medicine
DX: R79.89 Other specified abnormal findings of blood chemistry (principal); E80.6 Other disorders of bilirubin metabolism; E78.5 Hyperlipidemia, unspecified; K76.0 Fatty (change of) liver, not elsewhere classified
CPT/HCPCS: 80076; 82103; 82390; 82728; 82977; 83516; 84443

== ENCOUNTER 2022-10-08 13:27 | Outpatient (CLI) | payer BC, SELFPAY ==
--- NOTE | 2022-10-08 13:40 | CRLHL7_ITS ---
For Patients: As a result of the Century Cures Act, medical imaging exams and procedure reports are released immediately into your electronic medical record. You may view this report before your referring provider. If you have questions, please contact your health care provider. BILATERAL SCREENING MAMMOGRAM WITH COMPUTER-AIDED DETECTION AND TOMOSYNTHESIS TECHNIQUE: CC and MLO views were obtained. These mammographic images have been obtained using full-field digital technique. These mammographic images were interpreted with the benefit of computer-aided detection. Breast Tomosynthesis was used in this interpretation. COMPARISON FILM: 04/15/21, 04/07/20, 03/12/19. FINDINGS: The breasts are heterogeneously dense, which may obscure small masses IMPRESSION: There is no radiographic evidence for malignancy. ASSESSMENT: BI-RADS Category 1: Negative RECOMMENDATION: Routine screening mammogram in 1 year. A lay language report of this examination will be provided to the patient. Michael Edgar M.D. Diagnostic Radiologist [email or web address] Transcribed: 2:37 p.mCeleste lorenzo/Dictated by: Michael Edgar MD @ 10/11/2022 12:40:00 PM (Electronically Signed)
== END 2022-10-08 13:28 | disposition home or self-care (01) ==
LOC: MAMMO 13:28
PROVIDERS: PCP Family Medicine; Visit Provider Family Medicine
DX: Z12.31 Encounter for screening mammogram for malignant neoplasm of breast (principal); R92.2 Inconclusive mammogram
CPT/HCPCS: 77063; 77067